=== PATIENT | female | born 1945 | race Caucasian/White ===

== ENCOUNTER 2018-11-28 15:40 | Outpatient (RCR) | payer MEDICARE, SELFPAY ==
[2018-11-28 17:05] LABS: Absolute Lymphocyte Count 1.02 X10^3/ul (0.83-4.51); Absolute Neutrophil Count 4.3 X10^3/uL (2.0-7.7); Basophil# 0.02 X10^3/uL; Basophil% 0.3 % (0-1); Eosinophil# 0.12 X10^3/uL; Hematocrit 30.2 % (37-47); Hemoglobin 9.5 g/dl (12.0-15.0); Lymphocyte # 1.02 X10^3/ul (4.0); Lymphocyte % 17.4 % (19-41); Mean Corp Hgb Conc 31.5 g/gl (32-36); Mean Corpuscular Hgb 29.7 pg (27.0-32.0); Mean Corpuscular Volume 94.4 fL (81-99); Monocyte# 0.41 X10^3/uL; Neutrophil # 4.27 X10^3/uL (2.7-7.7); POSITIVE COUNT NO; POSITIVE DIFFERENTIAL NO; POSITIVE MORPHOLOGY NO; Platelet Count 168 K/mm3 (150-450); RBC Distribution Width SD 58.5 fl (35.1-43.9); White Blood Count 5.9 K/mm3 (4.4-11.0)
[2018-11-28 17:16] LABS: Creatinine, Serum 0.71 mg/dL (0.55-1.02); EST Glomerular Filtration Rate 85 mL/min (>60); Est Glom Filt Rate - Afr Amer 103 mL/min (>60); Potassium 4.6 mmol/L (3.5-5.1)
== END 2018-12-09 23:59 ==
LOC: HHLAB 15:40
DX: Z48.816 Encounter for surgical aftercare following surgery on the genitourinary system (principal); Z46.6 Encounter for fitting and adjustment of urinary device
CPT/HCPCS: 82565; 84132; 85025

== ENCOUNTER → 2018-12-08 12:46 | Outpatient (CLI) | payer MEDICARE, SELFPAY ==
[2018-12-08 13:39] LABS: Color, Urine Amber (Yellow); Glucose, Dipstick Normal (Normal); Ketone-Dipstick 15 mg/dl (Negative); Leukocyte Esterase-Dipstick 500 /ul (Negative); Nitrite-Dipstick Negative (Negative); Occult Blood-Urine 250 /ul (Negative); Protein-Dipstick 500 mg/dl (Negative); Specific Gravity, Urine 1.015 (1.002-1.030); Urine Clarity Turbid (Clear); Urine Urobilinogen 1 mg/dl (Normal); Urine pH 6.5 (5.0 - 8.0)
[2018-12-08 13:40] LABS: Urine Bilirubin Dipstick 1 mg/dL (Negative)
== END ==
DX: N39.0 Urinary tract infection, site not specified (principal)
CPT/HCPCS: 81002; 87086; 87088

== ENCOUNTER 2018-12-27 08:30 | Emergency (ER) | payer MEDICARE, OTHER, SELFPAY ==
[2018-12-27 08:31] VITALS: BP 164/80; PULSE 104; RESP 18; TEMP 36.7; O2SAT 99; BMI 26.6
--- NOTE | 2018-12-27 08:51 | CT_ITS ---
STUDY: CT ABDOMEN AND PELVIS WITH CONTRAST REASON FOR EXAM: Female, 73 years old. Abdominal pain, recent renal surgery and lithotripsy. RADIATION DOSAGE (If Supplied By Facility): CTDIvol = ( 19.71 ) mGy, DLP = ( 2171.53 ) mGycm TECHNIQUE: Transaxial images were obtained from the dome of the diaphragm to the symphysis pubis without oral contrast. 100mL IV/Oral Isovue 300 was administered. Sagittal and coronal images were reconstructed. Individualized dose optimization techniques were used for this CT. COMPARISON: CT abdomen and pelvis 07/03/2014. FINDINGS: 3 mm posterior right lower lobe nodule on series 2 image 2. There is mild bibasilar atelectasis and/or scarring.. The visualized portions of the heart are within normal limits. There is decreased attenuation of the liver consistent with steatosis. There are surgical clips in the gallbladder fossa consistent with a prior cholecystectomy. Normal spleen. Normal pancreas. Normal bilateral adrenal glands. There is marked right hydroureteronephrosis, the point of obstruction appears to be the right distal ureter as it courses between the urinary bladder and a markedly distended, stool-filled rectum. There is mild diffuse right ureteral urothelial wall thickening. There is moderate left hydroureteronephrosis without apparent cause of obstruction. There is a nonobstructing 4 mm left renal midpole stone. Contrast is seen layering in the dilated calyces and renal pelvis on delayed imaging without excretion into the ureters or urinary bladder. The nephrograms are symmetric. There is a large hiatal hernia composed mostly of the fundus of the stomach. Normal small intestine. There is marked rectal fecal impaction and dilatation of the rectum. Colonic diverticulosis without evidence of acute diverticulitis.. The appendix is visualized and appears normal. There is diffuse atherosclerotic calcification of the abdominal aorta, without a demonstrated aneurysm. Normal inferior vena cava. Normal retroperitoneum. Normal urinary bladder. Normal abdominal wall. There is dextroscoliosis of the lumbar spine. Degenerative disc disease. CT/Abdomen/Pelvis WITH Contrast IMPRESSION: 1. Marked right hydroureteronephrosis, the point of obstruction appears to be the right distal ureter as it courses between the urinary bladder and a markedly distended, stool-filled rectum. There is mild diffuse right ureteral urothelial wall thickening suggesting ascending infection. 2. There is moderate left hydroureteronephrosis without apparent cause of obstruction. There is a nonobstructing 4 mm left renal midpole stone. Contrast is seen layering in the dilated calyces and renal pelvis bilaterally on delayed imaging without excretion into the ureters or urinary bladder again consistent with obstructive uropathy. 3. 3 mm right lower lobe nodule. 4. Large hiatal hernia. Electronically Signed: Jazmyne England, at 12:28 EDT Tel , Service support ,
--- NOTE | 2018-12-27 09:18 | RAD_ITS ---
STUDY: X-RAY - RIGHT KNEE REASON FOR EXAM: Female, 73 years old. Anterior pain following injury. TECHNIQUE: 4 view(s) of the knee. COMPARISON: None. FINDINGS: Normal visualized distal femur. Deformity of the proximal shaft of the fibula with expansion. This measures 1.4 cm x 2.1 cm. This most likely represents an old injury. If there is no history of old injury, further assessment should be considered. Norrmal proximal tibiofibular articulation. There is mild degenerative arthrosis of the medial femorotibial compartment. Normal lateral femorotibial compartment. There is moderate degenerative arthrosis of the patellofemoral articulation. The soft tissue structures are unremarkable. RAD/Knee 4 or More Views IMPRESSION: Degenerative arthrosis. 1.4 cm x 2.1 cm expansile deformity in the proximal shaft of the fibula as described. Electronically Signed: Jass Le, at 9:53 EDT , Service support ,
[2018-12-27] MEDS: Ondansetron 4 MG/2 ML Vial IV (09:20)
[2018-12-27] MEDS: 0.9% Normal Saline 1,000 ML 1000 ML IV (09:20)
[2018-12-27] MEDS: Morphine 4 MG/ML Syringe IV ×3 (09:20→19:04)
[2018-12-27 09:48] VITALS: BP 169/64; PULSE 78; RESP 18; O2SAT 98
--- NOTE | 2018-12-27 09:52 | ED.RN ---
UNABLE TO DRAW BLOOD WITH IV. MEDIC ATTEMPTED TO DRAW BLOOD NO SUCCESS. LAB TO COME UP AND DRAW BLOOD.
[2018-12-27 10:09] LABS: ALB/GLOB Ratio 0.6 RATIO (0.9-2.4); AST(SGOT) 58 U/L (15-37); Alanine Aminotransfer ALT/SGPT 24 U/L (13-56); Albumin, Serum 2.4 g/dL (3.2-5.0); Alkaline Phosphatase 359 U/L (45-117); Anion Gap 8 (5-15); BUN 12 mg/dL (7-18); BUN/Creat Ratio 18.1 RATIO (10-20); Calcium,Total 8.4 mg/dL (8.5-10.1); Chloride 107 mmol/L (98-107); Creatinine, Serum 0.66 mg/dL (0.55-1.02); EST Glomerular Filtration Rate 92 mL/min (>60); Est Glom Filt Rate - Afr Amer 112 mL/min (>60); Globulin 3.9 g/dL (2.2-4.2); Glucose 125 mg/dL (74-106); Lipase 49 U/L (73-393); Potassium 3.9 mmol/L (3.5-5.1); Protein, Total 6.3 g/dL (6.4-8.2); Sodium Level 141 mmol/L (136-145)
[2018-12-27 10:19] LABS: Absolute Lymphocyte Count 0.87 X10^3/ul (0.83-4.51); Basophil# 0.02 X10^3/uL; Basophil% 0.2 % (0-1); Eosinophil# 0.02 X10^3/uL; Eosinophils% 0.2 % (0-5); Hematocrit 36.5 % (37-47); Hemoglobin 11.6 g/dl (12.0-15.0); Lymphocyte # 0.87 X10^3/ul (4.0); Lymphocyte % 9.1 % (19-41); Mean Corp Hgb Conc 31.8 g/gl (32-36); Mean Corpuscular Hgb 30.4 pg (27.0-32.0); Mean Corpuscular Volume 95.8 fL (81-99); Mean Platelet Vol. 9.6 fl (6.2-12.0); Monocyte# 0.67 X10^3/uL; Neutrophil # 7.97 X10^3/uL (2.7-7.7); Neutrophil % 83.3 % (47-70); Platelet Count 161 K/mm3 (150-450); RBC Distribution Width SD 58.6 fl (35.1-43.9); Red Blood Count 3.81 M/mm3 (4.2-5.4); White Blood Count 9.6 K/mm3 (4.4-11.0)
[2018-12-27 10:22] LABS: POSITIVE COUNT NO; POSITIVE DIFFERENTIAL NO; POSITIVE MORPHOLOGY NO
--- NOTE | 2018-12-27 10:32 | ED.DCSUM_ITS ---
- ER Visit Summary Date of Service: 12/27/18 Chief Complaint: [Abdominal pain] History of Present Illness: The patient is a 73 F [presents with abdominal discomfort for 2 days. Patient states that she has not been feeling well for quite some time. Patient had decreased appetite and just generally feels weak. Patient states that she has not had a bowel movement in 5 to 6 days. She states she really has not eaten very much in the last week. Patient feels like she needs to have a bowel movement but cannot. Patient had magnesium citrate called in yesterday by her primary care physician but has had no results with it. She denies any fevers. Patient states that in November she had surgery to reposition her left ureter and subsequently developed sepsis and was on antibiotics. Patient still feels like she might have a urinary tract infection and that she has dysuria. She denies frequency or urgency. She denies hematuria. Patient has history of kidney stones. Patient has history of prior appendectomy, cholecystectomy, and hysterectomy.] Physical Examination: [HEENT-PERRLA, EOMI. Cranial nerves II through XII grossly intact. TMs clear. Mucous membranes moist. No adenopathy. Cardiovascular-regular rate and rhythm without murmur or ectopy Lungs-clear to auscultation, chest wall stable without crepitus or subcu emphysema Abdomen-normoactive bowel sounds, soft. Patient has diffuse tenderness palpation of the lower abdomen in the right lower quadrant, suprapubic, and left lower quadrant. There is some mild guarding. There is no rebound, rigidity, or perineal signs. Rectal exam-there is large amount of stool within the rectal vault that appears to be soft. I attempted to disimpact the patient however she does not tolerate this. Extremities-intact ?4, normal range of motion, normal pulses, atraumatic] Test Results: [CBC with differential obtained showed a white count of 9.6, hemoglobin 11.6, hematocrit 36, platelets 161. Chemistries unremarkable. BUN was 12 and creatinine 0.66. Alk phos was elevated 359. ALT was 24, AST 58, lipase 49.] Urinalysis was positive for infection with 500 leukocyte esterase, 50-[address] scan of the abdomen pelvis showed bilateral hydro-nephrosis right greater than left with concern for obstruction in the lower pelvis near the bladder due to rectal impaction. Also concern for a sending infection given the thickened ureter. Emergency Department Course and Treatment: [Patient was given Rocephin 1 g IV. I ordered a soapsuds enema. Patient was medicated with morphine and Zofran for continued pain. Patient case was discussed with hospitalist who then discussed the case with urology and asked that we transfer patient to [facility] where she had her recent surgery. Patient case will be discussed with the [facility] and arrangements will be made to transfer patient to [facility] for definitive care.] Treatment Plan: [Admit for further management] Disposition: Transfer to [facility]] Impression: [UTI Hydronephrosis Rectal impaction] This note was generated with [employer] dictation software. It may contain incorrect words, spelling, and punctuation that were not noted in review of the chart prior to signing ED Disposition - Plan for ED Patient: Referrals: [facility] Doctor,Out of [Primary Care Provider] -
[2018-12-27 10:42] LABS: Lactic Acid 2.3 mmol/L (0.4-2.0)
[2018-12-27 10:56] LABS: Mucous, Urine 0 SEEN /hpf (<or=2+)
[2018-12-27 10:57] LABS: Color, Urine Yellow (Yellow); Glucose, Dipstick Normal (Normal); Ketone-Dipstick 5 mg/dl (Negative); Leukocyte Esterase-Dipstick 500 /ul (Negative); Nitrite-Dipstick Negative (Negative); Occult Blood-Urine 250 /ul (Negative); Protein-Dipstick 30 mg/dl (Negative); Urine Clarity Cloudy (Clear); Urine Urobilinogen 8 mg/dl (Normal)
[2018-12-27 11:03] LABS: Urine Bilirubin Dipstick 3 mg/dL (Negative)
[2018-12-27 11:05] LABS: Red Blood Cells-Urine 25-50 SEEN /hpf (0-5)
[2018-12-27 11:06] LABS: White Blood Cells 50-100 SEEN /hpf (0-5)
[2018-12-27 11:07] LABS: Bacteria 2+ /hpf (None Seen); Squamous Epithelial Cells - UA 0-5 SEEN /hpf (5-10)
[2018-12-27 11:57] VITALS: BP 126/58; PULSE 67; RESP 18; TEMP 36.6; O2SAT 97
[2018-12-27] MEDS: Ceftriaxone 1 GM/50 ML BAG IV (11:57)
--- NOTE | 2018-12-27 13:05 | NURSING ---
DR FERRELL FOR DR RODRIGUEZ
--- NOTE | 2018-12-27 14:00 | NURSING ---
CALLED [facility] TALKED, TO CHRISTIANO IN TRANSFER
[2018-12-27 14:13] LABS: Reflex Lactate? Y
--- NOTE | 2018-12-27 14:46 | NURSING ---
CALLED [facility] TRANSFER LINE. TALKED TO TAMJavi. HE HAS PAGED MEDICINE TWICE. WAITING ON THEM TO RETURN CALL
--- NOTE | 2018-12-27 15:19 | NURSING ---
ACCEPTED BY DR CLEANING, WAITING ON ROOM
[2018-12-27 16:54] LABS: Lactic Acid 1.8 mmol/L (0.4-2.0)
--- NOTE | 2018-12-27 16:55 | NURSING ---
CALLED [facility], TALKED TO BECCA. NO BED YET
[2018-12-27 19:04] VITALS: BP 112/53; PULSE 83; RESP 17; O2SAT 97
[2018-12-27 21:05] VITALS: BP 115/83; PULSE 84; RESP 18; O2SAT 96
[2018-12-27 21:06] VITALS: BP 115/83; PULSE 84; RESP 18; O2SAT 96
== END 2018-12-27 21:54 | disposition short-term general hospital (02) ==
PROVIDERS: Emergency Provider Emergency Medicine
DX: N39.0 Urinary tract infection, site not specified (principal); N13.30 Unspecified hydronephrosis; K59.00 Constipation, unspecified; Z87.442 Personal history of urinary calculi; Z90.49 Acquired absence of other specified parts of digestive tract
CPT/HCPCS: 36415; 73564; 74177; 80053; 81001; 83605; 83690; 85025; 87086; 87088; 96361; 96365; 96375; 96376; 99285; J7030; J7050; Q9967; A4216; J2405

== ENCOUNTER → 2019-01-30 13:34 | Outpatient (CLI) | payer MEDICARE, OTHER, SELFPAY ==
[2019-01-30 14:04] LABS: Creatinine, Serum 0.83 mg/dL (0.55-1.02); EST Glomerular Filtration Rate 72 mL/min (>60); Est Glom Filt Rate - Afr Amer 87 mL/min (>60)
== END ==
PROVIDERS: Referring Provider Physician Assistant; Visit Provider Physician Assistant
DX: N28.9 Disorder of kidney and ureter, unspecified (principal)
CPT/HCPCS: 36415; 82565

== ENCOUNTER 2019-04-25 02:00 | Emergency (ER) | payer MEDICARE, OTHER, SELFPAY ==
[2019-04-25] VITALS (14 sets, daily range): BP systolic 99–148; BP diastolic 40–63; PULSE 84–107; RESP 16–98; TEMP 37.2–38.8; O2SAT 94–99; BMI 29.0
[2019-04-25] MEDS: Ondansetron 4 MG/2 ML Vial IV (02:57)
[2019-04-25] MEDS: Morphine 4 MG/ML Syringe IV ×3 (02:57→09:17)
[2019-04-25 03:29] LABS: Mucous, Urine 0 SEEN /hpf (<or=2+)
[2019-04-25 03:33] LABS: Absolute Lymphocyte Count 0.41 X10^3/uL (0.83-4.51); Absolute Neutrophil Count 10.9 X10^3/uL (2.0-7.7); Basophil# 0.03 X10^3/uL; Basophil% 0.2 % (0-1); Eosinophil# 0.01 X10^3/uL; Eosinophils% 0.1 % (0-5); Hematocrit 34.2 % (37-47); Hemoglobin 10.8 g/dL (12.0-15.0); Lymphocyte # 0.41 X10^3/ul (4.0); Lymphocyte % 3.3 % (19-41); Mean Corp Hgb Conc 31.6 g/dL (32-36); Mean Corpuscular Hgb 30.5 pg (27.0-32.0); Mean Corpuscular Volume 96.6 fL (81-99); Monocyte# 0.88 X10^3/uL; Monocyte% 7.2 % (0-10); NRBC Flagged by Analyzer 0 % (0-5); Neutrophil # 10.87 X10^3/uL (2.7-7.7); Neutrophil % 88.5 % (47-70); POSITIVE DIFFERENTIAL YES; Platelet Count 114 K/mm3 (150-450); RBC Distribution Width CV 16.4 % (11.6-14.6); RBC Distribution Width SD 58.8 fl (35.1-43.9); Red Blood Count 3.54 M/mm3 (4.2-5.4); White Blood Count 12.3 K/mm3 (4.4-11.0)
[2019-04-25] MEDS: Acetaminophen 500 MG Tablet 1000 MG PO (03:33)
[2019-04-25] MEDS: 0.9% Normal Saline 1,000 ML 250 ML IV ×2 (03:35→07:42)
[2019-04-25 03:37] LABS: Differential Indicated SCAN CRITERIA MET
[2019-04-25 03:40] LABS: Color, Urine Yellow (Yellow); Glucose, Dipstick Normal (Normal); Ketone-Dipstick Negative (Negative); Leukocyte Esterase-Dipstick 500 /ul (Negative); Nitrite-Dipstick Negative (Negative); Occult Blood-Urine 150 /ul (Negative); Protein-Dipstick 30 mg/dl (Negative); Specific Gravity, Urine 1.015 (1.002-1.030); Urine Bilirubin Dipstick Negative (Negative); Urine Clarity Cloudy (Clear); Urine Urobilinogen 4 mg/dl (Normal); Urine pH 6.5 (5.0 - 8.0)
[2019-04-25 03:41] LABS: Bacteria 2+ /hpf (None Seen); Red Blood Cells-Urine 0-5 SEEN /hpf (0-5); Squamous Epithelial Cells - UA 0-5 SEEN /hpf (5-10); White Blood Cells 50-100 SEEN /hpf (0-5)
[2019-04-25 03:48] LABS: Differential Comment SCANNED
[2019-04-25 03:50] LABS: ALB/GLOB Ratio 0.7 RATIO (0.9-2.4); AST(SGOT) 79 U/L (15-37); Alanine Aminotransfer ALT/SGPT 22 U/L (13-56); Albumin, Serum 2.8 g/dL (3.2-5.0); Alkaline Phosphatase 321 U/L (45-117); Anion Gap 6 (5-15); BUN 13 mg/dL (7-18); BUN/Creat Ratio 11.6 RATIO (10-20); Calcium,Total 8.5 mg/dL (8.5-10.1); Chloride 107 mmol/L (98-107); Creatinine, Serum 1.12 mg/dL (0.55-1.02); EST Glomerular Filtration Rate 50 mL/min (>60); Est Glom Filt Rate - Afr Amer 61 mL/min (>60); Estimated Creatinine Clearance 41.25 ml/min; Glucose 142 mg/dL (74-106); Potassium 5.9 mmol/L (3.5-5.1); Protein, Total 6.8 g/dL (6.4-8.2); Sodium Level 141 mmol/L (136-145)
[2019-04-25 03:51] LABS: Lactic Acid 3.3 mmol/L (0.4-2.0)
--- NOTE | 2019-04-25 04:00 | EKG12_ITS ---
Test Reason : NAUSEA/VOMITING Blood Pressure : / mmHG Vent. Rate : 096 BPM Atrial Rate : 096 BPM P-R Int : 152 ms QRS Dur : 082 ms QT Int : 376 ms P-R-T Axes : 051 055 041 degrees QTc Int : 475 ms Normal sinus rhythm Nonspecific ST and T wave abnormality Abnormal ECG Confirmed by NEIDA DUMONT, ROBERT ([id number]), film or videotape editor LAURENCE LOU ([id number]) on 04/26/2019 9:01:19 AM Referred By: CATRACHITA Confirmed By:ROBERT CARRASQUILLO MD
--- NOTE | 2019-04-25 04:00 | ED.DCSUM_ITS ---
History of Present Illness Chief Complaint: Abd Pain Informant: Patient, Significant Other Onset: Today - Past 12 hours or so Context: Gradual Onset - After having left ureteral stent removed Timing: Continuous Quality: Achy Location: Left mid abdomen Current Severity: Moderate Maximum Severity: Moderate Worsened by: Nothing Relieved by: Nothing Associated Symptoms: Subjective fever/chills, nausea, hematuria without clots or retention Narrative: Patient had an 8 mm kidney stone on the left. She had surgery by Dr. Gonzalez urology at [facility] who remove the stone with a basket and placed a stent afterwards. It was removed today after 1 week. She had no pain when the stent was then, the pain started after it was removed today. She started having fevers and chills. She was on Keflex until yesterday. She states she has been on antibiotics for couple months. She denies any hematuria or back pain. - Past Medical History (1) Kidney stones Status: Chronic Past Medical History - Allergies and Home Meds Allergies/Adverse Reactions: Allergies Sulfa (Sulfonamide Antibiotics) Allergy (Verified 12/27/18 08:34) Swelling Primary Care Physician: Eagle Dang MD [Primary Care Provider] - Lives: Spouse/ Significant Other Smoking Status: Never smoker Review of Systems General: Reports: Chills, Fever, Malaise, Subjective. Denies: Sweats Eyes: Denies: Visual changes - bilaterally, Diplopia ENT: Denies: Rhinorrhea, Sore throat Cardiovascular: Denies: Chest pain, Palpitations Respiratory: Denies: Dyspnea, Cough, Dyspnea on exertion Gastrointestinal: Reports: Abdominal pain, Nausea. Denies: Vomiting, Diarrhea, Melena, Hematochezia Genitourinary: Reports: Hematuria, Frequency. Denies: Dysuria Musculoskeletal: Denies: Back pain, Extremity Pain Skin: Denies: Rash, Wounds Neurological: Denies: Headache, Weakness, Numbness Physical Exam Vital Signs/Narrative: Vital Signs Temp Pulse Resp BP Pulse Ox 04/25/19 03:22 97 04/25/19 03:02 101.2 F H 98 18 137/63 H 97 04/25/19 02:53 97 16 138/53 H 94 04/25/19 02:01 99.8 F H 106 H 16 148/49 H 96 Inital Vital Signs reviewed: Yes General: Well nourished, Well developed, No Acute Distress Head: Normocephalic, Atraumatic Eyes: Perrl, EOMI ENT: Moist mucous membranes, No rhinorrhea Neck: Supple, Nontender Cardiovascular: Regular rate, Regular rhythm, No murmurs, Tachycardia - Mild Respiratory: No distress, CTA bilaterally, Chest nontender Abdomen: Soft, Nondistended, Normal bowel sounds, Tender - Left mid abdomen. Negative for: Guarding, Rebound tenderness Back: Nontender, Normal Inspection. Negative for: CVA tenderness Extremities: Nontender, Edema - Trace bilateral lower extremity, distal pretibial, symmetric Skin: Normal color, No rash, No Trauma Neurological: Alert, Oriented x3, Cranial nerves II-XII grossly intact, Normal Strength, Normal Sensation Psychological: Normal affect, Normal Mood Diagnostic/Tx/Re-eval Impressions Abdomen/Pelvis CT 04/25/19 04:04 IMPRESSION: Severe left-sided hydronephrosis and hydroureter is worse since the previous study. Nonobstructing stones in the distal left ureter measuring respectively 4 mm and 2 mm. There are also nonobstructing stones in the left kidney largest measures 6 mm. Electronically Signed: Debbie Miller, at 5:22 EDT Tel , Service support , 04/25/19 04:04 CT Abd [Abdomen/Pelvis without Cont] [CT] Stat Laboratory Results 04/25/19 04/25/19 04/25/19 02:30 02:30 02:30 WBC 12.3 H RBC 3.54 L Hgb 10.8 L Hct 34.2 L MCV 96.6 MCH 30.5 MCHC 31.6 L RDW Std Deviation 58.8 H RDW Coeff of Shane 16.4 H Plt Count 114 L MPV 11.0 Immature Gran % (Auto) 0.700 Neut % (Auto) 88.5 H Lymph % (Auto) 3.3 L Whitman % (Auto) 7.2 Eos % (Auto) 0.1 Baso % (Auto) 0.2 Absolute Neuts (auto) 10.9 H Absolute Lymphs (auto) 0.41 L Nucleated RBC % 0 Differential Comment SCANNED PT INR APTT Sodium 141 Potassium 5.9 H Chloride 107 Carbon Dioxide 28.0 Anion Gap 6 BUN 13 Creatinine 1.12 H Estim Creat Clear Calc 41.25 Est GFR (MDRD) Af Amer 61 Est GFR (MDRD) Non-Af 50 L BUN/Creatinine Ratio 11.6 Glucose 142 H Lactic Acid 3.3 H Calcium 8.5 Total Bilirubin 0.90 AST 79 H ALT 22 Alkaline Phosphatase 321 H Total Protein 6.8 Albumin 2.8 L Globulin 4.0 Albumin/Globulin Ratio 0.7 L Urine Color Urine Clarity Urine pH Ur Specific [place] Urine Protein Urine Glucose (UA) Urine Ketones Urine Occult Blood Urine Nitrite Urine Bilirubin Urine Urobilinogen Ur Leukocyte Esterase Urine RBC Urine WBC Ur Squamous Epith Cells Urine Bacteria Urine Mucus 04/25/19 04/25/19 04/25/19 03:13 03:35 04:30 WBC RBC Hgb Hct MCV MCH MCHC RDW Std Deviation RDW Coeff of Shane Plt Count MPV Immature Gran % (Auto) Neut % (Auto) Lymph % (Auto) Whitman % (Auto) Eos % (Auto) Baso % (Auto) Absolute Neuts (auto) Absolute Lymphs (auto) Nucleated RBC % Differential Comment PT Cancelled 14.6 INR Cancelled 1.2 APTT Cancelled 35.0 Sodium Potassium Chloride Carbon Dioxide Anion Gap BUN Creatinine Estim Creat Clear Calc Est GFR (MDRD) Af Amer Est GFR (MDRD) Non-Af BUN/Creatinine Ratio Glucose Lactic Acid Calcium Total Bilirubin AST ALT Alkaline Phosphatase Total Protein Albumin Globulin Albumin/Globulin Ratio Urine Color Yellow Urine Clarity Cloudy Urine pH 6.5 Ur Specific [place] 1.015 Urine Protein 30 H Urine Glucose (UA) Normal Urine Ketones Negative Urine Occult Blood 150 H Urine Nitrite Negative Urine Bilirubin Negative Urine Urobilinogen 4 H Ur Leukocyte Esterase 500 H Urine RBC 0-5 SEEN Urine WBC 50-100 SEEN Ur Squamous Epith Cells 0-5 SEEN Urine Bacteria 2+ Urine Mucus 0 SEEN - Medical Decision Making Symptoms were controlled with morphine and Zofran. She was given IV fluids, and after urinalysis confirmed our suspicion of infection, IV Rocephin. Blood and urine cultures were sent first. Her lactate returned elevated but less than 4. She has a very slightly abnormal creatinine at 1.12, but her potassium is 5.9. It appears this is likely due to hemolysis. To confirm this, I obtained an EKG, and it indeed shows no acute signs of hyperkalemia. Therefore I did not feel that needed repeated. I performed a CT, it shows severe left-sided hydronephrosis and hydroureter, worse since the previous study, with nonobstructing stones in the distal left ureter measuring 4 mm and 2 mm with nonobstructing stones in the left kidney with the largest measuring 6 mm. On reevaluation, her symptoms are very well controlled and she is well-appearing. Given that she has stable vital signs and is not in septic shock, I do not think she needs an emergent percutaneous nephrostomy at this time. Since she already has a urologic surgeon who is at [facility], she prefers to stay with him for now, he does not have privileges here [place]. Therefore she will require transfer to [facility]. The [facility] hot pond operator had trouble contacting an attending urologist. 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 Still awaiting an attending urologist. I reevaluated patient clinically, she is doing very well with stable vital signs, the only abnormal one is a heart rate of 109. Accepted by Dr. Puente; was in surgery, hence the reasonable delay. ED Disposition - Plan for ED Patient: Disposition: [facility] - Main Diagnosis: Sepsis due to urinary tract infection, Hydroureter on left, Hydronephrosis, left, Nephrolithiasis, Ureterolithiasis Referrals: Eagle Dang MD [Primary Care Provider] -
--- NOTE | 2019-04-25 04:04 | CT_ITS ---
STUDY: CT ABDOMEN AND PELVIS WITHOUT CONTRAST REASON FOR EXAM: Female, 73 years old. LT FLANK PAIN,FEVER AND VOMITING S/P LT URETERAL STENT REMOVAL YESTERDAY HX:KIDNEY STONES,MELANOMA SURGERY:APPENDECTOMY,RAEANN/BSO,CHOLECYSTECTOMY,MULT STONE EXTRACTIONS AND LITHOTRIPSY RADIATION DOSAGE (If Supplied By Facility): CTDIvol = ( 11.54 ) mGy, DLP = ( 605.72 ) mGycm TECHNIQUE: Transaxial images were obtained from the dome of the diaphragm to the symphysis pubis without oral contrast, and without intravenous contrast. Sagittal and coronal images were reconstructed. Individualized dose optimization techniques were used for this CT. COMPARISON: 01/26/2019 FINDINGS: The visualized lung bases are unremarkable. The visualized portions of the heart are within normal limits. Normal liver. There are surgical clips in the gallbladder fossa consistent with a prior cholecystectomy. There is mild splenomegaly the spleen measures approximately 16.5 x 14 x 9 cm. Normal pancreas. Normal bilateral adrenal glands. Mild right-sided hydronephrosis and hydroureter is stable since the previous study. Severe left-sided hydronephrosis and hydroureter is worse since the previous study. Nonobstructing stones in the distal left ureter measuring respectively 4 mm and 2 mm. There are also nonobstructing stones in the left kidney largest measures 6 mm. There is a large hiatal hernia composed mostly of the fundus of the stomach. Normal small intestine. There are multiple colonic diverticula consistent with diverticulosis. The appendix is visualized and appears normal. Normal abdominal aorta. Normal inferior vena cava. Normal retroperitoneum. Normal urinary bladder. Normal abdominal wall. Normal osseous structures. CT/Abdomen/Pelvis without Cont IMPRESSION: Severe left-sided hydronephrosis and hydroureter is worse since the previous study. Nonobstructing stones in the distal left ureter measuring respectively 4 mm and 2 mm. There are also nonobstructing stones in the left kidney largest measures 6 mm. Electronically Signed: Debbie Miller, at 5:22 EDT Tel , Service support ,
--- NOTE | 2019-04-25 04:17 | ED.RN ---
notified of the pts lactic of 3.3
[2019-04-25] MEDS: Ceftriaxone 1 GM/50 ML BAG IV (04:25)
[2019-04-25 05:07] LABS: International Normalized Ratio 1.2; Prothrombin Time (Protime)PT. 14.6 SECONDS (11.7-14.9)
[2019-04-25] MEDS: Acetaminophen 325 MG Tablet 650 MG PO (06:12)
--- NOTE | 2019-04-25 07:14 | NURSING ---
CALLED [facility]. WAS ON HOLD FOR [address] HAYDEN OR [facility] SUPPORT MAKER DR. DAWSON TOOK INFO AND WILL CONTINUE TO PAGE
[2019-04-25 07:27] LABS: Reflex Lactate? Y
--- NOTE | 2019-04-25 08:13 | NURSING ---
CALLED [facility] FOR TRANSFER.
[2019-04-25 08:24] LABS: Lactic Acid 1.8 mmol/L (0.4-2.0)
--- NOTE | 2019-04-25 08:51 | NURSING ---
[facility] FAXED. CALLED [facility] TRANSFER LINE, TALKED TO GIORGI. DR MCKEON ACCEPTED PATIENT, WAITING ON BED
--- NOTE | 2019-04-25 08:53 | NURSING ---
[facility] BED G90 BED 36 NURSE TO NURSE [phone]
--- NOTE | 2019-04-25 09:11 | NURSING ---
CALLED [facility]. ETA IS FROM [facility] [place]
--- NOTE | 2019-04-27 15:16 | ED.RN ---
Blood culture results faxed to [facility].
== END 2019-04-25 09:45 | disposition short-term general hospital (02) ==
PROVIDERS: Emergency Provider Emergency Medicine; Family Provider Family Medicine; PCP Family Medicine
DX: A41.9 Sepsis, unspecified organism (principal); N13.6 Pyonephrosis; Z87.442 Personal history of urinary calculi
CPT/HCPCS: 74176; 80053; 81001; 83605; 85025; 85610; 85730; 87040; 87077; 87086; 87088; 87149; 87186; 93005; 96365; 96375; 96376; 99285; J7030; A4216; J2405

== ENCOUNTER 2019-04-30 16:10 | Inpatient (IN) | payer MEDICARE, OTHER, SELFPAY ==
[2019-04-25 02:01] VITALS: BMI 29.0
[2019-04-30 16:24] VITALS: BP 161/58; PULSE 99; RESP 22; TEMP 36.3; O2SAT 98
[2019-04-30 17:20] VITALS: BMI 34.9
[2019-04-30 17:23] VITALS: BMI 35.0
[2019-04-30] MEDS: Linezolid 600 MG Tablet PO (18:38)
[2019-04-30 20:05] VITALS: PULSE 80; RESP 16; O2SAT 98
[2019-04-30] MEDS: Atorvastatin Calcium 20 MG Tablet PO (20:44)
--- NOTE | 2019-04-30 20:44 | HP.PCM_ITS ---
Problem List (1) Debility Status: Acute (2) Septic shock Status: Acute (3) Body mass index (BMI) 35.0-35.9, adult Status: Chronic (4) Pyelonephritis Status: Acute (5) Hydroureter, left Status: Acute (6) Hydronephrosis, left Status: Acute (7) Hypertension Status: Chronic (8) Hyperlipidemia Status: Chronic (9) Kidney stones Status: Chronic History of Present Illness Date of Admission: 04/30/19 Chief Complaint: Here for rehabilitation, strengthening, prior to discharge home with . The patient is a 73 year old Female with below past medical history presented to [facility] Emergency Department 04/17/2019 with abdominal pain. 04/25/2019 EKG normal sinus rhythm, nonspecific ST&T wave abnormality. 04/25/2019 CT abdomen/pelvis showed severe left hydronephrosis, left hydroureter, non obstructing left kidney, left ureteral stone. Left kidney stone removed with stent placement per Dr. Gonzalez at [facility] recently. Pain, Fever, Chills. Morphine, Zofran, IV fluids given. UA consistent with infection, Rocephin IV given after blood, urine cultures sent. Transfer to [facility]. Fever 102. 04/25/2019 Admit to [facility]. Interventional Radiology placed left nephrostomy tube for emergent decompression. Blood culture grew Vancomycin resistant enterococcus. Urine culture grew Enterococcus Faecium. Zosyn IV changed to Daptomycin IV. 04/30/2019 Admit to TCU with debility, here for rehabilitation, strengthening, prior to discharge home with . Past Medical History Past Medical History (Chronic Problems): Chronic Problems Kidney stones (Chronic) Body mass index (BMI) 35.0-35.9, adult (Chronic) Hypertension (Chronic) Hyperlipidemia (Chronic) Allergies Sulfa (Sulfonamide Antibiotics) Allergy (Verified 12/27/18 08:34) Swelling Home Medications: Ambulatory Orders Medication Instructions Recorded Docusate Sodium [Colace] 100 mg PO BID PRN PRN 04/30/19 Ketorolac [Toradol] 10 mg PO Q6H 04/30/19 Linezolid [Zyvox] 600 mg PO Q12H 04/30/19 Ondansetron [Zofran Odt] 4 mg PO Q8H PRN PRN 04/30/19 Sennosides [Senna] 8.6 mg PO BID 04/30/19 Simvastatin [Zocor] 40 mg PO QHS 04/30/19 Surgical History: appendectomy, cholecystectomy, hysterectomy - Total abdominal., - - , Melanoma excision, Liver biopsy. 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 Lives: Spouse/ Significant Other Smoking Status: Never smoker Tobacco Use: Non-smoker Alcohol: None Drugs: None - *Family History Maternal History Items: No pertinent history Paternal History Items: No pertinent history Review of Systems Constitutional: Denies: Chills, Fever, Weight Change HEENT: Denies: Head Aches, Sinus Congestion, Sinus Drainage Cardiovascular: Denies: Chest Pain, Palpitations Respiratory: Denies: Cough, Shortness of breath at rest, Sputum production Gastrointestinal: Denies: Abdominal Pain, Nausea, Vomiting Genitourinary: Denies: Dysuria Musculoskeletal: Denies: Joint Pain, Joint Tenderness Skin: Denies: Rash, Wounds Neurological: Denies: Numbness, Tingling, Focal weakness Psychiatric: Denies: Anxiety, Depression, Homicidal Ideations, Suicidal Ideations Hematologic/ Lymphatic: Denies: Easy Bruising, Easy Bleeding VTE Information - Inpt Only VTE Present on Admission: No VTE Pharm Prophylaxis ordered?: Yes Patient Problems: Active and Suspected Problems Debility (Acute) Septic shock (Acute) Pyelonephritis (Acute) Hydroureter, left (Acute) Hydronephrosis, left (Acute) - Physical Exam General: Alert, Oriented x3, Cooperative HEENT: Atraumatic, PERRLA, EOMI, Normocephalic Neck: Supple, No JVD, Negative Carotid Bruits Lungs: Clear to auscultation, Normal air movement Cardiovascular: Regular rate, No murmurs Abdomen: Bowel Sounds Present, Soft, Non Tender, - - Left nephrostomy tube. Extremities: No edema, Capillary Refill Less than 3 Seconds Skin: No rashes, No breakdown Musculoskeletal: No Tenderness to Palpation of Joints or Extremities Neurological: Cranial nerves II-XII grossly intact Psych/Mental Status: Normal Affect, Appropriate Vital Signs Temp Pulse Resp BP Pulse Ox 97.4 F L 99 22 H 161/58 H 98 04/30/19 16:24 04/30/19 16:24 04/30/19 16:24 04/30/19 16:24 04/30/19 16:24 Oxygen Delivery Method Room Air Weight: 92.487 kg Body Mass Index (BMI) 34.9 Assessment/Plan All Active Problems Debility (Acute) Septic shock (Acute) Pyelonephritis (Acute) Hydroureter, left (Acute) Hydronephrosis, left (Acute) 73 year old female with below past medical history hospitalized for septic shock secondary to pyelonephritis from left kidney stone, admitted to TCU with tye malloy, here for rehabilitation, strengthening, prior to discharge home with . * Debility - PT/OT. * Pain - Tylenol 1000MG Q6H PRN pain (1-3), Toradol 10MG Q6H PRN pain (4-10) * Bowel - Miralax 17GM daily, Senna/colace 1 tablet BID, Dulcolax 10MG daily PRN. * Pneumonia vaccination - Administer Prevnar 13 and/or Pneumovax 23 as necessary. * DVT prophylaxis - Lovenox 30MG SC daily. * Hyperlipidemia - Atorvastatin 20MG QHS. * VRE, E. Faecium urinary tract infection - Linezolid 600MG Q12H thru 05/05/2019. * Nausea - Zofran 4MG Q8H PRN.
[2019-05-01] MEDS: Polyethylene Glycol 3350 17 GM PACKET PO (05:28)
[2019-05-01] MEDS: Enoxaparin 30 MG/0.3 ML Syringe SC (05:29)
[2019-05-01] MEDS: Linezolid 600 MG Tablet PO ×2 (05:29→17:51)
[2019-05-01] MEDS: Senna/Docusate Sodium 1 Tablet PO ×2 (05:29→17:51)
[2019-05-01] MEDS: Menthol/Lanolin/Calamine/Znox 113 GM Tube 1 APPLIC TOPICAL ×2 (05:37→22:13)
[2019-05-01 05:51] LABS: Absolute Lymphocyte Count 1.11 X10^3/uL (0.83-4.51); Absolute Neutrophil Count 3.5 X10^3/uL (2.0-7.7); Basophil# 0.03 X10^3/uL; Basophil% 0.6 % (0-1); Eosinophil# 0.12 X10^3/uL; Eosinophils% 2.3 % (0-5); Hematocrit 33.9 % (37-47); Hemoglobin 9.9 g/dL (12.0-15.0); Lymphocyte # 1.11 X10^3/ul (4.0); Lymphocyte % 21.4 % (19-41); Mean Corp Hgb Conc 29.2 g/dL (32-36); Mean Corpuscular Hgb 29.6 pg (27.0-32.0); Mean Corpuscular Volume 101.5 fL (81-99); Mean Platelet Vol. 10.5 fl (6.2-12.0); Monocyte% 7.7 % (0-10); NRBC Flagged by Analyzer 0 % (0-5); Neutrophil # 3.48 X10^3/uL (2.7-7.7); Platelet Count 119 K/mm3 (150-450); RBC Distribution Width SD 62.4 fl (35.1-43.9); Red Blood Count 3.34 M/mm3 (4.2-5.4); White Blood Count 5.2 K/mm3 (4.4-11.0)
[2019-05-01] MEDS: Nystatin Powder 15gm Bottle 1 APPLIC TOPICAL ×2 (06:14→22:14)
[2019-05-01 06:18] LABS: Anion Gap 6 (5-15); BUN 7 mg/dL (7-18); BUN/Creat Ratio 13.6 RATIO (10-20); Calcium,Total 8.4 mg/dL (8.5-10.1); Chloride 115 mmol/L (98-107); Creatinine, Serum 0.51 mg/dL (0.55-1.02); EST Glomerular Filtration Rate 124 mL/min (>60); Est Glom Filt Rate - Afr Amer 150 mL/min (>60); Estimated Creatinine Clearance 42.62 ml/min; Glucose 98 mg/dL (74-106); Potassium 3.5 mmol/L (3.5-5.1); Sodium Level 142 mmol/L (136-145)
[2019-05-01] MEDS: Tuberculin,Purif.prot.deriv. 50 TU/ML Vial 5 ML ID (10:53)
[2019-05-01] MEDS: Acetaminophen 500 MG Tablet 1000 MG PO ×2 (11:00→22:37)
[2019-05-01 15:59] VITALS: BP 126/47; PULSE 82; RESP 20; TEMP 36.8; O2SAT 97
--- NOTE | 2019-05-01 17:16 | CHAPLAIN ---
Type of Pastoral Visit _x__ Initial Visit ___ Follow-up Visit ___ On-call Visit ___ General Patient Visit ___ Spiritual Assessment ___ Family Conference ___ Bereavement ___ Rapid Response ___ Code Blue ___ Other (describe below) Pastoral Care Referral From _x__ Patient ___ Family ___ Nurse ___ Physician ___ [place] ___ Product Manager E [employer] ___ Other (describe below) Sacrament/Intervention _x__ Active listening ___ Anointing ___ Sabianist ___ Bereavement ___ Communion _x__ Triny exploration ___ _x__ Life review _x__ Prayer ___ Reconciliation ___ Sacrament of Sick _x__ Supportive presence ___ Wedding ___ Other (describe below) Pastoral Comments
[2019-05-01] MEDS: Atorvastatin Calcium 20 MG Tablet PO (22:11)
[2019-05-02] MEDS: Bisacodyl 5 MG Tablet 10 MG PO (06:05)
[2019-05-02] MEDS: Nystatin Powder 15gm Bottle 1 APPLIC TOPICAL ×2 (06:06→20:06)
[2019-05-02] MEDS: Menthol/Lanolin/Calamine/Znox 113 GM Tube 1 APPLIC TOPICAL ×2 (06:06→20:06)
[2019-05-02] MEDS: Linezolid 600 MG Tablet PO ×2 (06:07→17:52)
[2019-05-02] MEDS: Senna/Docusate Sodium 1 Tablet PO (06:08)
[2019-05-02] MEDS: Enoxaparin 30 MG/0.3 ML Syringe SC (06:08)
--- NOTE | 2019-05-02 10:52 | PHA.CONS_ITS ---
<Jonny Boycei - Last Filed: 05/02/19 10:52> Progress Note - Pharmacy Subjective: TCU Admission Objective: Allergies Sulfa (Sulfonamide Antibiotics) Allergy (Verified 12/27/18 08:34) Swelling Current Medications Generic Name Dose Route Start Last Admin Trade Name Freq PRN Reason Stop Dose Admin Acetaminophen 1,000 mg 04/30/19 21:01 05/01/19 22:37 Tylenol PO 1,000 mg Q6H PRN PRN Administration Pain Score 1-3/10 Atorvastatin Calcium 20 mg 04/30/19 22:00 05/01/19 22:11 Lipitor PO 20 mg QHS DARLIN Administration Bisacodyl 10 mg 04/30/19 21:02 05/02/19 06:05 Dulcolax PO 10 mg DAILY PRN Administration Constipation Calamine/Phenol 1 applic 05/01/19 06:00 05/02/19 06:06 Calmoseptine Ointment TOPICAL 1 applicatio 0600,2200 [facility] Administration Protocol Enoxaparin Sodium 30 mg 05/01/19 06:00 05/02/19 06:08 Lovenox SC 30 mg DAILY@0600 DARLIN Administration Ketorolac Tromethamine 10 mg 04/30/19 18:34 Toradol PO Q6 PRN Pain Score 4-10/10 Linezolid 600 mg 04/30/19 18:00 05/02/19 06:07 Zyvox PO 05/05/19 23:59 600 mg Q12 DARLIN Administration Multi-Ingredient Cream 1 applic 05/01/19 06:00 05/02/19 06:05 Eucerin TOPICAL 1 applicatio 0600,2200 [facility] Administration Protocol Nutritional Formula (Lactose Free) 120 ml 05/01/19 17:00 05/02/19 06:13 Ensure Enlive PO 120 ml 4X/DAY DARLIN Administration Nystatin 1 applic 05/01/19 06:00 05/02/19 06:06 Mycostatin Powder TOPICAL 1 applicatio 0600,2200 [facility] Administration Protocol Ondansetron HCl 4 mg 04/30/19 16:33 Zofran Odt PO Q8H PRN PRN NAUSEA Polyethylene Glycol 17 gm 05/01/19 06:00 05/02/19 06:08 Miralax PO Not Given DAILY DARLIN Senna/Docusate Sodium 1 tablet 05/01/19 06:00 05/02/19 06:08 Senokot-S, Deana-Colace PO 1 tablet BID DARLIN Administration Tuberculin PPD 5 tu 05/08/19 10:00 Tubersol, Aplisol, Ppd ID 05/08/19 10:01 X1 ONE Problem List Debility (Acute) Septic shock (Acute) Body mass index (BMI) 35.0-35.9, adult (Chronic) Pyelonephritis (Acute) Hydroureter, left (Acute) Hydronephrosis, left (Acute) Hypertension (Chronic) Hyperlipidemia (Chronic) Vital Signs Temp Pulse Resp BP Pulse Ox 98.3 F 82 20 H 126/47 H 97 05/01/19 15:59 05/01/19 15:59 05/01/19 15:59 05/01/19 15:59 05/01/19 15:59 Oxygen Delivery Method Room Air Weight: 92.487 kg Body Mass Index (BMI) 34.9 Sodium 142 mmol/L (136-145) 05/01/19 05:25 Potassium 3.5 mmol/L (3.5-5.1) 05/01/19 05:25 Chloride 115 mmol/L (98-107) H 05/01/19 05:25 Carbon Dioxide 21.0 mmol/L (21.0-32.0) 05/01/19 05:25 Anion Gap 6 (5-15) 05/01/19 05:25 BUN 7 mg/dL (7-18) 05/01/19 05:25 Creatinine 0.51 mg/dL (0.55-1.02) L 05/01/19 05:25 Est GFR (MDRD) Af Amer 150 mL/min (>60) 05/01/19 05:25 Est GFR (MDRD) Non-Af 124 mL/min (>60) 05/01/19 05:25 BUN/Creatinine Ratio 13.6 RATIO (10-20) 05/01/19 05:25 Glucose 98 mg/dL (74-106) 05/01/19 05:25 Assessment/Plan: *1. Pain: acetaminophen 1000mg PO Q6H PRN pain (1-3/10), ketorolac 10mg PO Q6H PRN pain (4-10). Patient has not received any doses of ketorolac yet. If patient beings to require ketorolac please consider adding a stop date of 5 total days of therapy to avoid kidney injury. Please continue to monitor for increased pain and PRN usage. 2. VRE E. faecium UTI: linezolid 600mg PO Q12H thru 05/05/19. Please continue to monitor for S/S of infection and decreased platelets. *3. DVT prophylaxis: enoxaparin 30mg SC daily. Patient's renal function, body weight and platelets are appropriate for 40mg SC daily prophylactic dose. Please consider increasing dose from 30mg to 40mg if clinically appropriate. Please continue to monitor for S/S of bleeding. *4. Hyperlipidemia: atorvastatin 20mg PO QHS. I could not find a lipid panel in patient's chart. Please consider ordering a lipid panel now and then annually as clinically appropriate. LFTs are slightly elevated but appropriate for continued use. Please continue to monitor for muscle pain. 5. Nausea: ondansetron 4mg PO Q8H PRN nausea. Please continue to monitor for nausea and PRN usage. Psychotropic Medications: None Unnecessary Medications: None Bowel Regimen: Miralax 17mg PO daily, senna/docusate 1T PO BID, bisacodyl 10mg PO daily PRN constipation. Please continue to monitor for constipation and PRN usage. Date of Note:: 05/02/19 - Provider Comments Provider responsibility: Provider responsible to enter orders to implement recommendations <Remi Fernandez Chi - Last Filed: 05/02/19 18:04> Progress Note - Pharmacy Subjective: [] Objective: Allergies Sulfa (Sulfonamide Antibiotics) Allergy (Verified 12/27/18 08:34) Swelling Current Medications Generic Name Dose Route Start Last Admin Trade Name Freq PRN Reason Stop Dose Admin Acetaminophen 1,000 mg 04/30/19 21:01 05/02/19 11:06 Tylenol PO 1,000 mg Q6H PRN PRN Administration Pain Score 1-3/10 Atorvastatin Calcium 20 mg 04/30/19 22:00 05/01/19 22:11 Lipitor PO 20 mg QHS DARLIN Administration Bisacodyl 10 mg 04/30/19 21:02 05/02/19 06:05 Dulcolax PO 10 mg DAILY PRN Administration Constipation Calamine/Phenol 1 applic 05/01/19 06:00 05/02/19 06:06 Calmoseptine Ointment TOPICAL 1 applicatio 06,2200 [facility] Administration Protocol Enoxaparin Sodium 30 mg 05/01/19 06:00 05/02/19 06:08 Lovenox SC 30 mg DAILY@0600 [facility] Administration Ketorolac Tromethamine 10 mg 04/30/19 18:34 Toradol PO Q6 PRN Pain Score 4-10/10 Linezolid 600 mg 04/30/19 18:00 05/02/19 17:52 Zyvox PO 05/05/19 23:59 600 mg Q12 [facility] Administration Multi-Ingredient Cream 1 applic 05/01/19 06:00 05/02/19 06:05 Eucerin TOPICAL 1 applicatio 599,0 [facility] Administration Protocol Nutritional Formula (Lactose Free) 120 ml 05/01/19 17:00 05/02/19 17:51 Ensure Enlive PO Not Given 4X/DAY [facility] Nystatin 1 applic 05/01/19 06:00 05/02/19 06:06 Mycostatin Powder TOPICAL 1 applicatio 599,2199 [facility] Administration Protocol Ondansetron HCl 4 mg 04/30/19 16:33 05/02/19 17:51 Zofran Odt PO 4 mg Q8H PRN PRN Administration NAUSEA Polyethylene Glycol 17 gm 05/01/19 06:00 05/02/19 06:08 Miralax PO Not Given DAILY [facility] Senna/Docusate Sodium 1 tablet 05/01/19 06:00 05/02/19 17:52 Senokot-S, Deana-Colace PO Not Given BID [facility] Tuberculin PPD 5 tu 05/08/19 10:00 Tubersol, Aplisol, Ppd ID 05/08/19 10:01 X1 ONE Problem List Debility (Acute) Septic shock (Acute) Body mass index (BMI) 35.0-35.9, adult (Chronic) Pyelonephritis (Acute) Hydroureter, left (Acute) Hydronephrosis, left (Acute) Hypertension (Chronic) Hyperlipidemia (Chronic) Vital Signs Temp Pulse Resp BP Pulse Ox 98.4 F 74 16 131/45 H 96 05/02/19 15:49 05/02/19 15:49 05/02/19 15:49 05/02/19 15:49 05/02/19 15:49 Oxygen Delivery Method Room Air Weight: 90.407 kg Body Mass Index (BMI) 34.9 Sodium 142 mmol/L (136-145) 05/01/19 05:25 Potassium 3.5 mmol/L (3.5-5.1) 05/01/19 05:25 Chloride 115 mmol/L (98-107) H 05/01/19 05:25 Carbon Dioxide 21.0 mmol/L (21.0-32.0) 05/01/19 05:25 Anion Gap 6 (5-15) 05/01/19 05:25 BUN 7 mg/dL (7-18) 05/01/19 05:25 Creatinine 0.51 mg/dL (0.55-1.02) L 05/01/19 05:25 Est GFR (MDRD) Af Amer 150 mL/min (>60) 05/01/19 05:25 Est GFR (MDRD) Non-Af 124 mL/min (>60) 05/01/19 05:25 BUN/Creatinine Ratio 13.6 RATIO (10-20) 05/01/19 05:25 Glucose 98 mg/dL (74-106) 05/01/19 05:25 Assessment/Plan: Psychotropic Medications: Unnecessary Medications: Bowel Regimen: - Provider Comments Provider responsibility: Provider responsible to enter orders to implement recommendations Provider Comments to Recommendations by Pharmacy: Agree
[2019-05-02] MEDS: Acetaminophen 500 MG Tablet 1000 MG PO (11:06)
[2019-05-02 15:49] VITALS: BP 131/45; PULSE 74; RESP 16; TEMP 36.9; O2SAT 96
--- NOTE | 2019-05-02 15:59 | NURSING ---
PT LEFT KIDNEY AREA WITH DRAIN CLEANED AND NEW DRESSING APPLIED PER ORDER. SOME REDNESS,NO S/S OF INFECTION. PT BLADDER SCANNED FOR 334 POST. PT TOLERATED WELL. DOROTEO FERGUSON AWARE
[2019-05-02] MEDS: Ondansetron ODT 4 MG Tablet PO (17:51)
[2019-05-02] MEDS: Atorvastatin Calcium 20 MG Tablet PO (19:58)
[2019-05-03] MEDS: Linezolid 600 MG Tablet PO ×2 (05:41→17:27)
[2019-05-03] MEDS: Acetaminophen 500 MG Tablet 1000 MG PO ×2 (05:41→18:57)
[2019-05-03] MEDS: Nystatin Powder 15gm Bottle 1 APPLIC TOPICAL ×2 (05:48→21:42)
[2019-05-03] MEDS: Menthol/Lanolin/Calamine/Znox 113 GM Tube 1 APPLIC TOPICAL ×2 (05:48→21:43)
[2019-05-03 09:55] VITALS: PULSE 72
[2019-05-03] MEDS: Ondansetron ODT 4 MG Tablet PO (10:53)
--- NOTE | 2019-05-03 10:56 | CASEMGMT ---
Social Work IDT met with patient and for care plan meeting. Discussed patient's progress in therapy. Pt was independent and using no device prior. Pt is CGA for transfers, walking 200 ft and completing 5 steps CGA. Pt is min to mod assist for LE ADLs. Pt has poor appetite, which is normal, but requesting and agreeable to appetite stimulant. Explained Medicare benefits. Will continue to work with therapy. Will continue to follow. Janey Christine MSW PROFESSOR/NURSE ANESTHETIST
[2019-05-03 16:00] VITALS: BP 129/46; PULSE 71; RESP 18; TEMP 37.1; O2SAT 94
--- NOTE | 2019-05-03 19:25 | NURSING ---
PT C/O NAUSEA WITH MEALS AND AGREEABLE TO APPETITE STIMULANT. DR KENDRICK UPDATED, NEW ORDER FOR REMERON TO START AFTER ZYVOX D/T INTERACTION. ZOFRAN GIVEN BEFORE LUNCH TODAY.
[2019-05-03] MEDS: Atorvastatin Calcium 20 MG Tablet PO (21:42)
[2019-05-04] MEDS: Nystatin Powder 15gm Bottle 1 APPLIC TOPICAL ×2 (05:11→20:29)
[2019-05-04] MEDS: Linezolid 600 MG Tablet PO ×2 (05:11→17:50)
[2019-05-04] MEDS: Menthol/Lanolin/Calamine/Znox 113 GM Tube 1 APPLIC TOPICAL ×2 (05:12→20:23)
[2019-05-04] MEDS: Acetaminophen 500 MG Tablet 1000 MG PO ×2 (15:45→22:05)
[2019-05-04] MEDS: Ondansetron ODT 4 MG Tablet PO (15:47)
--- NOTE | 2019-05-04 15:59 | NURSING ---
PT HAS EDEMA X2 NONPITTING THIGHS DOWN TO FEET. PT COUGHING,LUNGS CLEAR. I.S. GIVEN. DRESSING CHANGED TO LEFT KIDNEY AREA. CLAIRE WRAPS APPLIED TO SANGEETA LEGS. REPORTED TO DOROTEO CANCINO
[2019-05-04 16:00] VITALS: BP 127/53; PULSE 78; RESP 18; TEMP 36.4; O2SAT 98
[2019-05-04] MEDS: MELATONIN 10 MG TABLET PO (20:18)
[2019-05-04] MEDS: Atorvastatin Calcium 20 MG Tablet PO (20:18)
[2019-05-04 20:30] VITALS: PULSE 76; RESP 16; O2SAT 97
[2019-05-05] MEDS: Senna/Docusate Sodium 1 Tablet PO (06:20)
[2019-05-05] MEDS: Linezolid 600 MG Tablet PO ×2 (06:20→16:49)
[2019-05-05] MEDS: Polyethylene Glycol 3350 17 GM PACKET PO (06:20)
[2019-05-05] MEDS: Nystatin Powder 15gm Bottle 1 APPLIC TOPICAL ×2 (06:21→20:16)
[2019-05-05] MEDS: Menthol/Lanolin/Calamine/Znox 113 GM Tube 1 APPLIC TOPICAL ×2 (06:21→20:14)
[2019-05-05] MEDS: Ondansetron ODT 4 MG Tablet PO (07:09)
--- NOTE | 2019-05-05 08:30 | MDS.RN ---
Pain interview for oneyda 05/07/19 completed.
--- NOTE | 2019-05-05 09:30 | NURSING ---
Denies nausea. Zofran given earlier this morning was effective. Denies need for pain meds.
--- NOTE | 2019-05-05 11:10 | CASEMGMT ---
Social Work BIMS and PHQ-9 completed for MDS assessment. Janey Christine, PATIENT CARE REPRESENTATIVE MOTOR VEHICLE LECTURER
[2019-05-05] MEDS: Acetaminophen 500 MG Tablet 1000 MG PO (13:00)
[2019-05-05 15:31] VITALS: BP 132/44; PULSE 75; RESP 16; TEMP 36.8; O2SAT 99
--- NOTE | 2019-05-05 17:14 | NURSING ---
Aware of Vitals that were taken this afternoon by CORRECTIONAL OFFICER CAPTAIN. This nurse just changed drsg to LT flank. Old drsg taken off. Cleansed around site w/Sterile Saline and patted dry. New Split 4x4 drsg applied and held together w/paper tape.
[2019-05-05] MEDS: Atorvastatin Calcium 20 MG Tablet PO (20:15)
[2019-05-05] MEDS: MELATONIN 10 MG TABLET PO (20:15)
[2019-05-06] MEDS: Menthol/Lanolin/Calamine/Znox 113 GM Tube 1 APPLIC TOPICAL ×2 (05:34→21:25)
[2019-05-06] MEDS: Nystatin Powder 15gm Bottle 1 APPLIC TOPICAL ×2 (05:34→21:22)
[2019-05-06] MEDS: Acetaminophen 500 MG Tablet 1000 MG PO (15:28)
[2019-05-06 15:46] VITALS: BP 128/63; PULSE 82; RESP 14; TEMP 36.3; O2SAT 96
[2019-05-06] MEDS: Atorvastatin Calcium 20 MG Tablet PO (21:19)
[2019-05-06] MEDS: Mirtazapine 15 MG Tablet 7.5 MG PO (21:19)
[2019-05-06] MEDS: MELATONIN 10 MG TABLET PO (21:19)
[2019-05-07] MEDS: Acetaminophen 500 MG Tablet 1000 MG PO ×2 (04:40→13:08)
[2019-05-07] MEDS: Nystatin Powder 15gm Bottle 1 APPLIC TOPICAL ×2 (04:42→20:51)
[2019-05-07] MEDS: Menthol/Lanolin/Calamine/Znox 113 GM Tube 1 APPLIC TOPICAL ×2 (04:45→20:51)
[2019-05-07 15:23] VITALS: BP 124/59; PULSE 78; RESP 18; TEMP 36.6; O2SAT 98
[2019-05-07] MEDS: Senna/Docusate Sodium 1 Tablet PO (16:40)
[2019-05-07] MEDS: Ondansetron ODT 4 MG Tablet PO (17:50)
--- NOTE | 2019-05-07 18:02 | NURSING ---
Pt complaining of being nauseated,and achy.Prn Tylenol and Zofran given,vitals done.
[2019-05-07 18:06] VITALS: TEMP 36.9
[2019-05-07] MEDS: MELATONIN 10 MG TABLET PO (20:40)
[2019-05-07] MEDS: Atorvastatin Calcium 20 MG Tablet PO (20:41)
[2019-05-07] MEDS: Mirtazapine 15 MG Tablet 7.5 MG PO (20:41)
[2019-05-07 20:53] VITALS: O2SAT 97
[2019-05-08] MEDS: Nystatin Powder 15gm Bottle 1 APPLIC TOPICAL ×2 (05:15→20:34)
[2019-05-08] MEDS: Menthol/Lanolin/Calamine/Znox 113 GM Tube 1 APPLIC TOPICAL ×2 (05:16→20:31)
[2019-05-08] MEDS: Acetaminophen 500 MG Tablet 1000 MG PO (05:18)
--- NOTE | 2019-05-08 05:33 | NURSING ---
Addendum entered by Tash Desouza 05/08/19 11:22: UA positive, dr fernandez aware, ceftin x5 days ordered Addendum entered by Tash Desouza 05/08/19 10:03: dr fernandez updated, new order for UA C&S, H/H on 05/10, started on iron for hgb 8.7, dc'd toradol and started tramadol PRN for c/o THAKKAR. Original Note: Pt assisted to the restroom. Pt complaint of feeling achy. States she has felt this way all weekend. States she slept all day yesterday d/t not feeling great. Pt never complained last night of not feeling well. Pt denies nausea. Urine noted to be very cloudy and with a strong foul odor. Pt denies burning with urination. Bladder scan 351. Vitals taken. See documentation. Pt requesting Tylenol which was given. Pt assisted back to bed with call light in reach. Will update Dr. Fernandez.
[2019-05-08 05:38] VITALS: BP 124/71; PULSE 81; RESP 17; TEMP 36.7; O2SAT 97
[2019-05-08 05:57] LABS: Absolute Lymphocyte Count 0.94 X10^3/uL (0.83-4.51); Absolute Neutrophil Count 4.3 X10^3/uL (2.0-7.7); Basophil# 0.03 X10^3/uL; Basophil% 0.5 % (0-1); Eosinophil# 0.14 X10^3/uL; Eosinophils% 2.4 % (0-5); Hematocrit 28.6 % (37-47); Hemoglobin 8.7 g/dL (12.0-15.0); Lymphocyte # 0.94 X10^3/ul (4.0); Lymphocyte % 16.3 % (19-41); Mean Corp Hgb Conc 30.4 g/dL (32-36); Mean Corpuscular Hgb 30.1 pg (27.0-32.0); Mean Platelet Vol. 10.1 fl (6.2-12.0); Monocyte# 0.38 X10^3/uL; Monocyte% 6.6 % (0-10); NRBC Flagged by Analyzer 0 % (0-5); Neutrophil # 4.27 X10^3/uL (2.7-7.7); Neutrophil % 73.9 % (47-70); POSITIVE MORPHOLOGY YES; Platelet Count 77 K/mm3 (150-450); RBC Distribution Width CV 16.5 % (11.6-14.6); RBC Distribution Width SD 59.8 fl (35.1-43.9); Red Blood Count 2.89 M/mm3 (4.2-5.4); White Blood Count 5.8 K/mm3 (4.4-11.0)
[2019-05-08 06:05] LABS: Anion Gap 6 (5-15); BUN 7 mg/dL (7-18); BUN/Creat Ratio 12.4 RATIO (10-20); Calcium,Total 7.6 mg/dL (8.5-10.1); Chloride 107 mmol/L (98-107); Creatinine, Serum 0.57 mg/dL (0.55-1.02); EST Glomerular Filtration Rate 111 mL/min (>60); Est Glom Filt Rate - Afr Amer 134 mL/min (>60); Estimated Creatinine Clearance 42.62 ml/min; Glucose 90 mg/dL (74-106); Potassium 3.5 mmol/L (3.5-5.1); Sodium Level 142 mmol/L (136-145)
[2019-05-08 06:14] LABS: Differential Indicated SCAN CRITERIA MET
[2019-05-08 07:03] LABS: Differential Comment SCANNED
[2019-05-08 07:04] LABS: Platelet Estimate SLT DEC (ADEQ)
[2019-05-08] MEDS: traMADol 50 MG Tablet PO (10:14)
[2019-05-08 10:48] LABS: Mucous, Urine 0 SEEN /hpf (<or=2+)
[2019-05-08 10:59] LABS: Color, Urine Yellow (Yellow); Glucose, Dipstick Normal (Normal); Ketone-Dipstick Negative (Negative); Leukocyte Esterase-Dipstick 500 /ul (Negative); Nitrite-Dipstick Negative (Negative); Occult Blood-Urine 150 /ul (Negative); Protein-Dipstick 100 mg/dl (Negative); Urine Bilirubin Dipstick Negative (Negative); Urine Clarity Cloudy (Clear); Urine Urobilinogen Normal (Normal)
[2019-05-08 11:08] LABS: Bacteria 3+ /hpf (None Seen); Red Blood Cells-Urine 0-5 SEEN /hpf (0-5); Squamous Epithelial Cells - UA 0-5 SEEN /hpf (5-10); White Blood Cells 50-100 SEEN /hpf (0-5)
[2019-05-08] MEDS: Tuberculin,Purif.prot.deriv. 50 TU/ML Vial 5 ML ID (12:42)
[2019-05-08 15:56] VITALS: BP 124/45; PULSE 75; RESP 18; TEMP 36.6; O2SAT 95
[2019-05-08] MEDS: CEFUROXIME AXETIL 250 MG TABLET 500 MG PO (17:54)
[2019-05-08] MEDS: Senna/Docusate Sodium 1 Tablet PO (17:54)
--- NOTE | 2019-05-08 18:24 | NURSING ---
pts out at desk and wanting to talk with [facility] d/t insurance dc'ing 05/11. also upset over no change in appetite since started on stimulant. spoke with clay and will be here earlier to talk with antony. pt in bed and still not interested in eating any of supper tray. c/o cuts on tongue from all the antibiotics pt denied any mouth sores earlier with assessment however.
[2019-05-08] MEDS: MELATONIN 10 MG TABLET PO (20:31)
[2019-05-08] MEDS: Atorvastatin Calcium 20 MG Tablet PO (20:31)
[2019-05-08] MEDS: Mirtazapine 15 MG Tablet 7.5 MG PO (20:33)
[2019-05-08] MEDS: NYSTATIN 500,000 UNIT/5 ML UDC 500000 UNIT PO (20:37)
[2019-05-09] MEDS: Senna/Docusate Sodium 1 Tablet PO ×2 (05:45→18:12)
[2019-05-09] MEDS: CEFUROXIME AXETIL 250 MG TABLET 500 MG PO ×2 (05:45→18:12)
[2019-05-09] MEDS: Nystatin Powder 15gm Bottle 1 APPLIC TOPICAL ×2 (05:46→19:56)
[2019-05-09] MEDS: NYSTATIN 500,000 UNIT/5 ML UDC 500000 UNIT PO ×2 (05:46→18:13)
[2019-05-09] MEDS: Menthol/Lanolin/Calamine/Znox 113 GM Tube 1 APPLIC TOPICAL ×2 (05:47→19:58)
[2019-05-09] MEDS: Polyethylene Glycol 3350 17 GM PACKET PO (05:48)
[2019-05-09] MEDS: Iron Polysaccharide Complex 150 MG CAPSULE PO (08:25)
[2019-05-09] MEDS: Ondansetron ODT 4 MG Tablet PO (08:29)
--- NOTE | 2019-05-09 08:31 | NURSING ---
PT COMPLAINED OF NAUSEA AND STATED SHE THREW UP WHILE TAKING A SHOWER. PRN ZOFRAN GIVEN. REPORTED TO DOROTEO CANCINO
--- NOTE | 2019-05-09 12:40 | CASEMGMT ---
Social Work IDT issued patient LCD 05/11/19 with DC home 05/12. Patient signed NOM[facility] - after speaking with , pt and requesting to appeal decision. Met with and patient on this day to discuss concerns and reason for appeal. Pt does have UTI and started ATB, still awaiting culture results. Pt/H states pt is very susceptible to UTIs since November and typically pt comes to the ER and can/does become septic. concerned about treatment and outcome. Pt does have Urology appt on this day and encourage pt/H to discuss all concerns and preventative measures. Pt/H also concerned about weight loss, poor appetite and emesis after eating any amount of food. In addition, concerned about poor mood and sleeping a lot. Pt was started on Remeron last week, but nursing explained it does take time to take effect. UTI and poor nutrition can be correlated to low energy. SW notified nursing to f/u with physician on other interventions or follow-ups in the community. Pt and both agreed to counseling for these concerns - provided list of resources. Explained when pt does DC home, PCP and specialist can assist with making any medication adjustments to assist with any of these concerns. states he is having some medical issues himself, and has drs appts. Pt/H requesting DC 05/17. Discussed with IDT about new DC date - IDT agrees to continue to monitor pt and finish course of UTI ATB and continue working with therapy to keep strength and independence. PT/H very appreciative. Plan: DC home 05/17. VANNESSA Hartman
[2019-05-09 16:00] VITALS: BP 109/70; PULSE 95; RESP 18; TEMP 36.5; O2SAT 96
--- NOTE | 2019-05-09 18:22 | NURSING ---
Pt returned from [facility], then Dr Ahn called to give orders from [facility] regarding pt to have ureteroscopy w/lithotripsy on wednesdayMAY 15, NPO after midnight. restart zyvox x7 more days and dc ceftin. PT stated that they had stopped for supper and pt ate very well, the most he had seen in a while. Dr Fernandez updated on all.
--- NOTE | 2019-05-09 19:25 | DCINST_ITS ---
- Discharge Diagnoses Current Active Problems: Current Active and Chronic Problems Debility (Acute) Septic shock (Acute) Body mass index (BMI) 35.0-35.9, adult (Chronic) Pyelonephritis (Acute) Hydroureter, left (Acute) Hydronephrosis, left (Acute) Hypertension (Chronic) Hyperlipidemia (Chronic) You will use the following diet at home:: No restrictions, Regular Your food should be the consistency of: Regular Your liquids should be the consistency of: Regular/Thin Discharge Activity: Return to Normal Activity, May Shower, Use Walker Weight Bearing Status: Weight bearing as tolerated Call your doctor if you observe: Fever of 101 or Higher, Inability to urinate, Inability to have a bowel movement, Shortness of breath, Chest pain, Uncontrolled pain Allergies/Adverse Reactions: Allergies Sulfa (Sulfonamide Antibiotics) Allergy (Verified 12/27/18 08:34) Swelling Medications to take at Discharge Simvastatin [Zocor] 40 mg PO QHS 04/30/19 Acetaminophen [Tylenol] 1,000 mg PO Q6H PRN PRN tablet 05/09/19 Iron Polysaccharide Complex [Ferrex 150] 150 mg PO DAILYCM #30 cap 05/09/19 Melatonin 10 mg PO QHS tablet 05/09/19 Menthol/Lanolin/Calamine/Znox [Calmoseptine Ointment] 1 applic TOPICAL 0600,2200 tube 05/09/19 Mineral Oil/Petrolatum,White [Eucerin] 1 applic TOPICAL 0600,2200 jar 05/09/19 Nystatin Powder [Mycostatin Powder] 1 applic TOPICAL 0600,2200 bottle 05/09/19 Ondansetron [Zofran Odt] 4 mg PO Q8H PRN PRN #30 tab 05/09/19 The following prescriptions were given: Iron Polysaccharide Complex [Ferrex 150] 150 mg PO DAILYCM #30 cap Prescription Printed Ondansetron [Zofran Odt] 4 mg PO Q8H PRN PRN #30 tab PRN Reason: Nausea Prescription Printed Primary Care Physician: Eagle Dang MD [Primary Care Provider] - Please follow up with your Primary Care Physician in: 1 week. Test Results: Test results from this visit will be discussed in further detail at your follow- up appointment, if applicable. Please Follow Up With: X-Ray When: [phone] Please Follow Up With: Ultrasound When: [phone] Please Follow Up With: Urology- Brenda Davis [facility] When: [phone] Please Follow Up With: Eagle Dang MD When: [phone] Proposed Discharge Date: 05/17/19
--- NOTE | 2019-05-09 19:27 | DS.PCM_ITS ---
Discharge Date and Diagnosis - Problem List Patient Problems: Active and Suspected Problems Debility (Acute) Septic shock (Acute) Pyelonephritis (Acute) Hydroureter, left (Acute) Hydronephrosis, left (Acute) Date of Admission: 04/30/19 Date of Discharge: 05/17/19 - Primary Discharge Diagnosis Active and Suspected Problems Debility (Acute) Septic shock (Acute) Pyelonephritis (Acute) Hydroureter, left (Acute) Hydronephrosis, left (Acute) - Secondary Discharge Diagnosis Chronic Problems Kidney stones (Chronic) Body mass index (BMI) 35.0-35.9, adult (Chronic) Hypertension (Chronic) Hyperlipidemia (Chronic) Hospital Course and Treatment Imaging Results: 04/30/19 16:36 Diet: Regular Diet Is pt able to select menu?: Yes Diet Comments: ensure clear w/meals 05/15/19 00:01 NPO [Diet: Nothing Per Oral] Is pt able to select menu?: Yes Diet Comments: ensure clear w/meals Labs (Last 48 Hours) 05/08/19 05/08/19 05/08/19 05:15 05:15 10:35 WBC 5.8 RBC 2.89 L Hgb 8.7 L Hct 28.6 L MCV 99.0 MCH 30.1 MCHC 30.4 L RDW Std Deviation 59.8 H RDW Coeff of Shane 16.5 H Plt Count 77 L MPV 10.1 Immature Gran % (Auto) 0.300 Neut % (Auto) 73.9 H Lymph % (Auto) 16.3 L [place] % (Auto) 6.6 Eos % (Auto) 2.4 Baso % (Auto) 0.5 Absolute Neuts (auto) 4.3 Absolute Lymphs (auto) 0.94 Nucleated RBC % 0 Differential Comment SCANNED Platelet Estimate SLT DEC Sodium 142 Potassium 3.5 Chloride 107 Carbon Dioxide 29.0 Anion Gap 6 BUN 7 Creatinine 0.57 Estim Creat Clear Calc 42.62 Est GFR (MDRD) Af Amer 134 Est GFR (MDRD) Non-Af 111 BUN/Creatinine Ratio 12.4 Glucose 90 Calcium 7.6 L Urine Color Yellow Urine Clarity Cloudy Urine pH 7.0 Ur Specific [place] 1.010 Urine Protein 100 H Urine Glucose (UA) Normal Urine Ketones Negative Urine Occult Blood 150 H Urine Nitrite Negative Urine Bilirubin Negative Urine Urobilinogen Normal Ur Leukocyte Esterase 500 H Urine RBC 0-5 SEEN Urine WBC 50-100 SEEN Ur Squamous Epith Cells 0-5 SEEN Urine Bacteria 3+ Urine Mucus 0 SEEN Microbiology 05/08/19 10:35 Urine, Catheterized Urine Culture - Preliminary GNR lactose connie scratcher Operations: None Procedures: None Summary of Care Provided: The patient is a 73 year old Female with below past medical history hospitalized for septic shock secondary to pyelonephritis from left kidney stone, admitted to TCU with debility, here for rehabilitation, strengthening, prior to discharge home with . 05/15/2019 Ureteroscopy with lithotripsy at [facility]. Discharge home with . Patient Problems: Active and Suspected Problems Debility (Acute) Septic shock (Acute) Pyelonephritis (Acute) Hydroureter, left (Acute) Hydronephrosis, left (Acute) - Physical Exam Vitals/I&O's: Vital Signs Temp Pulse Resp BP Pulse Ox 97.7 F L 95 18 109/70 96 05/09/19 16:00 05/09/19 16:00 05/09/19 16:00 05/09/19 16:00 05/09/19 16:00 Oxygen Delivery Method Room Air Weight: 90.407 kg Body Mass Index (BMI) 34.9 Intake and Output for Last 24 Hours 05/07/19 05/08/19 05/09/19 23:59 23:59 23:59 Intake Total 480 / 480 840 / 840 240 / 240 Output Total 1475 / 1475 700 / 700 200 / 200 Balance -995 / -995 140 / 140 40 / 40 Microbiology Past 72 Hours 05/08/19 10:35 Urine, Catheterized Urine Culture - Preliminary GNR lactose connie scratcher Current Medications Acetaminophen (Tylenol) 1,000 mg PO Q6H PRN PRN PRN Reason: Pain Score 1-3/10 Last Admin: 05/08/19 05:18 Dose: 1,000 mg Documented by: Atorvastatin Calcium (Lipitor) 20 mg PO QHS [facility] Last Admin: 05/08/19 20:31 Dose: 20 mg Documented by: Bisacodyl (Dulcolax) 10 mg PO DAILY PRN PRN Reason: Constipation Last Admin: 05/02/19 06:05 Dose: 10 mg Documented by: Calamine/Phenol (Calmoseptine Ointment) 1 applic TOPICAL 0600,2200 [facility]; Protocol Last Admin: 05/09/19 05:47 Dose: 1 applicatio Documented by: Linezolid (Zyvox) 600 mg PO BID [facility] Stop: 05/17/19 06:01 Melatonin (Melatonin) 10 mg PO QHS [facility] Last Admin: 05/08/19 20:31 Dose: 10 mg Documented by: Multi-Ingredient Cream (Eucerin) 1 applic TOPICAL 599,2199 [facility]; Protocol Last Admin: 05/09/19 05:44 Dose: 1 applicatio Documented by: Nystatin (Mycostatin Powder) 1 applic TOPICAL 599,2199 [facility]; Protocol Last Admin: 05/09/19 05:46 Dose: 1 applicatio Documented by: Nystatin (Nystatin) 500,000 unit PO 4X/DAY [facility] Stop: 05/13/19 22:00 Last Admin: 05/09/19 18:13 Dose: 500,000 unit Documented by: Ondansetron HCl (Zofran Odt) 4 mg PO Q8H PRN PRN PRN Reason: NAUSEA Last Admin: 05/09/19 08:29 Dose: 4 mg Documented by: Polyethylene Glycol (Miralax) 17 gm PO DAILY [facility] Last Admin: 05/09/19 05:48 Dose: 17 gm Documented by: Polysaccharide Iron [facility] ([facility]rex 150) [facility] Last Admin: 05/09/19 08:25 Dose: 150 mg Documented by: Senna/Docusate Sodium (Senokot-S, Deana-Colace) 1 tablet PO BID [facility] Last Admin: 05/09/19 18:12 Dose: 1 tablet Documented by: Discharge Diet: No Restrictions Discharge Activity: Return to Normal Activity, May Shower, Use Walker Weight Bearing Status: Weight bearing as tolerated Call your doctor if you observe: Fever of 101 or Higher, Inability to urinate, Inability to have a bowel movement, Shortness of breath, Chest pain, Uncontrolled pain Home Medications: Medications to take at Discharge Simvastatin [Zocor] 40 mg PO QHS 04/30/19 Acetaminophen [Tylenol] 1,000 mg PO Q6H PRN PRN tablet 05/09/19 Iron Polysaccharide Complex [Ferrex 150] 150 mg PO DAILYCM #30 cap 05/09/19 Melatonin 10 mg PO QHS tablet 05/09/19 Menthol/Lanolin/Calamine/Znox [Calmoseptine Ointment] 1 applic TOPICAL 0600,2200 tube 05/09/19 Mineral Oil/Petrolatum,White [Eucerin] 1 applic TOPICAL 0600,2200 jar 05/09/19 Nystatin Powder [Mycostatin Powder] 1 applic TOPICAL 0600,2200 bottle 05/09/19 Ondansetron [Zofran Odt] 4 mg PO Q8H PRN PRN #30 tab 05/09/19 Following Prescrptions Were Given to Patient: Iron Polysaccharide Complex [Ferrex 150] 150 mg PO DAILYCM #30 cap Prescription Printed Ondansetron [Zofran Odt] 4 mg PO Q8H PRN PRN #30 tab PRN Reason: Nausea Prescription Printed Primary Care Physician: Eagle Dang MD [Primary Care Provider] - Please follow up with your Primary Care Physician in: 1 week. Please Follow Up With: X-Ray When: [phone] Please Follow Up With: Ultrasound When: [phone] Please Follow Up With: Urology- Brenda Davis [facility] When: [phone] Please Follow Up With: Eagle Dang MD When: [phone] Disposition: Home Minutes spent on discharge:: 30 Patient Condition:: Stable Medical Necessity - Tobacco Use Smoking Status: Never smoker Tobacco Use: Non-smoker Meaningful Use Info Meaningful Use Diagnoses (Choose all that apply): None applicable
[2019-05-09] MEDS: MELATONIN 10 MG TABLET PO (19:54)
[2019-05-09] MEDS: Atorvastatin Calcium 20 MG Tablet PO (19:55)
[2019-05-09 19:58] VITALS: PULSE 84; RESP 16; O2SAT 97
[2019-05-10 05:47] LABS: Hemoglobin 8.4 g/dL (12.0-15.0)
[2019-05-10] MEDS: Menthol/Lanolin/Calamine/Znox 113 GM Tube 1 APPLIC TOPICAL ×2 (06:34→21:59)
[2019-05-10] MEDS: Nystatin Powder 15gm Bottle 1 APPLIC TOPICAL ×2 (06:34→21:59)
[2019-05-10] MEDS: NYSTATIN 500,000 UNIT/5 ML UDC 500000 UNIT PO ×3 (06:35→21:57)
[2019-05-10] MEDS: Senna/Docusate Sodium 1 Tablet PO ×2 (06:35→17:04)
[2019-05-10] MEDS: Linezolid 600 MG Tablet PO ×2 (06:36→17:04)
[2019-05-10] MEDS: Iron Polysaccharide Complex 150 MG CAPSULE PO (08:23)
[2019-05-10 15:27] VITALS: BP 125/50; PULSE 81; RESP 16; TEMP 37.2; O2SAT 92
[2019-05-10] MEDS: MELATONIN 10 MG TABLET PO (21:57)
[2019-05-10] MEDS: Atorvastatin Calcium 20 MG Tablet PO (21:57)
[2019-05-11] MEDS: NYSTATIN 500,000 UNIT/5 ML UDC 500000 UNIT PO ×4 (06:14→21:02)
[2019-05-11] MEDS: Linezolid 600 MG Tablet PO ×2 (06:14→16:55)
[2019-05-11] MEDS: Nystatin Powder 15gm Bottle 1 APPLIC TOPICAL ×2 (06:16→21:01)
[2019-05-11] MEDS: Menthol/Lanolin/Calamine/Znox 113 GM Tube 1 APPLIC TOPICAL (06:16)
[2019-05-11] MEDS: Iron Polysaccharide Complex 150 MG CAPSULE PO (09:45)
[2019-05-11 09:48] VITALS: PULSE 88; RESP 14
[2019-05-11 15:59] VITALS: BP 111/73; PULSE 83; RESP 20; TEMP 36.3; O2SAT 97
[2019-05-11] MEDS: Senna/Docusate Sodium 1 Tablet PO (16:54)
[2019-05-11] MEDS: MELATONIN 10 MG TABLET PO (21:00)
[2019-05-11] MEDS: Atorvastatin Calcium 20 MG Tablet PO (21:00)
[2019-05-12] MEDS: Linezolid 600 MG Tablet PO ×2 (06:04→17:26)
[2019-05-12] MEDS: NYSTATIN 500,000 UNIT/5 ML UDC 500000 UNIT PO ×4 (06:05→22:42)
[2019-05-12] MEDS: Nystatin Powder 15gm Bottle 1 APPLIC TOPICAL ×2 (06:08→22:40)
[2019-05-12] MEDS: Iron Polysaccharide Complex 150 MG CAPSULE PO (07:53)
--- NOTE | 2019-05-12 10:54 | MDS.RN ---
Information for the mds was obtained from review of the clinical record, interview of resident, staff, and direct observation of resident's care.
[2019-05-12 16:00] VITALS: BP 124/57; PULSE 68; RESP 16; TEMP 36.7; O2SAT 96
[2019-05-12] MEDS: Senna/Docusate Sodium 1 Tablet PO (17:25)
[2019-05-12] MEDS: MELATONIN 10 MG TABLET PO (22:39)
[2019-05-12] MEDS: Atorvastatin Calcium 20 MG Tablet PO (22:39)
[2019-05-13] MEDS: Nystatin Powder 15gm Bottle 1 APPLIC TOPICAL ×2 (05:34→20:05)
[2019-05-13] MEDS: NYSTATIN 500,000 UNIT/5 ML UDC 500000 UNIT PO ×4 (05:34→19:57)
[2019-05-13] MEDS: Linezolid 600 MG Tablet PO ×2 (05:34→16:47)
[2019-05-13] MEDS: Polyethylene Glycol 3350 17 GM PACKET PO (05:35)
[2019-05-13] MEDS: Senna/Docusate Sodium 1 Tablet PO ×2 (05:35→16:47)
[2019-05-13] MEDS: Iron Polysaccharide Complex 150 MG CAPSULE PO (08:24)
[2019-05-13] MEDS: Acetaminophen 500 MG Tablet 1000 MG PO (08:25)
--- NOTE | 2019-05-13 08:28 | NURSING ---
Reported to ui engineer UC + Klebsiella Pneumonia- She will notify DR Fernandez,
[2019-05-13 15:35] VITALS: BP 108/60; PULSE 85; RESP 18; TEMP 36.9; O2SAT 91
[2019-05-13] MEDS: Atorvastatin Calcium 20 MG Tablet PO (19:58)
[2019-05-13] MEDS: MELATONIN 10 MG TABLET PO (19:58)
[2019-05-13] MEDS: Menthol/Lanolin/Calamine/Znox 113 GM Tube 1 APPLIC TOPICAL (20:03)
[2019-05-14] MEDS: Nystatin Powder 15gm Bottle 1 APPLIC TOPICAL ×2 (06:33→20:26)
[2019-05-14] MEDS: Senna/Docusate Sodium 1 Tablet PO ×2 (06:33→17:04)
[2019-05-14] MEDS: Linezolid 600 MG Tablet PO ×2 (06:33→17:05)
[2019-05-14] MEDS: Polyethylene Glycol 3350 17 GM PACKET PO (06:33)
[2019-05-14] MEDS: Iron Polysaccharide Complex 150 MG CAPSULE PO (08:24)
[2019-05-14] MEDS: Ondansetron ODT 4 MG Tablet PO (09:46)
[2019-05-14 15:21] VITALS: BP 126/46; PULSE 74; RESP 16; TEMP 36.4; O2SAT 97
[2019-05-14] MEDS: MELATONIN 10 MG TABLET PO (20:26)
[2019-05-14] MEDS: Atorvastatin Calcium 20 MG Tablet PO (20:26)
[2019-05-15 05:39] LABS: Absolute Neutrophil Count 2.5 X10^3/uL (2.0-7.7); Basophil# 0.03 X10^3/uL; Basophil% 0.7 % (0-1); Eosinophils% 2.4 % (0-5); Hematocrit 26.2 % (37-47); Hemoglobin 8.4 g/dL (12.0-15.0); Lymphocyte % 28.6 % (19-41); Mean Corp Hgb Conc 32.1 g/dL (32-36); Mean Corpuscular Hgb 30.8 pg (27.0-32.0); Mean Platelet Vol. 10.5 fl (6.2-12.0); Monocyte# 0.37 X10^3/uL; Monocyte% 8.8 % (0-10); NRBC Flagged by Analyzer 0 % (0-5); Neutrophil # 2.49 X10^3/uL (2.7-7.7); Neutrophil % 59.3 % (47-70); POSITIVE COUNT YES; Platelet Count 86 K/mm3 (150-450); RBC Distribution Width CV 16.3 % (11.6-14.6); RBC Distribution Width SD 56.7 fl (35.1-43.9); Red Blood Count 2.73 M/mm3 (4.2-5.4); White Blood Count 4.2 K/mm3 (4.4-11.0)
[2019-05-15 05:46] LABS: Differential Indicated SCAN CRITERIA MET
[2019-05-15 05:53] LABS: Anion Gap 7 (5-15); BUN 5 mg/dL (7-18); BUN/Creat Ratio 6.7 RATIO (10-20); Calcium,Total 7.8 mg/dL (8.5-10.1); Chloride 104 mmol/L (98-107); Creatinine, Serum 0.74 mg/dL (0.55-1.02); EST Glomerular Filtration Rate 81 mL/min (>60); Est Glom Filt Rate - Afr Amer 98 mL/min (>60); Estimated Creatinine Clearance 42.62 ml/min; Glucose 90 mg/dL (74-106); Potassium 3.4 mmol/L (3.5-5.1); Sodium Level 141 mmol/L (136-145)
[2019-05-15 06:24] LABS: Hypochromasia 2+; Macrocytosis 1+; Platelet Estimate SLT DEC (ADEQ); Target Cells 2+
[2019-05-15 08:15] VITALS: PULSE 117; RESP 18; O2SAT 91
--- NOTE | 2019-05-15 08:26 | NURSING ---
PT LEFT BY WHEEL CHAIR AT 8:15 AM, TAKING PT TO [facility] FOR PROCEDURE.
--- NOTE | 2019-05-15 23:39 | NURSING ---
Per spouse, pt remaining at facility overnight for monitoring after lithotripsy procedure. director of retail analytics and Dr Fernandez updated.
== END 2019-05-15 08:15 | disposition short-term general hospital (02) | DRG 690 ==
PROVIDERS: Admitting Provider Family Medicine Geriatric Medicine; Family Provider Family Medicine; PCP Family Medicine; Referring Provider Family Medicine Geriatric Medicine; Visit Provider Family Medicine Geriatric Medicine
DX: N13.6 Pyonephrosis (principal); Z16.21 Resistance to vancomycin; E78.5 Hyperlipidemia, unspecified; B95.2 Enterococcus as the cause of diseases classified elsewhere; I10 Essential (primary) hypertension; Z87.442 Personal history of urinary calculi; Z93.6 Other artificial openings of urinary tract status
CPT/HCPCS: 36415; 80048; 81001; 85014; 85018; 85025; 87077; 87086; 87088; 87186; 97110; 97116; 97162; 97166; 97530; 97535; 97802

== ENCOUNTER 2019-05-16 18:10 | Inpatient (IN) | payer MEDICARE, OTHER, SELFPAY ==
[2019-05-16 18:43] VITALS: BP 152/51; PULSE 76; PULSE 85; RESP 16; TEMP 36.7; O2SAT 97; O2SAT 98; BMI 29.8
--- NOTE | 2019-05-16 20:35 | HP.PCM_ITS ---
Problem List (1) Kidney stones Status: Chronic (2) Debility Status: Acute (3) Septic shock Status: Chronic (4) Body mass index (BMI) 35.0-35.9, adult Status: Chronic (5) Pyelonephritis Status: Chronic (6) Hydroureter, left Status: Chronic (7) Hydronephrosis, left Status: Chronic (8) Hypertension Status: Chronic History of Present Illness Date of Admission: 05/16/19 Chief Complaint: Here for rehabilitation, strengthening, prior to discharge home with . The patient is a 73 year old Female with below past medical history presented to [facility] Emergency Department 04/17/2019 with abdominal pain. 04/25/2019 EKG normal sinus rhythm, nonspecific ST&T wave abnormality. 04/25/2019 CT abdomen/pelvis showed severe left hydronephrosis, left hydroure ter, non obstructing left kidney, left ureteral stone. Left kidney stone removed with stent placement per Dr. Gonzalez at [facility] recently. Pain, Fever, Chills. Morphine, Zofran, IV fluids given. UA consistent with infection, Rocephin IV given after blood, urine cultures sent. Transfer to [facility]. Fever 102. 04/25/2019 Admit to [facility]. Interventional Radiology placed left nephrostomy tube for emergent decompression. Blood culture grew Vancomycin resistant enterococcus. Urine culture grew Enterococcus Faecium. Zosyn IV changed to Daptomycin IV. 04/30/2019 Admit to TCU with debility, here for rehabilitation, strengthening, prior to discharge home with . 05/15/2019 Resident admitted to [facility] for left anterograde and retrograde pyelogram, left anterograde and retrograde ureteroscopy, dilation urethral stricture, manipulation of stone, placement of left ureteral stent, removal of left nephrostomy tube. Resident observed overnight. Admit to TCU with debility, here for rehabilitation, strengthening, prior to discharge home with . Past Medical History Past Medical History (Chronic Problems): Chronic Problems Kidney stones (Chronic) Septic shock (Chronic) Body mass index (BMI) 35.0-35.9, adult (Chronic) Pyelonephritis (Chronic) Hydroureter, left (Chronic) Hydronephrosis, left (Chronic) Hypertension (Chronic) Hyperlipidemia (Chronic) Allergies Sulfa (Sulfonamide Antibiotics) Allergy (Verified 12/27/18 08:34) Swelling Home Medications: Ambulatory Orders Medication Instructions Recorded Simvastatin [Zocor] 40 mg PO QHS 04/30/19 Ondansetron [Zofran Odt] 4 mg PO Q8H PRN PRN #30 tab 05/09/19 Acetaminophen 650 mg PO Q6H PRN 05/16/19 Cefuroxime Axetil [Ceftin] 250 mg PO BID 05/16/19 Cephalexin [Keflex] 500 mg PO 4X/DAY 05/16/19 Iron Polysaccharide Complex 150 mg PO BID 05/16/19 [Ferrex 150] Ketorolac [Toradol] 10 mg PO Q6H PRN 05/16/19 Linezolid [Zyvox] 600 mg PO BID 05/16/19 Melatonin 10 mg PO QHS 05/16/19 Menthol/Lanolin/Calamine/Znox 1 applic TOPICAL 0600,219905/16/19 [Calmoseptine Ointment] Mineral Oil/Petrolatum,White 1 applic TOPICAL 0600,219905/16/19 [Eucerin] Mirtazapine [Remeron] 15 mg PO QHS 05/16/19 Nystatin Powder [Mycostatin Powder] 1 applic TOPICAL 0600,219905/16/19 Polyethylene Glycol 3350 [Miralax] 17 gm PO DAILY 05/16/19 Sennosides [Senna] 8.6 mg PO BID 05/16/19 Tamsulosin HCl [Flomax] 0.4 mg PO DAILY 05/16/19 Trospium Chloride [Sanctura] 20 mg PO BID PRN 05/16/19 traMADol [Ultram (G)] 50 mg PO Q6H PRN PRN 05/16/19 Surgical History: appendectomy, cholecystectomy, hysterectomy - Total abdominal., - - , Melanoma excision, Liver biopsy. 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 Lives: Spouse/ Significant Other Smoking Status: Never smoker Tobacco Use: Non-smoker Alcohol: None Drugs: None - *Family History Maternal History Items: No pertinent history Paternal History Items: No pertinent history Review of Systems Constitutional: Denies: Chills, Fever, Weight Change HEENT: Denies: Head Aches, Sinus Congestion, Sinus Drainage Cardiovascular: Denies: Chest Pain, Palpitations Respiratory: Denies: Cough, Shortness of breath at rest, Sputum production Gastrointestinal: Denies: Abdominal Pain, Nausea, Vomiting Genitourinary: Denies: Dysuria Musculoskeletal: Denies: Joint Pain, Joint Tenderness Skin: Denies: Rash, Wounds Neurological: Denies: Numbness, Tingling, Focal weakness Psychiatric: Denies: Anxiety, Depression, Homicidal Ideations, Suicidal Ideations Hematologic/ Lymphatic: Denies: Easy Bruising, Easy Bleeding VTE Information - Inpt Only VTE Present on Admission: No VTE Mechan Device Prophylaxis: Knee High CARMELLA Hose VTE Pharm Prophylaxis ordered?: No Reason prophylaxis not ordered:: Treatment Not Indicated - Physical Exam Vitals/I&O's: Vital Signs Temp Pulse Resp BP Pulse Ox 98.1 F 85 16 152/51 H 98 05/16/19 18:43 05/16/19 18:43 05/16/19 18:43 05/16/19 18:43 05/16/19 18:43 Oxygen Delivery Method Room Air Body Mass Index (BMI) 34.9 General: Alert, Oriented x3, Cooperative HEENT: Atraumatic, PERRLA, EOMI, Normocephalic Neck: Supple, No JVD, Negative Carotid Bruits Lungs: Clear to auscultation, Normal air movement Cardiovascular: Regular rate, No murmurs Abdomen: Bowel Sounds Present, Soft, Non Tender Extremities: No edema, Capillary Refill Less than 3 Seconds Skin: No rashes, No breakdown Musculoskeletal: No Tenderness to Palpation of Joints or Extremities Neurological: Cranial nerves II-XII grossly intact Psych/Mental Status: Normal Affect, Appropriate Current Medications Acetaminophen (Tylenol) 650 mg PO Q6H PRN PRN Reason: Pain or Fever Atorvastatin Calcium (Lipitor) 20 mg PO QHS [facility] Calamine/Phenol (Calmoseptine Ointment) 1 applic TOPICAL 0600,2200 [facility]; Protocol Cephalexin (Keflex) 500 mg PO 4X/DAY [facility] Stop: 05/23/19 22:01 Ketorolac Tromethamine (Toradol) 10 mg PO Q6H PRN PRN Reason: Pain Score 1-10/10 Melatonin (Melatonin) 10 mg PO QHS [facility] Mirtazapine (Remeron) 15 mg PO QHS [facility] Multi-Ingredient Cream (Eucerin) 1 applic TOPICAL 0600,2200 [facility]; Protocol Nystatin (Mycostatin Powder) 1 applic TOPICAL 0600,2200 [facility]; Protocol Ondansetron HCl (Zofran Odt) 4 mg PO Q8H PRN PRN PRN Reason: NAUSEA Polyethylene Glycol (Miralax) 17 gm PO DAILY [facility] Polysaccharide Iron Complex (Ferrex 150) 150 mg PO BID [facility] Senna (Senokot) 1 tablet PO BID [facility] Tamsulosin HCl (Flomax) 0.4 mg PO DAILY@1730 [facility] Tolterodine Tartrate (Detrol La) 2 mg PO DAILY PRN PRN Reason: BLADDER SPASMS Tramadol HCl (Ultram) 50 mg PO Q6H PRN PRN PRN Reason: Pain Score 1-04/20 Assessment/Plan All Active Problems Debility (Acute) 73 year old female with below past medical history significant for recent sepsis from pyelonephritis secondary left ureteral stone, hospitalized briefly overnight at [facility] after left pyelogram, left ureteroscopy, dilation urethral stricture, manipulation of stone, placement of left ureteral stent, removal of left nephrostomy tube, admitted to TCU with debility, here for rehabilitation, strengthening, prior to discharge home with . * Debility - PT/OT. * Pain - Tylenol 1000MG Q6H PRN pain (1-3), Toradol 10MG Q6H PRN pain (4-5), Tramadol 50MG Q6H PRN pain (6-10) * Bowel - Miralax 17GM daily, Senna 1 tablet BID. * Adult immunization - Administer Prevnar 13, Pneumovax 23, flushot as necessary. * DVT prophylaxis - Not necessary, resident ambulating okay. * Hyperlipidemia - Atorvastatin 20MG QHS. * Post urologic procedure prophylaxis - Keflex 500MG 4x/day thru 05/23/2019. * Iron deficiency anemia - Ferrex 150MG BID. * Insomnia - Melatonin 10MG QHS. * Skin irritation - Calmoseptine BID. * Appetite loss - Mirtazapine 15MG QHS. * Tinea Corporis - Nystatin powder BID. * Nausea - Zofran 4MG Q8H PRN. * Urinary retention - Tamsulosin 0.4MG daily. * Overactive bladder - Tolterodine 2MG daily PRN.
--- NOTE | 2019-05-16 20:54 | DCINST_ITS ---
You will use the following diet at home:: No restrictions, Regular Your food should be the consistency of: Regular Your liquids should be the consistency of: Regular/Thin Discharge Activity: Return to Normal Activity, May Shower, Use Walker Weight Bearing Status: Weight bearing as tolerated Call your doctor if you observe: Fever of 101 or Higher, Inability to urinate, Inability to have a bowel movement, Shortness of breath, Chest pain, Uncontrolled pain Allergies/Adverse Reactions: Allergies Sulfa (Sulfonamide Antibiotics) Allergy (Verified 12/27/18 08:34) Swelling Medications to take at Discharge Simvastatin [Zocor] 40 mg PO QHS 04/30/19 Acetaminophen [Tylenol Tablet] 1,000 mg PO Q6H PRN tablet 05/16/19 Cephalexin [Keflex] 500 mg PO 4X/DAY #24 cap 05/16/19 Iron Polysaccharide Complex [Ferrex 150] 150 mg PO BID #60 cap 05/16/19 Melatonin 10 mg PO QHS 05/16/19 Menthol/Lanolin/Calamine/Znox [Calmoseptine Ointment] 1 applic TOPICAL 0600,0 05/16/19 Mineral Oil/Petrolatum,White [Eucerin] 1 applic TOPICAL 0600,0 05/16/19 Mirtazapine [Remeron] 15 mg PO QHS #30 tab 05/16/19 Nystatin Powder [Mycostatin Powder] 1 applic TOPICAL 0600,0 05/16/19 Ondansetron [Zofran Odt] 4 mg PO Q8H PRN PRN #30 tab 05/16/19 Tamsulosin HCl [Flomax] 0.4 mg PO DAILY 05/16/19 Trospium Chloride [Sanctura] 20 mg PO BID PRN 05/16/19 traMADol [Ultram] 50 mg PO Q6H PRN PRN #30 tab 05/16/19 The following prescriptions were given: Iron Polysaccharide Complex [Ferrex 150] 150 mg PO BID #60 cap Prescription Printed Cephalexin [Keflex] 500 mg PO 4X/DAY #24 cap Prescription Printed Mirtazapine [Remeron] 15 mg PO QHS #30 tab Prescription Printed traMADol [Ultram] 50 mg PO Q6H PRN PRN #30 tab PRN Reason: Pain Score 1-04/20 Prescription Printed Ondansetron [Zofran Odt] 4 mg PO Q8H PRN PRN #30 tab PRN Reason: Nausea Prescription Printed Primary Care Physician: Eagle Dang MD [Primary Care Provider] - Please follow up with your Primary Care Physician in: 1 week. Test Results: Test results from this visit will be discussed in further detail at your follow- up appointment, if applicable. Proposed Discharge Date: 05/17/19
--- NOTE | 2019-05-16 20:55 | PCM.DC.SUM ---
Discharge Date and Diagnosis Date of Admission: 05/16/19 Date of Discharge: 05/17/19 - Secondary Discharge Diagnosis Chronic Problems Kidney stones (Chronic) Septic shock (Chronic) Body mass index (BMI) 35.0-35.9, adult (Chronic) Pyelonephritis (Chronic) Hydroureter, left (Chronic) Hydronephrosis, left (Chronic) Hypertension (Chronic) Hyperlipidemia (Chronic) Hospital Course and Treatment Imaging Results: 05/16/19 19:00 Diet: Regular Diet Operations: None Procedures: None Summary of Care Provided: The patient is a 73 year old Female with below past medical history significant for recent sepsis from pyelonephritis secondary left ureteral stone, hospitalized briefly overnight at [facility] after left pyelogram, left ureteroscopy, dilation urethral stricture, manipulation of stone, placement of left ureteral stent, removal of left nephrostomy tube, admitted to TCU with debility, here for rehabilitation, strengthening, prior to discharge home with . - Physical Exam Vitals/I&O's: Vital Signs Temp Pulse Resp BP Pulse Ox 98.1 F 85 16 152/51 H 98 05/16/19 18:43 05/16/19 18:43 05/16/19 18:43 05/16/19 18:43 05/16/19 18:43 Oxygen Delivery Method Room Air Body Mass Index (BMI) 34.9 Current Medications Acetaminophen (Tylenol) 1,000 mg PO Q6H PRN PRN Reason: Pain Score 1-3/10 Atorvastatin Calcium (Lipitor) 20 mg PO QHS [facility] Calamine/Phenol (Calmoseptine Ointment) 1 applic TOPICAL 0600,2200 [facility]; Protocol Cephalexin (Keflex) 500 mg PO 4X/DAY [facility] Stop: 05/23/19 22:01 Ketorolac Tromethamine (Toradol) 10 mg PO Q6H PRN PRN Reason: Pain Score 4-10/10 Melatonin (Melatonin) 10 mg PO QHS [facility] Mirtazapine (Remeron) 15 mg PO QHS [facility] Multi-Ingredient Cream (Eucerin) 1 applic TOPICAL 0600,2200 [facility]; Protocol Nystatin (Mycostatin Powder) 1 applic TOPICAL 0600,2200 [facility]; Protocol Ondansetron HCl (Zofran Odt) 4 mg PO Q8H PRN PRN PRN Reason: NAUSEA Polyethylene Glycol (Miralax) 17 gm PO DAILY [facility] Polysaccharide Iron Complex (Ferrex 150) 150 mg PO BID [facility] Senna (Senokot) 1 tablet PO BID [facility] Tamsulosin HCl (Flomax) 0.4 mg PO DAILY@1730 [facility] Tolterodine Tartrate (Detrol La) 2 mg PO DAILY PRN PRN Reason: BLADDER SPASMS Tramadol HCl (Ultram) 50 mg PO Q6H PRN PRN PRN Reason: Pain Score 6-04/20 Discharge Diet: No Restrictions Discharge Activity: Return to Normal Activity, May Shower, Use Walker Weight Bearing Status: Weight bearing as tolerated Call your doctor if you observe: Fever of 101 or Higher, Inability to urinate, Inability to have a bowel movement, Shortness of breath, Chest pain, Uncontrolled pain Home Medications: Medications to take at Discharge Simvastatin [Zocor] 40 mg PO QHS 04/30/19 Acetaminophen [Tylenol Tablet] 1,000 mg PO Q6H PRN tablet 05/16/19 Cephalexin [Keflex] 500 mg PO 4X/DAY #24 cap 05/16/19 Iron Polysaccharide Complex [Ferrex 150] 150 mg PO BID #60 cap 05/16/19 Melatonin 10 mg PO QHS 05/16/19 Menthol/Lanolin/Calamine/Znox [Calmoseptine Ointment] 1 applic TOPICAL 0600,219905/16/19 Mineral Oil/Petrolatum,White [Eucerin] 1 applic TOPICAL 0600,219905/16/19 Mirtazapine [Remeron] 15 mg PO QHS #30 tab 05/16/19 Nystatin Powder [Mycostatin Powder] 1 applic TOPICAL 06,219905/16/19 Ondansetron [Zofran Odt] 4 mg PO Q8H PRN PRN #30 tab 05/16/19 Tamsulosin HCl [Flomax] 0.4 mg PO DAILY 05/16/19 Trospium Chloride [Sanctura] 20 mg PO BID PRN 05/16/19 traMADol [Ultram] 50 mg PO Q6H PRN PRN #30 tab 05/16/19 Following Prescrptions Were Given to Patient: Iron Polysaccharide Complex [Ferrex 150] 150 mg PO BID #60 cap Prescription Printed Cephalexin [Keflex] 500 mg PO 4X/DAY #24 cap Prescription Printed Mirtazapine [Remeron] 15 mg PO QHS #30 tab Prescription Printed traMADol [Ultram] 50 mg PO Q6H PRN PRN #30 tab PRN Reason: Pain Score 1-10/10 Prescription Printed Ondansetron [Zofran Odt] 4 mg PO Q8H PRN PRN #30 tab PRN Reason: Nausea Prescription Printed Primary Care Physician: Eagle Dang MD [Primary Care Provider] - Please follow up with your Primary Care Physician in: 1 week. Disposition: Home Minutes spent on discharge:: 30 Patient Condition:: Stable Medical Necessity - Tobacco Use Smoking Status: Never smoker Tobacco Use: Non-smoker Meaningful Use Info Meaningful Use Diagnoses (Choose all that apply): None applicable
[2019-05-16] MEDS: MELATONIN 10 MG TABLET PO (22:17)
[2019-05-16] MEDS: Atorvastatin Calcium 20 MG Tablet PO (22:17)
[2019-05-16] MEDS: Menthol/Lanolin/Calamine/Znox 113 GM Tube 1 APPLIC TOPICAL (22:21)
[2019-05-16] MEDS: Nystatin Powder 15gm Bottle 1 APPLIC TOPICAL (22:22)
[2019-05-16] MEDS: Mirtazapine 15 MG Tablet PO (22:39)
[2019-05-16] MEDS: Cephalexin 500 MG Capsule PO (22:41)
[2019-05-17 05:55] LABS: Absolute Lymphocyte Count 1.34 X10^3/uL (0.83-4.51); Absolute Neutrophil Count 3.8 X10^3/uL (2.0-7.7); Basophil# 0.01 X10^3/uL; Basophil% 0.2 % (0-1); Eosinophil# 0.06 X10^3/uL; Eosinophils% 1.1 % (0-5); Hematocrit 25.5 % (37-47); Hemoglobin 7.9 g/dL (12.0-15.0); Lymphocyte # 1.34 X10^3/ul (4.0); Lymphocyte % 24.6 % (19-41); Mean Corpuscular Hgb 30.5 pg (27.0-32.0); Mean Corpuscular Volume 98.5 fL (81-99); Mean Platelet Vol. 9.7 fl (6.2-12.0); Monocyte# 0.27 X10^3/uL; NRBC Flagged by Analyzer 0 % (0-5); Neutrophil # 3.76 X10^3/uL (2.7-7.7); Neutrophil % 68.9 % (47-70); POSITIVE COUNT YES; Platelet Count 81 K/mm3 (150-450); RBC Distribution Width CV 16.9 % (11.6-14.6); RBC Distribution Width SD 60.4 fl (35.1-43.9); Red Blood Count 2.59 M/mm3 (4.2-5.4); White Blood Count 5.5 K/mm3 (4.4-11.0)
[2019-05-17 06:13] LABS: Anion Gap 6 (5-15); BUN 9 mg/dL (7-18); BUN/Creat Ratio 14.2 RATIO (10-20); Calcium,Total 8.1 mg/dL (8.5-10.1); Chloride 109 mmol/L (98-107); Creatinine, Serum 0.63 mg/dL (0.55-1.02); EST Glomerular Filtration Rate 97 mL/min (>60); Est Glom Filt Rate - Afr Amer 118 mL/min (>60); Estimated Creatinine Clearance 44.41 ml/min; Glucose 92 mg/dL (74-106); Potassium 3.4 mmol/L (3.5-5.1); Sodium Level 144 mmol/L (136-145)
[2019-05-17] MEDS: Cephalexin 500 MG Capsule PO (06:51)
[2019-05-17] MEDS: Iron Polysaccharide Complex 150 MG CAPSULE PO (06:51)
[2019-05-17] MEDS: Senna Tablet 1 TABLET PO (06:52)
[2019-05-17] MEDS: Nystatin Powder 15gm Bottle 1 APPLIC TOPICAL (06:52)
[2019-05-17] MEDS: Menthol/Lanolin/Calamine/Znox 113 GM Tube 1 APPLIC TOPICAL (06:53)
[2019-05-17 08:58] VITALS: PULSE 98; RESP 18; O2SAT 94
[2019-05-17 09:06] VITALS: BP 102/61; PULSE 93; RESP 18; TEMP 36.8; O2SAT 94
--- NOTE | 2019-05-17 09:58 | NURSING ---
pt returned from [facility] after lithotripsy on 05/15 last evening. Pt up ambulating in halls, denies pain. feeling much better. here to take home. reviewed medications and scripts with and pt.
--- NOTE | 2019-05-17 15:13 | CASEMGMT ---
Social Work Patient discharged home with [facility] PT/OT and counseling resources. No DME needs. Janey Christine MSW ASSISTANT PROFESSOR OF ANTHROPOLOGY
== END 2019-05-17 10:30 | disposition home or self-care (01) | DRG 950 ==
PROVIDERS: Admitting Provider Family Medicine Geriatric Medicine; Family Provider Family Medicine; PCP Family Medicine; Visit Provider Family Medicine Geriatric Medicine
DX: Z48.816 Encounter for surgical aftercare following surgery on the genitourinary system (principal); D50.9 Iron deficiency anemia, unspecified; B35.4 Tinea corporis; N32.81 Overactive bladder; E78.5 Hyperlipidemia, unspecified; I10 Essential (primary) hypertension; Z93.6 Other artificial openings of urinary tract status
CPT/HCPCS: 36415; 80048; 85025

== ENCOUNTER 2019-06-04 17:40 | Emergency (ER) | payer MEDICARE, OTHER, SELFPAY ==
[2019-05-16 18:43] VITALS: BMI 29.8
[2019-06-04] VITALS (11 sets, daily range): BP systolic 108–151; BP diastolic 41–114; PULSE 94–118; RESP 16–28; TEMP 36.9–38.8; O2SAT 93–100; BMI 28.5
[2019-06-04 18:38] LABS: Mucous, Urine 0 SEEN /hpf (<or=2+)
--- NOTE | 2019-06-04 18:40 | EKG12_ITS ---
Test Reason : DIZZINESS Blood Pressure : / mmHG Vent. Rate : 092 BPM Atrial Rate : 092 BPM P-R Int : 144 ms QRS Dur : 084 ms QT Int : 368 ms P-R-T Axes : 013 014 013 degrees QTc Int : 455 ms Normal sinus rhythm Normal ECG Confirmed by BLAIR DUMONT, ASHLEY ([id number]), purchasing expeditor KAMRAN PRESCOTT ([id number]) on 06/07/2019 11:35:33 AM Referred By: KATELIN Confirmed By:ASHLEY PINTO MD
[2019-06-04 18:48] LABS: Color, Urine Brown (Yellow); Glucose, Dipstick Normal (Normal); Ketone-Dipstick 5 mg/dl (Negative); Leukocyte Esterase-Dipstick 500 /ul (Negative); Nitrite-Dipstick Positive (Negative); Occult Blood-Urine 250 /ul (Negative); Protein-Dipstick 100 mg/dl (Negative); Urine Clarity Cloudy (Clear); Urine Urobilinogen 4 mg/dl (Normal); Urine pH 6.5 (5.0 - 8.0)
[2019-06-04 18:53] LABS: Urine Bilirubin Dipstick 1 mg/dL (Negative)
[2019-06-04 19:00] LABS: White Blood Cells >100 SEEN /hpf (0-5)
[2019-06-04 19:01] LABS: Bacteria 2+ /hpf (None Seen); Red Blood Cells-Urine > 100 SEEN /hpf (0-5); Squamous Epithelial Cells - UA 0-5 SEEN /hpf (5-10)
[2019-06-04] MEDS: 0.9% Normal Saline 1,000 ML 999 ML IV (19:05)
[2019-06-04 19:08] LABS: Absolute Lymphocyte Count 0.95 X10^3/uL (0.83-4.51); Absolute Neutrophil Count 7.1 X10^3/uL (2.0-7.7); Basophil# 0.03 X10^3/uL; Basophil% 0.3 % (0-1); Eosinophil# 0.02 X10^3/uL; Eosinophils% 0.2 % (0-5); Hematocrit 29.9 % (37-47); Hemoglobin 9.3 g/dL (12.0-15.0); Lymphocyte # 0.95 X10^3/ul (4.0); Lymphocyte % 10.6 % (19-41); Mean Corp Hgb Conc 31.1 g/dL (32-36); Mean Corpuscular Hgb 30.7 pg (27.0-32.0); Mean Corpuscular Volume 98.7 fL (81-99); Mean Platelet Vol. 10.6 fl (6.2-12.0); Monocyte# 0.77 X10^3/uL; Monocyte% 8.6 % (0-10); NRBC Flagged by Analyzer 0 % (0-5); Neutrophil # 7.14 X10^3/uL (2.7-7.7); Neutrophil % 79.7 % (47-70); Platelet Count 119 K/mm3 (150-450); RBC Distribution Width CV 17.4 % (11.6-14.6); RBC Distribution Width SD 62.9 fl (35.1-43.9); Red Blood Count 3.03 M/mm3 (4.2-5.4)
--- NOTE | 2019-06-04 19:10 | RAD_ITS ---
STUDY: X-RAY CHEST REASON FOR EXAM: Female, 73 years old. Confusion. Burning with urination TECHNIQUE: Single AP portable view of the chest. COMPARISON: None. FINDINGS: The lungs are clear and expanded. There is no demonstrated pleural abnormality. There is mild cardiac enlargement. Normal mediastinum and luz elena. Normal visualized pulmonary arteries. Normal visualized aortic arch and descending thoracic aorta. There are diffuse degenerative changes of the visualized thoracic spine. Normal visualized ribs, clavicles, and shoulders. There is no demonstrated abnormality of the visualized soft tissue structures of the upper abdomen. Hiatal hernia. RAD/Chest 1 View (Portable) IMPRESSION: No acute findings Electronically Signed: Joseph Aguilar DO at 19:45 EST Tel , Service support ,
[2019-06-04 19:21] LABS: International Normalized Ratio 1.2; Prothrombin Time (Protime)PT. 15.2 SECONDS (11.7-14.9)
[2019-06-04 19:22] LABS: ALB/GLOB Ratio 0.6 RATIO (0.9-2.4); AST(SGOT) 30 U/L (15-37); Alanine Aminotransfer ALT/SGPT 17 U/L (13-56); Albumin, Serum 2.3 g/dL (3.2-5.0); Alkaline Phosphatase 420 U/L (45-117); Anion Gap 8 (5-15); BUN 11 mg/dL (7-18); BUN/Creat Ratio 13.7 RATIO (10-20); Calcium,Total 8.3 mg/dL (8.5-10.1); Chloride 109 mmol/L (98-107); EST Glomerular Filtration Rate 74 mL/min (>60); Est Glom Filt Rate - Afr Amer 90 mL/min (>60); Estimated Creatinine Clearance 57.76 ml/min; Globulin 3.7 g/dL (2.2-4.2); Glucose 113 mg/dL (74-106); Partial Thromboplast Time 38.3 Seconds (24.1-36.2); Potassium 3.3 mmol/L (3.5-5.1); Sodium Level 143 mmol/L (136-145)
--- NOTE | 2019-06-04 19:41 | ED.DCSUM_ITS ---
History of Present Illness Chief Complaint: Confusion Informant: Patient, Family Onset: Days Context: Gradual Onset Narrative: Patient is an 82-year-old female with history of urosepsis, fatty liver disease, kidney stones and depression presenting with family for concern of urinary tract infection. Patient is been having worsening dysuria for the past 3 days. He also notes he seems confused. They state that she does not remember what she says to other people and is forgetting to eat and drink. She also keeps changing her story per the family. Patient states she feels like she has the flu which is body aches and chills. She had a temperature between 99 100 degrees at home. Patient has had nausea and vomiting foam like material. Family states this is been going on for the past 2 months whenever she is around food. Patient has had a 30 to 40 pound weight loss over the past month per the daughter. They note that she had a personality change in the past few days and has been more moving especially to her . Patient had one ureteral stents placed by Dr. Gonzalez at [facility] at the end of April, 1 month ago. Prior similar symptoms: Yes - UTI. urosepsis Recent Illness/Hospitalization: Yes Past Medical History - Allergies and Home Meds Allergies/Adverse Reactions: Allergies Sulfa (Sulfonamide Antibiotics) Allergy (Verified 06/04/19 18:07) Swelling Primary Care Physician: Eagle Dang MD [Primary Care Provider] - Past Medical History: - - Kidney Stones, urosepsis, HTN Surgical History: appendectomy, cholecystectomy, hysterectomy - Total abdominal., - - , Melanoma excision, Liver biopsy. Lives: Spouse/ Significant Other Smoking Status: Never smoker - Family History Maternal Family History: Reports: No pertinent history Paternal Family History: Reports: No pertinent history Review of Systems General: Reports: Chills, Fever, Malaise, Weight loss - 35lb over past month . Denies: Sweats Eyes: Denies: Visual changes - bilaterally, Diplopia ENT: Denies: Rhinorrhea, Sore throat Cardiovascular: Denies: Chest pain, Palpitations Respiratory: Denies: Dyspnea, Cough, Dyspnea on exertion Gastrointestinal: Reports: Abdominal pain. Denies: Nausea, Vomiting, Diarrhea, Melena, Hematochezia Genitourinary: Denies: Dysuria, Hematuria, Frequency Musculoskeletal: Reports: Myalgias, Back pain - lower. Denies: Extremity Pain Skin: Denies: Rash, Wounds Neurological: Reports: - - Confusion. Denies: Headache, Weakness, Numbness Physical Exam Vital Signs/Narrative: Vital Signs Temp Pulse Resp BP Pulse Ox 06/04/19 19:00 98.5 F 118 H 16 151/90 H 100 06/04/19 18:52 98.5 F 16 100 06/04/19 18:07 98.5 F 118 H 18 151/90 H 100 06/04/19 17:41 98.5 F 118 H 18 151/90 H 100 06/04/19 17:40 98.5 F 118 H 18 151/90 H 100 Inital Vital Signs reviewed: Yes General: Well nourished, Well developed, No Acute Distress Head: Normocephalic, Atraumatic Eyes: Perrl, EOMI ENT: Moist mucous membranes, No rhinorrhea, TM's clear Neck: Supple, Nontender Cardiovascular: Regular rhythm, No murmurs, Tachycardia Respiratory: No distress, CTA bilaterally, Chest nontender Abdomen: Soft, Nondistended, Normal bowel sounds, Tender - suprapubic . Negative for: Guarding, Rebound tenderness, Preciado's sign Back: Nontender, Normal Inspection. Negative for: CVA tenderness, Spinal tenderness Extremities: Nontender, No edema Skin: Normal color, No rash Neurological: Alert, Oriented x3, Cranial nerves II-XII grossly intact, Normal Strength, Normal Sensation Psychological: Normal affect, Normal Mood Diagnostic/Tx/Re-eval Chest X-Ray - ED: 1 View, Read by ED Physician, Read by Radiologist, No Acute Disease Clinical Impression(s) from Imaging Studies Chest X-Ray 06/04/19 19:10 IMPRESSION: No acute findings Electronically Signed: Joseph Aguilar DO at 19:45 EST Tel , Service support , Laboratory Data 06/04/19 06/04/19 06/04/19 18:25 18:55 18:55 WBC 9.0 RBC 3.03 L Hgb 9.3 L Hct 29.9 L MCV 98.7 MCH 30.7 MCHC 31.1 L RDW Std Deviation 62.9 H RDW Coeff of Shane 17.4 H Plt Count 119 L MPV 10.6 Immature Gran % (Auto) 0.600 Neut % (Auto) 79.7 H Lymph % (Auto) 10.6 L Gilliam % (Auto) 8.6 Eos % (Auto) 0.2 Baso % (Auto) 0.3 Absolute Neuts (auto) 7.1 Absolute Lymphs (auto) 0.95 Nucleated RBC % 0 PT INR APTT Sodium Potassium Chloride Carbon Dioxide Anion Gap BUN Creatinine Estim Creat Clear Calc Est GFR (MDRD) Af Amer Est GFR (MDRD) Non-Af BUN/Creatinine Ratio Glucose Lactic Acid 2.8 H Calcium Total Bilirubin AST ALT Alkaline Phosphatase Total Protein Albumin Globulin Albumin/Globulin Ratio Urine Color Brown Urine Clarity Cloudy Urine pH 6.5 Ur Specific [place] 1.010 Urine Protein 100 H Urine Glucose (UA) Normal Urine Ketones 5 H Urine Occult Blood 250 H Urine Nitrite Positive H Urine Bilirubin 1 H Urine Urobilinogen 4 H Ur Leukocyte Esterase 500 H Urine RBC > 100 SEEN Urine WBC >100 SEEN Ur Squamous Epith Cells 0-5 SEEN Urine Bacteria 2+ Urine Mucus 0 SEEN 06/04/19 06/04/19 18:55 18:55 WBC RBC Hgb Hct MCV MCH MCHC RDW Std Deviation RDW Coeff of Shane Plt Count MPV Immature Gran % (Auto) Neut % (Auto) Lymph % (Auto) Gilliam % (Auto) Eos % (Auto) Baso % (Auto) Absolute Neuts (auto) Absolute Lymphs (auto) Nucleated RBC % PT 15.2 H INR 1.2 APTT 38.3 H Sodium 143 Potassium 3.3 L Chloride 109 H Carbon Dioxide 26.0 Anion Gap 8 BUN 11 Creatinine 0.80 Estim Creat Clear Calc 57.76 Est GFR (MDRD) Af Amer 90 Est GFR (MDRD) Non-Af 74 BUN/Creatinine Ratio 13.7 Glucose 113 H Lactic Acid Calcium 8.3 L Total Bilirubin 2.30 H AST 30 ALT 17 Alkaline Phosphatase 420 H Total Protein 6.0 L Albumin 2.3 L Globulin 3.7 Albumin/Globulin Ratio 0.6 L Urine Color Urine Clarity Urine pH Ur Specific [place] Urine Protein Urine Glucose (UA) Urine Ketones Urine Occult Blood Urine Nitrite Urine Bilirubin Urine Urobilinogen Ur Leukocyte Esterase Urine RBC Urine WBC Ur Squamous Epith Cells Urine Bacteria Urine Mucus - Rhythm Strip Rhythm Strip: Sinus Rhythm Rate: 92 Ectopy: None - EKG Initial EKG Interpretation: Sinus Rhythm, - - Is evaluated 92 Normal intervals Normal axis no normal ST segments Prior: Unchanged - 04/25/19 - Medical Decision Making Patient is evaluated for lower abdominal pain, lower back pain and urinary symptoms. Family is also notes she is been more confused and had a fever. She has a history of urosepsis. Patient currently has ureteral stents in place that were placed a month ago up at [facility]. She had reconstructive surgery at that time by Dr. Gonzalez. Patient also has a history of VRE septicemia and Klebsiella UTI. Patient does meet criteria for severe sepsis with elevated bilirubin, elevated lactate, tachycardia and tachypnea. CBC shows anemia however this is baseline for the patient. White blood cell count is normal. CMP is significant for elevated total bilirubin at 2.3. This is above her baseline. Liver function is normal. Alkaline phosphatase is elevated at 420 however this is near patient's baseline. Lactate is elevated at 2.8. Urinalysis consistent with infection with positive nitrates and 500 leukoesterase as well as 2+ bacteria and greater than 100 white blood cells seen. Urine culture and blood cultures are pending. Patient does not have any tenderness in the right upper quadrant and does have a history of cholecystectomy. I do not suspect choledocholithiasis at this time. Patient is given a liter of IV fluid as well as Rocephin and gentamicin. Patient does spike a fever on the emergency room. She is given Tylenol for this. Discussed with our hospitalist/urology who recommends that she go back to [facility] because of her unique and extensive surgical history. Urology does not feel comfortable removing patient states which will likely be required based on her urosepsis presentation. Patient and family are agreeable with this. I spoke with Dr. Hu through the [facility] transfer line who accepted the patient. Patient is hemodynamically stable in the emergency room. She is stable at time of disposition. ED Disposition - Plan for ED Patient: Disposition: [facility] - Main Diagnosis: Sepsis secondary to UTI Referrals: Eagle Dang MD [Primary Care Provider] -
[2019-06-04 20:50] LABS: Lactic Acid 2.8 mmol/L (0.4-2.0)
--- NOTE | 2019-06-04 21:11 | HP.PCM_ITS ---
History of Present Illness Date of Admission: 06/04/19 Chief Complaint: Confusion, dysuria, decreased intake The patient is a 73 y/o F w/ PMHx: History of nephrolithiasis s/p prior lithotripsy and ureteral stents with prior ureter reconstruction, Chronic normocytic anemia, Anxiety and Depression w/ Anorexia, HTN, HLD who presents to the [facility] ED on 06/04/19 with history of Work-up in the ED included T 99.6, heart rate 1 6, BP 115/58, respiratory rate 17, 94% on room air, CBC with WC 9, hemoglobin 9.3, platelet 119 with mild shift, coags with PT 15.2, INR 1.2, PTT 38.3, CMP with potassium 3.3, chloride 109, glucose 113, lactic acid 2.8, total bilirubin 2.30, AST/ALT 30/17, alk phos 420, urinalysis with significant evidence of urinary tract infection versus possible pyelonephritis, urine culture pending per ED, blood culture pending per ED, chest x-ray with no acute cardia pulmonary findings. In the ED patient ministered normal saline, Rocephin therapy. Acute sepsis secondary to acute pyelonephritis: Patient with prior noted history of VRE, Klebsiella, enterococcus urinary tract infections. Will admit to PCU, maintain on telemetry, UA upon ED evaluation remarkable, pending UCx, continue IVFs, monitor I/Os, continue IV Zosyn with consideration of initiation of gentamicin given prior sensitivities with notable resistance patterns w/ transition as able pending sensitivities and speciation, infectious disease consulted. Bld cx x 2 obtained in the ED. Hypokalemia: Admission K+ 3.3, supplementation given, repeat level in AM. Elevated bilirubin, unclear etiology, possibly secondary to #1: Total bilirubin 2.30, AST/ALT 30/17, alk phos 420, history of underlying fatty liver disease, possibly secondary to dehydration, continue to hydrate, repeat CMP in a.m. Chronic normocytic, iron deficiency anemia: Admission hemoglobin 9.3, prior 8- 10, stable, trend. Past Medical History Past Medical History (Chronic Problems): Chronic Problems Kidney stones (Chronic) Septic shock (Chronic) Body mass index (BMI) 35.0-35.9, adult (Chronic) Pyelonephritis (Chronic) Hydroureter, left (Chronic) Hydronephrosis, left (Chronic) Hypertension (Chronic) Hyperlipidemia (Chronic) Allergies Sulfa (Sulfonamide Antibiotics) Allergy (Verified 06/04/19 18:07) Swelling Home Medications: Ambulatory Orders Medication Instructions Recorded Acetaminophen [Tylenol Tablet] 1,000 mg PO Q6H PRN tab 05/16/19 Iron Polysaccharide Complex 150 mg PO BID #60 cap 05/16/19 [Ferrex 150] Melatonin 10 mg PO QHS 05/16/19 Menthol/Lanolin/Calamine/Znox 1 applic TOPICAL 599,219905/16/19 [Calmoseptine Ointment] Mineral Oil/Petrolatum,White 1 applic TOPICAL 599,219905/16/19 [Eucerin] Nystatin Powder [Mycostatin Powder] 1 applic TOPICAL 599,219905/16/19 Tamsulosin HCl [Flomax] 0.4 mg PO DAILY 05/16/19 Trospium Chloride [Sanctura] 20 mg PO BID PRN 05/16/19 traMADol [Ultram] 50 mg PO Q6H PRN PRN #30 tab 05/16/19 Atorvastatin Calcium [Lipitor] 20 mg PO QHS 06/04/19 Mirtazapine [Remeron] 30 mg PO QHS 06/04/19 Sennosides [Senna Laxative] 8.6 mg PO BID 06/04/19 Surgical History: appendectomy, cholecystectomy, hysterectomy - Total abdomi nal., - - , Melanoma excision, Liver biopsy. Psychiatric History: No pertinent psych hx [employer] History: No pertinent [employer] history Lives: Spouse/ Significant Other Smoking Status: Never smoker Tobacco Use: Non-smoker Alcohol: None Drugs: None - *Family History Maternal History Items: No pertinent history Paternal History Items: No pertinent history Review of Systems Constitutional: Denies: Chills, Fever, Weight Change HEENT: Denies: Head Aches, Sinus Congestion, Sinus Drainage Cardiovascular: Denies: Chest Pain, Palpitations Respiratory: Denies: Cough, Shortness of breath at rest, Sputum production Gastrointestinal: Denies: Abdominal Pain, Nausea, Vomiting Genitourinary: Denies: Dysuria Musculoskeletal: Denies: Joint Pain, Joint Tenderness Skin: Denies: Rash, Wounds Neurological: Denies: Numbness, Tingling, Focal weakness Psychiatric: Denies: Anxiety, Depression, Homicidal Ideations, Suicidal Ideations Hematologic/ Lymphatic: Denies: Easy Bruising, Easy Bleeding VTE Information - Inpt Only VTE Present on Admission: No VTE Mechan Device Prophylaxis: SCD's VTE Pharm Prophylaxis ordered?: Yes - Physical Exam Vitals/I&O's: Vital Signs Temp Pulse Resp BP Pulse Ox 99.6 F H 106 H 17 115/58 L 94 06/04/19 20:20 06/04/19 20:20 06/04/19 20:20 06/04/19 20:20 06/04/19 20:20 Oxygen Delivery Method Room Air Weight: 176 lb 9.444 oz Body Mass Index (BMI) 28.5 Intake and Output for Last 24 Hours 06/02/19 06/03/19 06/04/19 23:59 23:59 23:59 Intake Total 1000 / 1000 Balance 1000 / 1000 Laboratory Results 06/04/19 18:25: Urine Color Brown, Urine Clarity Cloudy, Urine pH 6.5, Ur Specific [place] 1.010, Urine Protein 100 H, Urine Glucose (UA) Normal, Urine Ketones 5 H, Urine Occult Blood 250 H, Urine Nitrite Positive H, Urine Bilirubin 1 H, Urine Urobilinogen 4 H, Ur Leukocyte Esterase 500 H, Urine RBC > 100 SEEN, Urine WBC >100 SEEN, Ur Squamous Epith Cells 0-5 SEEN, Urine Bacteria 2+, Urine Mucus 0 SEEN 06/04/19 18:55: Lactic Acid 2.8 H 06/04/19 18:55: WBC 9.0, RBC 3.03 L, Hgb 9.3 L, Hct 29.9 L, MCV 98.7, MCH 30.7, MCHC 31.1 L, RDW Std Deviation 62.9 H, RDW Coeff of Shane 17.4 H, Plt Count 119 L, MPV 10.6, Immature Gran % (Auto) 0.600, Neut % (Auto) 79.7 H, Lymph % (Auto) 10.6 L, [place] % (Auto) 8.6, Eos % (Auto) 0.2, Baso % (Auto) 0.3, Absolute Neuts (auto) 7.1, Absolute Lymphs (auto) 0.95, Nucleated RBC % 0 06/04/19 18:55: PT 15.2 H, INR 1.2, APTT 38.3 H 06/04/19 18:55: Sodium 143, Potassium 3.3 L, Chloride 109 H, Carbon Dioxide 26.0, Anion Gap 8, BUN 11, Creatinine 0.80, Estim Creat Clear Calc 57.76, Est GFR (MDRD) Af Amer 90, Est GFR (MDRD) Non-Af 74, BUN/Creatinine Ratio 13.7, Glucose 113 H, Calcium 8.3 L, Total Bilirubin 2.30 H, AST 30, ALT 17, Alkaline Phosphatase 420 H, Total Protein 6.0 L, Albumin 2.3 L, Globulin 3.7, Albumin/Globulin Ratio 0.6 L Current Medications Sodium Chloride () 1,000 mls @ 50 mls/hr IV .Q20H DARLIN Last Admin: 06/04/19 20:03 Dose: Not Given Documented by: Ceftriaxone Sodium (Rocephin) 1 gm in 50 mls @ 100 mls/hr IV X1 ONE Stop: 06/04/19 21:39 Assessment/Plan All Active Problems Debility (Acute)
[2019-06-04] MEDS: Ceftriaxone 1 GM/50 ML BAG IV (21:44)
[2019-06-04] MEDS: Acetaminophen 500 MG Tablet 1000 MG PO (21:55)
[2019-06-04 23:02] LABS: Reflex Lactate? Y
--- NOTE | 2019-06-05 10:53 | ED.RN ---
Faxed prelim blood culture results to Ariadne @ [facility]. [phone]. Chart has [facility] listed as transfer hospital. verified with Dr Galarza pt was transferred to [facility].
== END 2019-06-05 00:25 | disposition short-term general hospital (02) ==
PROVIDERS: Emergency Provider Emergency Medicine; Family Provider Family Medicine; PCP Family Medicine
DX: A41.9 Sepsis, unspecified organism (principal); N39.0 Urinary tract infection, site not specified; F32.9 Major depressive disorder, single episode, unspecified; I10 Essential (primary) hypertension; Z85.820 Personal history of malignant melanoma of skin; Z87.442 Personal history of urinary calculi; Z88.2 Allergy status to sulfonamides; Z90.49 Acquired absence of other specified parts of digestive tract; Z90.710 Acquired absence of both cervix and uterus
CPT/HCPCS: 36415; 71045; 80053; 81001; 83605; 85025; 85610; 85730; 87040; 87077; 87086; 87088; 87186; 93005; 94760; 96361; 96365; 96367; 99285; J7030; J7050

== ENCOUNTER 2019-06-20 21:13 | Outpatient (RCR) | payer MEDICARE, OTHER, SELFPAY ==
[2019-06-04 17:41] VITALS: BMI 28.5
[2019-06-20 21:30] LABS: Color, Urine Yellow (Yellow); Glucose, Dipstick Normal (Normal); Ketone-Dipstick Negative (Negative); Leukocyte Esterase-Dipstick 500 /ul (Negative); Nitrite-Dipstick Positive (Negative); Occult Blood-Urine 250 /ul (Negative); Protein-Dipstick 100 mg/dl (Negative); Specific Gravity, Urine 1.015 (1.002-1.030); Urine Bilirubin Dipstick Negative (Negative); Urine Clarity Cloudy (Clear); Urine Urobilinogen 1 mg/dl (Normal); Urine pH 6.5 (5.0 - 8.0)
== END 2019-06-20 23:00 | disposition home or self-care (01) ==
LOC: HHLAB 21:13
PROVIDERS: Family Provider Family Medicine; PCP Family Medicine; Referring Provider Family Medicine; Visit Provider Family Medicine
DX: A41.9 Sepsis, unspecified organism (principal); N39.0 Urinary tract infection, site not specified
CPT/HCPCS: 81002; 87086; 87088

== ENCOUNTER 2019-06-24 15:45 | Inpatient (IN) | payer MEDICARE, OTHER, SELFPAY ==
[2019-06-04 17:41] VITALS: BMI 28.5
[2019-06-24 16:03] VITALS: BP 110/74; PULSE 110; RESP 16; RESP 20; TEMP 36.8; O2SAT 97
[2019-06-24 17:00] VITALS: BMI 29.9
--- NOTE | 2019-06-24 17:03 | HP.PCM_ITS ---
Problem List (1) Encephalopathy Status: Acute (2) Sepsis Status: Acute (3) Melanoma Status: Chronic (4) Lumbar spondylosis Status: Chronic (5) Vitamin D deficiency Status: Chronic (6) Iron deficiency anemia Status: Chronic (7) Overactive bladder Status: Chronic (8) Chronic cough Status: Chronic (9) Fatty liver Status: Chronic (10) Recurrent kidney stones Status: Chronic (11) Depression Status: Chronic (12) Urinary retention Status: Chronic (13) Osteoarthritis Status: Chronic (14) Debility Status: Acute (15) Pyelonephritis Status: Chronic (16) Hypertension Status: Chronic (17) Hyperlipidemia Status: Chronic History of Present Illness Date of Admission: 06/24/19 Chief Complaint: Here for rehabilitation, strengthening, prior to discharge home with . The patient is a 73 year old Female with below past medical presented to [facility] Emergency Department 06/04/2019 with confusion. 06/04/2019 EKG normal sinus rhythm, normal EKG. 06/04/2019 Chest X-ray negative. Gradual confusion, concern for urinary tract infection. Worsening dysuria x 3 days. Forgetting to eat and drink, story changing. Chills, body aches, feels like flu, fever 100. Nausea, vomiting. 30 - 40 pound weight loss over 1 month. Personality change x few days. Ureteral stents 1 month ago. Severe sepsis, Lactate 2.8. UA consistent with urinary tract infection. Urine, blood cultures sent. Rocephin, Gentamicin, 1 liter IV fluid given. 06/04/2019 Transfer to [facility] for further care with Dr. Gonzalez, patient's urologist. 06/05/2019 - 06/07/2019 Admitted for sepsis, blood culture negative. 06/21/2019 Admit to [facility]. Direct admission for change in mental status, nausea, vomiting, malaise, dysuria. Malaise, nausea, vomiting, dysuria x 2 days, stable hematuria. Left lower quadrant pain, chronic cough. Zosyn for urosepsis, pending cultures. 06/22/2019 Nausea, improved, tolerating diet. Zosyn IV, cultures pending. Haywood catheter placed, consider chronic intermittent catheterization versus indwelling haywood catheter. 06/24/2019 Admit to TCU with debility, here for rehabilitation, strengthening, prior to discharge home with . Past Medical History Past Medical History (Chronic Problems): Chronic Problems Kidney stones (Chronic) Septic shock (Chronic) Body mass index (BMI) 35.0-35.9, adult (Chronic) Pyelonephritis (Chronic) Hydroureter, left (Chronic) Hydronephrosis, left (Chronic) Hypertension (Chronic) Hyperlipidemia (Chronic) Melanoma (Chronic) Lumbar spondylosis (Chronic) Vitamin D deficiency (Chronic) Iron deficiency anemia (Chronic) Overactive bladder (Chronic) Chronic cough (Chronic) Fatty liver (Chronic) Recurrent kidney stones (Chronic) Depression (Chronic) Urinary retention (Chronic) Osteoarthritis (Chronic) Allergies Sulfa (Sulfonamide Antibiotics) Allergy (Verified 06/04/19 18:07) Swelling Home Medications: Ambulatory Orders Medication Instructions Recorded Iron Polysaccharide Complex 150 mg PO BID #60 cap 05/16/19 [Ferrex 150] Melatonin 10 mg PO QHS 05/16/19 Menthol/Lanolin/Calamine/Znox 1 applic TOPICAL 0600,219905/16/19 [Calmoseptine Ointment] Mineral Oil/Petrolatum,White 1 applic TOPICAL 0600,219905/16/19 [Eucerin] Nystatin Powder [Mycostatin Powder] 1 applic TOPICAL 0600,219905/16/19 Tamsulosin HCl [Flomax] 0.4 mg PO DAILY 05/16/19 Trospium Chloride [Sanctura] 20 mg PO BID PRN 05/16/19 Atorvastatin Calcium [Lipitor] 20 mg PO QHS 06/04/19 Mirtazapine [Remeron] 30 mg PO QHS 06/04/19 Acetaminophen [Tylenol Tablet] 1,000 mg PO Q6H PRN PRN 06/24/19 Benzonatate 200 mg PO TID PRN PRN 06/24/19 Docusate Sodium 100 mg PO BID PRN PRN 06/24/19 Ensure Enlive 120 ml PO 4X/DAY 06/24/19 Ondansetron [Ondansetron Odt] 4 mg PO Q8H PRN PRN 06/24/19 Surgical History: appendectomy, cholecystectomy, hysterectomy - Total abdominal., - - , Melanoma excision, Liver biopsy, ureteral stent. Psychiatric History: Depression [employer] History: No pertinent [employer] history Lives: Spouse/ Significant Other Smoking Status: Never smoker Tobacco Use: Non-smoker Alcohol: None Drugs: None - *Family History Maternal History Items: Dementia - Alzheimer Disease., Stroke Paternal History Items: Cancer - Throat. Review of Systems Constitutional: Denies: Chills, Fever, Weight Change HEENT: Denies: Head Aches, Sinus Congestion, Sinus Drainage Cardiovascular: Denies: Chest Pain, Palpitations Respiratory: Denies: Cough, Shortness of breath at rest, Sputum production Gastrointestinal: Denies: Abdominal Pain, Nausea, Vomiting Genitourinary: Denies: Dysuria Musculoskeletal: Denies: Joint Pain, Joint Tenderness Skin: Denies: Rash, Wounds Neurological: Denies: Numbness, Tingling, Focal weakness Psychiatric: Denies: Anxiety, Depression, Homicidal Ideations, Suicidal Ideations Hematologic/ Lymphatic: Denies: Easy Bruising, Easy Bleeding VTE Information - Inpt Only VTE Present on Admission: No VTE Mechan Device Prophylaxis: Knee High CARMELLA Hose VTE Pharm Prophylaxis ordered?: No Reason prophylaxis not ordered:: Medical Contraindication Patient Problems: Active and Suspected Problems Encephalopathy (Acute) Sepsis (Acute) - Physical Exam Vitals/I&O's: Body Mass Index (BMI) 28.5 General: Alert, Oriented x3, Cooperative HEENT: Atraumatic, PERRLA, EOMI, Normocephalic Neck: Supple, No JVD, Negative Carotid Bruits Lungs: Clear to auscultation, Normal air movement Cardiovascular: Regular rate, No murmurs Abdomen: Bowel Sounds Present, Soft, Non Tender, - - Indwelling Haywood Catheter. Extremities: No edema, Capillary Refill Less than 3 Seconds Skin: No rashes, No breakdown Musculoskeletal: No Tenderness to Palpation of Joints or Extremities Neurological: Cranial nerves II-XII grossly intact Psych/Mental Status: Normal Affect, Appropriate Current Medications Acetaminophen (Tylenol) 1,000 mg PO Q6H PRN PRN PRN Reason: Pain Score 1-10/10 Atorvastatin Calcium (Lipitor) 20 mg PO QHS DARLIN Benzonatate (Tessalon Perle) 200 mg PO TID PRN PRN PRN Reason: COUGH Calamine/Phenol (Calmoseptine Ointment) 1 applic TOPICAL 0600,2200 [facility]; Protocol Docusate Sodium (Colace) 100 mg PO BID PRN PRN PRN Reason: Constipation Melatonin (Melatonin) 10 mg PO QHS [facility] Mirtazapine (Remeron) 30 mg PO QHS [facility] Multi-Ingredient Cream (Eucerin) 1 applic TOPICAL 0600,2200 [facility]; Protocol Nutritional Formula (Lactose Free) (Ensure Enlive) 120 ml PO 4X/DAY DARLIN Nystatin (Mycostatin Powder) 1 applic TOPICAL 0600,2200 [facility]; Protocol Ondansetron HCl (Zofran Odt) 4 mg PO Q8H PRN PRN PRN Reason: NAUSEA/VOMITING Polysaccharide Iron Complex (Ferrex 150) 150 mg PO BID [facility] Tamsulosin HCl (Flomax) 0.4 mg PO DAILY [facility] Tolterodine Tartrate (Detrol La) 2 mg PO DAILY PRN PRN PRN Reason: BLADDER SPASMS Tuberculin PPD (Tubersol, Aplisol, Ppd) 5 tu ID X1 ONE Stop: 06/25/19 10:01 Tuberculin PPD (Tubersol, Aplisol, Ppd) 5 tu ID X1 ONE Stop: 07/02/19 10:01 Assessment/Plan All Active Problems Debility (Acute) Encephalopathy (Acute) Sepsis (Acute) 73 year old female with below past medical history hospitalized for encephalopathy secondary to sepsis from complicated urinary tract infection, admitted to TCU with debility, here for rehabilitation, strengthening, prior to discharge home with . * Debility - PT/OT. * Pain - Tylenol 1000MG Q6H PRN pain (1-10). * Bowel - Miralax 17GM daily, Senna/colace 1 tablet BID, Dulcolax 10MG daily PRN. * Adult immunization - Administer Prevnar 13, Pneumovax 23, Fluzone as necessary. * DVT prophylaxis - Hold due to thrombocytopenia, hematuria. * Hyperlipidemia - Atorvastatin 20MG QHS. * Chronic cough - Tessalon Perles 200MG TID PRN. * Nutrition - Ensure Enlive 120ML 4x/day. * Iron deficiency anemia - Ferrex 150MG BID. * Insomnia - Melatonin 10MG QHS, Mirtazapine 30MG QHS. * Skin irritation - Calmoseptine BID, Eucerin BID. * Depression/appetite loss - Mirtazapine 30MG QHS. * Tinea Corporis - Nystatin powder BID. * Nausea - Zofran 4MG Q8H PRN. * Urinary retention - Tamsulosin 0.4MG daily, indwelling haywood catheter, voiding trails TCU Day #3. * Overactive bladder - Tolterodine 2MG daily PRN.
[2019-06-24] MEDS: Iron Polysaccharide Complex 150 MG CAPSULE PO (17:58)
[2019-06-24] MEDS: Senna/Docusate Sodium 1 Tablet PO (17:58)
[2019-06-24] MEDS: Benzonatate 100 MG Capsule 200 MG PO (17:59)
--- NOTE | 2019-06-24 19:34 | NURSING ---
pt arrived via w/c with family @ [id number], pt has chronic cough, pt says nobody knows why Tessalon Perle given little to minimal effective, pt ate few bites of food then had emesis, zofran given, effective
[2019-06-24] MEDS: Atorvastatin Calcium 20 MG Tablet PO (22:32)
[2019-06-24] MEDS: Mirtazapine 30 MG Tablet PO (22:32)
[2019-06-24] MEDS: MELATONIN 10 MG TABLET PO (22:33)
[2019-06-24] MEDS: Menthol/Lanolin/Calamine/Znox 113 GM Tube 1 APPLIC TOPICAL (22:39)
[2019-06-24] MEDS: Nystatin Powder 15gm Bottle 1 APPLIC TOPICAL (22:40)
[2019-06-25] MEDS: Iron Polysaccharide Complex 150 MG CAPSULE PO ×2 (06:59→16:51)
[2019-06-25] MEDS: Enoxaparin 40 MG/0.4 ML Syringe SC (06:59)
[2019-06-25] MEDS: Senna/Docusate Sodium 1 Tablet PO ×2 (06:59→16:51)
[2019-06-25] MEDS: Tamsulosin HCl 0.4 MG Capsule PO (06:59)
[2019-06-25 07:05] LABS: Absolute Lymphocyte Count 1.21 X10^3/uL (0.83-4.51); Absolute Neutrophil Count 3.8 X10^3/uL (2.0-7.7); Basophil# 0.02 X10^3/uL; Basophil% 0.3 % (0-1); Eosinophil# 0.18 X10^3/uL; Eosinophils% 3.1 % (0-5); Hematocrit 26.2 % (37-47); Lymphocyte # 1.21 X10^3/ul (4.0); Lymphocyte % 20.8 % (19-41); Mean Corp Hgb Conc 30.5 g/dL (32-36); Mean Corpuscular Hgb 30.4 pg (27.0-32.0); Mean Corpuscular Volume 99.6 fL (81-99); Mean Platelet Vol. 10.8 fl (6.2-12.0); Monocyte# 0.59 X10^3/uL; Monocyte% 10.1 % (0-10); NRBC Flagged by Analyzer 0 % (0-5); Neutrophil % 65.4 % (47-70); POSITIVE COUNT YES; Platelet Count 92 K/mm3 (150-450); RBC Distribution Width CV 16.5 % (11.6-14.6); RBC Distribution Width SD 60.6 fl (35.1-43.9); Red Blood Count 2.63 M/mm3 (4.2-5.4); White Blood Count 5.8 K/mm3 (4.4-11.0)
[2019-06-25] MEDS: Menthol/Lanolin/Calamine/Znox 113 GM Tube 1 APPLIC TOPICAL ×2 (07:06→21:54)
[2019-06-25] MEDS: Nystatin Powder 15gm Bottle 1 APPLIC TOPICAL ×2 (07:06→21:59)
[2019-06-25] MEDS: Polyethylene Glycol 3350 17 GM PACKET PO (07:07)
[2019-06-25 07:33] LABS: Anion Gap 5 (5-15); BUN 10 mg/dL (7-18); BUN/Creat Ratio 16.7 RATIO (10-20); Calcium,Total 7.4 mg/dL (8.5-10.1); Chloride 108 mmol/L (98-107); EST Glomerular Filtration Rate 104 mL/min (>60); Est Glom Filt Rate - Afr Amer 126 mL/min (>60); Estimated Creatinine Clearance 44.41 ml/min; Glucose 80 mg/dL (74-106); Potassium 3.7 mmol/L (3.5-5.1); Sodium Level 139 mmol/L (136-145)
[2019-06-25 10:10] VITALS: RESP 16
[2019-06-25] MEDS: Tuberculin,Purif.prot.deriv. 50 TU/ML Vial 5 ML ID (11:23)
--- NOTE | 2019-06-25 13:11 | NURSING ---
pt refused brkfst but ate light lunch, at desk asking why alarms on pt , understood the protocol but pt not happy with having alarms, re-educated pt, pt also is telling family and staff she will be going home on Wednesday, states she is not to be released before PT thinks she is ready.
[2019-06-25 16:00] VITALS: BP 116/48; PULSE 85; RESP 18; TEMP 37.6; O2SAT 93
[2019-06-25] MEDS: Acetaminophen 500 MG Tablet 1000 MG PO (21:53)
[2019-06-25] MEDS: Mirtazapine 30 MG Tablet PO (21:57)
[2019-06-25] MEDS: MELATONIN 10 MG TABLET PO (21:57)
[2019-06-25] MEDS: Atorvastatin Calcium 20 MG Tablet PO (21:57)
[2019-06-26] MEDS: Senna/Docusate Sodium 1 Tablet PO ×2 (06:02→17:21)
[2019-06-26] MEDS: Tamsulosin HCl 0.4 MG Capsule PO (06:03)
[2019-06-26] MEDS: Nystatin Powder 15gm Bottle 1 APPLIC TOPICAL ×2 (06:04→21:58)
[2019-06-26] MEDS: Menthol/Lanolin/Calamine/Znox 113 GM Tube 1 APPLIC TOPICAL ×2 (06:04→21:57)
[2019-06-26 10:00] VITALS: PULSE 80; RESP 16; O2SAT 98
[2019-06-26 16:00] VITALS: BP 126/73; PULSE 116; RESP 20; TEMP 37.1; O2SAT 90
[2019-06-26] MEDS: MELATONIN 10 MG TABLET PO (21:52)
[2019-06-26] MEDS: Atorvastatin Calcium 20 MG Tablet PO (21:52)
[2019-06-26] MEDS: Mirtazapine 30 MG Tablet PO (21:53)
[2019-06-26] MEDS: Acetaminophen 500 MG Tablet 1000 MG PO (21:56)
[2019-06-26] MEDS: Benzonatate 100 MG Capsule 200 MG PO (21:56)
[2019-06-27] MEDS: Tamsulosin HCl 0.4 MG Capsule PO (05:39)
[2019-06-27] MEDS: Menthol/Lanolin/Calamine/Znox 113 GM Tube 1 APPLIC TOPICAL ×2 (05:41→21:13)
[2019-06-27] MEDS: Nystatin Powder 15gm Bottle 1 APPLIC TOPICAL ×2 (05:42→21:13)
[2019-06-27 05:53] LABS: Hematocrit 27.2 % (37-47); Hemoglobin 8.3 g/dL (12.0-15.0)
[2019-06-27] MEDS: Iron Polysaccharide Complex 150 MG CAPSULE PO ×2 (09:42→16:46)
[2019-06-27 10:10] VITALS: BP 101/59; BP 130/69; BP 91/45; PULSE 107; PULSE 110; PULSE 91
--- NOTE | 2019-06-27 11:45 | NURSING ---
THIS NURSE AND THERAPY DID VITALS ON PT FOR LYING,SITTING AND STANDING DUE TO PT COMPLAINTS YESTERDAY OF FEELING LIKE SHE WAS GOING TO PASS OUT WHILE STANDING. REPORTED TO DOROTEO CANCINO
[2019-06-27] MEDS: Benzonatate 100 MG Capsule 200 MG PO ×2 (12:22→16:46)
--- NOTE | 2019-06-27 15:12 | PHA.CONS_ITS ---
<Debbie Campbell M - Last Filed: 06/27/19 15:12> Progress Note - Pharmacy Subjective: TCU ADMISSION Objective: Allergies Sulfa (Sulfonamide Antibiotics) Allergy (Verified 06/04/19 18:07) Swelling Current Medications Generic Name Dose Route Start Last Admin Trade Name Freq PRN Reason Stop Dose Admin Acetaminophen 1,000 mg 06/24/19 16:44 06/26/19 21:56 Tylenol PO 1,000 mg Q6H PRN PRN Administration Pain Score 1-10/10 Atorvastatin Calcium 20 mg 06/24/19 22:00 06/26/19 21:52 Lipitor PO 20 mg QHS [facility] Administration Benzonatate 200 mg 06/24/19 17:00 06/27/19 12:22 Tessalon Perle PO 200 mg TID PRN PRN Administration COUGH Bisacodyl 10 mg 06/24/19 17:21 Dulcolax PO DAILY PRN Constipation Calamine/Phenol 1 applic 06/24/19 22:00 06/27/19 05:41 Calmoseptine Ointment TOPICAL 1 applicatio 0600,2200 [facility] Administration Protocol Melatonin 10 mg 06/24/19 22:00 06/26/19 21:52 Melatonin PO 10 mg QHS [facility] Administration Mirtazapine 30 mg 06/24/19 22:00 06/26/19 21:53 Remeron PO 30 mg QHS [facility] Administration Multi-Ingredient Cream 1 applic 06/24/19 22:00 06/27/19 05:40 Eucerin TOPICAL 1 applicatio 0600,2200 [facility] Administration Protocol Nystatin 1 applic 06/24/19 22:00 06/27/19 05:42 Mycostatin Powder TOPICAL 1 applicatio 0600,2200 [facility] Administration Protocol Ondansetron HCl 4 mg 06/24/19 16:44 Zofran Odt PO Q8H PRN PRN NAUSEA/VOMITING Polyethylene Glycol 17 gm 06/25/19 06:00 06/27/19 05:42 Miralax PO Not Given DAILY [facility] Polysaccharide Iron Complex 150 mg 06/25/19 17:00 06/27/19 09:42 [facility] Administration Senna/Docusate Sodium 1 tablet 06/24/19 18:00 06/27/19 05:44 Senokot-S, Deana-Colace PO Not Given BID DARLIN Tamsulosin HCl 0.4 mg 06/25/19 06:00 06/27/19 05:39 Flomax PO 0.4 mg DAILY DARLIN Administration Tolterodine Tartrate 2 mg 06/24/19 17:05 Detrol La PO DAILY PRN PRN BLADDER SPASMS Tuberculin PPD 5 tu 07/02/19 10:00 Tubersol, Aplisol, Ppd ID 07/02/19 10:01 X1 ONE Problem List Encephalopathy (Acute) Sepsis (Acute) Melanoma (Chronic) Lumbar spondylosis (Chronic) Vitamin D deficiency (Chronic) Iron deficiency anemia (Chronic) Overactive bladder (Chronic) Chronic cough (Chronic) Fatty liver (Chronic) Recurrent kidney stones (Chronic) Depression (Chronic) Urinary retention (Chronic) Osteoarthritis (Chronic) Vital Signs Temp Pulse Resp BP Pulse Ox 98.8 F 91 20 H 101/59 L 90 06/26/19 16:00 06/27/19 10:10 06/26/19 16:00 06/27/19 10:10 06/26/19 16:00 Oxygen Delivery Method Room Air Weight: 80.541 kg Body Mass Index (BMI) 29.9 Orthostatic Vital Signs Start: 06/27/19 10:10 Freq: q24h Status: Active Protocol: Activity Type Activity Date Activity User E-Sign Co-Sign Detail Recorded Client Recorded Date Recorded By Document 06/27/19 10:10 [facility] [id number] 06/27/19 10:12 CYRIL 06/27/19 10:10 Orthostatic Vitals Standing -Blood Pressure (90/60-120/80) 91/45 L -Extremity Use Right Arm -Pulse Rate (60-100) 110 H Sitting -Blood Pressure (90/60-120/80) 130/69 H -Extremity Use Right Arm -Pulse Rate (60-100) 107 H Lying -Blood Pressure (90/60-120/80) 101/59 L -Extremity Use Right Arm -Pulse Rate (60-100) 91 Sodium 139 mmol/L (136-145) 06/25/19 06:25 Potassium 3.7 mmol/L (3.5-5.1) 06/25/19 06:25 Chloride 108 mmol/L (98-107) H 06/25/19 06:25 Carbon Dioxide 26.0 mmol/L (21.0-32.0) 06/25/19 06:25 Anion Gap 5 (5-15) 06/25/19 06:25 BUN 10 mg/dL (7-18) 06/25/19 06:25 Creatinine 0.60 mg/dL (0.55-1.02) 06/25/19 06:25 Est GFR (MDRD) Af Amer 126 mL/min (>60) 06/25/19 06:25 Est GFR (MDRD) Non-Af 104 mL/min (>60) 06/25/19 06:25 BUN/Creatinine Ratio 16.7 RATIO (10-20) 06/25/19 06:25 Glucose 80 mg/dL (74-106) 06/25/19 06:25 Assessment/Plan: 1. Pain: Tylenol 1000mg PO Q6h PRN Pain 1-04/20. Please continue to monitor PRN use, increased/decreased pain 2. Hyperlipidemia: Atorvastatin 20mg PO QHS. Please continue to monitor lipid panel at least annually, or sooner if clinically indicated 3. Cough: Benzonatate 200mg PO TID PRN. Please continue to monitor PRN use, resolution of symptoms 4. Iron deficiency anemia: Ferrex 150mg PO BID. Please continue to monitor iron studies as clinically indicated 5. Insomnia: Melatonin 10MG QHS. Please continue to monitor for S/S continued insomnia, or oversedation. If patient not able to fall asleep, would recommend changing Melatonin administration time to 2-3hrs prior to bedtime to allow for medication to work 6. Nausea: Zofran 4Mmg PO Q8H PRN. Please continue to monitor PRN use, S/S nausea 7. Urinary retention/ OAB: Tamsulosin 0.4mg PO daily, Tolterodine 2mg PO daily PRN. Please continue to monitor for improvement in symptoms, PRN use. Psychotropic Medications: *8. Depression/appetite loss/ insomnia: Mirtazapine 30mg PO QHS. Please consider a GDR by 11/2019 if clinically appropriate Unnecessary Medications: None Bowel Regimen: Bowel: Miralax 17g PO daily, Senna/Docusate 1 tablet PO BID, Dulcolax 10mg PO daily PRN. Please continue to monitor for increased/decreased S/S diarrhea or constipation Date of Note:: 06/27/19 - Provider Comments Provider responsibility: Provider responsible to enter orders to implement recommendations <Remi Fernandez Chi - Last Filed: 06/27/19 17:19> Progress Note - Pharmacy Subjective: [] Objective: Allergies Sulfa (Sulfonamide Antibiotics) Allergy (Verified 06/04/19 18:07) Swelling Current Medications Generic Name Dose Route Start Last Admin Trade Name Freq PRN Reason Stop Dose Admin Acetaminophen 1,000 mg 06/24/19 16:44 06/26/19 21:56 Tylenol PO 1,000 mg Q6H PRN PRN Administration Pain Score 1-10/10 Atorvastatin Calcium 20 mg 06/24/19 22:00 06/26/19 21:52 Lipitor PO 20 mg QHS [facility] Administration Benzonatate 200 mg 06/24/19 17:00 06/27/19 16:46 Tessalon Perle PO 200 mg TID PRN PRN Administration COUGH Bisacodyl 10 mg 06/24/19 17:21 Dulcolax PO DAILY PRN Constipation Calamine/Phenol 1 applic 06/24/19 22:00 06/27/19 05:41 Calmoseptine Ointment TOPICAL 1 applicatio 0600,2200 [facility] Administration Protocol Melatonin 10 mg 06/24/19 22:00 06/26/19 21:52 Melatonin PO 10 mg QHS [facility] Administration Mirtazapine 30 mg 06/24/19 22:00 06/26/19 21:53 Remeron PO 30 mg QHS [facility] Administration Multi-Ingredient Cream 1 applic 06/24/19 22:00 06/27/19 05:40 Eucerin TOPICAL 1 applicatio 0600,2200 [facility] Administration Protocol Nystatin 1 applic 06/24/19 22:00 06/27/19 05:42 Mycostatin Powder TOPICAL 1 applicatio 0600,2200 [facility] Administration Protocol Ondansetron HCl 4 mg 06/24/19 16:44 Zofran Odt PO Q8H PRN PRN NAUSEA/VOMITING Polyethylene Glycol 17 gm 06/25/19 06:00 06/27/19 05:42 Miralax PO Not Given DAILY [facility] Polysaccharide Iron Complex 150 mg 06/25/19 17:00 06/27/19 16:46 Ferrex 150 PO 150 mg BIDCM [facility] Administration Senna/Docusate Sodium 1 tablet 06/24/19 18:00 06/27/19 16:44 Senokot-S, Deana-Colace PO Not Given BID [facility] Tamsulosin HCl 0.4 mg 06/25/19 06:00 06/27/19 05:39 Flomax PO 0.4 mg DAILY [facility] Administration Tolterodine Tartrate 2 mg 06/24/19 17:05 Detrol La PO DAILY PRN PRN BLADDER SPASMS Tuberculin PPD 5 tu 07/02/19 10:00 Tubersol, Aplisol, Ppd ID 07/02/19 10:01 X1 ONE Problem List Encephalopathy (Acute) Sepsis (Acute) Melanoma (Chronic) Lumbar spondylosis (Chronic) Vitamin D deficiency (Chronic) Iron deficiency anemia (Chronic) Overactive bladder (Chronic) Chronic cough (Chronic) Fatty liver (Chronic) Recurrent kidney stones (Chronic) Depression (Chronic) Urinary retention (Chronic) Osteoarthritis (Chronic) Vital Signs Temp Pulse Resp BP Pulse Ox 98.8 F 91 20 H 101/59 L 90 06/26/19 16:00 06/27/19 10:10 06/26/19 16:00 06/27/19 10:10 06/26/19 16:00 Oxygen Delivery Method Room Air Weight: 80.541 kg Body Mass Index (BMI) 29.9 Orthostatic Vital Signs Start: 06/27/19 10:10 Freq: q24h Status: Active Protocol: Activity Type Activity Date Activity User E-Sign Co-Sign Detail Recorded Client Recorded Date Recorded By Document 06/27/19 10:10 [facility] [id number] 06/27/19 10:12 [facility] 06/27/19 10:10 Orthostatic Vitals Standing -Blood Pressure (90/60-120/80) 91/45 L -Extremity Use Right Arm -Pulse Rate (60-100) 110 H Sitting -Blood Pressure (90/60-120/80) 130/69 H -Extremity Use Right Arm -Pulse Rate (60-100) 107 H Lying -Blood Pressure (90/60-120/80) 101/59 L -Extremity Use Right Arm -Pulse Rate (60-100) 91 Sodium 139 mmol/L (136-145) 06/25/19 06:25 Potassium 3.7 mmol/L (3.5-5.1) 06/25/19 06:25 Chloride 108 mmol/L (98-107) H 06/25/19 06:25 Carbon Dioxide 26.0 mmol/L (21.0-32.0) 06/25/19 06:25 Anion Gap 5 (5-15) 06/25/19 06:25 BUN 10 mg/dL (7-18) 06/25/19 06:25 Creatinine 0.60 mg/dL (0.55-1.02) 06/25/19 06:25 Est GFR (MDRD) Af Amer 126 mL/min (>60) 06/25/19 06:25 Est GFR (MDRD) Non-Af 104 mL/min (>60) 06/25/19 06:25 BUN/Creatinine Ratio 16.7 RATIO (10-20) 06/25/19 06:25 Glucose 80 mg/dL (74-106) 06/25/19 06:25 Assessment/Plan: Psychotropic Medications: Unnecessary Medications: Bowel Regimen: - Provider Comments Provider responsibility: Provider responsible to enter orders to implement recommendations Provider Comments to Recommendations by Pharmacy: Agree
[2019-06-27 16:00] VITALS: BP 121/59; PULSE 99; RESP 18; TEMP 36.7; O2SAT 97
--- NOTE | 2019-06-27 17:37 | NURSING ---
This nurse went into patient's room to start an IV per Dr. Fernandez's order. Explained to pt the need for the IV per 's order. pt refused, attempted to educate the pt on the need for IV fluids, pt was adamant that she did not want an IV. Will notify Dr. Fernandez.
[2019-06-27] MEDS: Acetaminophen 500 MG Tablet 1000 MG PO (17:49)
[2019-06-27 20:40] VITALS: PULSE 94; RESP 16; O2SAT 95
[2019-06-27] MEDS: MELATONIN 10 MG TABLET PO (21:11)
[2019-06-27] MEDS: Atorvastatin Calcium 20 MG Tablet PO (21:11)
[2019-06-27] MEDS: Metoclopramide 10 MG Tablet PO (21:11)
[2019-06-27] MEDS: Mirtazapine 15 MG Tablet PO (21:12)
[2019-06-28] MEDS: Nystatin Powder 15gm Bottle 1 APPLIC TOPICAL ×2 (06:30→19:56)
[2019-06-28] MEDS: Tamsulosin HCl 0.4 MG Capsule PO (06:30)
[2019-06-28] MEDS: Menthol/Lanolin/Calamine/Znox 113 GM Tube 1 APPLIC TOPICAL ×2 (06:30→19:56)
[2019-06-28] MEDS: Metoclopramide 10 MG Tablet PO ×4 (06:34→19:51)
[2019-06-28] MEDS: Iron Polysaccharide Complex 150 MG CAPSULE PO (08:45)
[2019-06-28 10:00] VITALS: PULSE 100; RESP 16; O2SAT 96
[2019-06-28] MEDS: Benzonatate 100 MG Capsule 200 MG PO ×2 (15:51→20:05)
[2019-06-28 16:00] VITALS: BP 111/41; PULSE 92; RESP 18; TEMP 36.7; O2SAT 93
[2019-06-28] MEDS: Senna/Docusate Sodium 1 Tablet PO (17:55)
[2019-06-28] MEDS: Atorvastatin Calcium 20 MG Tablet PO (19:51)
[2019-06-28] MEDS: MELATONIN 10 MG TABLET PO (19:53)
[2019-06-28] MEDS: Mirtazapine 15 MG Tablet PO (19:53)
[2019-06-28] MEDS: Acetaminophen 500 MG Tablet 1000 MG PO (20:04)
[2019-06-28] MEDS: Tolterodine Tartrate 2 MG CAP.SA PO (20:48)
[2019-06-29] MEDS: Metoclopramide 10 MG Tablet PO ×3 (06:21→20:30)
[2019-06-29] MEDS: Nystatin Powder 15gm Bottle 1 APPLIC TOPICAL ×2 (06:21→20:32)
[2019-06-29] MEDS: Tamsulosin HCl 0.4 MG Capsule PO (06:21)
[2019-06-29] MEDS: Menthol/Lanolin/Calamine/Znox 113 GM Tube 1 APPLIC TOPICAL ×2 (06:22→20:32)
[2019-06-29] MEDS: Tolterodine Tartrate 2 MG CAP.SA PO ×2 (06:23→20:30)
[2019-06-29] MEDS: Iron Polysaccharide Complex 150 MG CAPSULE PO ×2 (08:33→20:30)
[2019-06-29 20:30] VITALS: BP 98/45; PULSE 114; RESP 18; TEMP 37.1; O2SAT 98
[2019-06-29] MEDS: MELATONIN 10 MG TABLET PO (20:30)
[2019-06-29] MEDS: Atorvastatin Calcium 20 MG Tablet PO (20:31)
[2019-06-29] MEDS: Mirtazapine 15 MG Tablet PO (20:31)
[2019-06-30] MEDS: Nystatin Powder 15gm Bottle 1 APPLIC TOPICAL ×2 (06:57→20:45)
[2019-06-30] MEDS: Menthol/Lanolin/Calamine/Znox 113 GM Tube 1 APPLIC TOPICAL ×2 (06:57→20:44)
[2019-06-30] MEDS: Senna/Docusate Sodium 1 Tablet PO (06:59)
[2019-06-30] MEDS: Tamsulosin HCl 0.4 MG Capsule PO (06:59)
[2019-06-30] MEDS: Tolterodine Tartrate 2 MG CAP.SA PO ×2 (06:59→20:48)
[2019-06-30] MEDS: Metoclopramide 10 MG Tablet PO ×4 (06:59→20:45)
[2019-06-30] MEDS: Iron Polysaccharide Complex 150 MG CAPSULE PO ×2 (10:16→16:24)
--- NOTE | 2019-06-30 12:03 | CASEMGMT ---
Social Work BIMS and PHQ-9 completed for MDS assessment. Janey Christine, BRIDAL STYLIST SALES CONSULTANT EXPERIMENTAL WELDER
--- NOTE | 2019-06-30 13:45 | MDS.RN ---
Pain interview for oneyda 07/01/19 completed.
[2019-06-30] MEDS: Benzonatate 100 MG Capsule 200 MG PO ×2 (14:16→20:46)
[2019-06-30 15:35] VITALS: BP 115/49; PULSE 98; RESP 18; TEMP 36.7; O2SAT 93
[2019-06-30] MEDS: Oxybutynin 5 MG Tablet PO (16:24)
[2019-06-30] MEDS: Mirtazapine 15 MG Tablet PO (20:45)
[2019-06-30] MEDS: Atorvastatin Calcium 20 MG Tablet PO (20:45)
[2019-06-30] MEDS: MELATONIN 10 MG TABLET PO (20:46)
--- NOTE | 2019-06-30 21:04 | NURSING ---
Upon entering pt's room, pt noted to be holding haywood catheter tubing in hand. Pt denies pulling haywood catheter out. Pt denies pain. New haywood catheter inserted at this time. Pt tolerated well. Tea colored urine noted to flow into catheter tubing. Pt educated on not tugging on catheter. Statlock applied; will continue to monitor.
[2019-07-01] MEDS: Senna/Docusate Sodium 1 Tablet PO ×2 (05:00→17:09)
[2019-07-01] MEDS: Nystatin Powder 15gm Bottle 1 APPLIC TOPICAL ×2 (05:00→21:33)
[2019-07-01] MEDS: Tamsulosin HCl 0.4 MG Capsule PO (05:02)
[2019-07-01] MEDS: Metoclopramide 10 MG Tablet PO ×4 (05:02→21:32)
[2019-07-01] MEDS: Menthol/Lanolin/Calamine/Znox 113 GM Tube 1 APPLIC TOPICAL ×2 (05:02→21:33)
[2019-07-01] MEDS: Tolterodine Tartrate 2 MG CAP.SA PO ×2 (05:03→17:11)
[2019-07-01] MEDS: Iron Polysaccharide Complex 150 MG CAPSULE PO ×2 (08:16→17:09)
[2019-07-01] MEDS: Acetaminophen 500 MG Tablet 1000 MG PO ×2 (14:54→21:37)
[2019-07-01 15:18] VITALS: BP 112/70; PULSE 90; RESP 18; TEMP 37.1; O2SAT 92
[2019-07-01] MEDS: MELATONIN 10 MG TABLET PO (21:32)
[2019-07-01] MEDS: Mirtazapine 15 MG Tablet PO (21:32)
[2019-07-01] MEDS: Atorvastatin Calcium 20 MG Tablet PO (21:32)
[2019-07-02] MEDS: Metoclopramide 10 MG Tablet PO ×4 (05:43→22:01)
[2019-07-02] MEDS: Senna/Docusate Sodium 1 Tablet PO (05:43)
[2019-07-02] MEDS: Nystatin Powder 15gm Bottle 1 APPLIC TOPICAL ×2 (05:43→19:35)
[2019-07-02] MEDS: Tolterodine Tartrate 2 MG CAP.SA PO (05:43)
[2019-07-02] MEDS: Tamsulosin HCl 0.4 MG Capsule PO (05:43)
[2019-07-02] MEDS: Menthol/Lanolin/Calamine/Znox 113 GM Tube 1 APPLIC TOPICAL ×2 (05:44→19:34)
[2019-07-02 07:23] LABS: Anion Gap 4 (5-15); BUN 8 mg/dL (7-18); BUN/Creat Ratio 11.6 RATIO (10-20); Calcium,Total 7.9 mg/dL (8.5-10.1); Chloride 110 mmol/L (98-107); Creatinine, Serum 0.69 mg/dL (0.55-1.02); EST Glomerular Filtration Rate 88 mL/min (>60); Est Glom Filt Rate - Afr Amer 107 mL/min (>60); Estimated Creatinine Clearance 44.41 ml/min; Glucose 97 mg/dL (74-106); Sodium Level 144 mmol/L (136-145)
[2019-07-02 07:33] LABS: Absolute Lymphocyte Count 0.87 X10^3/uL (0.83-4.51); Absolute Neutrophil Count 1.9 X10^3/uL (2.0-7.7); Basophil# 0.02 X10^3/uL; Basophil% 0.6 % (0-1); Hematocrit 27.8 % (37-47); Hemoglobin 8.6 g/dL (12.0-15.0); Lymphocyte # 0.87 X10^3/ul (4.0); Lymphocyte % 25.9 % (19-41); Mean Corp Hgb Conc 30.9 g/dL (32-36); Mean Corpuscular Hgb 30.7 pg (27.0-32.0); Mean Corpuscular Volume 99.3 fL (81-99); Mean Platelet Vol. 10.3 fl (6.2-12.0); Monocyte# 0.38 X10^3/uL; Monocyte% 11.3 % (0-10); NRBC Flagged by Analyzer 0 % (0-5); Neutrophil # 1.87 X10^3/uL (2.7-7.7); Neutrophil % 55.6 % (47-70); Platelet Count 135 K/mm3 (150-450); RBC Distribution Width CV 15.2 % (11.6-14.6); RBC Distribution Width SD 55.5 fl (35.1-43.9); White Blood Count 3.4 K/mm3 (4.4-11.0)
[2019-07-02] MEDS: Iron Polysaccharide Complex 150 MG CAPSULE PO ×2 (08:04→16:46)
[2019-07-02] MEDS: Tuberculin,Purif.prot.deriv. 50 TU/ML Vial 5 ML ID (10:38)
--- NOTE | 2019-07-02 14:05 | NURSING ---
pt c/o bladder spasms feels that detrol LA ineffective, new order for oxybutinin 10mg BID per dr Fernandez
[2019-07-02 15:13] VITALS: BP 104/62; PULSE 87; RESP 18; TEMP 37.3; O2SAT 90
[2019-07-02] MEDS: Oxybutynin 5 MG Tablet PO ×2 (16:46→22:01)
[2019-07-02] MEDS: Acetaminophen 500 MG Tablet 1000 MG PO (18:03)
--- NOTE | 2019-07-02 18:32 | PCA ---
Patient did not want to get washed up tonight as she will be getting a shower in the morning from therapy
[2019-07-02] MEDS: MELATONIN 10 MG TABLET PO (22:01)
[2019-07-02] MEDS: Mirtazapine 15 MG Tablet PO (22:01)
[2019-07-02] MEDS: Atorvastatin Calcium 20 MG Tablet PO (22:01)
[2019-07-03] MEDS: Metoclopramide 10 MG Tablet PO ×4 (06:10→21:35)
[2019-07-03] MEDS: Tamsulosin HCl 0.4 MG Capsule PO (06:10)
[2019-07-03] MEDS: Menthol/Lanolin/Calamine/Znox 113 GM Tube 1 APPLIC TOPICAL ×2 (06:11→21:40)
[2019-07-03] MEDS: Nystatin Powder 15gm Bottle 1 APPLIC TOPICAL ×2 (06:11→21:41)
[2019-07-03] MEDS: Oxybutynin 5 MG Tablet PO ×4 (09:31→21:36)
[2019-07-03] MEDS: Iron Polysaccharide Complex 150 MG CAPSULE PO ×2 (09:31→16:53)
--- NOTE | 2019-07-03 11:01 | CASEMGMT ---
Social Work IDT met with patient, and son for Team Meeting. Discussed patient's progress in therapy. Pt is adlib in room, has haywood and some assistance with toileting tasks. Pt is min assist for LE ADLs, 300 ft with FWW mod I. Pt reports appetite improving, smaller portions. Family is bringing in food. Discussed interventions to assist with pt compliance at home. Explained Medicare benefit. Will continue to follow. VANNESSA Hartman MARKETING DEVELOPMENT MANAGER
[2019-07-03 16:00] VITALS: BP 138/60; PULSE 83; RESP 17; TEMP 36.9; O2SAT 96
[2019-07-03] MEDS: Senna/Docusate Sodium 1 Tablet PO ×2 (16:56)
[2019-07-03] MEDS: Atorvastatin Calcium 20 MG Tablet PO (21:35)
[2019-07-03] MEDS: MELATONIN 10 MG TABLET PO (21:36)
[2019-07-03] MEDS: Mirtazapine 15 MG Tablet PO (21:36)
[2019-07-04 06:47] LABS: Anion Gap 4 (5-15); BUN 7 mg/dL (7-18); BUN/Creat Ratio 13.1 RATIO (10-20); Calcium,Total 7.7 mg/dL (8.5-10.1); Chloride 107 mmol/L (98-107); Creatinine, Serum 0.53 mg/dL (0.55-1.02); EST Glomerular Filtration Rate 119 mL/min (>60); Est Glom Filt Rate - Afr Amer 143 mL/min (>60); Estimated Creatinine Clearance 44.41 ml/min; Glucose 82 mg/dL (74-106); Potassium 3.6 mmol/L (3.5-5.1); Sodium Level 140 mmol/L (136-145)
[2019-07-04] MEDS: Nystatin Powder 15gm Bottle 1 APPLIC TOPICAL ×2 (06:48→20:29)
[2019-07-04] MEDS: Menthol/Lanolin/Calamine/Znox 113 GM Tube 1 APPLIC TOPICAL ×2 (06:48→20:29)
[2019-07-04] MEDS: Metoclopramide 10 MG Tablet PO ×4 (06:49→20:28)
[2019-07-04] MEDS: Tamsulosin HCl 0.4 MG Capsule PO (06:49)
[2019-07-04] MEDS: Iron Polysaccharide Complex 150 MG CAPSULE PO ×2 (08:53→19:17)
[2019-07-04] MEDS: Oxybutynin 5 MG Tablet PO ×4 (08:54→20:28)
--- NOTE | 2019-07-04 19:01 | NURSING ---
Pt returned from [place] at 1855 with .
[2019-07-04] MEDS: Senna/Docusate Sodium 1 Tablet PO (19:17)
--- NOTE | 2019-07-04 19:21 | NURSING ---
Evening medications given at this time, pt back from [place], states she is going to son's house tomorrow also (?)
[2019-07-04 20:15] VITALS: BP 93/34; PULSE 74; RESP 16; TEMP 36.8; O2SAT 93
[2019-07-04 20:25] VITALS: BP 97/36; PULSE 72; RESP 16; O2SAT 94
[2019-07-04] MEDS: MELATONIN 10 MG TABLET PO (20:28)
[2019-07-04] MEDS: Mirtazapine 15 MG Tablet PO (20:28)
[2019-07-04] MEDS: Atorvastatin Calcium 20 MG Tablet PO (20:28)
[2019-07-04 22:14] VITALS: BP 101/41; PULSE 71; RESP 18; TEMP 36.6; O2SAT 91
--- NOTE | 2019-07-04 22:23 | NURSING ---
BP taken multiple times and noted to be low. BP 101/41 for this nurse. Pt stating I am fine, just let me rest. Pt denies dizziness, lightheadedness or pain. This nurse stating Dr. Fernandez would be updated. Pt stating she does not want any IV's or medications if he suggests it. Educated pt on low BP. Encouraged pt to drink more water. Dr. Fernandez updated. NNO.
[2019-07-05] MEDS: Tamsulosin HCl 0.4 MG Capsule PO (05:35)
[2019-07-05] MEDS: Senna/Docusate Sodium 1 Tablet PO (05:35)
[2019-07-05] MEDS: Nystatin Powder 15gm Bottle 1 APPLIC TOPICAL ×2 (05:37→21:10)
[2019-07-05] MEDS: Menthol/Lanolin/Calamine/Znox 113 GM Tube 1 APPLIC TOPICAL ×2 (05:37→21:10)
[2019-07-05] MEDS: Iron Polysaccharide Complex 150 MG CAPSULE PO (08:21)
[2019-07-05] MEDS: Oxybutynin 5 MG Tablet PO ×3 (08:22→21:07)
--- NOTE | 2019-07-05 10:30 | NURSING ---
pt off unit for mecca JORDAN with via WC, did send noon ditropan with pt and for bladder spasms. verbalized understanding of administration time of noon.
[2019-07-05 16:00] VITALS: BP 107/68; PULSE 79; RESP 18; TEMP 37.3; O2SAT 93
[2019-07-05 20:26] VITALS: PULSE 84; RESP 16
[2019-07-05] MEDS: Atorvastatin Calcium 20 MG Tablet PO (21:07)
[2019-07-05] MEDS: Mirtazapine 15 MG Tablet PO (21:07)
[2019-07-05] MEDS: MELATONIN 10 MG TABLET PO (21:07)
[2019-07-06] MEDS: Tamsulosin HCl 0.4 MG Capsule PO (06:21)
[2019-07-06] MEDS: Nystatin Powder 15gm Bottle 1 APPLIC TOPICAL ×2 (06:22→23:14)
[2019-07-06] MEDS: Menthol/Lanolin/Calamine/Znox 113 GM Tube 1 APPLIC TOPICAL ×2 (06:22→23:15)
[2019-07-06] MEDS: Oxybutynin 5 MG Tablet PO ×4 (07:57→23:14)
[2019-07-06] MEDS: Iron Polysaccharide Complex 150 MG CAPSULE PO ×2 (07:58→17:16)
[2019-07-06 10:35] VITALS: PULSE 79; RESP 18; O2SAT 94
--- NOTE | 2019-07-06 11:08 | NURSING ---
THIS NURSE GAVE A I.S DUE TO CRACKLES IN RT POST MIDDLE AND LOWER LUNG. REPORTED TO DOROTEO RUIBO
[2019-07-06 16:00] VITALS: BP 111/67; PULSE 88; RESP 16; TEMP 37.1; O2SAT 98
[2019-07-06] MEDS: Senna/Docusate Sodium 1 Tablet PO (17:15)
[2019-07-06] MEDS: Mirtazapine 15 MG Tablet PO (23:14)
[2019-07-06] MEDS: MELATONIN 10 MG TABLET PO (23:14)
[2019-07-06] MEDS: Atorvastatin Calcium 20 MG Tablet PO (23:14)
[2019-07-07] MEDS: Tamsulosin HCl 0.4 MG Capsule PO (05:37)
[2019-07-07] MEDS: Nystatin Powder 15gm Bottle 1 APPLIC TOPICAL ×2 (05:38→19:42)
[2019-07-07] MEDS: Menthol/Lanolin/Calamine/Znox 113 GM Tube 1 APPLIC TOPICAL ×2 (05:38→19:42)
[2019-07-07] MEDS: Oxybutynin 5 MG Tablet PO ×4 (08:04→19:42)
[2019-07-07] MEDS: Iron Polysaccharide Complex 150 MG CAPSULE PO ×2 (08:05→17:41)
--- NOTE | 2019-07-07 10:33 | MDS.RN ---
Information for the mds was obtained from review of the clinical record, interview of resident, staff, and direct observation of resident's care.
[2019-07-07 16:00] VITALS: BP 110/74; PULSE 62; RESP 16; TEMP 36.9; O2SAT 92
[2019-07-07] MEDS: Senna/Docusate Sodium 1 Tablet PO (17:41)
[2019-07-07] MEDS: Atorvastatin Calcium 20 MG Tablet PO (19:41)
[2019-07-07] MEDS: MELATONIN 10 MG TABLET PO (19:41)
[2019-07-07] MEDS: Mirtazapine 15 MG Tablet PO (19:42)
[2019-07-08] MEDS: Nystatin Powder 15gm Bottle 1 APPLIC TOPICAL ×2 (06:08→20:00)
[2019-07-08] MEDS: Senna/Docusate Sodium 1 Tablet PO ×2 (06:08→16:50)
[2019-07-08] MEDS: Menthol/Lanolin/Calamine/Znox 113 GM Tube 1 APPLIC TOPICAL ×2 (06:08→20:00)
[2019-07-08] MEDS: Tamsulosin HCl 0.4 MG Capsule PO (06:08)
[2019-07-08] MEDS: Iron Polysaccharide Complex 150 MG CAPSULE PO ×2 (08:17→16:50)
[2019-07-08] MEDS: Oxybutynin 5 MG Tablet PO ×4 (08:17→19:59)
[2019-07-08 16:00] VITALS: BP 95/44; PULSE 71; RESP 20; TEMP 37.1; O2SAT 92
[2019-07-08] MEDS: BENZOCAINE/MENTHOL 1 LOZENGE MUCOUS MEM (18:29)
[2019-07-08] MEDS: Mirtazapine 15 MG Tablet PO (19:59)
[2019-07-08] MEDS: Atorvastatin Calcium 20 MG Tablet PO (19:59)
[2019-07-08] MEDS: MELATONIN 10 MG TABLET PO (19:59)
[2019-07-09] MEDS: Tamsulosin HCl 0.4 MG Capsule PO (05:28)
[2019-07-09] MEDS: Menthol/Lanolin/Calamine/Znox 113 GM Tube 1 APPLIC TOPICAL ×2 (05:28→20:15)
[2019-07-09] MEDS: Senna/Docusate Sodium 1 Tablet PO ×2 (05:28→17:51)
[2019-07-09] MEDS: Nystatin Powder 15gm Bottle 1 APPLIC TOPICAL ×2 (05:28→20:17)
[2019-07-09 07:34] LABS: Absolute Lymphocyte Count 0.99 X10^3/uL (0.83-4.51); Absolute Neutrophil Count 4.9 X10^3/uL (2.0-7.7); Basophil# 0.03 X10^3/uL; Basophil% 0.5 % (0-1); Eosinophil# 0.07 X10^3/uL; Eosinophils% 1.1 % (0-5); Hematocrit 28.9 % (37-47); Hemoglobin 9.1 g/dL (12.0-15.0); Lymphocyte # 0.99 X10^3/ul (4.0); Lymphocyte % 14.9 % (19-41); Mean Corp Hgb Conc 31.5 g/dL (32-36); Mean Corpuscular Hgb 30.8 pg (27.0-32.0); Mean Platelet Vol. 10.2 fl (6.2-12.0); Monocyte# 0.64 X10^3/uL; Monocyte% 9.6 % (0-10); NRBC Flagged by Analyzer 0 % (0-5); Neutrophil # 4.91 X10^3/uL (2.7-7.7); Neutrophil % 73.6 % (47-70); Platelet Count 126 K/mm3 (150-450); RBC Distribution Width CV 15.3 % (11.6-14.6); RBC Distribution Width SD 54.6 fl (35.1-43.9); Red Blood Count 2.95 M/mm3 (4.2-5.4); White Blood Count 6.7 K/mm3 (4.4-11.0)
[2019-07-09 07:46] LABS: Anion Gap 3 (5-15); BUN 7 mg/dL (7-18); BUN/Creat Ratio 11.6 RATIO (10-20); Calcium,Total 7.4 mg/dL (8.5-10.1); Chloride 107 mmol/L (98-107); Creatinine, Serum 0.61 mg/dL (0.55-1.02); EST Glomerular Filtration Rate 102 mL/min (>60); Est Glom Filt Rate - Afr Amer 124 mL/min (>60); Estimated Creatinine Clearance 44.41 ml/min; Glucose 83 mg/dL (74-106); Potassium 4.2 mmol/L (3.5-5.1); Sodium Level 139 mmol/L (136-145)
[2019-07-09] MEDS: Oxybutynin 5 MG Tablet PO ×4 (08:07→20:15)
[2019-07-09 11:00] VITALS: RESP 18
--- NOTE | 2019-07-09 15:31 | NURSING ---
Pt bp 93/34 per MANAGER EXPORT. Pt has been trending low. Pt encouraged to drink more fluids.Pt refused IV fluids previously and said she will not be agreeing to an IV.
[2019-07-09 15:33] VITALS: BP 93/34; PULSE 87; RESP 18; TEMP 36.8; O2SAT 92
[2019-07-09] MEDS: Iron Polysaccharide Complex 150 MG CAPSULE PO (17:51)
[2019-07-09] MEDS: Atorvastatin Calcium 20 MG Tablet PO (20:15)
[2019-07-09] MEDS: Mirtazapine 15 MG Tablet PO (20:16)
[2019-07-09] MEDS: MELATONIN 10 MG TABLET PO (20:16)
[2019-07-10] MEDS: Senna/Docusate Sodium 1 Tablet PO ×2 (06:46→17:39)
[2019-07-10] MEDS: Menthol/Lanolin/Calamine/Znox 113 GM Tube 1 APPLIC TOPICAL ×2 (06:46→21:36)
[2019-07-10] MEDS: Tamsulosin HCl 0.4 MG Capsule PO (06:46)
[2019-07-10 07:37] VITALS: BP 103/46; PULSE 78; RESP 16
[2019-07-10] MEDS: Oxybutynin 5 MG Tablet PO ×4 (08:38→21:35)
[2019-07-10] MEDS: Iron Polysaccharide Complex 150 MG CAPSULE PO ×2 (08:38→17:39)
[2019-07-10 16:00] VITALS: BP 94/50; PULSE 95; RESP 18; TEMP 36.6; O2SAT 92
[2019-07-10 19:48] VITALS: PULSE 101; O2SAT 92
[2019-07-10] MEDS: MELATONIN 10 MG TABLET PO (21:35)
[2019-07-10] MEDS: Mirtazapine 15 MG Tablet PO (21:35)
[2019-07-10] MEDS: Atorvastatin Calcium 20 MG Tablet PO (21:35)
[2019-07-10] MEDS: Nystatin Powder 15gm Bottle 1 APPLIC TOPICAL (21:37)
[2019-07-11] MEDS: Tamsulosin HCl 0.4 MG Capsule PO (05:50)
[2019-07-11] MEDS: Citalopram 10 MG Tablet PO (05:50)
[2019-07-11] MEDS: Senna/Docusate Sodium 1 Tablet PO (05:50)
[2019-07-11] MEDS: Menthol/Lanolin/Calamine/Znox 113 GM Tube 1 APPLIC TOPICAL ×2 (05:52→20:53)
[2019-07-11] MEDS: Nystatin Powder 15gm Bottle 1 APPLIC TOPICAL ×2 (05:53→20:54)
--- NOTE | 2019-07-11 06:50 | NURSING ---
pt off unit to appts with at this time via WC
[2019-07-11 16:00] VITALS: BP 100/46; PULSE 92; RESP 17; TEMP 37.2; O2SAT 91
[2019-07-11] MEDS: Oxybutynin 5 MG Tablet PO ×2 (17:55→20:50)
--- NOTE | 2019-07-11 18:03 | NURSING ---
PT RETURNED FROM APPOINTMENT BY WHEEL CHAIR WITH AT 2515.
--- NOTE | 2019-07-11 18:14 | NURSING ---
Isaiah' HAS APPTS WITH UROLOGY AND GASTRO. SHE STATED IT WAS RECOMMENDED THAT IRON SUPPLEMENT BE D/C'D. NOTIFIED DR. BOLDEN TO [facility].
[2019-07-11 20:40] VITALS: PULSE 82; RESP 16
[2019-07-11] MEDS: Mirtazapine 15 MG Tablet PO (20:51)
[2019-07-11] MEDS: Atorvastatin Calcium 20 MG Tablet PO (20:51)
[2019-07-11] MEDS: MELATONIN 10 MG TABLET PO (20:51)
--- NOTE | 2019-07-11 22:58 | PCA ---
This BACON STRINGER offered HS care and patient said she had already got cleaned up and did not need any further assistance.
[2019-07-12] MEDS: Menthol/Lanolin/Calamine/Znox 113 GM Tube 1 APPLIC TOPICAL ×2 (06:25→21:30)
[2019-07-12] MEDS: Nystatin Powder 15gm Bottle 1 APPLIC TOPICAL ×2 (06:25→21:29)
[2019-07-12] MEDS: Senna/Docusate Sodium 1 Tablet PO (06:26)
[2019-07-12] MEDS: Citalopram 10 MG Tablet PO (06:26)
[2019-07-12] MEDS: Tamsulosin HCl 0.4 MG Capsule PO (06:26)
[2019-07-12] MEDS: Oxybutynin 5 MG Tablet PO ×4 (09:05→21:28)
[2019-07-12 15:36] VITALS: BP 104/52; PULSE 82; RESP 18; TEMP 36.9; O2SAT 90
[2019-07-12 19:50] VITALS: PULSE 79; O2SAT 94
[2019-07-12] MEDS: Atorvastatin Calcium 20 MG Tablet PO (21:28)
[2019-07-12] MEDS: MELATONIN 10 MG TABLET PO (21:29)
[2019-07-12] MEDS: Mirtazapine 15 MG Tablet PO (21:29)
[2019-07-13] MEDS: Citalopram 10 MG Tablet PO (06:13)
[2019-07-13] MEDS: Tamsulosin HCl 0.4 MG Capsule PO (06:13)
[2019-07-13] MEDS: Nystatin Powder 15gm Bottle 1 APPLIC TOPICAL ×2 (06:15→20:50)
[2019-07-13] MEDS: Menthol/Lanolin/Calamine/Znox 113 GM Tube 1 APPLIC TOPICAL ×2 (06:15→20:50)
[2019-07-13] MEDS: Oxybutynin 5 MG Tablet PO ×4 (08:10→20:49)
--- NOTE | 2019-07-13 13:10 | CASEMGMT ---
Social Work Spoke with patient about discharging home 07/16. Pt agrees. Pt requests outpatient PT at [facility]. No DME needs. Plan: DC home 07/16 with [facility] PT Janey Christine MSW COUTIERIER
--- NOTE | 2019-07-13 13:46 | MDS.RN ---
Pain interview for oneyda 07/16/2019 completed.
--- NOTE | 2019-07-13 14:34 | CASEMGMT ---
Social Work Spoke with daughter about DC plans as pt will need LTP. Pt and dtr requesting referrals to [facility] and [facility]. Inquired about financial liability and both facilities require private pay initially. Pt does not have many assets nor money to pay privately for any amount of time period. Dtr provided SW financials for Medicaid purposes - provided pt and dtr application to complete to fax to [facility]. Referral sent to [facility] as [facility] does not have availability. If pt is accepted at [facility], dtr and pt would like to transfer skilled for them to assist with Medicaid process. Will continue to follow and no DC date has been set. VANNESSA HartmanW
[2019-07-13 15:20] VITALS: BP 111/59; PULSE 84; RESP 18; TEMP 36.7; O2SAT 94
--- NOTE | 2019-07-13 18:57 | PCA ---
This TIME CLERK offered HS care several times tonight and each time patient responded with No thanks I've got everything I need. I'll get cleaned up in the morning Fresh ice water was offered and call light was left within reach. TIME CLERK reminded patient to call out if they needed anything. Cath care was provided.
--- NOTE | 2019-07-13 20:34 | DCINST_ITS ---
- Discharge Diagnoses Current Active Problems: Current Active and Chronic Problems Encephalopathy (Acute) Sepsis (Acute) Melanoma (Chronic) Lumbar spondylosis (Chronic) Vitamin D deficiency (Chronic) Iron deficiency anemia (Chronic) Overactive bladder (Chronic) Chronic cough (Chronic) Fatty liver (Chronic) Recurrent kidney stones (Chronic) Depression (Chronic) Urinary retention (Chronic) Osteoarthritis (Chronic) You will use the following diet at home:: No restrictions, Regular Your food should be the consistency of: Regular Your liquids should be the consistency of: Regular/Thin Discharge Activity: Return to Normal Activity, May Shower, Use Walker Weight Bearing Status: Weight bearing as tolerated Call your doctor if you observe: Fever of 101 or Higher, Inability to urinate, Inability to have a bowel movement, Shortness of breath, Chest pain, Uncontrolled pain Allergies/Adverse Reactions: Allergies Sulfa (Sulfonamide Antibiotics) Allergy (Verified 06/04/19 18:07) Swelling Medications to take at Discharge Iron Polysaccharide Complex [Ferrex 150] 150 mg PO BID #60 cap 05/16/19 Melatonin 10 mg PO QHS 05/16/19 Menthol/Lanolin/Calamine/Znox [Calmoseptine Ointment] 1 applic TOPICAL 0600,0 05/16/19 Mineral Oil/Petrolatum,White [Eucerin] 1 applic TOPICAL 0600,0 05/16/19 Nystatin Powder [Mycostatin Powder] 1 applic TOPICAL 0600,219905/16/19 Tamsulosin HCl [Flomax] 0.4 mg PO DAILY 05/16/19 Mirtazapine [Remeron] 30 mg PO QHS 06/04/19 Acetaminophen [Tylenol] 1,000 mg PO Q6H PRN PRN tab 07/13/19 Atorvastatin Calcium [Lipitor] 20 mg PO QHS #30 tab 07/13/19 Citalopram [Celexa] 10 mg PO DAILY #30 tab 07/13/19 Oxybutynin [Ditropan] 5 mg PO 4X/DAYCM #120 tab 07/13/19 Potassium Chloride [K-Dur] 20 meq PO DAILYCM #30 tab 07/13/19 The following prescriptions were given: Citalopram [Celexa] 10 mg PO DAILY #30 tab Transmission Status: Pending to [facility] Oxybutynin [Ditropan] 5 mg PO 4X/DAYCM #120 tab Transmission Status: Pending to [facility] Potassium Chloride [K-Dur] 20 meq PO DAILYCM #30 tab Transmission Status: Pending to [facility] Atorvastatin Calcium [Lipitor] 20 mg PO QHS #30 tab Transmission Status: Pending to [facility] Primary Care Physician: Eagle Dang MD [Primary Care Provider] - Please follow up with your Primary Care Physician in: 1 week. Test Results: Test results from this visit will be discussed in further detail at your follow- up appointment, if applicable. Please Follow Up With: Garfield Gonzalez When: 2 weeks. Please Follow Up With: Sean Cabrera When: 2 weeks. Please Follow Up With: Eagle Dang MD When: 1 week. Please Follow Up With: Dr. Beach When: 2 weeks. Please Follow Up With: Zaheer Hutchison When: 2 weeks. Proposed Discharge Date: 07/16/19
--- NOTE | 2019-07-13 20:35 | DS.PCM_ITS ---
Discharge Date and Diagnosis - Problem List Patient Problems: Active and Suspected Problems Encephalopathy (Acute) Sepsis (Acute) Date of Admission: 06/24/19 Date of Discharge: 07/16/19 - Primary Discharge Diagnosis Active and Suspected Problems Encephalopathy (Acute) Sepsis (Acute) - Secondary Discharge Diagnosis Chronic Problems Kidney stones (Chronic) Septic shock (Chronic) Body mass index (BMI) 35.0-35.9, adult (Chronic) Pyelonephritis (Chronic) Hydroureter, left (Chronic) Hydronephrosis, left (Chronic) Hypertension (Chronic) Hyperlipidemia (Chronic) Melanoma (Chronic) Lumbar spondylosis (Chronic) Vitamin D deficiency (Chronic) Iron deficiency anemia (Chronic) Overactive bladder (Chronic) Chronic cough (Chronic) Fatty liver (Chronic) Recurrent kidney stones (Chronic) Depression (Chronic) Urinary retention (Chronic) Osteoarthritis (Chronic) Hospital Course and Treatment Imaging Results: 06/24/19 16:43 Diet: Regular Diet Operations: None Procedures: None Summary of Care Provided: The patient is a 74 year old Female with below past medical history hospitalized for encephalopathy secondary to sepsis from complicated urinary tract infection, admitted to TCU with debility, here for rehabilitation, strengthening, prior to discharge home with . Citalopram added for depression despite Mirtazapine. Discharging home with indwelling Victoria Catheter, management per Dr. Gonzalez at [facility]. Discharge home with , outpatient PT at [facility]. Patient Problems: Active and Suspected Problems Encephalopathy (Acute) Sepsis (Acute) - Physical Exam Vitals/I&O's: Vital Signs Temp Pulse Resp BP Pulse Ox 98.1 F 84 18 111/59 L 94 07/13/19 15:20 07/13/19 15:20 07/13/19 15:20 07/13/19 15:20 07/13/19 15:20 Oxygen Delivery Method Room Air Weight: 79.095 kg Body Mass Index (BMI) 29.9 Orthostatic Vital Signs Start: 06/27/19 10:10 Freq: Status: Active Protocol: Activity Type Activity Date Activity User E-Sign Co-Sign Detail Recorded Client Recorded Date Recorded By Document 06/27/19 10:10 CYRIL [id number] 06/27/19 10:12 MAL 06/27/19 10:10 Orthostatic Vitals Standing -Blood Pressure (90/60-120/80) 91/45 L -Extremity Use Right Arm -Pulse Rate (60-100) 110 H Sitting -Blood Pressure (90/60-120/80) 130/69 H -Extremity Use Right Arm -Pulse Rate (60-100) 107 H Lying -Blood Pressure (90/60-120/80) 101/59 L -Extremity Use Right Arm -Pulse Rate (60-100) 91 Intake and Output for Last 24 Hours 07/11/19 07/12/19 07/13/19 23:59 23:59 23:59 Intake Total 60 / 60 480 / 480 360 / 360 Output Total 875 / 875 1000 / 1000 375 / 375 Balance -815 / -815 -520 / -520 -15 / -15 Current Medications Acetaminophen (Tylenol) 1,000 mg PO Q6H PRN PRN PRN Reason: Pain Score 1-10 Last Admin: 07/02/19 18:03 Dose: 1,000 mg Documented by: Atorvastatin Calcium (Lipitor) 20 mg PO QHS [facility] Last Admin: 07/12/19 21:28 Dose: 20 mg Documented by: Benzonatate (Tessalon Perle) 200 mg PO TID PRN PRN PRN Reason: COUGH Last Admin: 06/30/19 20:46 Dose: 200 mg Documented by: Bisacodyl (Dulcolax) 10 mg PO DAILY PRN PRN Reason: Constipation Calamine/Phenol (Calmoseptine Ointment) 1 applic TOPICAL 0600,2200 [facility]; Protocol Last Admin: 07/13/19 06:15 Dose: 1 applicatio Documented by: Citalopram Hydrobromide (Celexa) 10 mg PO DAILY [facility] Last Admin: 07/13/19 06:13 Dose: 10 mg Documented by: Hydrocodone Bit/Homatropine Methylb (Hycodan Syrup) 2.5 ml PO Q8H PRN PRN Reason: COUGH Last Admin: 07/10/19 17:38 Dose: 2.5 ml Documented by: Melatonin (Melatonin) 10 mg PO QHS [facility] Last Admin: 07/12/19 21:29 Dose: 10 mg Documented by: Mirtazapine (Remeron) 15 mg PO QHS [facility] Last Admin: 07/12/19 21:29 Dose: 15 mg Documented by: Multi-Ingredient Cream (Eucerin) 1 applic TOPICAL 0600,2200 [facility]; Protocol Last Admin: 07/13/19 06:15 Dose: 1 applicatio Documented by: Nystatin (Mycostatin Powder) 1 applic TOPICAL 599,2199 [facility]; Protocol Last Admin: 07/13/19 06:15 Dose: 1 applicatio Documented by: Oxybutynin Chloride (Ditropan) 5 mg PO 4X/DAYCM [facility] Last Admin: 07/13/19 17:15 Dose: 5 mg Documented by: Polyethylene Glycol (Miralax) 17 gm PO DAILY [facility] Last Admin: 07/13/19 06:14 Dose: Not Given Documented by: [facility] Last Admin: 07/13/19 08:10 Dose: 20 meq Documented by: Senna/Docusate Sodium (Senokot-S, Deana-Colace) 1 tablet PO BID [facility] Last Admin: 07/13/19 17:16 Dose: Not Given Documented by: Sodium Chloride () 10 - 40 ml IV UD PRN PRN Reason: SALINE FLUSH Tamsulosin HCl (Flomax) 0.4 mg PO DAILY [facility] Last Admin: 07/13/19 06:13 Dose: 0.4 mg Documented by: Throat Lozenges (Cepacol Sore Throat Lozenge) 1 lozenge MUCOUS MEM Q2H PRN PRN PRN Reason: SORE THROAT Last Admin: 07/08/19 18:29 Dose: 1 lozenge Documented by: Discharge Diet: No Restrictions Discharge Activity: Return to Normal Activity, May Shower, Use Walker Weight Bearing Status: Weight bearing as tolerated Call your doctor if you observe: Fever of 101 or Higher, Inability to urinate, Inability to have a bowel movement, Shortness of breath, Chest pain, Uncontrolled pain Home Medications: Medications to take at Discharge Iron Polysaccharide Complex [Ferrex 150] 150 mg PO BID #60 cap 05/16/19 Melatonin 10 mg PO QHS 05/16/19 Menthol/Lanolin/Calamine/Znox [Calmoseptine Ointment] 1 applic TOPICAL 599,219905/16/19 Mineral Oil/Petrolatum,White [Eucerin] 1 applic TOPICAL 599,219905/16/19 Nystatin Powder [Mycostatin Powder] 1 applic TOPICAL 599,219905/16/19 Tamsulosin HCl [Flomax] 0.4 mg PO DAILY 05/16/19 Mirtazapine [Remeron] 30 mg PO QHS 06/04/19 Acetaminophen [Tylenol] 1,000 mg PO Q6H PRN PRN tab 07/13/19 Atorvastatin Calcium [Lipitor] 20 mg PO QHS #30 tab 07/13/19 Citalopram [Celexa] 10 mg PO DAILY #30 tab 07/13/19 Oxybutynin [Ditropan] 5 mg PO 4X/DAYCM #120 tab 07/13/19 Potassium Chloride [K-Dur] 20 meq PO DAILYCM #30 tab 07/13/19 Following Prescrptions Were Given to Patient: Citalopram [Celexa] 10 mg PO DAILY #30 tab Transmission Status: Pending to [facility] Oxybutynin [Ditropan] 5 mg PO 4X/DAYCM #120 tab Transmission Status: Pending to [facility] Potassium Chloride [K-Dur] 20 meq PO DAILYCM #30 tab Transmission Status: Pending to [facility] Atorvastatin Calcium [Lipitor] 20 mg PO QHS #30 tab Transmission Status: Pending to [facility] Primary Care Physician: Eagle Dang MD [Primary Care Provider] - Please follow up with your Primary Care Physician in: 1 week. Please Follow Up With: Garfield Gonzalez When: 2 weeks. Please Follow Up With: Sean Cabrera When: 2 weeks. Please Follow Up With: Eagle Dang MD When: 1 week. Please Follow Up With: Dr. Beach When: 2 weeks. Please Follow Up With: Zaheer Hutchison When: 2 weeks. Disposition: Home Patient Condition:: Stable Medical Necessity - Tobacco Use Smoking Status: Never smoker Tobacco Use: Non-smoker Meaningful Use Info Meaningful Use Diagnoses (Choose all that apply): None applicable
[2019-07-13] MEDS: Mirtazapine 15 MG Tablet PO (20:48)
[2019-07-13] MEDS: MELATONIN 10 MG TABLET PO (20:48)
[2019-07-13] MEDS: Atorvastatin Calcium 20 MG Tablet PO (20:49)
[2019-07-14] MEDS: Citalopram 10 MG Tablet PO (06:43)
[2019-07-14] MEDS: Tamsulosin HCl 0.4 MG Capsule PO (06:43)
[2019-07-14] MEDS: Nystatin Powder 15gm Bottle 1 APPLIC TOPICAL ×2 (06:44→20:52)
[2019-07-14] MEDS: Menthol/Lanolin/Calamine/Znox 113 GM Tube 1 APPLIC TOPICAL ×2 (06:44→20:52)
[2019-07-14] MEDS: Oxybutynin 5 MG Tablet PO ×4 (08:49→20:51)
--- NOTE | 2019-07-14 10:29 | CASEMGMT ---
Social Work BIMS and PHQ-9 completed for MDS assessment. Janey Christine, ICT CUSTOMER SUPPORT OFFICER POLE LIFT OPERATOR
--- NOTE | 2019-07-14 14:37 | NS ---
Called by director of social services that res and family would like diet education for res prior to d/c - re: balanced diet, visual cues for portion sizes and how many portions of each food group to try to eat per day. Provided written info with visual of portion size for each food group (ie deck of cards = 3 oz meat, tennis ball = serving of fruit, computer mouse = 1/2) and examples of what is included in each group. Also used My Plate method. Res and family receptive to info. Contact info given in case of questions post d/c
[2019-07-14 15:48] VITALS: BP 111/67; PULSE 80; RESP 18; TEMP 37.1; O2SAT 92
--- NOTE | 2019-07-14 15:53 | CASEMGMT ---
Social Work contacted to request meeting. Scheduled for this date at 1 pm. Met with , daughter and son to discuss family concerns for pt at [facility]. Discussed difference between outpatient therapy and C. Family requesting nurse to assist with new [facility] cath training and medication management. Explained CCN - family agreeable. Referral made. Offered adult day services, provided list of private duty [facility] as would like assistance with showers. Arranged for to complete OT training on this date for tub transfers. Pt to be returning home with [facility] - arranged for nursing to complete family and pt training on this date. Faxed script to [facility] to order supplies at [facility]. Provided counseling information for pt f/u with at [facility]. Discussed antidepressants - pt is currently on 30 mg Remeron, which physician will not increase further, and pt was agreeable to starting on Celexa on 07/11 10 mg. Discussed with family using food and fluid log at home to encourage pt to improve intake. Requested dietitian speak with family and pt on recommended intake and food portions and provide visual aides to assist. Explained empowerment with pt, enabling verbal behaviors and non compliance with pt at home, per family concerns. Family very appreciative of and staff time and assistance. Pt continuing to [facility] home with 07/16. Janey Christine, VANNES[employer] FARM PRODUCTS SHIPPER
[2019-07-14] MEDS: Senna/Docusate Sodium 1 Tablet PO (16:52)
--- NOTE | 2019-07-14 20:09 | PCA ---
Addendum entered by Gualberto Tinsley 07/14/19 22:39: Deana care and catheter care was provided. Original Note: Patient stated that they received a shower in AM and refused to take PM shower. DOCUMENT SCANNER offered pm care and patient said they did not need any help. water pitcher was filled and call light left in reach. Told patient if they need help to call for assistance
[2019-07-14] MEDS: MELATONIN 10 MG TABLET PO (20:51)
[2019-07-14] MEDS: Atorvastatin Calcium 20 MG Tablet PO (20:51)
[2019-07-14] MEDS: Mirtazapine 15 MG Tablet PO (20:51)
[2019-07-15] MEDS: Tamsulosin HCl 0.4 MG Capsule PO (06:03)
[2019-07-15] MEDS: Menthol/Lanolin/Calamine/Znox 113 GM Tube 1 APPLIC TOPICAL ×2 (06:03→21:58)
[2019-07-15] MEDS: Citalopram 10 MG Tablet PO (06:03)
[2019-07-15] MEDS: Nystatin Powder 15gm Bottle 1 APPLIC TOPICAL ×2 (06:04→21:57)
[2019-07-15] MEDS: Oxybutynin 5 MG Tablet PO ×4 (09:40→21:55)
[2019-07-15 10:00] VITALS: PULSE 80; RESP 20
[2019-07-15 15:43] VITALS: BP 110/56; PULSE 68; RESP 18; TEMP -17.5; TEMP 0.5; O2SAT 90
--- NOTE | 2019-07-15 21:19 | PCA ---
DIGITAL PRODUCT MANAGER offered help with PM care, and patient said they had already gotten washed up for the night. Lotion was applied to feet and water was refilled.
[2019-07-15] MEDS: Mirtazapine 15 MG Tablet PO (21:55)
[2019-07-15] MEDS: Atorvastatin Calcium 20 MG Tablet PO (21:55)
[2019-07-15] MEDS: MELATONIN 10 MG TABLET PO (21:55)
[2019-07-16] MEDS: Tamsulosin HCl 0.4 MG Capsule PO (06:02)
[2019-07-16] MEDS: Citalopram 10 MG Tablet PO (06:02)
[2019-07-16] MEDS: Menthol/Lanolin/Calamine/Znox 113 GM Tube 1 APPLIC TOPICAL (06:04)
[2019-07-16] MEDS: Nystatin Powder 15gm Bottle 1 APPLIC TOPICAL (06:04)
[2019-07-16] MEDS: Oxybutynin 5 MG Tablet PO (08:08)
[2019-07-16 09:50] VITALS: PULSE 75; RESP 14
== END 2019-07-16 11:55 | disposition home or self-care (01) | DRG 690 ==
PROVIDERS: Admitting Provider Family Medicine Geriatric Medicine; Family Provider Family Medicine; PCP Family Medicine; Visit Provider Family Medicine Geriatric Medicine
DX: N39.0 Urinary tract infection, site not specified (principal); F32.9 Major depressive disorder, single episode, unspecified; E78.5 Hyperlipidemia, unspecified; D50.9 Iron deficiency anemia, unspecified; B35.4 Tinea corporis; N32.81 Overactive bladder; M47.816 Spondylosis without myelopathy or radiculopathy, lumbar region; E55.9 Vitamin D deficiency, unspecified; K76.0 Fatty (change of) liver, not elsewhere classified; M19.90 Unspecified osteoarthritis, unspecified site; I10 Essential (primary) hypertension
CPT/HCPCS: 36415; 80048; 85014; 85018; 85025; 97110; 97116; 97162; 97166; 97530; 97535; 97802; 99251; G0463

== ENCOUNTER 2019-07-26 18:00 | Outpatient (RCR) | payer MEDICARE, OTHER, SELFPAY ==
--- NOTE | 2019-07-20 13:45 | HP.PTEVAL ---
Patient's Visit Information JULITA WILLIAM is a 74 year old F referred to Physical Therapy by Remi Fernandez MD with a diagnosis of Debility. Date of Evaluation: 07/20/19 Physical Therapist: Summer Alberts DPT - Visit Plan Frequency: 3x /Week Duration: 3 Weeks Plan: Focus on LE and core s/s- functional mobility - Subjective Findings: Patient reports that she was in transitional care unit and was released on Wednesday and they sent her to outpatient therapy. She has kidney issues, UTI and septic. Apartment- no stairs to enter- lives with . Has been using a cane and walker since November. Feels safer with the walker and is using it most of the time. Has a tub shower- has a seat to sit on and raised toilet seat. No pain. Goes august 01 to see a new urologist who stritctly deal with females and is hoping to have a new plan for her cathiter. Fully indpendent prior to admission- wants to get her energy back. Loves to swim- they have a pool so she was getting in it. Wants to walk more and be able to walk through the grocery story. No history of falls but does feel like she looses her balance. Sleep not disturbed. PMHx/Meds: no changes since leaving TCU. - Objective Posture: FH, RS, increased kyphosis- can correct but does not maintain. Gait: deviated- slow brad and fatigues quickly. mild SOB after ambulation of 150 feet mod I with FWW. HR/TR: able with UE A. SLS:left 6 seconds right: 2 seconds. 30 sec sit to stands: 4 sit to stands with use of upper extremities- does use a rocking method to develop momentum and takes 3-4 rocks before standing. TU.9 seconds with FWW. ROM: WFL. Strength: Ankle: 4/5, Knee: 4/5, Hip: 3+/5, Core: poor. Endurance: poor - Goals Goal 1:: Patient will be I with HEP and progression Goal Time Frame: 4-6 Weeks Goal 2:: Patient will ambulate >800 feet mod I with LRD and no SOB with good minoo Goal Time Frame: 4-6 Weeks Goal 3:: Patient will perform 12 sit to stands in 30 seconds with UE A Goal Time Frame: 4-6 Weeks Goal 4:: Patient will demo 4+/5 strength in all deficit areas Goal Time Frame: 4-6 Weeks Goal 5:: Patient isaac SLS for 5 seconds without lob bilaterall Goal Time Frame: 4-6 Weeks - Rehabilitation Potential Physical Therapy Diagnosis: Patient presents with hypomobility- she has decreased strength and muscular endurance leading to abnormal gait and decreased participation in ADL's. Rehabilitation Potential: Fair - Anticipated Interventions Patient/Client Instruction: Educate patient on: Benefits of Fitness Program Therapeutic Exercise to Include: Strength training, Endurance training, Balance training, Body mechanics, Postural training, Gait and locomotor training, Neuromotor development, Dynamic Lumbar Stabilization For the Purpose of:: To improve muscle performance and motor function Thank you for the opportunity to evaluate your patient. For Medicare and Medicare HMO plans, please review the plan of care and approve it. It will need to be FAXED BACK to us at [phone] for Medicare purposes. For Medicare only, by signing this I certify the plan of care. Please let me know if there are questions or concerns regarding this plan of care. Physician Signature: Date:
--- NOTE | 2019-11-21 10:23 | HP.PT.NRP ---
JULITA WILLIAM was seen in my office for initial evaluation on 07/20/19. The following Plan of Care was established for this patient: Initial Frequency: 3x /Week Initial Duration: 3 Weeks Patient/Client Instruction: Educate patient on: Benefits of Fitness Program Therapeutic Exercise to Include: Strength training, Endurance training, Balance training, Body mechanics, Postural training, Gait and locomotor training, Neuromotor development, Dynamic Lumbar Stabilization For the Purpose of:: To improve muscle performance and motor function This patient was last seen in our office . Pertinent comments regarding their Physical therapy will appear below: Patient has not attended physical therapy in over 8 weeks- appropriate for d/c and return to MD as appropriate. At this point I will be discontinuing this patient from physical therapy. I would be happy to see this patient again in the future if found appropriate by the physician. Thank you! MARGOT LindseyT
== END 2019-07-26 19:00 | disposition home or self-care (01) ==
LOC: PT 18:00
PROVIDERS: Family Provider Family Medicine; PCP Family Medicine; Referring Provider Family Medicine Geriatric Medicine; Visit Provider Family Medicine Geriatric Medicine
DX: R53.81 Other malaise (principal)
CPT/HCPCS: 97110; 97116; 97161; 97162

== ENCOUNTER → 2019-10-05 15:01 | Outpatient (CLI) | payer MEDICARE, OTHER, SELFPAY ==
[2019-10-05 15:55] LABS: Absolute Lymphocyte Count 1.16 X10^3/uL (0.83-4.51); Absolute Neutrophil Count 4.3 X10^3/uL (2.0-7.7); Basophil# 0.04 X10^3/uL; Basophil% 0.6 % (0-1); Eosinophil# 0.14 X10^3/uL; Eosinophils% 2.2 % (0-5); Hematocrit 31.8 % (37-47); Hemoglobin 10.1 g/dL (12.0-15.0); Lymphocyte # 1.16 X10^3/ul (4.0); Lymphocyte % 18.5 % (19-41); Mean Corp Hgb Conc 31.8 g/dL (32-36); Mean Corpuscular Hgb 30.9 pg (27.0-32.0); Mean Corpuscular Volume 97.2 fL (81-99); Mean Platelet Vol. 10.2 fl (6.2-12.0); Monocyte# 0.61 X10^3/uL; Monocyte% 9.7 % (0-10); NRBC Flagged by Analyzer 0 % (0-5); Neutrophil # 4.28 X10^3/uL (2.7-7.7); Neutrophil % 68.5 % (47-70); Platelet Count 168 K/mm3 (150-450); RBC Distribution Width CV 15.4 % (11.6-14.6); RBC Distribution Width SD 54.5 fl (35.1-43.9); Red Blood Count 3.27 M/mm3 (4.2-5.4); White Blood Count 6.3 K/mm3 (4.4-11.0)
[2019-10-05 16:11] LABS: ALB/GLOB Ratio 0.5 RATIO (0.9-2.4); AST(SGOT) 42 U/L (15-37); Alanine Aminotransfer ALT/SGPT 21 U/L (13-56); Alkaline Phosphatase 389 U/L (45-117); Anion Gap 8 (5-15); BUN 10 mg/dL (7-18); BUN/Creat Ratio 13.4 RATIO (10-20); Chloride 106 mmol/L (98-107); Creatinine, Serum 0.75 mg/dL (0.55-1.02); EST Glomerular Filtration Rate 80 mL/min (>60); Est Glom Filt Rate - Afr Amer 97 mL/min (>60); Globulin 4.4 g/dL (2.2-4.2); Glucose 85 mg/dL (74-106); Potassium 4.2 mmol/L (3.5-5.1); Protein, Total 6.4 g/dL (6.4-8.2); Sodium Level 138 mmol/L (136-145)
== END ==
PROVIDERS: PCP Family Medicine; Referring Provider Family Medicine; Visit Provider Family Medicine
DX: K75.81 Nonalcoholic steatohepatitis (NASH) (principal); K74.69 Other cirrhosis of liver; D64.9 Anemia, unspecified
CPT/HCPCS: 80053; 85025

== ENCOUNTER 2019-10-12 09:26 | Inpatient (IN) | payer MEDICARE, OTHER, SELFPAY ==
[2019-10-12] VITALS (39 sets, daily range): BP systolic 74–152; BP diastolic 40–122; PULSE 57–125; RESP 16–35; TEMP 36.6–39.2; O2SAT 25–99; BMI 25.9
--- NOTE | 2019-10-12 08:35 | RAD_ITS ---
STUDY: X-RAY CHEST REASON FOR EXAM: Female, 74 years old. COUGH FOR A WHILE PER PATIENT. TECHNIQUE: Single AP portable view of the chest. COMPARISON: Comparison is made with prior study dated June 04, 2019. FINDINGS: EKG electrodes are seen. The lungs are clear and expanded. There is no demonstrated pleural abnormality. There is mild cardiac enlargement. Normal mediastinum and luz elena. Normal visualized pulmonary arteries. There is atherosclerotic tortuosity of the aortic arch and descending thoracic aorta. Normal visualized thoracic spine. Normal visualized ribs, clavicles, and shoulders. Large hiatal hernia. RAD/Chest 1 View (Portable) IMPRESSION: Mild cardiomegaly. Large hiatal hernia. Electronically Signed: Jass Le, at 10:21 EDT , Service support ,
[2019-10-12] MEDS: 0.9% Normal Saline 1,000 ML 999 ML IV ×3 (09:30→10:20)
[2019-10-12 09:52] LABS: Mucous, Urine 0 SEEN /hpf (<or=2+)
[2019-10-12 10:07] LABS: Color, Urine Yellow (Yellow); Glucose, Dipstick Normal (Normal); Ketone-Dipstick 5 mg/dl (Negative); Leukocyte Esterase-Dipstick 500 /ul (Negative); Nitrite-Dipstick Positive (Negative); Occult Blood-Urine 250 /ul (Negative); Protein-Dipstick 100 mg/dl (Negative); Specific Gravity, Urine 1.015 (1.002-1.030); Urine Clarity Cloudy (Clear); Urine Urobilinogen 4 mg/dl (Normal)
[2019-10-12 10:10] LABS: Urine Bilirubin Dipstick 3 mg/dL (Negative)
[2019-10-12 10:42] LABS: Red Blood Cells-Urine 25-50 SEEN /hpf (0-5); White Blood Cells >100 SEEN /hpf (0-5)
[2019-10-12 10:43] LABS: Bacteria 2+ /hpf (None Seen); Calcium Oxalate Crystals Ur 1+ /hpf (<or=2+); Squamous Epithelial Cells - UA 0-5 SEEN /hpf (5-10)
[2019-10-12 11:08] LABS: Hematocrit 30.4 % (37-47); Hemoglobin 9.8 g/dL (12.0-15.0); Mean Corp Hgb Conc 32.2 g/dL (32-36); Mean Corpuscular Hgb 31.2 pg (27.0-32.0); Mean Corpuscular Volume 96.8 fL (81-99); Mean Platelet Vol. 10.2 fl (6.2-12.0); Platelet Count 133 K/mm3 (150-450); RBC Distribution Width CV 56.2 % (11.6-14.6); RBC Distribution Width SD 16.3 fl (35.1-43.9); Red Blood Count 3.14 M/mm3 (4.2-5.4); White Blood Count 13.1 K/mm3 (4.4-11.0)
[2019-10-12 11:09] LABS: Basophil% 0.3 % (0-1); Eosinophils% 0.2 % (0-5); Lymphocyte # 1.06 X10^3/ul (4.0); Lymphocyte % 6.9 % (19-41); Monocyte% 8.1 % (0-10); Neutrophil # 10.99 X10^3/uL (2.7-7.7); Neutrophil % 83.9 % (47-70)
[2019-10-12 11:10] LABS: Absolute Lymphocyte Count 0.91 X10^3/uL (0.83-4.51); Basophil# 0.04 X10^3/uL; Eosinophil# 0.03 X10^3/uL; Monocyte# 1.06 X10^3/uL
--- NOTE | 2019-10-12 11:22 | HP.PCM_ITS ---
History of Present Illness Date of Admission: 10/12/19 Chief Complaint: Fever The patient is a 74 year old F with a PMH as below who presents with new onset fever over the last 24 to 48 hours. She says that it peaked to about 103 and she took a couple of Tylenol prior to coming into the hospital. She is also been having a cough though this cough has not changed and it is been the same cough that she has had for the last 2 years and her chest x-ray is unremarkable for any pulmonary infiltrates and therefore she does not have coronavirus and does not need testing. She does have a UTI based on her UA and blood cultures as well as urine cultures have been sent. She also had an elevated lactate and hypotension. She states that she is usually low in the 80s to 90s, however her mean arterial pressure was in the 50s so she was started on IV fluids and was placed on levo fed in the ER. They are attempting to get a second peripheral IV placed. Past Medical History Past Medical History (Chronic Problems): Chronic Problems Kidney stones (Chronic) Septic shock (Chronic) Body mass index (BMI) 35.0-35.9, adult (Chronic) Pyelonephritis (Chronic) Hydroureter, left (Chronic) Hydronephrosis, left (Chronic) Hypertension (Chronic) Hyperlipidemia (Chronic) Melanoma (Chronic) Lumbar spondylosis (Chronic) Vitamin D deficiency (Chronic) Iron deficiency anemia (Chronic) Overactive bladder (Chronic) Chronic cough (Chronic) Fatty liver (Chronic) Recurrent kidney stones (Chronic) Depression (Chronic) Urinary retention (Chronic) Osteoarthritis (Chronic) Allergies Sulfa (Sulfonamide Antibiotics) Allergy (Verified 06/04/19 18:07) Swelling Home Medications: Ambulatory Orders Medication Instructions Recorded Melatonin 10 mg PO QHS 05/16/19 Menthol/Lanolin/Calamine/Znox 1 applic TOPICAL 0600,2200 05/16/19 [Calmoseptine Ointment] Tamsulosin HCl [Flomax] 0.4 mg PO DAILY 05/16/19 Mirtazapine [Remeron] 30 mg PO QHS 06/04/19 Acetaminophen [Tylenol] 1,000 mg PO Q6H PRN PRN tab 07/13/19 Atorvastatin Calcium [Lipitor] 20 mg PO QHS #30 tab 07/13/19 Citalopram [Celexa] 10 mg PO DAILY 10/12/19 Furosemide [Lasix] 20 mg PO DAILY 10/12/19 Hydrocortisone 2.5% Crm [Hytone] 1 applic RECTAL BID PRN 10/12/19 Megestrol Acetate 400 mg PO BID 10/12/19 Metoclopramide HCl 5 mg PO TIDCM 10/12/19 Multivit with Iron,Minerals 1 ea PO DAILY 10/12/19 [Multivitamins with Iron] Ondansetron HCl [Zofran] 4 mg PO Q8H PRN PRN 10/12/19 Oxybutynin [Ditropan] 5 mg PO TID 10/12/19 Pantoprazole Sodium [Protonix] 20 mg PO DAILY 10/12/19 Potassium Chloride [K-Dur] 20 meq PO DAILYCM 10/12/19 Sennosides/Docusate Sodium [Senna 1 ea PO DAILY 10/12/19 Plus 8.6-50 mg Tablet] Spironolactone 25 mg PO DAILY 10/12/19 Trospium Chloride 20 mg PO BID 10/12/19 Surgical History: appendectomy, cholecystectomy, hysterectomy - Total abdominal., - - , Melanoma excision, Liver biopsy, ureteral stent. Psychiatric History: Depression ON SITE MANAGER History: No pertinent ON SITE MANAGER history Smoking Status: Never smoker Alcohol: None Drugs: None - *Family History Maternal History Items: Dementia - Alzheimer Disease., Stroke Paternal History Items: Cancer - Throat. Review of Systems Constitutional: Reports: Fever. Denies: Chills, Weight Change HEENT: Denies: Head Aches, Sinus Congestion, Sinus Drainage Cardiovascular: Denies: Chest Pain, Palpitations Respiratory: Reports: Cough - Chronic. 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) - Physical Exam Vitals/I&O's: Body Mass Index (BMI) 29.9 General: Alert, Oriented x3, Cooperative, No apparent distress HEENT: Atraumatic, PERRLA, EOMI, Normocephalic Oral: Dry Mucosa Neck: Supple, No JVD Lungs: Clear to auscultation, Normal air movement, No rhonchi, No wheeze, No rales Cardiovascular: Regular rate, Regular Rhythm, Normal S1, Normal S2, No murmurs Abdomen: Soft, Non Tender, Non-Distended, No Hepato-splenomegaly Extremities: No edema, Capillary Refill Less than 3 Seconds Skin: No rashes, No breakdown Neurological: Neuro grossly intact, Sensory exam intact to light touch and pain Psych/Mental Status: Normal Affect, Appropriate Microbiology Past 72 Hours 10/12/19 07:27 Mucosa - Nasopharyngeal Influenza Types A,B Direct FA (BILLY) - Final Laboratory Results 10/12/19 07:50: WBC 13.1 H, RBC 3.14 L, Hgb 9.8 L, Hct 30.4 L, MCV 96.8, MCH 31.2, MCHC 32.2, RDW Std Deviation 16.3 L, RDW Coeff of Shane 56.2 H, Plt Count 133 L, MPV 10.2, Immature Gran % (Auto) 0.600, Neut % (Auto) 83.9 H, Lymph % (Auto) 6.9 L, [place] % (Auto) 8.1, Eos % (Auto) 0.2, Baso % (Auto) 0.3, Absolute Neuts (auto) 11.0 H, Absolute Lymphs (auto) 0.91 10/12/19 08:50: Urine Color Yellow, Urine Clarity Cloudy, Urine pH 5.0, Ur Specific [place] 1.015, Urine Protein 100 H, Urine Glucose (UA) Normal, Urine Ketones 5 H, Urine Occult Blood 250 H, Urine Nitrite Positive H, Urine Bilirubin 3 H, Urine Urobilinogen 4 H, Ur Leukocyte Esterase 500 H, Urine RBC 25-50 SEEN, Urine WBC >100 SEEN, Ur Squamous Epith Cells 0-5 SEEN, Calcium Oxalate Crystal 1+, Urine Bacteria 2+, Urine Mucus 0 SEEN Current Medications Norepinephrine Bitartrate 8 mg (/ Sodium Chloride) 250 mls @ 9.375 mls/hr CONT INF .[id number] [facility]; Protocol Assessment/Plan All Active Problems Debility (Acute) Encephalopathy (Acute) Sepsis (Acute) 1. Septic shock secondary to UTI -Part of the labs are not available on the EMR because of downtime, creatinine was 1.09 -Lactic acid was 3.8, will repeat lactate -He was given the sepsis fluid bolus based on her weight of around 60 kg, she started on IV fluids at 126 cc/h -Admit to ICU comments continue with levofed -Arterial pressure of 53 with a systolic blood pressure of 85, heart rate is in the 90s 2. SCHILLING with coagulopathy -She is on both Lasix and Aldactone for this issue and those will be held -She has needed paracentesis is in the past for fluid drainage, her abdomen is not firm or tender to feel that this could be SBP -Her LFTs are currently at their baseline, INR is 1.5, she is normally around 1.2 3. HTN/HLD -Continue with her Lipitor but will hold her blood pressure medications as she is on Levophed and hypertensive 4. Anxiety/depression -Stable -Continue with Celexa and Remeron DVT: Lovenox Inpatient E&M: 27331 Init Hosp L3
[2019-10-12] MEDS: Norepinephrine 8 mg/250 mL 0.9% NS 9.4 MG CONT INF (11:37)
[2019-10-12] MEDS: 0.9% Normal Saline 1,000 ML 126 ML IV ×2 (11:51→19:54)
[2019-10-12 11:58] LABS: BUN 14 mg/dL (7-18); Glucose 102 mg/dL (74-106)
[2019-10-12 11:59] LABS: ALB/GLOB Ratio 0.6 RATIO (0.9-2.4); AST(SGOT) 56 U/L (15-37); Alanine Aminotransfer ALT/SGPT 35 U/L (13-56); Albumin, Serum 2.4 g/dL (3.2-5.0); Alkaline Phosphatase 383 U/L (45-117); Anion Gap 9 (5-15); BUN/Creat Ratio 12.8 RATIO (10-20); Calcium,Total 8.9 mg/dL (8.5-10.1); Chloride 106 mmol/L (98-107); Creatinine, Serum 1.09 mg/dL (0.55-1.02); EST Glomerular Filtration Rate 52 mL/min (>60); Est Glom Filt Rate - Afr Amer 63 mL/min (>60); Potassium 2.9 mmol/L (3.5-5.1); Protein, Total 6.4 g/dL (6.4-8.2); Sodium Level 140 mmol/L (136-145)
[2019-10-12 12:01] LABS: Lactic Acid 3.5 mmol/L (0.4-1.9)
[2019-10-12 12:02] LABS: Reflex Lactate? Y
[2019-10-12 12:19] LABS: International Normalized Ratio 1.5
[2019-10-12 12:19] LABS: Lactic Acid 1.7 mmol/L (0.4-1.9)
[2019-10-12 12:20] LABS: Partial Thromboplast Time 39.3 Seconds (24.1-36.2)
[2019-10-12 12:32] LABS: ALB/GLOB Ratio 0.5 RATIO (0.9-2.4); AST(SGOT) 68 U/L (15-37); Alanine Aminotransfer ALT/SGPT 34 U/L (13-56); Albumin, Serum 1.9 g/dL (3.2-5.0); Alkaline Phosphatase 333 U/L (45-117); Anion Gap 8 (5-15); BUN 12 mg/dL (7-18); Calcium,Total 7.7 mg/dL (8.5-10.1); Chloride 108 mmol/L (98-107); EST Glomerular Filtration Rate 74 mL/min (>60); Est Glom Filt Rate - Afr Amer 90 mL/min (>60); Estimated Creatinine Clearance 54.67 ml/min; Globulin 3.5 g/dL (2.2-4.2); Glucose 93 mg/dL (74-106); Magnesium 1.6 mg/dL (1.6-2.6); Phosphorus 3.6 mg/dL (2.5-4.9); Protein, Total 5.4 g/dL (6.4-8.2); Sodium Level 141 mmol/L (136-145)
--- NOTE | 2019-10-12 12:53 | EKG12_ITS ---
Test Reason : ARRHYTHMIA Blood Pressure : / mmHG Vent. Rate : 087 BPM Atrial Rate : 087 BPM P-R Int : 136 ms QRS Dur : 082 ms QT Int : 398 ms P-R-T Axes : -72 052 166 degrees QTc Int : 478 ms Unusual P axis and short DE, probable junctional tachycardia Nonspecific T wave abnormality Prolonged QT Abnormal ECG Confirmed by BLAIR DUMONT, ASHLEY ([id number]), newspaper or periodical editor LAURENCE LOU ([id number]) on 10/17/2019 2:35:06 PM Referred By: Confirmed By:ASHLEY PINTO MD
--- NOTE | 2019-10-12 14:04 | PCM.CON.CC ---
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 Status: Suspected (2) Debility Status: Acute (3) Septic shock Status: Chronic (4) Body mass index (BMI) 35.0-35.9, adult Status: Chronic (5) Pyelonephritis Status: Chronic (6) Hypertension Status: Chronic (7) Hyperlipidemia Status: Chronic (8) Vitamin D deficiency Status: Chronic (9) Chronic cough Status: Chronic (10) Fatty liver Status: Chronic (11) Depression Status: Chronic Reason for Consult Date of Consultation: 10/12/19 Reason for Consultation: Septic shock History of Present Illness: The patient is a 74 year old F, with past medical history listed below, who presented to [facility] secondary to fever and weakness. Patient does have a history of cough, but states this is not changed in the last 2 years. Patient has reported some dysuria. Patient does report that she had a paracentesis 3 weeks ago secondary to nonalcoholic cirrhosis. Patient is unclear of the exact function of her liver, but does state that she tends to have lower blood pressures. There is no ER documentation available for review and I was not called. Patient reportedly had some hypotension and was started on volume resuscitation. Patient had a Levophed drip initiated through a 22-gauge in the antecubital with some improvement. Patient denies any current chest pain, abdominal pain, nausea or vomiting. On arrival to the intensive care unit, patient appeared relatively comfortable. Patient was on Levophed at 10 mcg to maintain appropriate blood pressure. Patient reported subjective improvement since receiving her fluid bolus. Patient is a relatively poor historian, but does report that she is a easy bruiser and has had a paracentesis in the last 3 weeks. Patient is not reporting any diarrhea. Patient does not have any pulmonary history that she is aware of. Patient does have a history of melanoma excision, but does not report any metastasis. Review of systems otherwise negative from a constitutional, HEENT, respiratory, cardiovascular, GI, genitourinary, musculoskeletal, skin, neurologic, psychiatric and hematologic system unless stated above. Past Medical History Past Medical History (Chronic Problems): Chronic Problems Kidney stones (Chronic) Septic shock (Chronic) Body mass index (BMI) 35.0-35.9, adult (Chronic) Pyelonephritis (Chronic) Hydroureter, left (Chronic) Hydronephrosis, left (Chronic) Hypertension (Chronic) Hyperlipidemia (Chronic) Melanoma (Chronic) Lumbar spondylosis (Chronic) Vitamin D deficiency (Chronic) Iron deficiency anemia (Chronic) Overactive bladder (Chronic) Chronic cough (Chronic) Fatty liver (Chronic) Recurrent kidney stones (Chronic) Depression (Chronic) Urinary retention (Chronic) Osteoarthritis (Chronic) Allergies Sulfa (Sulfonamide Antibiotics) Allergy (Verified 06/04/19 18:07) Swelling Home Medications: Ambulatory Orders Medication Instructions Recorded Iron Polysaccharide Complex 150 mg PO BID #60 cap 05/16/19 [Ferrex 150] Melatonin 10 mg PO QHS 05/16/19 Menthol/Lanolin/Calamine/Znox 1 applic TOPICAL 06,219905/16/19 [Calmoseptine Ointment] Mineral Oil/Petrolatum,White 1 applic TOPICAL 0600,219905/16/19 [Eucerin] Nystatin Powder [Mycostatin Powder] 1 applic TOPICAL 0600,219905/16/19 Tamsulosin HCl [Flomax] 0.4 mg PO DAILY 05/16/19 Mirtazapine [Remeron] 30 mg PO QHS 06/04/19 Acetaminophen [Tylenol] 1,000 mg PO Q6H PRN PRN tab 07/13/19 Atorvastatin Calcium [Lipitor] 20 mg PO QHS #30 tab 07/13/19 Citalopram [Celexa] 10 mg PO DAILY #30 tab 07/13/19 Oxybutynin [Ditropan] 5 mg PO 4X/DAYCM #120 tab 07/13/19 Potassium Chloride [K-Dur] 20 meq PO DAILYCM #30 tab 07/13/19 Surgical History: appendectomy, cholecystectomy, hysterectomy - Total abdominal., - - , Melanoma excision, Liver biopsy, ureteral stent. Psychiatric History: Depression PATIENT TRANSPORTER History: No pertinent PATIENT TRANSPORTER history Smoking Status: Never smoker Alcohol: None Drugs: None - *Family History Maternal History Items: Dementia - Alzheimer Disease., Stroke Paternal History Items: Cancer - Throat. 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 - Physical Exam Vitals/I&O's: Vital Signs Temp Pulse Resp BP Pulse Ox 36.6 C 93 22 H 82/62 L 99 10/12/19 12:00 10/12/19 13:30 10/12/19 13:30 10/12/19 13:30 10/12/19 13:30 Oxygen Delivery Method Room Air Weight: 70.6 kg Body Mass Index (BMI) 25.9 Intake and Output for Last 24 Hours 10/10/19 10/11/19 10/12/19 23:59 23:59 23:59 Intake Total 3080.78 / 3080.78 Balance 3080.78 / 3080.78 General: Alert, Oriented x3, Cooperative, No apparent distress, - - Appears older than stated age. No conversational dyspnea. HEENT: Atraumatic, PERRLA, EOMI, Normocephalic, - - No scleral icterus or injection noted Oral: Moist Mucosa, No Gingival or Mucosal Lesions/ Ulcerations Neck: Supple, No Nodes, Trachea Midline, JVD, Right Lungs: No rhonchi, No wheeze, No rales, Diminished, - - Symmetric expansion. Cardiovascular: Regular rate, Regular Rhythm, Normal S1, Normal S2, No murmurs, No rub noted, No Gallop Abdomen: Bowel Sounds Present, Soft, Distended - Slightly Extremities: No clubbing, No cyanosis, Edema Skin: - - Some petechiae and bruising noted. Musculoskeletal: Muscle Wasting Lymphatic: No Cervical, Supraclavicular, or Inguinal Adenopathy Neurological: Cranial nerves II-XII grossly intact, Neuro grossly intact, Motor Exam 5/5 strength throughout Psych/Mental Status: Normal Affect, Appropriate Microbiology Past 72 Hours 10/12/19 07:27 Mucosa - Nasopharyngeal Influenza Types A,B Direct FA (BILLY) - Final Laboratory Results 10/12/19 07:05: Lactic Acid 3.5 H* 10/12/19 07:05: Sodium 140, Potassium 2.9 L, Chloride 106, Carbon Dioxide 25.0, Anion Gap 9, BUN 14, Creatinine 1.09 H, Est GFR (MDRD) Af Amer 63, Est GFR (MDRD) Non-Af 52 L, BUN/Creatinine Ratio 12.8, Glucose 102, Calcium 8.9, Total Bilirubin 2.10 H, AST 56 H, ALT 35, Alkaline Phosphatase 383 H, Troponin I 0.059 H, Total Protein 6.4, Albumin 2.4 L, Globulin 4.0, Albumin/Globulin Ratio 0.6 L 10/12/19 07:50: WBC 13.1 H, RBC 3.14 L, Hgb 9.8 L, Hct 30.4 L, MCV 96.8, MCH 31.2, MCHC 32.2, RDW Std Deviation 16.3 L, RDW Coeff of Shane 56.2 H, Plt Count 133 L, MPV 10.2, Immature Gran % (Auto) 0.600, Neut % (Auto) 83.9 H, Lymph % (Auto) 6.9 L, [place] % (Auto) 8.1, Eos % (Auto) 0.2, Baso % (Auto) 0.3, Absolute Neuts (auto) 11.0 H, Absolute Lymphs (auto) 0.91 10/12/19 08:50: Urine Color Yellow, Urine Clarity Cloudy, Urine pH 5.0, Ur Specific Rogers 1.015, Urine Protein 100 H, Urine Glucose (UA) Normal, Urine Ketones 5 H, Urine Occult Blood 250 H, Urine Nitrite Positive H, Urine Bilirubin 3 H, Urine Urobilinogen 4 H, Ur Leukocyte Esterase 500 H, Urine RBC 25-50 SEEN, Urine WBC >100 SEEN, Ur Squamous Epith Cells 0-5 SEEN, Calcium Oxalate Crystal 1+, Urine Bacteria 2+, Urine Mucus 0 SEEN 10/12/19 11:45: Lactic Acid Cancelled 10/12/19 11:45: Lactic Acid 1.7 10/12/19 11:55: PT 18.0 H, INR 1.5, APTT 39.3 H 10/12/19 11:55: Sodium 141, Potassium 3.0 L, Chloride 108 H, Carbon Dioxide 25.0, Anion Gap 8, BUN 12, Creatinine 0.80, Estim Creat Clear Calc 54.67, Est GFR (MDRD) Af Amer 90, Est GFR (MDRD) Non-Af 74, BUN/Creatinine Ratio 15.0, Glucose 93, Calcium 7.7 L, Phosphorus 3.6, Magnesium 1.6, Total Bilirubin 2.20 H, AST 68 H, ALT 34, Alkaline Phosphatase 333 H, Total Protein 5.4 L, Albumin 1.9 L, Globulin 3.5, Albumin/Globulin Ratio 0.5 L Current Medications Acetaminophen (Tylenol) 650 mg PO Q6H PRN PRN PRN Reason: Pain Score 1-10/Temp > 100.7 F Enoxaparin Sodium (Lovenox) 40 mg SC DAILY [facility] Norepinephrine Bitartrate 8 mg (/ Sodium Chloride) 250 mls @ 9.375 mls/hr CONT INF .[id number] [facility]; Protocol Last Titration: 10/12/19 13:30 Dose: 7 mcg/min, 13.1 mls/hr Documented by: Sodium Chloride () 1,000 mls @ 126 mls/hr IV .[id number] [facility] Last Admin: 10/12/19 11:51 Dose: 126 mls/hr Documented by: Ceftriaxone Sodium 2 gm/ (Sodium Chloride) 50 mls @ 100 mls/hr IV Q24 [facility] Last Infusion: 10/12/19 13:07 Dose: Infused Documented by: Melatonin (Melatonin) 3 mg PO QHS PRN PRN PRN Reason: INSOMNIA Ondansetron HCl (Zofran) 4 mg IV Q8H PRN PRN PRN Reason: NAUSEA/VOMITING Sodium Chloride () 10 - 40 ml IV UD PRN PRN Reason: SALINE FLUSH Clinical Impression(s) from Imaging Studies Chest X-Ray 10/12/19 08:35 IMPRESSION: Mild cardiomegaly. Large hiatal hernia. 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 Change map goal to 60 2. Wean Levophed as tolerated 3. Continue empiric antibiotics 4. Bolus if necessary 5. Aggressive electrolyte repletion IMPRESSIONS: 1. Septic shock secondary to probable gram-negative UTI Patient currently on Levophed therapy. Patient does have complicating SCHILLING with history of lower blood pressures. Clinical suspicion is resting blood pressure is on the lower side, so map goal will be decreased. Patient should continue on empiric antibiotics. Can bolus as necessary as patient does not appear to be significantly hypoxic or in CHF. Will need to watch closely as patient does have a relative low oncotic pressure given albumin of 1.9, likely secondary to Schilling. 2. Frequent PACs/hypokalemia Clinical suspicion for hypokalemia leading to electric ectopy. Potassium will be repleted. Continue to monitor closely. 3. Reported cirrhosis secondary to Schilling/coagulopathy Patient with decreased metabolic function given elevated INR and low albumin. Clinical suspicion for decreased baseline blood pressures. No indication for repeat paracentesis that I can tell. Patient is responding to therapy appropriately. 4. History of melanoma/depression/urinary retention/history of kidney stones/osteoarthritis/hypertension/hyperlipidemia Complicates care, management, recovery and prognosis. Function appears to be improving with improving to hemodynamics. Will hold on any renal ultrasound for now as patient is not reporting any renal colic. TIME: 32 minutes of critical care time spent addressing patient's septic shock, PACs, reported cirrhosis, review of all data and collaboration with care team (1 PM to 2:30 PM) [phone]: [id number] Critical care first hour
[2019-10-12] MEDS: Acetaminophen 325 MG Tablet 650 MG PO (14:29)
[2019-10-12] MEDS: BENZOCAINE/MENTHOL 1 LOZENGE MUCOUS MEM ×3 (14:35→21:51)
--- NOTE | 2019-10-12 21:44 | NURSING ---
called to report pt had a paracentesis performed at [facility] approximately 3-4 weeks ago, and they took 6L off abdomen.
[2019-10-12] MEDS: MELATONIN 3 MG TABLET PO (21:51)
[2019-10-12] MEDS: Ibuprofen 400 MG Tablet PO (22:34)
[2019-10-13] VITALS (20 sets, daily range): BP systolic 82–141; BP diastolic 47–93; PULSE 73–140; RESP 14–29; TEMP 36.2–37.7; O2SAT 92–98
[2019-10-13] MEDS: BENZOCAINE/MENTHOL 1 LOZENGE MUCOUS MEM ×3 (00:06→15:35)
[2019-10-13] MEDS: 0.9% Normal Saline 1,000 ML 126 ML IV (03:33)
[2019-10-13 04:34] LABS: Absolute Lymphocyte Count 0.75 X10^3/uL (0.83-4.51); Absolute Neutrophil Count 6.6 X10^3/uL (2.0-7.7); Basophil# 0.02 X10^3/uL; Basophil% 0.2 % (0-1); Eosinophil# 0.03 X10^3/uL; Eosinophils% 0.4 % (0-5); Hematocrit 25.4 % (37-47); Hemoglobin 8.1 g/dL (12.0-15.0); Lymphocyte # 0.75 X10^3/ul (4.0); Lymphocyte % 9.2 % (19-41); Mean Corp Hgb Conc 31.9 g/dL (32-36); Mean Corpuscular Hgb 31.2 pg (27.0-32.0); Mean Corpuscular Volume 97.7 fL (81-99); Mean Platelet Vol. 10.5 fl (6.2-12.0); Monocyte# 0.62 X10^3/uL; Monocyte% 7.6 % (0-10); NRBC Flagged by Analyzer 0 % (0-5); Neutrophil # 6.64 X10^3/uL (2.7-7.7); Neutrophil % 81.4 % (47-70); Platelet Count 102 K/mm3 (150-450); RBC Distribution Width CV 16.6 % (11.6-14.6); RBC Distribution Width SD 57.7 fl (35.1-43.9); White Blood Count 8.2 K/mm3 (4.4-11.0)
[2019-10-13 04:38] LABS: Anion Gap 7 (5-15); BUN 12 mg/dL (7-18); BUN/Creat Ratio 16.9 RATIO (10-20); Calcium,Total 7.5 mg/dL (8.5-10.1); Chloride 110 mmol/L (98-107); Creatinine, Serum 0.71 mg/dL (0.55-1.02); EST Glomerular Filtration Rate 86 mL/min (>60); Est Glom Filt Rate - Afr Amer 104 mL/min (>60); Estimated Creatinine Clearance 43.74 ml/min; Glucose 93 mg/dL (74-106); Magnesium 1.5 mg/dL (1.6-2.6); Potassium 3.1 mmol/L (3.5-5.1); Sodium Level 140 mmol/L (136-145)
[2019-10-13] MEDS: Potassium Chloride 10mEq/100mL 10 MEQ/100 ML IV.SOLN. 100 MEQ IV BOLUS ×4 (06:28→13:38)
--- NOTE | 2019-10-13 07:18 | PCM.PN.INT ---
Subjective: Patient did well overnight. Levophed was discontinued at approximately 5 PM and patient has done well overnight. No supplemental oxygen needs. Patient did have some decreased urine output. Bladder scan reported 900 cc, but patient did not have any suprapubic pain. Straight cath showed only 75 cc of urine. Patient reports subjective improvement in overall condition. General: Alert, Oriented x3, Cooperative, No apparent distress, - - Appears older than stated age. Speaking in full sentences. HEENT: Atraumatic, PERRLA, EOMI, Normocephalic, - - No scleral icterus or injection noted Oral: Moist Mucosa, No Gingival or Mucosal Lesions/ Ulcerations Neck: Supple, No JVD, No Nodes, Trachea Midline Lungs: Clear to auscultation, Normal air movement, No rhonchi, No wheeze, No rales, - - Symmetric expansion. No dullness to percussion. Cardiovascular: Regular rate, Regular Rhythm, Normal S1, Normal S2, No murmurs, No rub noted, No Gallop Abdomen: Bowel Sounds Present, Soft, Non Tender, Distended - Slightly Extremities: No clubbing, No cyanosis, Edema Skin: - - No change compared to previous Musculoskeletal: No Tenderness to Palpation of Joints or Extremities Lymphatic: No Cervical, Supraclavicular, or Inguinal Adenopathy Neurological: Cranial nerves II-XII grossly intact, Neuro grossly intact, Motor Exam 5/5 strength throughout Psych/Mental Status: Alert and oriented to time, place, person, mood and affect Vital Signs Temp Pulse Resp BP Pulse Ox 36.2 C L 78 14 84/54 L 97 10/13/19 04:00 10/13/19 07:00 10/13/19 07:00 10/13/19 07:00 10/13/19 07:00 Oxygen Delivery Method Room Air Weight: 73.4 kg Body Mass Index (BMI) 25.9 Intake and Output for Last 24 Hours 10/11/19 10/12/19 10/13/19 23:59 23:59 23:59 Intake Total 4569.36 / 5346.06 1692.9 / 1692.9 Output Total 175 / 175 275 / 275 Balance 4394.36 / 5171.06 1417.9 / 1417.9 Labs (Last 48 Hours) 04/02/20 04/02/20 04/02/20 07:05 07:05 07:50 WBC 13.1 H RBC 3.14 L Hgb 9.8 L Hct 30.4 L MCV 96.8 MCH 31.2 MCHC 32.2 RDW Std Deviation 16.3 L RDW Coeff of Shane 56.2 H Plt Count 133 L MPV 10.2 Immature Gran % (Auto) 0.600 Neut % (Auto) 83.9 H Lymph % (Auto) 6.9 L Maverick % (Auto) 8.1 Eos % (Auto) 0.2 Baso % (Auto) 0.3 Absolute Neuts (auto) 11.0 H Absolute Lymphs (auto) 0.91 Nucleated RBC % PT INR APTT Sodium 140 Potassium 2.9 L Chloride 106 Carbon Dioxide 25.0 Anion Gap 9 BUN 14 Creatinine 1.09 H Estim Creat Clear Calc Est GFR (MDRD) Af Amer 63 Est GFR (MDRD) Non-Af 52 L BUN/Creatinine Ratio 12.8 Glucose 102 Lactic Acid 3.5 H* Calcium 8.9 Phosphorus Magnesium Total Bilirubin 2.10 H AST 56 H ALT 35 Alkaline Phosphatase 383 H Troponin I 0.059 H Total Protein 6.4 Albumin 2.4 L Globulin 4.0 Albumin/Globulin Ratio 0.6 L Urine Color Urine Clarity Urine pH Ur Specific [place] Urine Protein Urine Glucose (UA) Urine Ketones Urine Occult Blood Urine Nitrite Urine Bilirubin Urine Urobilinogen Ur Leukocyte Esterase Urine RBC Urine WBC Ur Squamous Epith Cells Calcium Oxalate Crystal Urine Bacteria Urine Mucus 10/12/19 10/12/19 10/12/19 08:50 11:45 11:45 WBC RBC Hgb Hct MCV MCH MCHC RDW Std Deviation RDW Coeff of Shane Plt Count MPV Immature Gran % (Auto) Neut % (Auto) Lymph % (Auto) Maverick % (Auto) Eos % (Auto) Baso % (Auto) Absolute Neuts (auto) Absolute Lymphs (auto) Nucleated RBC % PT INR APTT Sodium Potassium Chloride Carbon Dioxide Anion Gap BUN Creatinine Estim Creat Clear Calc Est GFR (MDRD) Af Amer Est GFR (MDRD) Non-Af BUN/Creatinine Ratio Glucose Lactic Acid Cancelled 1.7 Calcium Phosphorus Magnesium Total Bilirubin AST ALT Alkaline Phosphatase Troponin I Total Protein Albumin Globulin Albumin/Globulin Ratio Urine Color Yellow Urine Clarity Cloudy Urine pH 5.0 Ur Specific [place] 1.015 Urine Protein 100 H Urine Glucose (UA) Normal Urine Ketones 5 H Urine Occult Blood 250 H Urine Nitrite Positive H Urine Bilirubin 3 H Urine Urobilinogen 4 H Ur Leukocyte Esterase 500 H Urine RBC 25-50 SEEN Urine WBC >100 SEEN Ur Squamous Epith Cells 0-5 SEEN Calcium Oxalate Crystal 1+ Urine Bacteria 2+ Urine Mucus 0 SEEN 10/12/19 10/12/19 10/13/19 11:55 11:55 04:05 WBC 8.2 RBC 2.60 L Hgb 8.1 L Hct 25.4 L MCV 97.7 MCH 31.2 MCHC 31.9 L RDW Std Deviation 57.7 H RDW Coeff of Shane 16.6 H Plt Count 102 L MPV 10.5 Immature Gran % (Auto) 1.200 H Neut % (Auto) 81.4 H Lymph % (Auto) 9.2 L Maverick % (Auto) 7.6 Eos % (Auto) 0.4 Baso % (Auto) 0.2 Absolute Neuts (auto) 6.6 Absolute Lymphs (auto) 0.75 L Nucleated RBC % 0 PT 18.0 H INR 1.5 APTT 39.3 H Sodium 141 Potassium 3.0 L Chloride 108 H Carbon Dioxide 25.0 Anion Gap 8 BUN 12 Creatinine 0.80 Estim Creat Clear Calc 54.67 Est GFR (MDRD) Af Amer 90 Est GFR (MDRD) Non-Af 74 BUN/Creatinine Ratio 15.0 Glucose 93 Lactic Acid Calcium 7.7 L Phosphorus 3.6 Magnesium 1.6 Total Bilirubin 2.20 H AST 68 H ALT 34 Alkaline Phosphatase 333 H Troponin I Total Protein 5.4 L Albumin 1.9 L Globulin 3.5 Albumin/Globulin Ratio 0.5 L Urine Color Urine Clarity Urine pH Ur Specific [place] Urine Protein Urine Glucose (UA) Urine Ketones Urine Occult Blood Urine Nitrite Urine Bilirubin Urine Urobilinogen Ur Leukocyte Esterase Urine RBC Urine WBC Ur Squamous Epith Cells Calcium Oxalate Crystal Urine Bacteria Urine Mucus 10/13/19 04:05 WBC RBC Hgb Hct MCV MCH MCHC RDW Std Deviation RDW Coeff of Shane Plt Count MPV Immature Gran % (Auto) Neut % (Auto) Lymph % (Auto) Maverick % (Auto) Eos % (Auto) Baso % (Auto) Absolute Neuts (auto) Absolute Lymphs (auto) Nucleated RBC % PT INR APTT Sodium 140 Potassium 3.1 L Chloride 110 H Carbon Dioxide 23.0 Anion Gap 7 BUN 12 Creatinine 0.71 Estim Creat Clear Calc 43.74 Est GFR (MDRD) Af Amer 104 Est GFR (MDRD) Non-Af 86 BUN/Creatinine Ratio 16.9 Glucose 93 Lactic Acid Calcium 7.5 L Phosphorus Magnesium 1.5 L Total Bilirubin AST ALT Alkaline Phosphatase Troponin I Total Protein Albumin Globulin Albumin/Globulin Ratio Urine Color Urine Clarity Urine pH Ur Specific [place] Urine Protein Urine Glucose (UA) Urine Ketones Urine Occult Blood Urine Nitrite Urine Bilirubin Urine Urobilinogen Ur Leukocyte Esterase Urine RBC Urine WBC Ur Squamous Epith Cells Calcium Oxalate Crystal Urine Bacteria Urine Mucus Microbiology 10/12/19 07:27 Mucosa - Nasopharyngeal Influenza Types A,B Direct FA (BILLY) - Final Clinical Impression(s) from Imaging Studies Chest X-Ray 10/12/19 08:35 IMPRESSION: Mild cardiomegaly. Large hiatal hernia. Electronically Signed: Jass Le, at 10:21 EDT , Service support , Medical Necessity - Tobacco Use Smoking Status: Never smoker Assessment/Plan All Active Problems Debility (Acute) Encephalopathy (Acute) Sepsis (Acute) RECOMMENDATIONS: 1. Aggressive electrolyte repletion 2. Consult dietitian to help with nutritional status 3. Continue empiric antibiotics 4. Okay to leave the intensive care unit from my perspective IMPRESSIONS: 1. Septic shock secondary to probable gram-negative UTI Patient currently off Levophed therapy. Patient does have complicating SCHILLING with history of lower blood pressures. Patient should continue on empiric antibiotics. Can bolus as necessary as patient does not appear to be significantly hypoxic or in CHF. Will need to watch closely as patient does have a relative low oncotic pressure given albumin of 1.9, likely secondary to Schilling. High bladder scan likely secondary to complications of ascites. If decreased urine output, would consider placing Victoria catheter to monitor closely. Would discontinue IV fluids as this will likely lead to accumulation of ascites more than supporting blood pressure. 2. Frequent PACs/hypokalemia Clinical suspicion for hypokalemia leading to electric ectopy. Magnesium and potassium will be repleted. Continue to monitor closely. 3. Reported cirrhosis secondary to Schilling/coagulopathy Patient with decreased metabolic function given elevated INR and low albumin. Clinical suspicion for decreased baseline blood pressures. No indication for repeat paracentesis that I can tell, but bladder scanner of 900 cc likely secondary to ascites. Patient is responding to therapy appropriately. Likely appropriate to initiate diuretic therapy in another 24 hours after completing 48 hours of empiric antibiotics. 4. History of melanoma/depression/urinary retention/history of kidney stones/osteoarthritis/hypertension/hyperlipidemia Complicates care, management, recovery and prognosis. Function appears to be improving with improving to hemodynamics. Will hold on any renal ultrasound for now as patient is not reporting any renal colic. Inpatient E&M: [id number] [facility] L3
[2019-10-13] MEDS: Magnesium Oxide 400 MG Tablet PO ×2 (08:18→16:10)
--- NOTE | 2019-10-13 09:03 | PCM.PN.HOSP ---
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 Currently afebrile. Vitals/I&O's: Vital Signs Temp Pulse Resp BP Pulse Ox 97.5 F L 78 18 82/52 L 98 10/13/19 08:14 10/13/19 08:14 10/13/19 08:14 10/13/19 08:14 10/13/19 08:14 Oxygen Delivery Method Room Air Weight: 161 lb 13.109 oz Body Mass Index (BMI) 25.9 Intake and Output for Last 24 Hours 10/11/19 10/12/19 10/13/19 23:59 23:59 23:59 Intake Total 4569.36 / 5346.06 1792.9 / 1792.9 Output Total 175 / 175 275 / 275 Balance 4394.36 / 5171.06 1517.9 / 1517.9 General: Alert, Oriented x3, Cooperative, No apparent distress HEENT: Atraumatic, PERRLA, EOMI, Normocephalic Oral: Moist Mucosa Neck: Supple, No JVD Lungs: Clear to auscultation, Normal air movement, No rhonchi, No wheeze, No rales Cardiovascular: Regular rate, Regular Rhythm, Normal S1, Normal S2, No murmurs Abdomen: Soft, Non Tender, Non-Distended, No Hepato-splenomegaly Extremities: No edema, Capillary Refill Less than 3 Seconds Skin: No rashes, No breakdown Neurological: Neuro grossly intact, Sensory exam intact to light touch and pain Psych/Mental Status: Normal Affect, Appropriate Microbiology Past 72 Hours 10/12/19 07:27 Mucosa - Nasopharyngeal Influenza Types A,B Direct FA (BILLY) - Final Laboratory Results 10/12/19 07:05: Lactic Acid 3.5 H* 10/12/19 07:05: Sodium 140, Potassium 2.9 L, Chloride 106, Carbon Dioxide 25.0, Anion Gap 9, BUN 14, Creatinine 1.09 H, Est GFR (MDRD) Af Amer 63, Est GFR (MDRD) Non-Af 52 L, BUN/Creatinine Ratio 12.8, Glucose 102, Calcium 8.9, Total Bilirubin 2.10 H, AST 56 H, ALT 35, Alkaline Phosphatase 383 H, Troponin I 0.059 H, Total Protein 6.4, Albumin 2.4 L, Globulin 4.0, Albumin/Globulin Ratio 0.6 L 10/12/19 07:50: WBC 13.1 H, RBC 3.14 L, Hgb 9.8 L, Hct 30.4 L, MCV 96.8, MCH 31.2, MCHC 32.2, RDW Std Deviation 16.3 L, RDW Coeff of Shane 56.2 H, Plt Count 133 L, MPV 10.2, Immature Gran % (Auto) 0.600, Neut % (Auto) 83.9 H, Lymph % (Auto) 6.9 L, [place] % (Auto) 8.1, Eos % (Auto) 0.2, Baso % (Auto) 0.3, Absolute Neuts (auto) 11.0 H, Absolute Lymphs (auto) 0.91 10/12/19 08:50: Urine Color Yellow, Urine Clarity Cloudy, Urine pH 5.0, Ur Specific [place] 1.015, Urine Protein 100 H, Urine Glucose (UA) Normal, Urine Ketones 5 H, Urine Occult Blood 250 H, Urine Nitrite Positive H, Urine Bilirubin 3 H, Urine Urobilinogen 4 H, Ur Leukocyte Esterase 500 H, Urine RBC 25-50 SEEN, Urine WBC >100 SEEN, Ur Squamous Epith Cells 0-5 SEEN, Calcium Oxalate Crystal 1+, Urine Bacteria 2+, Urine Mucus 0 SEEN 10/12/19 11:45: Lactic Acid Cancelled 10/12/19 11:45: Lactic Acid 1.7 10/12/19 11:55: PT 18.0 H, INR 1.5, APTT 39.3 H 10/12/19 11:55: Sodium 141, Potassium 3.0 L, Chloride 108 H, Carbon Dioxide 25.0, Anion Gap 8, BUN 12, Creatinine 0.80, Estim Creat Clear Calc 54.67, Est GFR (MDRD) Af Amer 90, Est GFR (MDRD) Non-Af 74, BUN/Creatinine Ratio 15.0, Glucose 93, Calcium 7.7 L, Phosphorus 3.6, Magnesium 1.6, Total Bilirubin 2.20 H, AST 68 H, ALT 34, Alkaline Phosphatase 333 H, Total Protein 5.4 L, Albumin 1.9 L, Globulin 3.5, Albumin/Globulin Ratio 0.5 L 10/13/19 04:05: WBC 8.2, RBC 2.60 L, Hgb 8.1 L, Hct 25.4 L, MCV 97.7, MCH 31.2, MCHC 31.9 L, RDW Std Deviation 57.7 H, RDW Coeff of Shane 16.6 H, Plt Count 102 L, MPV 10.5, Immature Gran % (Auto) 1.200 H, Neut % (Auto) 81.4 H, Lymph % (Auto) 9.2 L, [place] % (Auto) 7.6, Eos % (Auto) 0.4, Baso % (Auto) 0.2, Absolute Neuts (auto) 6.6, Absolute Lymphs (auto) 0.75 L, Nucleated RBC % 0 10/13/19 04:05: Sodium 140, Potassium 3.1 L, Chloride 110 H, Carbon Dioxide 23.0, Anion Gap 7, BUN 12, Creatinine 0.71, Estim Creat Clear Calc 43.74, Est GFR (MDRD) Af Amer 104, Est GFR (MDRD) Non-Af 86, BUN/Creatinine Ratio 16.9, Glucose 93, Calcium 7.5 L, Magnesium 1.5 L Current Medications Acetaminophen (Tylenol) 650 mg PO Q8H PRN PRN PRN Reason: Pain Score 1-10/Temp > 100.7 F Enoxaparin Sodium (Lovenox) 40 mg SC DAILY [facility] Ceftriaxone Sodium 2 gm/ (Sodium Chloride) 50 mls @ 100 mls/hr IV Q24 [facility] Last Infusion: 10/12/19 13:07 Dose: Infused Documented by: Potassium Chloride () 10 meq in 100 mls @ 100 mls/hr IV BOLUS Q1H [facility] Stop: 10/13/19 09:44 Last Admin: 10/13/19 08:15 Dose: 100 mls/hr Documented by: Ibuprofen (Motrin) 400 mg PO Q8H PRN PRN PRN Reason: fever/Temp > 100.7 Last Admin: 10/12/19 22:34 Dose: 400 mg Documented by: Magnesium Oxide (Mag-Ox 400) 400 mg PO BIDCM [facility] Stop: 10/13/19 17:01 Last Admin: 10/13/19 08:18 Dose: 400 mg Documented by: Melatonin (Melatonin) 3 mg PO QHS PRN PRN PRN Reason: INSOMNIA Last Admin: 10/12/19 21:51 Dose: 3 mg Documented by: Ondansetron HCl (Zofran) 4 mg IV Q8H PRN PRN PRN Reason: NAUSEA/VOMITING Potassium Chloride (K-Dur) 20 meq PO BIDCM [facility] Stop: 10/13/19 17:01 Last Admin: 10/13/19 08:18 Dose: 20 meq Documented by: Sodium Chloride () 10 - 40 ml IV UD PRN PRN Reason: SALINE FLUSH Throat Lozenges (Cepacol Sore Throat Lozenge) 1 lozenge MUCOUS MEM Q2H PRN PRN PRN Reason: COUGH Last Admin: 10/13/19 00:06 Dose: 1 lozenge Documented by: STROKE Vital Signs/Narrative: Vital Signs Temp Pulse Resp BP Pulse Ox 10/13/19 08:14 97.5 F L 78 18 82/52 L 98 10/13/19 07:29 83 10/13/19 07:00 78 14 84/54 L 97 10/13/19 06:00 82 29 H 95/51 L 96 Medical Necessity - Tobacco Use Smoking Status: Never smoker Assessment/Plan All Active Problems Debility (Acute) Encephalopathy (Acute) Sepsis (Acute) 1. Septic shock secondary to UTI -Part of the labs are not available on the EMR because of downtime, creatinine was 1.09, now 0.71 -Lactic acid was 3.8, repeat lactate normalized to 1.7 -She has been resuscitated and given her history of ascites, will discontinue her IV fluids and monitor -We will transfer to PCU, she is off pressor support -Still awaiting urine cultures, will continue with Rocephin -We will provide her magnesium for her hypomagnesemia of 1.5 as well as potassium for her hypokalemia of 3.1 2. SCHILLING with coagulopathy -She is on both Lasix and Aldactone for this issue and those will be held -She has needed paracentesis is in the past for fluid drainage, her abdomen is not firm or tender to feel that this could be SBP -Her LFTs are currently at their baseline, INR is 1.5, she is normally around 1.2 3. HTN/HLD -Continue with her Lipitor but will hold her blood pressure medications as she is on Levophed and hypertensive 4. Anxiety/depression -Stable -Continue with Celexa and Remeron DVT: Lovenox Inpatient E&M: 37660 Subs Hosp L2
--- NOTE | 2019-10-13 10:20 | CASEMGMT ---
RN CM SOLE SEAMER CM to room to meet with patient for initial transition planning/care coordination assessment. RN JAVIER introduced self and role at [facility]. Pt voices understanding and consents to assessment at this time. Pt resting in bed in no distress at this time. Pt is A/O at this time and answers all questions appropriately. Care providers, pharmacy, and demographics verified/updated at this time. PCP: Dr Dang Specialists: Urologist @ [facility], liver and stomach doctor at [facility]. Pt states does not remember their names. Preferred Pharmacy: [facility] Retail Insurance: MCR, MMO Prescription Benefit: Yes Living Will/HPOA: has completed both LW and Healtchare POA, who is her daughter, Minerva. LNOK: , Twyla. 2 daughters and a son Living Arrangements: Lives with her in a condo w/no steps to enter. is independent with ADL's. assists with her depends, but otherwise, she is able to bath/dress herself. and children, who are very supportive and visit often, help with home mgmt tasks. Has cleaning lady also. Transportation: . Denies concerns. DME: has the following DME: tub bench/shower chair, hand-held shower, rails/grab bars, walker Pt states no need for further DME at this time. HHC/SNF: History of TCU. currently gets therapy through [facility]. Call placed to [facility]. Pt is active with them and has SN and PT/OT services. They are aware pt is admitted to [facility]. Pt wishes to return home with resumption of [facility] and states has no concerns with going home at time of discharge. CM to follow for any further discharge planning/needs. Pt voices no further concerns/needs at this time. Advised pt to ask for CM if any further questions/concerns/needs arise. Voices understanding. PLAN: Home w/resumption of HHC through [facility]: SN and PT/OT. Resumption order has been placed. Will need discharge instructions and summary faxed to [facility] @ discharge. [facility]: PH: [phone] Bong WILLIAMSON RN, CM
[2019-10-13] MEDS: Benzonatate 100 MG Capsule PO (16:10)
[2019-10-13] MEDS: Ondansetron 4 MG/2 ML Vial IV (16:17)
[2019-10-13] MEDS: Acetaminophen 325 MG Tablet 650 MG PO (16:19)
[2019-10-13] MEDS: 0.9% Saline Lock 10 ML Syringe IV ×2 (16:19→22:37)
--- NOTE | 2019-10-13 17:52 | PCM.PN.BLA ---
Progress Note Called to bedside because patient had increased coughing with an episode of posttussive emesis and increased heart rate. She has a slight elevation in her temperature to 99.9, however she does not have coronavirus as she has had this cough for over 3 years now. She states that her abdomen is getting more full and usually when she has an increase in her ascites she coughs more. Unfortunately she needed the IV fluids for her septic shock and therefore if she is still stable in the morning for a blood pressure standpoint and we have identification and sensitivities of her urine culture, can likely restart her Lasix and Aldactone. Will obtain a chest x-ray for completeness, however her lungs are fairly clear and her cough though more frequent was unchanged. STROKE Vital Signs/Narrative: Vital Signs Temp Pulse Resp BP Pulse Ox 10/13/19 17:11 99.9 F H 140 H 10/13/19 15:56 113 H 10/13/19 15:42 99.2 F H 109 H 20 H 141/93 H 97
--- NOTE | 2019-10-13 18:05 | RAD_ITS ---
STUDY: X-RAY CHEST REASON FOR EXAM: Female, 74 years old. coug. pt unable to hold breath due to coughing. TECHNIQUE: PA and lateral COMPARISON: October 12, 2019 FINDINGS: There is focal consolidation in the left lower lobe in association with a large hiatal hernia.. There is no demonstrated pleural abnormality. Normal size heart. Normal mediastinum and luz elena. Normal visualized pulmonary arteries. Normal visualized aortic arch and descending thoracic aorta. Normal visualized thoracic spine. Normal visualized ribs, clavicles, and shoulders. There is no demonstrated abnormality of the visualized soft tissue structures of the upper abdomen. RAD/Chest PA and Lateral IMPRESSION: Focal atelectasis or infiltrate in left lower lobe in association with large hiatal hernia Electronically Signed: Eagle Thompson MD at 18:21 EDT , Service support ,
[2019-10-13] MEDS: Mirtazapine 30 MG Tablet PO (22:40)
[2019-10-13] MEDS: Atorvastatin Calcium 20 MG Tablet PO (22:41)
[2019-10-13] MEDS: Oxybutynin 5 MG Tablet PO (22:41)
[2019-10-14] VITALS (9 sets, daily range): BP systolic 92–110; BP diastolic 46–53; PULSE 79–102; RESP 14–18; TEMP 37–37.4; O2SAT 95–97
[2019-10-14] MEDS: Benzonatate 100 MG Capsule PO ×2 (01:05→18:06)
--- NOTE | 2019-10-14 04:50 | NURSING ---
This RN was changing dressing to IV d/t leaking. IV dislodged during dressing change. Pt refusing a re-start. Educated on receiving antibiotics through IV. Pt still refusing IV start.
[2019-10-14] MEDS: Oxybutynin 5 MG Tablet PO ×3 (05:45→21:20)
--- NOTE | 2019-10-14 07:28 | PN_ITS ---
Subjective: Patient transferred out of the intensive care unit yesterday. Patient has done well overnight. Patient has remained hemodynamically stable with no fevers noted. Patient is still on room air. Patient did have some difficulty with IV access overnight. General: Alert, Oriented x3, Cooperative, No apparent distress, Well developed, Well nourished, - - Appears older than stated age. Speaking in full sentences. HEENT: Atraumatic, PERRLA, EOMI, Normocephalic, - - No scleral icterus or injection noted Oral: Moist Mucosa, No Gingival or Mucosal Lesions/ Ulcerations Neck: Supple, No JVD, No Nodes Lungs: Clear to auscultation, Normal air movement, No rhonchi, No wheeze, No rales Cardiovascular: Regular rate, Regular Rhythm, Normal S1, Normal S2, No murmurs, No rub noted, No Gallop Abdomen: Bowel Sounds Present, Soft, Non Tender, Non-Distended Extremities: No clubbing, No cyanosis, Edema - Trace lower extremity Skin: - - Unchanged compared to previous Musculoskeletal: No Tenderness to Palpation of Joints or Extremities Lymphatic: No Cervical, Supraclavicular, or Inguinal Adenopathy Neurological: Cranial nerves II-XII grossly intact, Neuro grossly intact, Motor Exam 5/5 strength throughout Psych/Mental Status: Alert and oriented to time, place, person, mood and affect Vital Signs Temp Pulse Resp BP Pulse Ox 37.4 C H 98 18 110/53 L 97 10/14/19 04:25 10/14/19 04:25 10/14/19 04:25 10/14/19 04:25 10/14/19 04:25 Oxygen Delivery Method Room Air Weight: 74.2 kg Body Mass Index (BMI) 25.9 Intake and Output for Last 24 Hours 10/12/19 10/13/19 10/14/19 23:59 23:59 23:59 Intake Total 4569.36 / 5346.06 3092.9 / 3092.9 0 / 0 Output Total 175 / 175 625 / 625 Balance 4394.36 / 5171.06 2467.9 / 2467.9 0 / 0 Labs (Last 48 Hours) 10/12/19 10/12/19 10/12/19 07:05 07:05 07:50 WBC 13.1 H RBC 3.14 L Hgb 9.8 L Hct 30.4 L MCV 96.8 MCH 31.2 MCHC 32.2 RDW Std Deviation 16.3 L RDW Coeff of Shane 56.2 H Plt Count 133 L MPV 10.2 Immature Gran % (Auto) 0.600 Neut % (Auto) 83.9 H Lymph % (Auto) 6.9 L [place] % (Auto) 8.1 Eos % (Auto) 0.2 Baso % (Auto) 0.3 Absolute Neuts (auto) 11.0 H Absolute Lymphs (auto) 0.91 Nucleated RBC % PT INR APTT Sodium 140 Potassium 2.9 L Chloride 106 Carbon Dioxide 25.0 Anion Gap 9 BUN 14 Creatinine 1.09 H Estim Creat Clear Calc Est GFR (MDRD) Af Amer 63 Est GFR (MDRD) Non-Af 52 L BUN/Creatinine Ratio 12.8 Glucose 102 Lactic Acid 3.5 H* Calcium 8.9 Phosphorus Magnesium Total Bilirubin 2.10 H AST 56 H ALT 35 Alkaline Phosphatase 383 H Troponin I 0.059 H Total Protein 6.4 Albumin 2.4 L Globulin 4.0 Albumin/Globulin Ratio 0.6 L Urine Color Urine Clarity Urine pH Ur Specific [place] Urine Protein Urine Glucose (UA) Urine Ketones Urine Occult Blood Urine Nitrite Urine Bilirubin Urine Urobilinogen Ur Leukocyte Esterase Urine RBC Urine WBC Ur Squamous Epith Cells Calcium Oxalate Crystal Urine Bacteria Urine Mucus 10/12/19 10/12/19 10/12/19 08:50 11:45 11:45 WBC RBC Hgb Hct MCV MCH MCHC RDW Std Deviation RDW Coeff of Shane Plt Count MPV Immature Gran % (Auto) Neut % (Auto) Lymph % (Auto) [place] % (Auto) Eos % (Auto) Baso % (Auto) Absolute Neuts (auto) Absolute Lymphs (auto) Nucleated RBC % PT INR APTT Sodium Potassium Chloride Carbon Dioxide Anion Gap BUN Creatinine Estim Creat Clear Calc Est GFR (MDRD) Af Amer Est GFR (MDRD) Non-Af BUN/Creatinine Ratio Glucose Lactic Acid Cancelled 1.7 Calcium Phosphorus Magnesium Total Bilirubin AST ALT Alkaline Phosphatase Troponin I Total Protein Albumin Globulin Albumin/Globulin Ratio Urine Color Yellow Urine Clarity Cloudy Urine pH 5.0 Ur Specific [place] 1.015 Urine Protein 100 H Urine Glucose (UA) Normal Urine Ketones 5 H Urine Occult Blood 250 H Urine Nitrite Positive H Urine Bilirubin 3 H Urine Urobilinogen 4 H Ur Leukocyte Esterase 500 H Urine RBC 25-50 SEEN Urine WBC >100 SEEN Ur Squamous Epith Cells 0-5 SEEN Calcium Oxalate Crystal 1+ Urine Bacteria 2+ Urine Mucus 0 SEEN 10/12/19 10/12/19 10/13/19 11:55 11:55 04:05 WBC 8.2 RBC 2.60 L Hgb 8.1 L Hct 25.4 L MCV 97.7 MCH 31.2 MCHC 31.9 L RDW Std Deviation 57.7 H RDW Coeff of Shane 16.6 H Plt Count 102 L MPV 10.5 Immature Gran % (Auto) 1.200 H Neut % (Auto) 81.4 H Lymph % (Auto) 9.2 L [place] % (Auto) 7.6 Eos % (Auto) 0.4 Baso % (Auto) 0.2 Absolute Neuts (auto) 6.6 Absolute Lymphs (auto) 0.75 L Nucleated RBC % 0 PT 18.0 H INR 1.5 APTT 39.3 H Sodium 141 Potassium 3.0 L Chloride 108 H Carbon Dioxide 25.0 Anion Gap 8 BUN 12 Creatinine 0.80 Estim Creat Clear Calc 54.67 Est GFR (MDRD) Af Amer 90 Est GFR (MDRD) Non-Af 74 BUN/Creatinine Ratio 15.0 Glucose 93 Lactic Acid Calcium 7.7 L Phosphorus 3.6 Magnesium 1.6 Total Bilirubin 2.20 H AST 68 H ALT 34 Alkaline Phosphatase 333 H Troponin I Total Protein 5.4 L Albumin 1.9 L Globulin 3.5 Albumin/Globulin Ratio 0.5 L Urine Color Urine Clarity Urine pH Ur Specific [place] Urine Protein Urine Glucose (UA) Urine Ketones Urine Occult Blood Urine Nitrite Urine Bilirubin Urine Urobilinogen Ur Leukocyte Esterase Urine RBC Urine WBC Ur Squamous Epith Cells Calcium Oxalate Crystal Urine Bacteria Urine Mucus 10/13/19 04:05 WBC RBC Hgb Hct MCV MCH MCHC RDW Std Deviation RDW Coeff of Shane Plt Count MPV Immature Gran % (Auto) Neut % (Auto) Lymph % (Auto) [place] % (Auto) Eos % (Auto) Baso % (Auto) Absolute Neuts (auto) Absolute Lymphs (auto) Nucleated RBC % PT INR APTT Sodium 140 Potassium 3.1 L Chloride 110 H Carbon Dioxide 23.0 Anion Gap 7 BUN 12 Creatinine 0.71 Estim Creat Clear Calc 43.74 Est GFR (MDRD) Af Amer 104 Est GFR (MDRD) Non-Af 86 BUN/Creatinine Ratio 16.9 Glucose 93 Lactic Acid Calcium 7.5 L Phosphorus Magnesium 1.5 L Total Bilirubin AST ALT Alkaline Phosphatase Troponin I Total Protein Albumin Globulin Albumin/Globulin Ratio Urine Color Urine Clarity Urine pH Ur Specific [place] Urine Protein Urine Glucose (UA) Urine Ketones Urine Occult Blood Urine Nitrite Urine Bilirubin Urine Urobilinogen Ur Leukocyte Esterase Urine RBC Urine WBC Ur Squamous Epith Cells Calcium Oxalate Crystal Urine Bacteria Urine Mucus Microbiology 10/12/19 10:38 Urine, Catheterized Urine Culture - Final Pseudomonas aeroginosa Vancomycin Resist. E. faecium 10/12/19 07:27 Mucosa - Nasopharyngeal Influenza Types A,B Direct FA (BILLY) - Final Clinical Impression(s) from Imaging Studies Chest X-Ray 10/13/19 18:05 IMPRESSION: Focal atelectasis or infiltrate in left lower lobe in association with large hiatal hernia Electronically Signed: Eagle Thompson MD at 18:21 EDT , Service support , Medical Necessity - Tobacco Use Smoking Status: Never smoker Assessment/Plan All Active Problems Debility (Acute) Encephalopathy (Acute) Sepsis (Acute) RECOMMENDATIONS: 1. Aggressive electrolyte repletion as indicated 2. Consult dietitian to help with nutritional status 3. Initiate contact precautions. Consider Zyvox p.o. versus IV 4. Hemodynamically stable on room air. Will sign off from a critical care perspective IMPRESSIONS: 1. Septic shock secondary to Pseudomonas and VRE UTI Patient currently off Levophed therapy and blood pressures continue to improve. Patient does have complicating SCHILLING with history of lower blood pressures. Patient should continue on empiric antibiotics. Can bolus as necessary as patient does not appear to be significantly hypoxic or in CHF. Will need to watch closely as patient does have a relative low oncotic pressure given albumin of 1.9, likely secondary to Schilling. High bladder scan likely secondary to complications of ascites. No Victoria catheter is had to be placed. Patient is growing VRE in the urine culture. Recommend transition to Zyvox p.o. versus IV. VRE is the lower colony count, so improvement is likely secondary to treatment of Pseudomonas that is pansensitive. Some concern for selection of VRE if antibiotics are not changed. Could discuss with infectious disease. Low clinical suspicion for COVID infection at this time. Infiltrate on chest x-ray could be secondary to atelectasis. Given antibiotics required for UTI, most organisms would be covered from a bacterial standpoint. 2. Frequent PACs/hypokalemia Clinical suspicion for hypokalemia leading to electric ectopy. Magnesium and potassium repleted with improvement. Continue to monitor closely. Unable to obtain morning labs today at the time of my evaluation 3. Reported cirrhosis secondary to Schilling/coagulopathy Patient with decreased metabolic function given elevated INR and low albumin. Clinical suspicion for decreased baseline blood pressures. No indication for repeat paracentesis that I can tell, but bladder scanner of 900 cc likely secondary to ascites. Patient is responding to therapy appropriately. Okay to reinitiate diuretic therapy from my perspective 4. History of melanoma/depression/urinary retention/history of kidney stones /osteoarthritis/hypertension/hyperlipidemia Complicates care, management, recovery and prognosis. Function appears to be improving with improving to hemodynamics. Will hold on any renal ultrasound for now as patient is not reporting any renal colic. Inpatient E&M: [id number] Subs Hosp L2
[2019-10-14] MEDS: Citalopram 10 MG Tablet PO (09:28)
[2019-10-14] MEDS: Tamsulosin HCl 0.4 MG Capsule PO (09:28)
[2019-10-14] MEDS: Pantoprazole Sodium 20 MG Tablet PO (09:28)
[2019-10-14] MEDS: Ondansetron 8 MG Tablet PO (09:28)
--- NOTE | 2019-10-14 09:30 | PN_ITS ---
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 Heart rate is better today. Vitals/I&O's: Vital Signs Temp Pulse Resp BP Pulse Ox 98.7 F 95 14 98/46 L 96 10/14/19 09:09 10/14/19 09:09 10/14/19 09:09 10/14/19 09:09 10/14/19 09:09 Oxygen Delivery Method Room Air Weight: 163 lb 2.273 oz Body Mass Index (BMI) 25.9 Intake and Output for Last 24 Hours 10/12/19 10/13/19 10/14/19 23:59 23:59 23:59 Intake Total 4569.36 / 5346.06 3092.9 / 3092.9 0 / 0 Output Total 175 / 175 625 / 625 Balance 4394.36 / 5171.06 2467.9 / 2467.9 0 / 0 General: Alert, Oriented x3, Cooperative, No apparent distress HEENT: Atraumatic, PERRLA, EOMI, Normocephalic Oral: Moist Mucosa Neck: Supple, No JVD Lungs: Clear to auscultation, Normal air movement, No rhonchi, No wheeze, No rales Cardiovascular: Regular rate, Regular Rhythm, Normal S1, Normal S2, No murmurs Abdomen: Soft, Non Tender, Non-Distended, No Hepato-splenomegaly Extremities: No edema, Capillary Refill Less than 3 Seconds Skin: No rashes, No breakdown Neurological: Neuro grossly intact, Sensory exam intact to light touch and pain Psych/Mental Status: Normal Affect, Appropriate Microbiology Past 72 Hours 10/12/19 10:38 Urine, Catheterized Urine Culture - Final Pseudomonas aeroginosa Vancomycin Resist. E. faecium 10/12/19 07:27 Mucosa - Nasopharyngeal Influenza Types A,B Direct FA (BILLY) - Final Current Medications Acetaminophen (Tylenol) 650 mg PO Q8H PRN PRN PRN Reason: Pain Score 1-10/Temp > 100.7 F Last Admin: 10/13/19 16:19 Dose: 650 mg Documented by: Atorvastatin Calcium (Lipitor) 20 mg PO QHS [facility]LIN Last Admin: 10/13/19 22:41 Dose: 20 mg Documented by: Benzonatate (Tessalon Perle) 100 mg PO TID PRN PRN PRN Reason: COUGH Last Admin: 10/14/19 01:05 Dose: 100 mg Documented by: Ciprofloxacin HCl (Cipro) 500 mg PO BID [facility] Stop: 10/19/19 10:01 Enoxaparin Sodium (Lovenox) 40 mg SC DAILY [facility] Last Admin: 10/14/19 09:15 Dose: Not Given Documented by: Ibuprofen (Motrin) 400 mg PO Q8H PRN PRN PRN Reason: fever/Temp > 100.7 Last Admin: 10/12/19 22:34 Dose: 400 mg Documented by: Linezolid (Zyvox) 600 mg PO BID [facility] Stop: 10/19/19 10:01 Melatonin (Melatonin) 3 mg PO QHS PRN PRN PRN Reason: INSOMNIA Last Admin: 10/12/19 21:51 Dose: 3 mg Documented by: Mirtazapine (Remeron) 15 mg PO QHS [facility] Ondansetron HCl (Zofran) 4 mg IV Q8H PRN PRN PRN Reason: NAUSEA/VOMITING Last Admin: 10/13/19 16:17 Dose: 4 mg Documented by: Ondansetron HCl (Zofran) 8 mg PO Q8H PRN PRN PRN Reason: NAUSEA/VOMITING Last Admin: 10/14/19 09:28 Dose: 8 mg Documented by: Oxybutynin Chloride (Ditropan) 5 mg PO TID [facility] Last Admin: 10/14/19 05:45 Dose: 5 mg Documented by: Pantoprazole Sodium (Protonix) 20 mg PO DAILY [facility] Last Admin: 10/14/19 09:28 Dose: 20 mg Documented by: Sodium Chloride () 10 - 40 ml IV UD PRN PRN Reason: SALINE FLUSH Last Admin: 10/13/19 22:37 Dose: 10 ml Documented by: Tamsulosin HCl (Flomax) 0.4 mg PO DAILY@0830 [facility] Last Admin: 10/14/19 09:28 Dose: 0.4 mg Documented by: Throat Lozenges (Cepacol Sore Throat Lozenge) 1 lozenge MUCOUS MEM Q2H PRN PRN PRN Reason: COUGH Last Admin: 10/13/19 15:35 Dose: 1 lozenge Documented by: STROKE Vital Signs/Narrative: Vital Signs Temp Pulse Resp BP Pulse Ox 10/14/19 09:09 98.7 F 95 14 98/46 L 96 10/14/19 07:00 102 H Medical Necessity - Tobacco Use Smoking Status: Never smoker Assessment/Plan All Active Problems Debility (Acute) Encephalopathy (Acute) Sepsis (Acute) 1. Septic shock secondary to UTI/lower lobe pneumonia -Part of the labs are not available on the EMR because of downtime, creatinine was 1.09, now 0.71 -Lactic acid was 3.8, repeat lactate normalized to 1.7 -Urine culture with Pseudomonas and VRE, will transition her to p.o. Cipro and p.o. Zyvox. She also does have a consolidation in her left lower lobe consistent with pneumonia but could also be atelectasis, the Cipro should cover her for that as well. She does not have coronavirus -Repeat labs are currently pending 2. SCHILLING with coagulopathy -She is on both Lasix and Aldactone for this issue can restart today -She has needed paracentesis is in the past for fluid drainage, her abdomen is not firm or tender to feel that this could be SBP -Her LFTs are currently at their baseline, INR is 1.5, she is normally around 1.2 3. HTN/HLD -Continue with her Lipitor -We will restart her Lasix and Aldactone 4. Anxiety/depression -Stable -Continue with Celexa and Remeron 5. GERD -Stable -Continue with PPI DVT: Lovenox Inpatient E&M: [id number] [facility] Hosp L2
[2019-10-14] MEDS: Spironolactone 25 MG Tablet PO (10:32)
[2019-10-14] MEDS: Furosemide 20 MG Tablet PO (10:34)
[2019-10-14] MEDS: Ciprofloxacin 500 MG Tablet PO ×2 (10:34→21:20)
[2019-10-14] MEDS: Linezolid 600 MG Tablet PO ×2 (10:34→21:20)
[2019-10-14 12:23] LABS: Absolute Lymphocyte Count 0.67 X10^3/uL (0.83-4.51); Absolute Neutrophil Count 8.6 X10^3/uL (2.0-7.7); Basophil# 0.02 X10^3/uL; Basophil% 0.2 % (0-1); Eosinophil# 0.04 X10^3/uL; Eosinophils% 0.4 % (0-5); Hematocrit 26.7 % (37-47); Hemoglobin 8.5 g/dL (12.0-15.0); Lymphocyte # 0.67 X10^3/ul (4.0); Lymphocyte % 6.6 % (19-41); Mean Corp Hgb Conc 31.8 g/dL (32-36); Mean Corpuscular Hgb 31.1 pg (27.0-32.0); Mean Corpuscular Volume 97.8 fL (81-99); Mean Platelet Vol. 9.7 fl (6.2-12.0); Monocyte# 0.69 X10^3/uL; Monocyte% 6.8 % (0-10); NRBC Flagged by Analyzer 0 % (0-5); Neutrophil # 8.64 X10^3/uL (2.7-7.7); Neutrophil % 85.6 % (47-70); Platelet Count 102 K/mm3 (150-450); RBC Distribution Width CV 17.1 % (11.6-14.6); RBC Distribution Width SD 57.5 fl (35.1-43.9); Red Blood Count 2.73 M/mm3 (4.2-5.4); White Blood Count 10.1 K/mm3 (4.4-11.0)
[2019-10-14 12:43] LABS: Anion Gap 6 (5-15); BUN 12 mg/dL (7-18); BUN/Creat Ratio 19.3 RATIO (10-20); Calcium,Total 7.9 mg/dL (8.5-10.1); Chloride 110 mmol/L (98-107); Creatinine, Serum 0.62 mg/dL (0.55-1.02); EST Glomerular Filtration Rate 99 mL/min (>60); Est Glom Filt Rate - Afr Amer 120 mL/min (>60); Estimated Creatinine Clearance 43.74 ml/min; Glucose 92 mg/dL (74-106); Magnesium 1.8 mg/dL (1.6-2.6); Phosphorus 2.1 mg/dL (2.5-4.9); Potassium 3.9 mmol/L (3.5-5.1); Sodium Level 137 mmol/L (136-145)
[2019-10-14] MEDS: Atorvastatin Calcium 20 MG Tablet PO (21:20)
[2019-10-14] MEDS: Mirtazapine 15 MG Tablet PO (21:20)
[2019-10-15 02:59] VITALS: PULSE 89
[2019-10-15 03:00] VITALS: BP 99/46; PULSE 83; RESP 14; TEMP 37.2; O2SAT 95
[2019-10-15] MEDS: Oxybutynin 5 MG Tablet PO (06:35)
[2019-10-15 07:00] VITALS: PULSE 82
--- NOTE | 2019-10-15 09:25 | PCM.DC ---
You will use the following diet at home:: Regular, Fluid restricted (specify 2000 mls, 1500 mls) - 1800 Your food should be the consistency of: Regular Your liquids should be the consistency of: Regular/Thin Discharge Activity: Return to Normal Activity Call your doctor if you observe: Fever of 101 or Higher, Shortness of breath, Dizziness, Fainting spells, Swelling in the ankles, Chest pain, Increased palpitations (irregular heartbeat) Allergies/Adverse Reactions: Allergies Sulfa (Sulfonamide Antibiotics) Allergy (Verified 06/04/19 18:07) Swelling Medications to take at Discharge Melatonin 10 mg PO QHS 05/16/19 Menthol/Lanolin/Calamine/Znox [Calmoseptine Ointment] 1 applic TOPICAL 0600,2200 05/16/19 Tamsulosin HCl [Flomax] 0.4 mg PO DAILY 05/16/19 Acetaminophen [Tylenol] 1,000 mg PO Q6H PRN PRN tab 07/13/19 Atorvastatin Calcium [Lipitor] 20 mg PO QHS #30 tab 07/13/19 Furosemide [Lasix] 20 mg PO DAILY 10/12/19 Hydrocortisone 2.5% Crm [Hytone] 1 applic RECTAL BID PRN 10/12/19 Megestrol Acetate 400 mg PO BID 10/12/19 Metoclopramide HCl 5 mg PO TIDCM 10/12/19 Multivit with Iron,Minerals [Multivitamins with Iron] 1 ea PO DAILY 10/12/19 Ondansetron HCl [Zofran] 4 mg PO Q8H PRN PRN 10/12/19 Oxybutynin [Ditropan] 5 mg PO TID 10/12/19 Pantoprazole Sodium [Protonix] 20 mg PO DAILY 10/12/19 Potassium Chloride [K-Dur] 20 meq PO DAILYCM 10/12/19 Sennosides/Docusate Sodium [Senna Plus 8.6-50 mg Tablet] 1 ea PO DAILY 10/12/19 Spironolactone 25 mg PO DAILY 10/12/19 Trospium Chloride 20 mg PO BID 10/12/19 Ciprofloxacin [Cipro] 500 mg PO BID #10 tab 10/15/19 Citalopram [Celexa] 10 mg PO DAILY #0 10/15/19 Linezolid [Zyvox] 600 mg PO BID #10 tab 10/15/19 Mirtazapine [Remeron] 30 mg PO QHS #0 10/15/19 The following prescriptions were given: Ciprofloxacin [Cipro] 500 mg PO BID #10 tab Linezolid [Zyvox] 600 mg PO BID #10 tab Primary Care Physician: Eagle Dang MD [Primary Care Provider] - Please follow up with your Primary Care Physician in: Tele-visit in 1-2 weeks Test Results: Test results from this visit will be discussed in further detail at your follow-up appointment, if applicable.
--- NOTE | 2019-10-15 09:27 | DS.PCM_ITS ---
Discharge Date and Diagnosis - Problem List Patient Problems: Active and Suspected Problems 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 (Suspected) Date of Admission: 10/12/19 Date of Discharge: 10/15/19 - Primary Discharge Diagnosis Active and Suspected Problems 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 (Suspected) - Secondary Discharge Diagnosis Chronic Problems Kidney stones (Chronic) Septic shock (Chronic) Body mass index (BMI) 35.0-35.9, adult (Chronic) Pyelonephritis (Chronic) Hydroureter, left (Chronic) Hydronephrosis, left (Chronic) Hypertension (Chronic) Hyperlipidemia (Chronic) Melanoma (Chronic) Lumbar spondylosis (Chronic) Vitamin D deficiency (Chronic) Iron deficiency anemia (Chronic) Overactive bladder (Chronic) Chronic cough (Chronic) Fatty liver (Chronic) Recurrent kidney stones (Chronic) Depression (Chronic) Urinary retention (Chronic) Osteoarthritis (Chronic) Hospital Course and Treatment Imaging Results: CXR: IMPRESSION: Mild cardiomegaly. Large hiatal hernia. CXR: IMPRESSION: Focal atelectasis or infiltrate in left lower lobe in association with large hiatal hernia Consults: Commercial Or Institutional [employer]er Operations: None Procedures: None Summary of Care Provided: Per HPI: The patient is a 74 year old F with a PMH as below who presents with new onset fever over the last 24 to 48 hours. She says that it peaked to about 103 and she took a couple of Tylenol prior to coming into the hospital. She is also been having a cough though this cough has not changed and it is been the same cough that she has had for the last 2 years and her chest x-ray is unremarkable for any pulmonary infiltrates and therefore she does not have coronavirus and does not need testing. She does have a UTI based on her UA and blood cultures as well as urine cultures have been sent. She also had an elevated lactate and hypotension. She states that she is usually low in the 80s to 90s, however her mean arterial pressure was in the 50s so she was started on IV fluids and was placed on levo fed in the ER. They are attempting to get a second peripheral IV placed. Hospital Course: 1. Septic shock secondary to UTI and a left lower lobe [id number]-old female who is been coughing for the last 4 years presented with a fever and what appeared to be a UTI on her UA. Her culture came back with both Pseudomonas and VRE. She was transitioned from Rocephin to p.o. Cipro and p.o. Zyvox. She continued to have slight fevers and therefore another chest x-ray was obtained which did show a possible left lower lobe consolidation. Based on antibiotics used to treat her UTI, her pneumonia should also be treated. She does not have coronavirus and never did. She was given appropriate IV fluids and has had some increasing abdominal distention with her history of Schilling, therefore her IV fluids were discontinued and she was restarted on her Lasix and her Aldactone. She is doing well and would like to go home today. I did discuss with her the risks and benefits of discharge and she expressed understanding. I also expressed to her that she needs to take half of her Remeron dose and needs to discontinue her Celexa until after she completes her Zyvox, to help prevent serotonin syndrome. 2. Her other medical diagnoses were evaluated and her home medications were continued where appropriate Patient Problems: Active and Suspected Problems 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 (Suspected) - Physical Exam Vitals/I&O's: Vital Signs Temp Pulse Resp BP Pulse Ox 98.9 F 82 14 99/46 L 95 10/15/19 03:00 10/15/19 07:00 10/15/19 03:00 10/15/19 03:00 10/15/19 03:00 Oxygen Delivery Method Room Air Weight: 161 lb 2.526 oz Body Mass Index (BMI) 25.9 Intake and Output for Last 24 Hours 10/13/19 10/14/19 10/15/19 23:59 23:59 23:59 Intake Total 3092.9 / 3092.9 100 / 100 100 / 100 Output Total 625 / 625 300 / 300 400 / 400 Balance 2467.9 / 2467.9 -200 / -200 -300 / -300 General: Alert, Oriented x3, Cooperative, No apparent distress HEENT: Atraumatic, PERRLA, EOMI, Normocephalic Oral: Moist Mucosa Neck: Supple, No JVD Lungs: Clear to auscultation, Normal air movement, No rhonchi, No wheeze, No ra les Cardiovascular: Regular rate, Regular Rhythm, Normal S1, Normal S2, No murmurs Abdomen: Soft, Non Tender, Non-Distended, No Hepato-splenomegaly Extremities: No edema, Capillary Refill Less than 3 Seconds Skin: No rashes, No breakdown Neurological: Neuro grossly intact, Sensory exam intact to light touch and pain Psych/Mental Status: Normal Affect, Appropriate Microbiology Past 72 Hours 10/12/19 10:38 Urine, Catheterized Urine Culture - Final Pseudomonas aeroginosa Vancomycin Resist. E. faecium 10/12/19 07:27 Mucosa - Nasopharyngeal Influenza Types A,B Direct FA (BILLY) - Final Laboratory Results 10/14/19 12:05: Sodium 137, Potassium 3.9, Chloride 110 H, Carbon Dioxide 21.0, Anion Gap 6, BUN 12, Creatinine 0.62, Estim Creat Clear Calc 43.74, Est GFR (MDRD) Af Amer 120, Est GFR (MDRD) Non-Af 99, BUN/Creatinine Ratio 19.3, Glucose 92, Calcium 7.9 L, Phosphorus 2.1 L, Magnesium 1.8 10/14/19 12:05: WBC 10.1, RBC 2.73 L, Hgb 8.5 L, Hct 26.7 L, MCV 97.8, MCH 31.1, MCHC 31.8 L, RDW Std Deviation 57.5 H, RDW Coeff of Shane 17.1 H, Plt Count 102 L, MPV 9.7, Immature Gran % (Auto) 0.400, Neut % (Auto) 85.6 H, Lymph % (Auto) 6.6 L, Payne % (Auto) 6.8, Eos % (Auto) 0.4, Baso % (Auto) 0.2, Absolute Neuts (auto) 8.6 H, Absolute Lymphs (auto) 0.67 L, Nucleated RBC % 0 Current Medications Acetaminophen (Tylenol) 650 mg PO Q8H PRN PRN PRN Reason: Pain Score 1-10/Temp > 100.7 F Last Admin: 10/13/19 16:19 Dose: 650 mg Documented by: Atorvastatin Calcium (Lipitor) 20 mg PO QHS DARLIN Last Admin: 10/14/19 21:20 Dose: 20 mg Documented by: Benzonatate (Tessalon Perle) 100 mg PO TID PRN PRN PRN Reason: COUGH Last Admin: 10/14/19 18:06 Dose: 100 mg Documented by: Ciprofloxacin HCl (Cipro) 500 mg PO BID [facility] Stop: 10/19/19 10:01 Last Admin: 10/14/19 21:20 Dose: 500 mg Documented by: Enoxaparin Sodium (Lovenox) [address] [facility] Last Admin: 10/14/19 09:15 Dose: Not Given Documented by: Furosemide (Lasix) [address] [facility] Last Admin: 10/14/19 10:34 Dose: 20 mg Documented by: Ibuprofen (Motrin) 400 mg PO Q8H PRN PRN PRN Reason: fever/Temp > 100.7 Last Admin: 10/12/19 22:34 Dose: 400 mg Documented by: Linezolid (Zyvox) [address] [facility] Stop: 10/19/19 10:01 Last Admin: 10/14/19 21:20 Dose: 600 mg Documented by: Melatonin (Melatonin) 3 mg PO QHS PRN PRN PRN Reason: INSOMNIA Last Admin: 10/12/19 21:51 Dose: 3 mg Documented by: Mirtazapine (Remeron) [address] [facility] Last Admin: 10/14/19 21:20 Dose: 15 mg Documented by: Ondansetron HCl (Zofran) 4 mg IV Q8H PRN PRN PRN Reason: NAUSEA/VOMITING Last Admin: 10/13/19 16:17 Dose: 4 mg Documented by: Ondansetron HCl (Zofran) 8 mg PO Q8H PRN PRN PRN Reason: NAUSEA/VOMITING Last Admin: 10/14/19 09:28 Dose: 8 mg Documented by: Oxybutynin Chloride (Ditropan) [address] [facility] Last Admin: 10/15/19 06:35 Dose: 5 mg Documented by: Pantoprazole Sodium (Protonix) [address] [facility] Last Admin: 10/14/19 09:28 Dose: 20 mg Documented by: Sodium Chloride () 10 - 40 ml IV UD PRN PRN Reason: SALINE FLUSH Last Admin: 10/13/19 22:37 Dose: 10 ml Documented by: Spironolactone (Aldactone) [address] [facility] Last Admin: 10/14/19 10:32 Dose: 25 mg Documented by: Tamsulosin HCl (Flomax) 0.4 mg PO DAILY@0830 [facility] Last Admin: 10/14/19 09:28 Dose: 0.4 mg Documented by: Throat Lozenges (Cepacol Sore Throat Lozenge) 1 lozenge MUCOUS MEM Q2H PRN PRN PRN Reason: COUGH Last Admin: 10/13/19 15:35 Dose: 1 lozenge Documented by: Discharge Activity: Return to Normal Activity Call your doctor if you observe: Fever of 101 or Higher, Shortness of breath, Dizziness, Fainting spells, Swelling in the ankles, Chest pain, Increased palpitations (irregular heartbeat) Home Medications: Medications to take at Discharge Melatonin 10 mg PO QHS 05/16/19 Menthol/Lanolin/Calamine/Znox [Calmoseptine Ointment] 1 applic TOPICAL 0600,2200 05/16/19 Tamsulosin HCl [Flomax] 0.4 mg PO DAILY 05/16/19 Acetaminophen [Tylenol] 1,000 mg PO Q6H PRN PRN tab 07/13/19 Atorvastatin Calcium [Lipitor] 20 mg PO QHS #30 tab 07/13/19 Furosemide [Lasix] 20 mg PO DAILY 10/12/19 Hydrocortisone 2.5% Crm [Hytone] 1 applic RECTAL BID PRN 10/12/19 Megestrol Acetate 400 mg PO BID 10/12/19 Metoclopramide HCl 5 mg PO TIDCM 10/12/19 Multivit with Iron,Minerals [Multivitamins with Iron] 1 ea PO DAILY 10/12/19 Ondansetron HCl [Zofran] 4 mg PO Q8H PRN PRN 10/12/19 Oxybutynin [Ditropan] 5 mg PO TID 10/12/19 Pantoprazole Sodium [Protonix] 20 mg PO DAILY 10/12/19 Potassium Chloride [K-Dur] 20 meq PO DAILYCM 10/12/19 Sennosides/Docusate Sodium [Senna Plus 8.6-50 mg Tablet] 1 ea PO DAILY 10/12/19 Spironolactone 25 mg PO DAILY 10/12/19 Trospium Chloride 20 mg PO BID 10/12/19 Ciprofloxacin [Cipro] 500 mg PO BID #10 tab 10/15/19 Citalopram [Celexa] 10 mg PO DAILY #0 10/15/19 Linezolid [Zyvox] 600 mg PO BID #10 tab 10/15/19 Mirtazapine [Remeron] 30 mg PO QHS #0 10/15/19 Following Prescrptions Were Given to Patient: Ciprofloxacin [Cipro] 500 mg PO BID #10 tab Linezolid [Zyvox] 600 mg PO BID #10 tab Primary Care Physician: Eagle Dang MD [Primary Care Provider] - Please follow up with your Primary Care Physician in: Tele-visit in 1-2 weeks Disposition: Home Minutes spent on discharge:: 35 Patient Condition:: Stable Medical Necessity - Tobacco Use Smoking Status: Never smoker Meaningful Use Info Meaningful Use Diagnoses (Choose all that apply): None applicable Inpatient E&M: 17387 Disch Hosp
[2019-10-15 09:46] VITALS: BP 104/53; PULSE 88; RESP 16; TEMP 36.6; O2SAT 96
[2019-10-15] MEDS: Ciprofloxacin 500 MG Tablet PO (09:49)
[2019-10-15] MEDS: Linezolid 600 MG Tablet PO (09:49)
[2019-10-15] MEDS: Pantoprazole Sodium 20 MG Tablet PO (09:49)
[2019-10-15] MEDS: Tamsulosin HCl 0.4 MG Capsule PO (09:49)
[2019-10-15] MEDS: Furosemide 20 MG Tablet PO (09:50)
[2019-10-15] MEDS: Spironolactone 25 MG Tablet PO (09:51)
--- NOTE | 2019-10-16 14:27 | CASEMGMT ---
DC DATE: 10.13.2019 DC [facility]ITION[facility] DIAGNOSIS: Liver cirrhosis r/t SCHILLING LACE/STRATA: 21/09 F/U APPTS MADE PRIOR TO DC: no -Call to pt's home phone. No answer and no message machine picked up. -Call to [facility]. They have arranged appointment for patient to be seen tomorrow am. Kodka WILLIAMSON RN ACM
== END 2019-10-15 13:31 | disposition home or self-care (01) | DRG 871 ==
LOC: ED 09:44 → ICU 10:43 → PCU 10-15 13:31
PROVIDERS: Internal Medicine Critical Care Medicine; Admitting Provider Family Medicine; Emergency Provider Emergency Medicine; PCP Family Medicine; Visit Provider Family Medicine
DX: A41.52 Sepsis due to Pseudomonas (principal); J18.9 Pneumonia, unspecified organism; R65.21 Severe sepsis with septic shock; N39.0 Urinary tract infection, site not specified; R18.8 Other ascites; Z16.21 Resistance to vancomycin; B95.2 Enterococcus as the cause of diseases classified elsewhere; K75.81 Nonalcoholic steatohepatitis (NASH); K74.60 Unspecified cirrhosis of liver; I10 Essential (primary) hypertension; E78.5 Hyperlipidemia, unspecified; F41.9 Anxiety disorder, unspecified; F32.9 Major depressive disorder, single episode, unspecified; E87.6 Hypokalemia; K21.9 Gastro-esophageal reflux disease without esophagitis; D50.9 Iron deficiency anemia, unspecified; N32.81 Overactive bladder; Z85.820 Personal history of malignant melanoma of skin; Z87.442 Personal history of urinary calculi; Z82.3 Family history of stroke; Z82.0 Family history of epilepsy and other diseases of the nervous system; Z90.710 Acquired absence of both cervix and uterus
CPT/HCPCS: 36415; 71045; 71046; 80048; 80053; 81001; 83605; 83735; 84100; 84484; 85025; 85610; 85730; 87077; 87086; 87088; 87186; 87804; 93005; 97802; J7030; J7050; A4216; J0696; J2405

== ENCOUNTER → 2019-10-23 10:45 | Outpatient (CLI) | payer MEDICARE, OTHER, SELFPAY ==
[2019-10-12 12:00] VITALS: BMI 25.9
[2019-10-23 11:37] LABS: Anion Gap 7 (5-15); BUN 12 mg/dL (7-18); BUN/Creat Ratio 16.3 RATIO (10-20); Chloride 101 mmol/L (98-107); Creatinine, Serum 0.73 mg/dL (0.55-1.02); EST Glomerular Filtration Rate 82 mL/min (>60); Est Glom Filt Rate - Afr Amer 99 mL/min (>60); Glucose 90 mg/dL (74-106); Potassium 3.7 mmol/L (3.5-5.1); Sodium Level 134 mmol/L (136-145)
== END ==
PROVIDERS: PCP Family Medicine; Referring Provider Family Medicine; Visit Provider Family Medicine
DX: K75.81 Nonalcoholic steatohepatitis (NASH) (principal)
CPT/HCPCS: 80048

== ENCOUNTER 2019-10-30 15:16 | Emergency (ER) | payer MEDICARE, OTHER, SELFPAY ==
[2019-10-12 12:00] VITALS: BMI 25.9
[2019-10-30 15:17] VITALS: BP 101/70; PULSE 118; RESP 17; TEMP 36.7; O2SAT 100; BMI 23.3
--- NOTE | 2019-10-30 15:26 | ED.VIS.GEN ---
History of Present Illness Chief Complaint: Complaint Onset: Today Current Severity: Moderate Maximum Severity: Moderate Narrative: Presents with dysuria, pressure when she urinates for 2 days she has no fever or chills she has no flank pain associated with this. 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 She has no significant abdominal pain at this time. She has no chest pain or shortness of breath. She was sent in by her PCP Past Medical History - Allergies and Home Meds Allergies/Adverse Reactions: Allergies Sulfa (Sulfonamide Antibiotics) Allergy (Verified 06/04/19 18:07) Swelling Primary Care Physician: Eagle Dang MD [Primary Care Provider] - Prior records reviewed: Yes Past Medical History: - - Nonalcoholic cirrhosis Surgical History: appendectomy, cholecystectomy, hysterectomy - Total abdominal., - - , Melanoma excision, Liver biopsy, ureteral stent. Smoking Status: Never smoker - Family History Maternal Family History: Reports: Dementia - Alzheimer Disease., Stroke Paternal Family History: Reports: Cancer - Throat. Review of Systems All systems negative except as indicated General: Denies: Fever Cardiovascular: Denies: Chest pain Respiratory: Denies: Dyspnea, Cough Gastrointestinal: Denies: Abdominal pain Genitourinary: Reports: Dysuria, Frequency. Denies: Hematuria Musculoskeletal: Denies: Myalgias, Arthralgias, Back pain Skin: Denies: Rash Neurological: Denies: Headache, Weakness Endocrine: Denies: Polyuria, Polydipsia Hematologic: Denies: Easy bruising Physical Exam Vital Signs/Narrative: Vital Signs Temp Pulse Resp BP Pulse Ox 10/30/19 15:17 98.0 F 118 H 17 101/70 100 General: Well nourished, Well developed Head: Normocephalic Eyes: Perrl, EOMI ENT: Moist mucous membranes Neck: Supple Cardiovascular: Regular rate, Regular rhythm Respiratory: No distress, CTA bilaterally Abdomen: Soft, Nontender, Nondistended Back: Nontender. Negative for: CVA tenderness Extremities: Nontender, No edema Skin: Normal color, No rash Neurological: Alert, Oriented x3 Diagnostic/Tx/Re-eval - Medical Decision Making Patient appears well, she is found to have a urinary tract infection which is consistent with her symptomatology, she does not have a white count she has no fever and she has normal vitals I believe she is stable for discharge she agrees and wants to be discharged. I will give her Rocephin in the emergency department and Augmentin for home. I will culture her urine. ED Disposition - Plan for ED Patient: Disposition: Home or Assisted Living Diagnosis: UTI (urinary tract infection) Instructions: ED CYSTITIS Female Adult Prescriptions: Amoxicillin/Potassium Clav [Augmentin 500-125 Tablet] 1 ea PO TID #27 tab Transmission Status: Pending to [facility] Referrals: Eagle Dang MD [Primary Care Provider] - 3-5 Days
[2019-10-30 16:00] LABS: Absolute Lymphocyte Count 1.14 X10^3/uL (0.83-4.51); Absolute Neutrophil Count 8.8 X10^3/uL (2.0-7.7); Basophil# 0.04 X10^3/uL; Basophil% 0.4 % (0-1); Eosinophil# 0.04 X10^3/uL; Eosinophils% 0.4 % (0-5); Hematocrit 28.9 % (37-47); Hemoglobin 9.3 g/dL (12.0-15.0); Lymphocyte # 1.14 X10^3/ul (4.0); Lymphocyte % 10.5 % (19-41); Mean Corp Hgb Conc 32.2 g/dL (32-36); Mean Corpuscular Hgb 31.1 pg (27.0-32.0); Mean Corpuscular Volume 96.7 fL (81-99); Mean Platelet Vol. 11.4 fl (6.2-12.0); Monocyte% 7.3 % (0-10); NRBC Flagged by Analyzer 0 % (0-5); Neutrophil # 8.84 X10^3/uL (2.7-7.7); POSITIVE COUNT YES; Platelet Count 100 K/mm3 (150-450); RBC Distribution Width CV 17.6 % (11.6-14.6); RBC Distribution Width SD 60.5 fl (35.1-43.9); Red Blood Count 2.99 M/mm3 (4.2-5.4); White Blood Count 10.9 K/mm3 (4.4-11.0)
[2019-10-30 16:02] LABS: Differential Indicated SCAN CRITERIA MET
--- NOTE | 2019-10-30 16:03 | NURSING ---
BLUE TOP HEMOLIZED PER LAB
[2019-10-30 16:14] LABS: ALB/GLOB Ratio 0.5 RATIO (0.9-2.4); AST(SGOT) 43 U/L (15-37); Alanine Aminotransfer ALT/SGPT 28 U/L (13-56); Albumin, Serum 2.2 g/dL (3.2-5.0); Alkaline Phosphatase 562 U/L (45-117); Anion Gap 7 (5-15); BUN 10 mg/dL (7-18); BUN/Creat Ratio 12.9 RATIO (10-20); Calcium,Total 8.8 mg/dL (8.5-10.1); Chloride 102 mmol/L (98-107); Creatinine, Serum 0.78 mg/dL (0.55-1.02); EST Glomerular Filtration Rate 77 mL/min (>60); Est Glom Filt Rate - Afr Amer 93 mL/min (>60); Estimated Creatinine Clearance 43.74 ml/min; Globulin 4.3 g/dL (2.2-4.2); Glucose 108 mg/dL (74-106); Potassium 3.7 mmol/L (3.5-5.1); Protein, Total 6.5 g/dL (6.4-8.2); Sodium Level 137 mmol/L (136-145)
[2019-10-30 16:16] LABS: Color, Urine Yellow (Yellow); Glucose, Dipstick Normal (Normal); Ketone-Dipstick 5 mg/dl (Negative); Leukocyte Esterase-Dipstick 500 /ul (Negative); Nitrite-Dipstick Negative (Negative); Occult Blood-Urine 250 /ul (Negative); Protein-Dipstick 100 mg/dl (Negative); Urine Clarity Cloudy (Clear); Urine Urobilinogen 4 mg/dl (Normal)
[2019-10-30 16:25] LABS: Differential Comment SCANNED
[2019-10-30 16:30] LABS: Urine Bilirubin Dipstick 1 mg/dL (Negative)
[2019-10-30 16:31] LABS: Bacteria 2+ /hpf (None Seen); Mucous, Urine RARE /hpf (<or=2+); Red Blood Cells-Urine 25-50 SEEN /hpf (0-5); Squamous Epithelial Cells - UA 0-5 SEEN /hpf (5-10); White Blood Cells 25-50 SEEN /hpf (0-5); Yeast-Urine RARE /hpf (None Seen)
[2019-10-30 17:05] VITALS: BP 103/47; PULSE 100; RESP 16; TEMP 36.4; O2SAT 99
[2019-10-30 17:08] LABS: Partial Thromboplast Time 32.7 Seconds (24.1-36.2)
[2019-10-30 18:00] VITALS: BP 109/61; PULSE 98; RESP 16; TEMP 36.3; O2SAT 97
[2019-10-30] MEDS: Ceftriaxone 1 GM/50 ML BAG IV (18:06)
== END 2019-10-30 19:49 | disposition home or self-care (01) ==
PROVIDERS: Emergency Provider Emergency Medicine; PCP Family Medicine
DX: N39.0 Urinary tract infection, site not specified (principal); K74.60 Unspecified cirrhosis of liver; R18.8 Other ascites; Z85.820 Personal history of malignant melanoma of skin; Z88.2 Allergy status to sulfonamides; Z90.710 Acquired absence of both cervix and uterus; Z90.49 Acquired absence of other specified parts of digestive tract
CPT/HCPCS: 80053; 81001; 85025; 85730; 87086; 87088; 96365; 99283; J7050; A4216

== ENCOUNTER → 2019-11-07 13:22 | Outpatient (CLI) | payer MEDICARE, OTHER, SELFPAY ==
[2019-10-30 15:17] VITALS: BMI 23.3
[2019-11-07 13:50] LABS: Color, Urine Amber (Yellow); Glucose, Dipstick Normal (Normal); Ketone-Dipstick Negative (Negative); Leukocyte Esterase-Dipstick 500 /ul (Negative); Nitrite-Dipstick Negative (Negative); Occult Blood-Urine 250 /ul (Negative); Protein-Dipstick 100 mg/dl (Negative); Specific Gravity, Urine 1.015 (1.002-1.030); Urine Bilirubin Dipstick Negative (Negative); Urine Clarity Cloudy (Clear); Urine Urobilinogen Normal (Normal); Urine pH 6.5 (5.0 - 8.0)
== END ==
PROVIDERS: PCP Family Medicine; Referring Provider Family Medicine; Visit Provider Family Medicine
DX: N20.1 Calculus of ureter (principal); N39.0 Urinary tract infection, site not specified
CPT/HCPCS: 81002; 87086; 87088

== ENCOUNTER → 2019-11-16 12:39 | Outpatient (CLI) | payer MEDICARE, OTHER, SELFPAY ==
[2019-10-30 15:17] VITALS: BMI 23.3
[2019-11-16 13:38] LABS: Mucous, Urine 0 SEEN /hpf (<or=2+); Squamous Epithelial Cells - UA 0 SEEN /hpf (5-10)
[2019-11-16 13:55] LABS: Color, Urine Yellow (Yellow); Glucose, Dipstick Normal (Normal); Ketone-Dipstick 5 mg/dl (Negative); Leukocyte Esterase-Dipstick 500 /ul (Negative); Nitrite-Dipstick Positive (Negative); Occult Blood-Urine 250 /ul (Negative); Protein-Dipstick 100 mg/dl (Negative); Specific Gravity, Urine 1.015 (1.002-1.030); Urine Clarity Cloudy (Clear); Urine Urobilinogen 4 mg/dl (Normal)
[2019-11-16 13:57] LABS: Urine Bilirubin Dipstick 1 mg/dL (Negative)
[2019-11-16 14:07] LABS: Bacteria 1+ /hpf (None Seen); Red Blood Cells-Urine > 100 SEEN /hpf (0-5); White Blood Cells >100 SEEN /hpf (0-5)
== END ==
PROVIDERS: PCP Family Medicine; Referring Provider Family Medicine; Visit Provider Family Medicine
DX: N39.0 Urinary tract infection, site not specified (principal)
CPT/HCPCS: 81001; 87086; 87088

== ENCOUNTER 2019-12-05 15:21 | Emergency (ER) | payer MEDICARE, OTHER, SELFPAY ==
[2019-12-05 15:23] VITALS: BP 123/72; PULSE 100; RESP 18; TEMP 36.4; O2SAT 98; BMI 24.3
--- NOTE | 2019-12-05 15:48 | ED.DCSUM_ITS ---
History of Present Illness Chief Complaint: Lower Extremity Injury Detail of Chief Complaint: Left leg pain and swelling Informant: Patient Onset: Yesterday Context: Sudden Onset Timing: Continuous Quality: Pain Location: Left leg Current Severity: Mild Maximum Severity: Moderate Worsened by: Touch and walking Relieved by: Nothing Associated Symptoms: No associated respiratory or cardiac symptoms Narrative: Patient is a 74-year-old woman who had an outpatient venous duplex study of the left leg which revealed a DVT. Patient does not know the location. She states she has no renal dysfunction. She states she had outpatient blood work through the [facility] approximately 1 month ago. Injection Specialist has been asked to obtain venous duplex study results and laboratory results to determine which anticoagulant patient can be placed on. Patient denies bleeding gums, bruising easily, black or maroon stool. She has had no recent surgery. To patient's knowledge and based on history obtained from patient there is no contraindication to any type of anticoagulation. She denies fever, chills night sweats. She denies chest pain of any type, dyspnea, dyspnea on exertion, cough or hemoptysis. 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 Lives: Spouse/ Significant Other Smoking Status: Never smoker Alcohol: None Drugs: None - Family History Maternal Family History: Reports: Dementia - Alzheimer Disease., Stroke Paternal Family History: Reports: Cancer - Throat. Review of Systems General: Denies: Chills, Fever, Malaise, Sweats Eyes: Denies: Visual changes - bilaterally, Blurred Vision - bilaterally ENT: Denies: Rhinorrhea, Sore throat Cardiovascular: Denies: Chest pain, Palpitations, Heart racing Respiratory: Denies: Dyspnea, Cough, Sputum, Dyspnea on exertion Gastrointestinal: Denies: Abdominal pain, Nausea, Vomiting, Melena, Hematochezia Genitourinary: Denies: Dysuria, Hematuria, Frequency Musculoskeletal: Reports: Swelling, Extremity Pain. Denies: Myalgias, Arthralgias, Neck pain, Back pain Skin: Denies: Rash, Wounds Neurological: Denies: Headache, Numbness Endocrine: Denies: Polyuria, Polydipsia Hematologic: Denies: Easy bruising, Easy bleeding Physical Exam Vital Signs/Narrative: Vital Signs Temp Pulse Resp BP Pulse Ox 12/05/19 15:23 97.6 F L 100 18 123/72 H 98 Inital Vital Signs reviewed: Yes General: Well nourished, Well developed, No Acute Distress Head: Normocephalic, Atraumatic Eyes: Perrl, EOMI ENT: Moist mucous membranes, No rhinorrhea Neck: Supple, Nontender Cardiovascular: Regular rate, Regular rhythm, No murmurs Respiratory: No distress, CTA bilaterally, Chest nontender Abdomen: Soft, Nontender, Nondistended, Normal bowel sounds Back: Nontender, Normal Inspection Extremities: Tenderness, Edema, - - Pedal patient posterior calf and popliteal fossa. There is swelling, discoloration, leg vein distention consistent with DVT. Skin: Normal color, No rash Neurological: Alert, Oriented x3, Cranial nerves II-XII grossly intact, Normal Strength, Normal Sensation Psychological: Normal affect, Normal Mood Diagnostic/Tx/Re-eval - Medical Decision Making Records from outside facility were requested determine which anticoagulant therapy is contraindicated and or appropriate for patient Creatinine was 0.79 on November 08, 2019. Venous duplex study revealed a proximal right femoral DVT. There is an extensive DVT on the left side which involves the common femoral, distal femoral, popliteal, gastrocnemius and peroneal. Patient has been admitted several times per month for the last several months and has not been as active. She has no history of active cancer. She was diagnosed with melanoma 40 years ago. After explaining risk benefits of Coumadin versus Eliquis versus Xarelto she chose Eliquis. He received her first dose of Eliquis in the emergency department. ED Disposition - Plan for ED Patient: Disposition: Home or Assisted Living Diagnosis: Right femoral vein DVT, Deep vein thrombosis (DVT) of left lower extremity Instructions: ED DVT Prescriptions: Apixaban [Eliquis] 5 mg PO BID #74 tab Prescription Printed Referrals: Eagle Dang MD [Primary Care Provider] - 1-2 Weeks
[2019-12-05] MEDS: APIXABAN 5 MG TABLET 10 MG PO (17:07)
[2019-12-05 17:15] VITALS: BP 118/56; PULSE 85; RESP 17; O2SAT 98
== END 2019-12-05 17:29 | disposition home or self-care (01) ==
PROVIDERS: Emergency Provider Emergency Medicine; PCP Family Medicine
DX: I82.411 Acute embolism and thrombosis of right femoral vein (principal); I82.402 Acute embolism and thrombosis of unspecified deep veins of left lower extremity; E78.5 Hyperlipidemia, unspecified; I10 Essential (primary) hypertension; D50.9 Iron deficiency anemia, unspecified; N32.81 Overactive bladder; Z87.442 Personal history of urinary calculi; Z85.820 Personal history of malignant melanoma of skin; Z88.2 Allergy status to sulfonamides; Z90.49 Acquired absence of other specified parts of digestive tract; Z90.710 Acquired absence of both cervix and uterus; M47.816 Spondylosis without myelopathy or radiculopathy, lumbar region
CPT/HCPCS: 99283

== ENCOUNTER 2019-12-15 18:11 | Inpatient (IN) | payer MEDICARE, OTHER, SELFPAY ==
[2019-12-15] VITALS (10 sets, daily range): BP systolic 109–128; BP diastolic 38–71; PULSE 100–116; RESP 18–20; TEMP 36.4–36.7; O2SAT 91–100; BMI 23.2; BMI 24.2
--- NOTE | 2019-12-15 18:55 | EKG12_ITS ---
Test Reason : SOB Blood Pressure : / mmHG Vent. Rate : 109 BPM Atrial Rate : 109 BPM P-R Int : 120 ms QRS Dur : 076 ms QT Int : 318 ms P-R-T Axes : -23 066 265 degrees QTc Int : 428 ms Sinus tachycardia Low voltage QRS T wave abnormality, consider anterolateral ischemia Abnormal ECG Confirmed by BLAIR DUMONT, ASHLEY ([id number]), senior technical editor BIB CR ([id number]) on 12/18/2019 1:30:31 PM Referred By: LUPE Confirmed By:ASHLEY PINTO MD
--- NOTE | 2019-12-15 18:57 | ED.VISSUMM ---
- ER Visit Summary Date of Service: 12/15/19 Chief Complaint: Shortness of breath History of Present Illness: The patient is a 74 F presenting with shortness of breath. Daughter checked on her today. Home health nurse was concerned about her shortness of breath. She was recently diagnosed with bilateral lower extremity DVTs. She was started on Eliquis on December 04. She has shortness of breath that is worsened with exertion. She denies chest pain or pleuritic pain. She is not a smoker. Denies fever. She has a chronic cough. Denies other complaints. Physical Examination: Vitals are stable. Patient is afebrile. Alert no acute distress. HEENT exam is unremarkable. Neck is supple. Lungs are diminished on right. Heart is regular, tachycardic Abdomen is soft nontender nondistended. Extremities left greater than right lower extremity edema Skin is warm and dry. No focal neurologic deficit. Remainder of exam is unremarkable. Emergency Department Course and Treatment: EKG is sinus tachycardia rate of 109. Chest x-ray shows large right pleural effusion. CBC normal except hemoglobin 10.3. BUN 19, creatinine 1.12. Troponin is negative. CTA chest is pending to rule out PE. Discussed with hospitalist and patient will be admitted. Disposition: Admission Impression: Dyspnea, pleural effusion This note was generated with [employer] dictation software. It may contain incorrect words, spelling, and punctuation that were not noted in review of the chart prior to signing ED Disposition - Plan for ED Patient: Referrals: Eagle Dang MD [Primary Care Provider] -
--- NOTE | 2019-12-15 19:35 | RAD_ITS ---
STUDY: X-RAY CHEST REASON FOR EXAM: Female, 74 years old. SOB TECHNIQUE: Single AP portable view of the chest. COMPARISON: 10/13/2019 FINDINGS: The lungs are clear and expanded. Large right pleural effusion. Normal size heart. Normal mediastinum and luz elena. Normal visualized pulmonary arteries. Normal visualized aortic arch and descending thoracic aorta. Normal visualized thoracic spine. Normal visualized ribs, clavicles, and shoulders. There is no demonstrated abnormality of the visualized soft tissue structures of the upper abdomen. RAD/Chest 1 View (Portable) IMPRESSION: Large right pleural effusion. Electronically Signed: Angel Schulz MD at 19:52 EDT Tel , Service support ,
[2019-12-15 19:42] LABS: Absolute Lymphocyte Count 1.28 X10^3/uL (0.83-4.51); Absolute Neutrophil Count 4.3 X10^3/uL (2.0-7.7); Basophil# 0.06 X10^3/uL; Basophil% 0.9 % (0-1); Eosinophil# 0.25 X10^3/uL; Eosinophils% 3.8 % (0-5); Hematocrit 33.9 % (37-47); Hemoglobin 10.3 g/dL (12.0-15.0); Lymphocyte # 1.28 X10^3/ul (4.0); Lymphocyte % 19.6 % (19-41); Mean Corp Hgb Conc 30.4 g/dL (32-36); Mean Corpuscular Hgb 32.7 pg (27.0-32.0); Mean Corpuscular Volume 107.6 fL (81-99); Mean Platelet Vol. 9.6 fl (6.2-12.0); Monocyte# 0.57 X10^3/uL; Monocyte% 8.7 % (0-10); NRBC Flagged by Analyzer 0 % (0-5); Neutrophil # 4.34 X10^3/uL (2.7-7.7); Neutrophil % 66.5 % (47-70); POSITIVE MORPHOLOGY YES; Platelet Count 198 K/mm3 (150-450); RBC Distribution Width CV 17.3 % (11.6-14.6); RBC Distribution Width SD 66.4 fl (35.1-43.9); Red Blood Count 3.15 M/mm3 (4.2-5.4); White Blood Count 6.5 K/mm3 (4.4-11.0)
[2019-12-15 19:51] LABS: Differential Indicated SCAN CRITERIA MET
[2019-12-15 19:58] LABS: Anion Gap 4 (5-15); BUN 19 mg/dL (7-18); Calcium,Total 8.4 mg/dL (8.5-10.1); Chloride 104 mmol/L (98-107); Creatinine, Serum 1.12 mg/dL (0.55-1.02); EST Glomerular Filtration Rate 50 mL/min (>60); Est Glom Filt Rate - Afr Amer 61 mL/min (>60); Estimated Creatinine Clearance 40.63 ml/min; Glucose 102 mg/dL (74-106); Potassium 4.6 mmol/L (3.5-5.1); Sodium Level 136 mmol/L (136-145)
--- NOTE | 2019-12-15 20:00 | CT_ITS ---
STUDY: CTA CHEST REASON FOR EXAM: Female, 74 years old. SOB X 2 DAYS, DVT STARTED ELIQUIS 2 WEEKS AGO RADIATION DOSAGE (If Supplied By Facility): CTDIvol = ( 11.81 ) mGy, DLP = ( 299.17 ) mGycm TECHNIQUE: The examination was performed with the intravenous administration of IV 75mL Isovue-370. Post-processing of the angiographic images was performed, with multiplanar reformation and 3D reconstruction. Individualized dose optimization techniques were used for this CT. COMPARISON: Chest x-ray earlier today FINDINGS: Normal enhancement of the main pulmonary artery and right and left pulmonary arteries. Normal enhancement of the bilateral peripheral pulmonary arteries. There is no demonstrated pulmonary embolism. Normal thoracic aorta and visualized great vessels. There is no demonstrated aortic dissection. Normal heart and pericardium. Moderate sized hiatal hernia. Normal hilar regions. Normal visualized trachea and bronchi. The lungs are well expanded. Normal pulmonary parenchyma. Very large right-sided pleural effusion with near total collapse of the right lung. Normal chest wall structures. Normal osseous structures. Cirrhosis with a large amount of ascites. CT/CTA Chest W/WO Contrast IMPRESSION: 1. No CT evidence of pulmonary embolism. 2. Very large right-sided pleural effusion with now total collapse the right lung. 3. Cirrhosis with a large amount of ascites. Electronically Signed: Angel Schulz MD at 22:53 EDT Tel , Service support ,
[2019-12-15 20:11] LABS: Anisocytosis 1+; Platelet Estimate ADEQUATE (ADEQ); Red Cell Morphology N CHROM NORMAL (NORM C&C)
--- NOTE | 2019-12-15 21:33 | PCM.HP.STD ---
Problem List (1) Exertional dyspnea Status: Acute (2) Pleural effusion Status: Acute (3) DVT, bilateral lower limbs Status: Chronic Qualifiers: Affected thrombotic vein of extremity: unspecified vein of extremity Chronicity: chronic Qualified Code(s): I82.503 - Chronic embolism and thrombosis of unspecified deep veins of lower extremity, bilateral (4) GERD (gastroesophageal reflux disease) Status: Chronic Qualifiers: Esophagitis presence: esophagitis presence not specified Qualified Code(s): K21.9 - Gastro-esophageal reflux disease without esophagitis (5) Hypertension Status: Chronic Qualifiers: Hypertension type: essential hypertension Qualified Code(s): I10 - Essential (primary) hypertension (6) Hyperlipidemia Status: Chronic Qualifiers: Hyperlipidemia type: unspecified Qualified Code(s): E78.5 - Hyperlipidemia, unspecified (7) Melanoma Status: Chronic Qualifiers: Melanoma location: unspecified site Qualified Code(s): C43.9 - Malignant melanoma of skin, unspecified (8) Iron deficiency anemia Status: Chronic Qualifiers: Iron deficiency anemia type: unspecified iron deficiency Qualified Code(s): D50.9 - Iron deficiency anemia, unspecified (9) Depression Status: Chronic Qualifiers: Depression Type: unspecified Qualified Code(s): F32.9 - Major depressive disorder, single episode, unspecified (10) 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 ED on 12/15/19 with history of ongoing shortness of breath, progressively worsening with recent diagnosis of bilateral lower extremity DVTs, worse with exertion with no associated chest pain or pleuritic pain nor any recent cough or fever. Daughter notes she has never had these symptoms prior but has ongoing weak and fatigued and vacillates between her bed and chair although more recently has transition to her chair secondary to shortness of breath. Patient does admit to orthopnea and lower extremity swelling although the swelling is chronic. Patient receives routine paracentesis every 4 to 6 weeks, most recently this Wednesday with removal of approximately 3 L but sometimes has removal up to 5 L. Work-up in the ED included T 98.1, heart rate 116 initially, BP 123/71, respiratory rate 18, 95% on room air, CBC with WC 6.5, hemoglobin 10.3, platelet 188 without shift, BMP with BUN/creatinine 19/1.12, troponin less than 0.015, chest x-ray with large right-sided pleural effusion, EKG was sinus tachycardia with no acute evidence of ischemia. CTPA requested per ED physician and pending upon admission. Past Medical History Past Medical History (Chronic Problems): Chronic Problems Kidney stones (Chronic) Septic shock (Chronic) Body mass index (BMI) 35.0-35.9, adult (Chronic) Pyelonephritis (Chronic) Hydroureter, left (Chronic) Hydronephrosis, left (Chronic) Hypertension (Chronic) Hyperlipidemia (Chronic) Melanoma (Chronic) Lumbar spondylosis (Chronic) Vitamin D deficiency (Chronic) Iron deficiency anemia (Chronic) Overactive bladder (Chronic) Chronic cough (Chronic) Fatty liver (Chronic) Recurrent kidney stones (Chronic) Depression (Chronic) Urinary retention (Chronic) Osteoarthritis (Chronic) DVT, bilateral lower limbs (Chronic) GERD (gastroesophageal reflux disease) (Chronic) Allergies Sulfa (Sulfonamide Antibiotics) Allergy (Verified 12/05/19 15:22) Swelling Home Medications: Ambulatory Orders Medication Instructions Recorded Melatonin 10 mg PO QHS 05/16/19 Tamsulosin HCl [Flomax] 0.4 mg PO DAILY 05/16/19 Acetaminophen [Tylenol] 1,000 mg PO Q6H PRN PRN tab 07/13/19 Atorvastatin Calcium [Lipitor] 20 mg PO QHS #30 tab 07/13/19 Furosemide [Lasix] 20 mg PO DAILY 10/12/19 Hydrocortisone 2.5% Crm [Hytone] 1 applic RECTAL BID PRN 10/12/19 Metoclopramide HCl 5 mg PO TIDCM 10/12/19 Multivit with Iron,Minerals 1 ea PO DAILY 10/12/19 [Multivitamins with Iron] Ondansetron HCl [Zofran] 4 mg PO Q8H PRN PRN 10/12/19 Pantoprazole Sodium [Protonix] 20 mg PO DAILY 10/12/19 Sennosides/Docusate Sodium [Senna 1 ea PO DAILY 10/12/19 Plus 8.6-50 mg Tablet] Spironolactone 25 mg PO DAILY 10/12/19 Mirtazapine [Remeron] 30 mg PO QHS #0 10/15/19 Amoxicillin/Potassium Clav 1 ea PO TID #27 tab 10/30/19 [Augmentin 500-125 Tablet] Apixaban [Eliquis] 5 mg PO BID #74 tab 12/05/19 Pseudoephed/Codeine/Guaifen 473 ml PO 12/15/19 [Virtussin DAC Liquid] Surgical History: appendectomy, cholecystectomy, hysterectomy - Total abdominal., total knee arthroplasty, - - x 3, Melanoma excision (back), Liver biopsy, ureteral stent x 3 with ureteral reconstruction, cholecystectomy, appendectomy, tonsillectomy. Psychiatric History: Anxiety, Depression CONTRACTS INTERN History: No pertinent CONTRACTS INTERN history Lives: Spouse/ Significant Other - Patient was with her and notes that her son is currently living with him Smoking Status: Never smoker Tobacco Use: Non-smoker Alcohol: Occasional Drugs: None - *Family History Maternal History Items: Dementia - Alzheimer Disease., Hypertension, Stroke Paternal History Items: Cancer - Father with history of throat cancer. Review of Systems Constitutional: Reports: Malaise, Weakness, Fatigue. Denies: Anorexia, Chills, Fever, Weight Change HEENT: Denies: Head Aches, Sinus Congestion, Sinus Drainage Cardiovascular: Reports: Edema, Orthopnea. Denies: Chest Pain, Chest Pressure, Chest Tightness, Heaviness, Light Headedness, Palpitations, Syncope Respiratory: Reports: Cough, Shortness of Breath, Shortness of breath upon exertion. Denies: Shortness of breath at rest, Sputum production Gastrointestinal: Denies: Abdominal Pain, Nausea, Vomiting Genitourinary: Denies: Dysuria Musculoskeletal: Reports: Joint Pain. Denies: Joint Tenderness Skin: Denies: Rash, Wounds Neurological: Denies: Numbness, Tingling, Focal weakness Psychiatric: Reports: Anxiety, Depression. Denies: Homicidal Ideations, Suicidal Ideations Hematologic/ Lymphatic: Reports: Anemia, Easy Bruising, Easy Bleeding VTE Information - Inpt Only VTE Present on Admission: No VTE Mechan Device Prophylaxis: SCD's VTE Pharm Prophylaxis ordered?: Yes Patient Problems: Active and Suspected Problems Exertional dyspnea (Acute) Pleural effusion (Acute) Subjective: Patient seated upright in ED bed, no acute distress, fatigued appearance. Objective: Physical Examination: General: awake, alert, oriented x 3 and cooperative, seated upright in the ED bed, no acute distress but fatigued appearance. Skin: normal color, turgor, no icterus, cyanosis except occasional very staged ecchymoses to the extremities. HEENT: AT/NC, EOMI, PERRLA, mildly dry MM, no carotid bruits or JVD noted. Lungs: Significantly decreased right-sided breath sounds in posterior lung becerra and anterior, clear to auscultation in left-sided lung becerra, no obvious rales, rhonchi or wheezing, moderate effort. Heart: Regular rate and rhythm; no gallop, rub audible. Abdomen: soft, NTTP, currently nondistended, mildly hyperactive BS, mild HM. Extremities: no cyanosis, clubbing, notable bilateral lower extremity pedal to proximal ray 2-3+ pitting edema. Neurological: patient awake, alert, oriented as noted; cognitive function appears baseline intact; pupils equally reactive to light and accomodation; cranial nerves II-XII grossly normal, moving all 4 extremities, no focal deficits, strength moderately to severely global decrease secondary to acute presentation. Psychiatric: affect appears fatigued otherwise normal, no acute evidence of depressive or anxiety feelings. - Physical Exam Vitals/I&O's: Vital Signs Temp Pulse Resp BP Pulse Ox 98.1 F 112 H 18 118/40 L 98 12/15/19 18:14 12/15/19 21:26 12/15/19 21:26 12/15/19 21:26 12/15/19 21:26 Oxygen Flow Rate (L/min) 2 Oxygen Delivery Method Room Air Weight: 144 lb 2.917 oz Body Mass Index (BMI) 23.2 Laboratory Results 12/15/19 19:20: WBC 6.5, RBC 3.15 L, Hgb 10.3 L, Hct 33.9 L, MCV 107.6 H, MCH 32.7 H, MCHC 30.4 L, RDW Std Deviation 66.4 H, RDW Coeff of Shane 17.3 H, Plt Count 198, MPV 9.6, Immature Gran % (Auto) 0.500, Neut % (Auto) 66.5, Lymph % (Auto) 19.6, [place] % (Auto) 8.7, Eos % (Auto) 3.8, Baso % (Auto) 0.9, Absolute Neuts (auto) 4.3, Absolute Lymphs (auto) 1.28, Nucleated RBC % 0, Platelet Estimate ADEQUATE, RBC Morphology N CHROM, Anisocytosis 1+ 12/15/19 19:20: Sodium 136, Potassium 4.6, Chloride 104, Carbon Dioxide 28.0, Anion Gap 4 L, BUN 19 H, Creatinine 1.12 H, Estim Creat Clear Calc 40.63, Est GFR (MDRD) Af Amer 61, Est GFR (MDRD) Non-Af 50 L, BUN/Creatinine Ratio 17.0, Glucose 102, Calcium 8.4 L, Troponin I < 0.015 Assessment/Plan All Active Problems Debility (Acute) Encephalopathy (Acute) Sepsis (Acute) Exertional dyspnea (Acute) Pleural effusion (Acute) The patient is a 74 y/o F w/ PMHx: Liver Cirrhosis, Hx nephrolithasis s/p ureteral stent x3 with ureteral reconstruction as well as lithotripsy, HTN, HLD, GERD, Chronic normocytic anemia, Anxiety and Depression, Hx Stage III Back Melanoma, Hx VTE recently started on Eliquis on 12/05/19 who presents to the [facility] ED on 12/15/19 with history of ongoing shortness of breath, progressively worsening with recent diagnosis of bilateral lower extremity DVTs, worse with exertion with no associated chest pain or pleuritic pain nor any recent cough or fever. 1. Exertional Dyspnea likely Multifactorial, secondary to large right-sided pleural effusion, Possible PE, Possible component Acute CHF Unclear type associated with Cirrhosis: Given symptomatic nature will admit to [facility], maintain on telemetry monitoring, will temporarily hold patient oral anticoagulant therapy and transition to heparin drip and plan for upcoming thoracentesis Wednesday, maintain on fall and aspiration precautions, PT/OT/case management consultations for discharge planning, oxygen supplementation as needed, PRN albuterol, cycle cardiac enzymes, obtain ECHO, administer lasix 40 mg IV BID, BNP requested, snug CLAIRE wraps BL LE, pending CTPA ordered per ED as may be also concurrent PE given recent BL LE DVTs. Will send thoracentesis fluid for studies once obtained, likely Wednesday. Will need to hold heparin drip prior to thoracentesis (4-6 hours). 2. Recent VTE: Recent bilateral lower extremity DVTs, hold oral coagulant Eliquis therapy with transition to heparin drip for planned upcoming thoracentesis, resume once appropriate. 3. Liver Cirrhosis: Non-alcoholic, routine paracentesis q 4-6 weeks, most recently on Wednesday with removal 3 L. 4. 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 We will continue patient Flomax regimen. 5. Hypertension: Continue home regimen including Lasix, spironolactone, PRN hydralazine. 6. Hyperlipidemia: Continue home statin regimen. 7. Chronic normocytic anemia: Admission hemoglobin 10.3, baseline 8-9, stable, trend. 8. GERD: We will maintain on Protonix. 9. Anxiety and depression: We will continue patient home Remeron regimen. 10. Hx Stage III Melanoma: On her back, s/p removal, remission. 11. DVT prophylaxis: SCDs, holding home oral Eliquis, transition to heparin drip given planned upcoming thoracentesis. 12. CODE status: Patient LIBBY is her daughter who is present during evaluation and living will is currently in place. Discussed CODE status at length including difference between FULL code, DNR-CCA and DNR-CC status. Following discussions about the differences in these status, requested DNR-CCA, no intubation. Advanced Care Planning Face to Face Time: 16 minutes. Inpatient E&M: 30196 Init Hosp L3 Procedures: 97784 Advncd Care Plan 30 Min
--- NOTE | 2019-12-15 23:13 | ECHOD_ITS ---
Reason For Study: Arrhythmia Procedure This was a 2D Doppler, Color Flow transthoracic echocardiogram. Exam performed portable in patient room. Left Ventricle Normal LV size. Left ventricular systolic function is normal. The estimated ejection fraction is 65 %. No regional wall motion abnormalities noted. Right Ventricle Normal RV size. Normal systolic function. Mitral Valve Equivocal mitral valve prolapse. Tricuspid Valve Normal tricuspid valve. Mild (1+) tricuspid valve insufficiency. Pulmonary artery systolic pressure is 31 mmHg. Pulmonic Valve Normal pulmonic valve. Great Vessels Normal aortic root. The pulmonary artery is normal size. Normal inferior vena cava. Pericardium/Pleural Trivial pericardial effusion. Small left pleural effusion. MMode/2D Measurements & Calculations LVIDd: 2.9 cm IVSd: 0.77 cm Ao root diam: 2.9 cm LVIDs: 1.3 cm LVPWd: 0.81 cm RVDd: 3.1 cm FS: 54.2 % LAV(MOD-bp): 25.4 ml LA dimension(2D): 3.3 cm LA A4 area: 12.8 cm2 LAV(MOD-bp) Indexed: 14.6 ml/m2 LAV(MOD-sp2): 20.8 ml LAV(MOD-sp4): 31.2 ml RA A4 area: 11.1 cm2 Doppler Measurements & Calculations MV A max aime: 92.8 cm/sec Lat Peak E' Aime: 6.7 cm/sec Med Peak E' Aime: 6.1 cm/sec Ao V2 max: 190.3 cm/sec LV V1 max: 166.8 cm/sec PA V2 max: 116.4 cm/sec Ao max P.5 mmHg LV V1 max P.1 mmHg TR max aime: 272.5 cm/sec TR max P.7 mmHg Interpretation Summary Normal LV size. Left ventricular systolic function is normal. The estimated ejection fraction is 65 %. Equivocal mitral valve prolapse. Ordering Physician: Jayda Leyva Referring Physician: Eagle Dang Performed By: Amanda Hare RDCS
[2019-12-16] VITALS (14 sets, daily range): BP systolic 81–107; BP diastolic 45–65; PULSE 100–117; RESP 16–20; TEMP 36.4–36.7; O2SAT 95–97
[2019-12-16] MEDS: Mirtazapine 30 MG Tablet PO ×2 (00:04→21:50)
[2019-12-16] MEDS: MELATONIN 10 MG TABLET PO ×2 (00:04→21:50)
[2019-12-16] MEDS: Atorvastatin Calcium 20 MG Tablet PO ×2 (00:04→21:49)
[2019-12-16] MEDS: Furosemide 40 MG/4 ML Vial IV ×2 (00:06→09:58)
[2019-12-16] MEDS: 0.9% Saline Lock 10 ML Syringe IV ×5 (00:07→22:12)
[2019-12-16] MEDS: Enoxaparin 80 MG/0.8 ML Syringe 70 MG SC (02:29)
[2019-12-16 02:44] LABS: International Normalized Ratio 1.5; Prothrombin Time (Protime)PT. 17.9 SECONDS (11.7-14.9)
[2019-12-16 02:45] LABS: Partial Thromboplast Time 34.9 Seconds (24.1-36.2)
--- NOTE | 2019-12-16 05:55 | EKG12_ITS ---
Test Reason : AM EKG Blood Pressure : / mmHG Vent. Rate : 118 BPM Atrial Rate : 118 BPM P-R Int : 138 ms QRS Dur : 082 ms QT Int : 328 ms P-R-T Axes : 032 045 261 degrees QTc Int : 459 ms Sinus tachycardia Nonspecific T wave abnormality Abnormal ECG When compared with ECG of 15-DEC-2019 19:25, MANUAL COMPARISON REQUIRED, DATA IS UNCONFIRMED Confirmed by BLAIR DUMONT, ASHLEY ([id number]), production editor LAURENCE LOU ([id number] on 12/19/2019 10:19:23 AM Referred By: DR EPSTEIN Confirmed By:ASHLEY PINTO MD
--- NOTE | 2019-12-16 08:56 | PCM.CONS.PUL ---
Reason for Consult Date of Consultation: 12/16/19 Reason for Consultation: Pleural effusion History of Present Illness: The patient is a 74-year-old female, with a history as outlined below, who presented to the emergency department on December 14 with complaints of shortness of breath. The patient was recently diagnosed with bilateral lower extremity DVTs and started on Eliquis on December 04. She also has a history of liver cirrhosis of unclear etiology. The patient apparently receives scheduled paracenteses nearly every month with the most recent having occurred this past Wednesday. On presentation to the emergency department, the patient was noted to be afebrile and hemodynamically stable. Laboratory evaluation revealed no evidence of a leukocytosis. INR was noted to be 1.5. Chemistry profile was unremarkable. Troponin was negative. A CTA chest was obtained which showed no evidence for PE. There was, however, a large right-sided pleural effusion with associated compressive atelectasis of the lung. The patient was placed on IV diuretic therapy. She was subsequently admitted to the progressive care unit for further management. At this time, the patient's Eliquis has been placed on hold. She has been transitioned to a continuous heparin infusion, with plans for possible therapeutic/diagnostic thoracentesis on Wednesday. Past Medical History Past Medical History (Chronic Problems): Chronic Problems Kidney stones (Chronic) Septic shock (Chronic) Body mass index (BMI) 35.0-35.9, adult (Chronic) Pyelonephritis (Chronic) Hydroureter, left (Chronic) Hydronephrosis, left (Chronic) Hypertension (Chronic) Hyperlipidemia (Chronic) Melanoma (Chronic) Lumbar spondylosis (Chronic) Vitamin D deficiency (Chronic) Iron deficiency anemia (Chronic) Overactive bladder (Chronic) Chronic cough (Chronic) Fatty liver (Chronic) Recurrent kidney stones (Chronic) Depression (Chronic) Urinary retention (Chronic) Osteoarthritis (Chronic) DVT, bilateral lower limbs (Chronic) GERD (gastroesophageal reflux disease) (Chronic) Allergies Sulfa (Sulfonamide Antibiotics) Allergy (Verified 12/05/19 15:22) Swelling Home Medications: Ambulatory Orders Medication Instructions Recorded Melatonin 10 mg PO QHS 05/16/19 Tamsulosin HCl [Flomax] 0.4 mg PO DAILY 05/16/19 Acetaminophen [Tylenol] 1,000 mg PO Q6H PRN PRN tab 07/13/19 Atorvastatin Calcium [Lipitor] 20 mg PO QHS #30 tab 07/13/19 Furosemide [Lasix] 20 mg PO DAILY 10/12/19 Hydrocortisone 2.5% Crm [Hytone] 1 applic RECTAL BID PRN 10/12/19 Metoclopramide HCl 5 mg PO TIDCM 10/12/19 Multivit with Iron,Minerals 1 ea PO DAILY 10/12/19 [Multivitamins with Iron] Ondansetron HCl [Zofran] 4 mg PO Q8H PRN PRN 10/12/19 Pantoprazole Sodium [Protonix] 20 mg PO DAILY 10/12/19 Sennosides/Docusate Sodium [Senna 1 ea PO DAILY 10/12/19 Plus 8.6-50 mg Tablet] Spironolactone 25 mg PO DAILY 10/12/19 Mirtazapine [Remeron] 30 mg PO QHS #0 10/15/19 Amoxicillin/Potassium Clav 1 ea PO TID #27 tab 10/30/19 [Augmentin 500-125 Tablet] Apixaban [Eliquis] 5 mg PO BID #74 tab 12/05/19 Pseudoephed/Codeine/Guaifen 473 ml PO DAILY PRN 12/15/19 [Virtussin DAC Liquid] Surgical History: appendectomy, cholecystectomy, hysterectomy - Total abdominal., total knee arthroplasty, - - x 3, Melanoma excision (back), Liver biopsy, ureteral stent x 3 with ureteral reconstruction, cholecystectomy, appendectomy, tonsillectomy. 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 Review of Systems Constitutional: Denies: Chills, Fever Eyes: Denies: Blurred vision, Double vision HEENT: Denies: Head Aches, Sinus Congestion, Sinus Drainage Cardiovascular: Denies: Chest Pain, Chest Tightness Respiratory: Reports: Cough, Shortness of Breath Gastrointestinal: Denies: Abdominal Pain, Nausea, Vomiting Genitourinary: Denies: Dysuria Musculoskeletal: Denies: Joint Pain, Joint Tenderness Skin: Denies: Rash, Wounds Neurological: Denies: Numbness, Tingling, Focal weakness Psychiatric: Denies: Anxiety, Depression, Homicidal Ideations, Suicidal Ideations Hematologic/ Lymphatic: Reports: Anemia, Hx of blood clot Patient Problems: Active and Suspected Problems Exertional dyspnea (Acute) Pleural effusion (Acute) Objective: The patient's most recent lab work, culture data and imaging studies have all been personally reviewed. - Physical Exam Vitals/I&O's: Vital Signs Temp Pulse Resp BP Pulse Ox 98.1 F 117 H 16 107/51 L 96 12/16/19 05:20 12/16/19 06:49 12/16/19 05:20 12/16/19 05:20 12/16/19 05:20 Oxygen Flow Rate (L/min) 2 Oxygen Delivery Method Nasal Cannula Weight: 142 lb 13.753 oz Body Mass Index (BMI) 24.2 Intake and Output for Last 24 Hours 12/14/19 12/15/19 12/16/19 23:59 23:59 23:59 Intake Total 0 / 0 100 / 100 Output Total 0 / 0 Balance 0 / 0 100 / 100 General: Alert, Cooperative, No apparent distress HEENT: Atraumatic, Normocephalic Oral: No Gingival or Mucosal Lesions/ Ulcerations Neck: Supple, No Nodes, Trachea Midline Lungs: Diminished, - - Dullness to percussion of the right lower and mid lung. Cardiovascular: Regular rate, Regular Rhythm, Normal S1, Normal S2, No murmurs Abdomen: Bowel Sounds Present, Soft, Non Tender Extremities: No clubbing, No cyanosis, Edema Skin: No breakdown Musculoskeletal: No Tenderness to Palpation of Joints or Extremities Lymphatic: No Cervical, Supraclavicular, or Inguinal Adenopathy Neurological: Cranial nerves II-XII grossly intact, Neuro grossly intact Psych/Mental Status: Flat Affect Labs (Last 48 Hours) 12/15/19 12/15/19 12/15/19 19:20 19:20 19:20 WBC 6.5 RBC 3.15 L Hgb 10.3 L Hct 33.9 L MCV 107.6 H MCH 32.7 H MCHC 30.4 L RDW Std Deviation 66.4 H RDW Coeff of Shane 17.3 H Plt Count 198 MPV 9.6 Immature Gran % (Auto) 0.500 Neut % (Auto) 66.5 Lymph % (Auto) 19.6 Bryan % (Auto) 8.7 Eos % (Auto) 3.8 Baso % (Auto) 0.9 Absolute Neuts (auto) 4.3 Absolute Lymphs (auto) 1.28 Nucleated RBC % 0 Platelet Estimate ADEQUATE RBC Morphology N CHROM Anisocytosis 1+ PT INR APTT Sodium 136 Potassium 4.6 Chloride 104 Carbon Dioxide 28.0 Anion Gap 4 L BUN 19 H Creatinine 1.12 H Estim Creat Clear Calc 40.63 Est GFR (MDRD) Af Amer 61 Est GFR (MDRD) Non-Af 50 L BUN/Creatinine Ratio 17.0 Glucose 102 Calcium 8.4 L Troponin I < 0.015 B-Natriuretic Peptide Pending 12/16/19 12/16/19 02:20 05:37 WBC RBC Hgb Hct MCV MCH MCHC RDW Std Deviation RDW Coeff of Shane Plt Count MPV Immature Gran % (Auto) Neut % (Auto) Lymph % (Auto) Bryan % (Auto) Eos % (Auto) Baso % (Auto) Absolute Neuts (auto) Absolute Lymphs (auto) Nucleated RBC % Platelet Estimate RBC Morphology Anisocytosis PT 17.9 H INR 1.5 APTT 34.9 Sodium Potassium Chloride Carbon Dioxide Anion Gap BUN Creatinine Estim Creat Clear Calc Est GFR (MDRD) Af Amer Est GFR (MDRD) Non-Af BUN/Creatinine Ratio Glucose Calcium Troponin I < 0.015 B-Natriuretic Peptide Clinical Impression(s) from Imaging Studies Chest X-Ray 12/15/19 19:35 IMPRESSION: Large right pleural effusion. Electronically Signed: Angel Schulz MD at 19:52 EDT Tel , Service support , Chest CTA 12/15/19 20:[address]: [address] evidence of pulmonary embolism. 2. Very large right-sided pleural effusion with now total collapse the right lung. 3. Cirrhosis with a large amount of ascites. Electronically Signed: Angel Schulz MD at 22:53 EDT Tel , Service support , Current Medications Acetaminophen (Tylenol) 650 mg PO Q6H PRN PRN PRN Reason: Pain Score 1-10/Temp > 100.7 F Al Hydroxide/Mg Hydroxide (Mylanta Ii) 30 ml PO Q6H PRN PRN PRN Reason: Gastric Burning Albuterol Sulfate (Ventolin Aerosols) 2.5 mg INHALATION Q2H PRN PRN PRN Reason: Dyspnea, wheezing Atorvastatin Calcium (Lipitor) 20 mg PO QHS [facility] Last Admin: 12/16/19 00:04 Dose: 20 mg Documented by: Dextrose (D50w Syringe) 0 gm IV X1 PRN; Protocol PRN Reason: Hypoglycemia Furosemide (Lasix) 20 mg PO DAILY [facility] Furosemide (Lasix) 40 mg IV BID@1000,1800 [facility] Last Admin: 12/16/19 00:06 Dose: 40 mg Documented by: Glucagon () 1 mg IM .X1 PRN PRN Reason: Hypoglycemia Guaifenesin (Robitussin) 20 ml PO Q4H PRN PRN PRN Reason: COUGH Heparin Sodium (Porcine) (Heparin Na) 0 unit IV UD PRN; Protocol Heparin Sodium (Porcine) (Heparin Na) 4,500 unit IV BOLUS ONE Stop: 12/16/19 10:01 Hydralazine HCl (Apresoline Iv) 10 mg IV Q4H PRN PRN PRN Reason: SBP > 160 Sodium Chloride () 250 mls @ 15 mls/hr IV .[id number] PRN PRN Reason: Saline Flush Sodium Chloride () 250 mls @ 15 mls/hr IV .[id number] PRN PRN Reason: Additional IVPB Infusion Heparin Sodium/Dextrose () 25,000 units in 250 mls @ 10 mls/hr IV .Q25H [facility]; Protocol Magnesium Hydroxide (Milk Of Magnesia) 30 ml PO DAILY PRN PRN PRN Reason: Constipation Melatonin (Melatonin) 10 mg PO QHS [facility] Last Admin: 12/16/19 00:04 Dose: 10 mg Documented by: Metoclopramide HCl (Reglan) 5 mg PO TIDCM [facility] Mirtazapine (Remeron) 30 mg PO QHS [facility] Last Admin: 12/16/19 00:04 Dose: 30 mg Documented by: Morphine Sulfate () 2 mg IV Q3H PRN PRN PRN Reason: Pain Score 6-10/10 Nitroglycerin (Nitrostat) 0.4 mg SUBLINGUAL Q5M PRN PRN Reason: CARDIAC/CHEST PAIN Nutritional Formula (Lactose Free) (Ensure Enlive) 120 ml PO 4X/DAY [facility] Ondansetron HCl (Zofran) 4 mg IV Q8H PRN PRN PRN Reason: NAUSEA/VOMITING Oxycodone HCl (Oxyir) 5 mg PO Q4H PRN PRN PRN Reason: Pain Score 4-5/10 Pantoprazole Sodium (Protonix) 20 mg PO DAILY [facility] Prochlorperazine Edisylate (Compazine Iv) 5 mg IV Q4H PRN PRN PRN Reason: Breakthrough Nausea/Vomiting Psyllium Hydrophilic Mucilloid (Metamucil) 1 packet PO DAILY PRN PRN PRN Reason: Constipation Senna/Docusate Sodium (Senokot-S, Deana-Colace) 2 tablet PO BID PRN PRN PRN Reason: Constipation Sodium Chloride () 10 - 40 ml IV UD PRN PRN Reason: SALINE FLUSH Last Admin: 12/16/19 00:07 Dose: 20 ml Documented by: Spironolactone (Aldactone) 25 mg PO DAILY [facility] Tamsulosin HCl (Flomax) 0.4 mg PO DAILY [facility] Throat Lozenges (Cepacol Sore Throat Lozenge) 1 lozenge MUCOUS MEM Q2H PRN PRN PRN Reason: SORE THROAT Assessment/Plan All Active Problems Debility (Acute) Encephalopathy (Acute) Sepsis (Acute) Exertional dyspnea (Acute) Pleural effusion (Acute) RECOMMENDATIONS: 1. Agree with holding Eliquis. Continue heparin infusion in its place. 2. Plan for ultrasound-guided thoracentesis early this upcoming week. 3. Send pleural fluid studies for cell count, LDH, total protein, cultures and cytology. IMPRESSIONS: 1. Shortness of breath with large right pleural effusion Likely secondary to underlying cirrhosis. Agree with holding Eliquis with plans for diagnostic/therapeutic ultrasound-guided thoracentesis on Wednesday. Continue IV diuretic therapy as tolerated. Wean supplemental oxygen to maintain saturations at or above 90%. 2. Recent diagnosis of bilateral DVTs As noted above, the patient's Eliquis has been discontinued and she has been transitioned to a continuous heparin infusion for now. 3. Underlying liver cirrhosis The patient does require frequent paracenteses. The exact etiology for her cirrhosis is unclear. 4. Hypertension/hyperlipidemia/anemia/anxiety/GERD Complicates care, management, recovery and prognosis. Continue home medications as indicated. This note was generated with [employer] dictation software. It may contain incorrect words, spelling, and punctuation that were not noted in checking the note before signing. Inpatient E&M: 88743 Init Hosp L3
[2019-12-16] MEDS: Tamsulosin HCl 0.4 MG Capsule PO (10:01)
[2019-12-16] MEDS: Metoclopramide 5 MG TABLET PO ×3 (10:01→17:03)
[2019-12-16] MEDS: Spironolactone 25 MG Tablet PO (10:02)
[2019-12-16] MEDS: Pantoprazole Sodium 20 MG Tablet PO (10:02)
[2019-12-16] MEDS: HEPARIN/D5w 25,000 UNITS 25,000 UNITS/250 ML IV.SOLN. 10 UNITS IV (10:05)
[2019-12-16] MEDS: Heparin Injection (Vial) 5,000 UNIT/ML VIAL 4500 UNIT IV (10:06)
--- NOTE | 2019-12-16 12:15 | CASEMGMT ---
DOROTEO HERRERA STUDY ABROAD ADVISOR CM to room to meet with patient for initial transition planning/care coordination assessment. DOROTEO HERRERA introduced self and role at [facility]. Pt voices understanding and consents to assessment at this time. Pt resting in bed in no distress at this time. Pt is A/O at this time and answers all questions appropriately. Care providers, pharmacy, and demographics verified/updated at this time. PCP: Dr Dang Specialists: Urologist @ [facility] and liver and stomach doctor @ [facility]. Pt does not remember their names. [facility]acy[facility] Insurance: MCR, MMO Prescription Benefit: Yes Living Will/HPOA: Has both LW and HPOA, who is her daughter, Minerva. Pt made aware LW is on file @ [facility], but POA is not. LNOK: , Twyla. 2 sons and a daughter. Living Arrangements: Lives with her in a condo. No steps to enter. assists her w/ADL's, such as bathing/dressing and does home mgmt tasks. Children are also very supportive, visit often, and help w/home tasks as well. Transportation: . Denies concerns DME: States has the following DME: tub bench/shower chair, hand-held shower, rails/grab bars, walker, raised toilet seat, W/C. Does not have Home O2. Denies preference of DME company if she would qualify for home o2 @ D/C. Pt agreeable to [employer]. Pt states no need for further DME at this time. HHC/SNF: Hx of TCU. Pt states she currently has HHC through [facility]. She thinks she is only receiving SN services at this time, as she thinks she was discharged from PT/OT. She is not interested in having PT/OT added back. Call placed to [facility] and VM message left to inform them of pt[facility] to [facility]. Pt wishes to return home w/resumption of HHC. CM to follow for home oxygen needs and any further discharge planning/needs. Pt voices no further concerns/needs at this time. Advised pt to ask for CM if any further questions/concerns/needs arise. Voices understanding. PLAN: Home w/resumption of [facility]: SN. Resumption order has been placed. Pt would benefit from SW services through [facility], if they have this available. PT/OT evals pending. Follow for any Home O2 needs @ discharge. Per pt, PCP, Dr Dang referred pt to Palliative care, but pt has not heard from them yet. Shayy TSAI, made aware. Chayo [facility]: PH: [phone] Bong WILLIAMSON RN CM
--- NOTE | 2019-12-16 12:27 | PCM.PROGNOTE ---
<Yolanda Sargent - Last Filed: 12/16/19 12:38> Patient Problems: Active and Suspected Problems Exertional dyspnea (Acute) Pleural effusion (Acute) Subjective: Patient seen and examined. Reports improvement in shortness of breath. Continues to have nonproductive cough. Denies fever, chills. Plan for thoracentesis on Wednesday. - Physical Exam Vitals/I&O's: Vital Signs Temp Pulse Resp BP Pulse Ox 97.6 F L 111 H 18 94/55 L 96 12/16/19 11:50 12/16/19 11:50 12/16/19 11:50 12/16/19 11:50 12/16/19 11:50 Oxygen Flow Rate (L/min) 2 Oxygen Delivery Method Nasal Cannula Weight: 142 lb 13.753 oz Body Mass Index (BMI) 24.2 Intake and Output for Last 24 Hours 12/14/19 12/15/19 12/16/19 23:59 23:59 23:59 Intake Total 0 / 0 340 / 340 Output Total 0 / 0 Balance 0 / 0 340 / 340 General: Alert, Oriented x3, Cooperative, - - Appears fatigued HEENT: Atraumatic, PERRLA, EOMI, Normocephalic Oral: Dry Mucosa Neck: Supple, No JVD, Negative Carotid Bruits Lungs: Clear to auscultation, Diminished Cardiovascular: Regular rate, No murmurs Abdomen: Bowel Sounds Present, Soft, Non Tender, Non-Distended Extremities: No clubbing, No cyanosis, Capillary Refill Less than 3 Seconds, Edema - Bilateral lower extremities Skin: No rashes, No breakdown Musculoskeletal: No Tenderness to Palpation of Joints or Extremities Neurological: Cranial nerves II-XII grossly intact, Neuro grossly intact Psych/Mental Status: Normal Affect, Appropriate Laboratory Results 12/15/19 19:20: WBC 6.5, RBC 3.15 L, Hgb 10.3 L, Hct 33.9 L, MCV 107.6 H, MCH 32.7 H, MCHC 30.4 L, RDW Std Deviation 66.4 H, RDW Coeff of Shane 17.3 H, Plt Count 198, MPV 9.6, Immature Gran % (Auto) 0.500, Neut % (Auto) 66.5, Lymph % (Auto) 19.6, [place] % (Auto) 8.7, Eos % (Auto) 3.8, Baso % (Auto) 0.9, Absolute Neuts (auto) 4.3, Absolute Lymphs (auto) 1.28, Nucleated RBC % 0, Platelet Estimate ADEQUATE, RBC Morphology N CHROM, Anisocytosis 1+ 12/15/19 19:20: Sodium 136, Potassium 4.6, Chloride 104, Carbon Dioxide 28.0, Anion Gap 4 L, BUN 19 H, Creatinine 1.12 H, Estim Creat Clear Calc 40.63, Est GFR (MDRD) Af Amer 61, Est GFR (MDRD) Non-Af 50 L, BUN/Creatinine Ratio 17.0, Glucose 102, Calcium 8.4 L, Troponin I < 0.015 12/15/19 19:20: B-Natriuretic Peptide Pending 12/16/19 02:20: PT 17.9 H, INR 1.5, APTT 34.9 12/16/19 05:37: Troponin I < 0.015 Current Medications Acetaminophen (Tylenol) 650 mg PO Q6H PRN PRN PRN Reason: Pain Score 1-10/Temp > 100.7 F Al Hydroxide/Mg Hydroxide (Mylanta Ii) 30 ml PO Q6H PRN PRN PRN Reason: Gastric Burning Albuterol Sulfate (Ventolin Aerosols) 2.5 mg INHALATION Q2H PRN PRN PRN Reason: Dyspnea, wheezing Atorvastatin Calcium (Lipitor) 20 mg PO QHS [facility] Last Admin: 12/16/19 00:04 Dose: 20 mg Documented by: Dextrose (D50w Syringe) 0 gm IV X1 PRN; Protocol PRN Reason: Hypoglycemia Furosemide (Lasix) 40 mg IV BID@1000,1800 [facility] Last Admin: 12/16/19 09:58 Dose: 40 mg Documented by: Glucagon () 1 mg IM .X1 PRN PRN Reason: Hypoglycemia Guaifenesin (Robitussin) 20 ml PO Q4H PRN PRN PRN Reason: COUGH Heparin Sodium (Porcine) (Heparin Na) 0 unit IV UD PRN; Protocol Hydralazine HCl (Apresoline Iv) 10 mg IV Q4H PRN PRN PRN Reason: SBP > 160 Sodium Chloride () 250 mls @ 15 mls/hr IV .[id number] PRN PRN Reason: Saline Flush Sodium Chloride () 250 mls @ 15 mls/hr IV .[id number] PRN PRN Reason: Additional IVPB Infusion Heparin Sodium/Dextrose () 25,000 units in 250 mls @ 10 mls/hr IV .Q25H [facility]; Protocol Last Admin: 12/16/19 10:05 Dose: 10 units/hr, 0.1 mls/hr Documented by: Magnesium Hydroxide (Milk Of Magnesia) 30 ml PO DAILY PRN PRN PRN Reason: Constipation Melatonin (Melatonin) 10 mg PO QHS [facility] Last Admin: 12/16/19 00:04 Dose: 10 mg Documented by: Metoclopramide HCl (Reglan) 5 mg PO TIDCM [facility] Last Admin: 12/16/19 10:01 Dose: 5 mg Documented by: Mirtazapine (Remeron) 30 mg PO QHS [facility] Last Admin: 12/16/19 00:04 Dose: 30 mg Documented by: Morphine Sulfate () 2 mg IV Q3H PRN PRN PRN Reason: Pain Score 6-10/10 Nitroglycerin (Nitrostat) 0.4 mg SUBLINGUAL Q5M PRN PRN Reason: CARDIAC/CHEST PAIN Nutritional Formula (Lactose Free) (Ensure Enlive) 120 ml PO 4X/DAY [facility] Last Admin: 12/16/19 10:01 Dose: Not Given Documented by: Ondansetron HCl (Zofran) 4 mg IV Q8H PRN PRN PRN Reason: NAUSEA/VOMITING Oxycodone HCl (Oxyir) 5 mg PO Q4H PRN PRN PRN Reason: Pain Score 4-5/10 Pantoprazole Sodium (Protonix) 20 mg PO DAILY [facility] Last Admin: 12/16/19 10:02 Dose: 20 mg Documented by: Prochlorperazine Edisylate (Compazine Iv) 5 mg IV Q4H PRN PRN PRN Reason: Breakthrough Nausea/Vomiting Psyllium Hydrophilic Mucilloid (Metamucil) 1 packet PO DAILY PRN PRN PRN Reason: Constipation Senna/Docusate Sodium (Senokot-S, Deana-Colace) 2 tablet PO BID PRN PRN PRN Reason: Constipation Sodium Chloride () 10 - 40 ml IV UD PRN PRN Reason: SALINE FLUSH Last Admin: 12/16/19 09:57 Dose: 10 ml Documented by: Spironolactone (Aldactone) 25 mg PO DAILY [facility] Last Admin: 12/16/19 10:02 Dose: 25 mg Documented by: Tamsulosin HCl (Flomax) 0.4 mg PO DAILY [facility] Last Admin: 12/16/19 10:01 Dose: 0.4 mg Documented by: Throat Lozenges (Cepacol Sore Throat Lozenge) 1 lozenge MUCOUS MEM Q2H PRN PRN PRN Reason: SORE THROAT Medical Necessity - Tobacco Use Smoking Status: Never smoker Tobacco Use: Non-smoker Assessment/Plan All Active Problems Debility (Acute) Encephalopathy (Acute) Sepsis (Acute) Exertional dyspnea (Acute) Pleural effusion (Acute) 1. Dyspnea secondary to large right pleural effusion-suspect secondary to underlying cirrhosis. Eliquis on hold. Pulmonary medicine following. Plans for diagnostic and therapeutic ultrasound-guided thoracentesis on Wednesday. Patient has not been noted to be hypoxic. Continue supplement oxygen to maintain O2 at or above 90%. On heparin drip given recent DVT. Heparin drip will need held 4 to 6 hours prior to thoracentesis on Wednesday. BNP and echo ordered to assess for CHF as underlying etiology. 2. Recent bilateral lower extremity DVTs-oral anticoagulation on hold as noted above. Heparin drip. 3. Nonalcoholic liver cirrhosis-patient undergoing routine paracentesis every 4 to 6 weeks. 4. Acute kidney injury-Baseline creatinine 0.7. Creatinine on admission 1.12. Trend BMP. 5. 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 Continue Flomax. 6. Hypertension-stable, continue current regimen. 7. Hyperlipidemia-continue statin. 8. Chronic normocytic anemia-stable, trend CBC. 9. GERD-continue PPI. 10. Anxiety, depression-continue Remeron. 11. History of stage III melanoma-status post excision. DVT prophylaxis-heparin drip Discharge planning: Patient recently referred to palliative care which she is working on establishing. Discharge pending thoracentesis on Wednesday. This patient was seen by DYLAN Hatfield under the supervision of Dr. Giang. <Jose Antonio Giang - Last Filed: 12/16/19 12:51> - Physical Exam Vitals/I&O's: Vital Signs Temp Pulse Resp BP Pulse Ox 97.6 F L 111 H 18 94/55 L 96 12/16/19 11:50 12/16/19 11:50 12/16/19 11:50 12/16/19 11:50 12/16/19 11:50 Oxygen Flow Rate (L/min) 2 Oxygen Delivery Method Nasal Cannula Weight: 64.8 kg Body Mass Index (BMI) 24.2 Intake and Output for Last 24 Hours 12/14/19 12/15/19 12/16/19 23:59 23:59 23:59 Intake Total 0 / 0 340 / 340 Output Total 0 / 0 Balance 0 / 0 340 / 340 Laboratory Results 12/15/19 19:20: WBC 6.5, RBC 3.15 L, Hgb 10.3 L, Hct 33.9 L, MCV 107.6 H, MCH 32.7 H, MCHC 30.4 L, RDW Std Deviation 66.4 H, RDW Coeff of Shane 17.3 H, Plt Count 198, MPV 9.6, Immature Gran % (Auto) 0.500, Neut % (Auto) 66.5, Lymph % (Auto) 19.6, [place] % (Auto) 8.7, Eos % (Auto) 3.8, Baso % (Auto) 0.9, Absolute Neuts (auto) 4.3, Absolute Lymphs (auto) 1.28, Nucleated RBC % 0, Platelet Estimate ADEQUATE, RBC Morphology N CHROM, Anisocytosis 1+ 12/15/19 19:20: Sodium 136, Potassium 4.6, Chloride 104, Carbon Dioxide 28.0, Anion Gap 4 L, BUN 19 H, Creatinine 1.12 H, Estim Creat Clear Calc 40.63, Est GFR (MDRD) Af Amer 61, Est GFR (MDRD) Non-Af 50 L, BUN/Creatinine Ratio 17.0, Glucose 102, Calcium 8.4 L, Troponin I < 0.015 12/15/19 19:20: B-Natriuretic Peptide Pending 12/16/19 02:20: PT 17.9 H, INR 1.5, APTT 34.9 12/16/19 05:37: Troponin I < 0.015 Current Medications Acetaminophen (Tylenol) 650 mg PO Q6H PRN PRN PRN Reason: Pain Score 1-10/Temp > 100.7 F Al Hydroxide/Mg Hydroxide (Mylanta Ii) 30 ml PO Q6H PRN PRN PRN Reason: Gastric Burning Albuterol Sulfate (Ventolin Aerosols) 2.5 mg INHALATION Q2H PRN PRN PRN Reason: Dyspnea, wheezing Atorvastatin Calcium (Lipitor) 20 mg PO QHS [facility] Last Admin: 12/16/19 00:04 Dose: 20 mg Documented by: Dextrose (D50w Syringe) 0 gm IV X1 PRN; Protocol PRN Reason: Hypoglycemia Furosemide (Lasix) 40 mg IV BID@1000,1800 [facility] Last Admin: 12/16/19 09:58 Dose: 40 mg Documented by: Glucagon () 1 mg IM .X1 PRN PRN Reason: Hypoglycemia Guaifenesin (Robitussin) 20 ml PO Q4H PRN PRN PRN Reason: COUGH Heparin Sodium (Porcine) (Heparin Na) 0 unit IV UD PRN; Protocol Hydralazine HCl (Apresoline Iv) 10 mg IV Q4H PRN PRN PRN Reason: SBP > 160 Sodium Chloride () 250 mls @ 15 mls/hr IV .[id number] PRN PRN Reason: Saline Flush Sodium Chloride () 250 mls @ 15 mls/hr IV .[id number] PRN PRN Reason: Additional IVPB Infusion Heparin Sodium/Dextrose () 25,000 units in 250 mls @ 10 mls/hr IV .Q25H [facility]; Protocol Last Admin: 12/16/19 10:05 Dose: 10 units/hr, 0.1 mls/hr Documented by: Magnesium Hydroxide (Milk Of Magnesia) 30 ml PO DAILY PRN PRN PRN Reason: Constipation Melatonin (Melatonin) 10 mg PO QHS [facility] Last Admin: 12/16/19 00:04 Dose: 10 mg Documented by: Metoclopramide HCl (Reglan) 5 mg PO TIDCM [facility] Last Admin: 12/16/19 10:01 Dose: 5 mg Documented by: Mirtazapine (Remeron) 30 mg PO QHS [facility] Last Admin: 12/16/19 00:04 Dose: 30 mg Documented by: Morphine Sulfate () 2 mg IV Q3H PRN PRN PRN Reason: Pain Score 6-10/10 Nitroglycerin (Nitrostat) 0.4 mg SUBLINGUAL Q5M PRN PRN Reason: CARDIAC/CHEST PAIN Nutritional Formula (Lactose Free) (Ensure Enlive) 120 ml PO 4X/DAY [facility] Last Admin: 12/16/19 10:01 Dose: Not Given Documented by: Ondansetron HCl (Zofran) 4 mg IV Q8H PRN PRN PRN Reason: NAUSEA/VOMITING Oxycodone HCl (Oxyir) 5 mg PO Q4H PRN PRN PRN Reason: Pain Score 4-5/10 Pantoprazole Sodium (Protonix) 20 mg PO DAILY [facility] Last Admin: 12/16/19 10:02 Dose: 20 mg Documented by: Prochlorperazine Edisylate (Compazine Iv) 5 mg IV Q4H PRN PRN PRN Reason: Breakthrough Nausea/Vomiting Psyllium Hydrophilic Mucilloid (Metamucil) 1 packet PO DAILY PRN PRN PRN Reason: Constipation Senna/Docusate Sodium (Senokot-S, Deana-Colace) 2 tablet PO BID PRN PRN PRN Reason: Constipation Sodium Chloride () 10 - 40 ml IV UD PRN PRN Reason: SALINE FLUSH Last Admin: 12/16/19 09:57 Dose: 10 ml Documented by: Spironolactone (Aldactone) 25 mg PO DAILY [facility] Last Admin: 12/16/19 10:02 Dose: 25 mg Documented by: Tamsulosin HCl (Flomax) 0.4 mg PO DAILY [facility] Last Admin: 12/16/19 10:01 Dose: 0.4 mg Documented by: Throat Lozenges (Cepacol Sore Throat Lozenge) 1 lozenge MUCOUS MEM Q2H PRN PRN PRN Reason: SORE THROAT Assessment/Plan This patient was seen in conjunction with DYLAN Hatfield . I have independently interviewed and examined the patient and reviewed pertinent historical, laboratory, and other data. Please refer to DYLAN Hatfield note for details of this patient's presentation, findings, and recommendations. I have reviewed DYLAN Hatfield note and concur with documented findings. In brief, patient is a 74-year-old lady with underlying history of cirrhosis of the liver admitted with progressive shortness of breath. Imaging studies found large right-sided pleural effusion admitted to a monitored bed with plans for patient to undergo ultrasound-guided thoracocentesis on 12/18/2019. Patient was on Eliquis for recently diagnosed DVT this was held started on heparin drip Physical Examination: GENERAL: cooperative HEENT: Atraumatic; EYES; Anicteric, Normal Conjunctiva NECK; supple, normal thyroid, RESPIRATORY: Diminished to auscultation CARDIOVASCULAR: Regular S1 S2, GI: soft, normoactive bowel sounds, : No Renal angle tenderness; EXTREMITIES: No edema, no clubbing, MUSCULOSKELETAL: no muscle waisting NEURO: Awake; no lateralizing signs. SKIN: No Rash PSYCH; Flat affect Assessment: 1. Large right-sided pleural effusion 2. Cirrhosis of the liver of undetermined etiology 3. Recently diagnosed bilateral lower extremity DVT 4. Essential hypertension 5. Dyslipidemia 6. Anemia of chronic disorder 7. Renal insufficiency 8. Recurrent nephrolithiasis, ureteral stenosis status post left-sided ureteral stent in place-patien 9. GERD 10. History of stage III melanoma status post excision currently remission 11. Depression with anxiety 12. DVT prophylax Recommendations: 1. I have discussed the results of my overview and impressions with the patient 2. Options for management were reviewed
[2019-12-16 14:07] LABS: Hematocrit 27.1 % (37-47); Hemoglobin 8.6 g/dL (12.0-15.0); Mean Corp Hgb Conc 31.7 g/dL (32-36); Mean Corpuscular Hgb 32.1 pg (27.0-32.0); Mean Corpuscular Volume 101.1 fL (81-99); Mean Platelet Vol. 9.7 fl (6.2-12.0); Platelet Count 146 K/mm3 (150-450); RBC Distribution Width CV 17.4 % (11.6-14.6); RBC Distribution Width SD 61.1 fl (35.1-43.9); Red Blood Count 2.68 M/mm3 (4.2-5.4); White Blood Count 3.9 K/mm3 (4.4-11.0)
[2019-12-16 14:27] LABS: Anion Gap 7 (5-15); BUN 17 mg/dL (7-18); BUN/Creat Ratio 18.3 RATIO (10-20); Calcium,Total 7.8 mg/dL (8.5-10.1); Chloride 103 mmol/L (98-107); Creatinine, Serum 0.93 mg/dL (0.55-1.02); EST Glomerular Filtration Rate 62 mL/min (>60); Est Glom Filt Rate - Afr Amer 76 mL/min (>60); Estimated Creatinine Clearance 47.03 ml/min; Glucose 111 mg/dL (74-106); Potassium 3.4 mmol/L (3.5-5.1); Sodium Level 139 mmol/L (136-145)
[2019-12-16 14:30] LABS: BNP,B-Type NATRIURETIC PEPTIDE 193.1 pg/mL (0-100)
[2019-12-16 22:34] LABS: Partial Thromboplast Time 57.8 Seconds (24.1-36.2)
[2019-12-17] VITALS (16 sets, daily range): BP systolic 82–102; BP diastolic 45–60; PULSE 98–113; RESP 16–20; TEMP 36.3–36.7; O2SAT 94–98
[2019-12-17] MEDS: 0.9% Saline Lock 10 ML Syringe IV ×4 (05:29→23:35)
[2019-12-17 06:21] LABS: Hematocrit 26.2 % (37-47); Hemoglobin 8.4 g/dL (12.0-15.0); Mean Corp Hgb Conc 32.1 g/dL (32-36); Mean Corpuscular Hgb 32.7 pg (27.0-32.0); Mean Corpuscular Volume 101.9 fL (81-99); Mean Platelet Vol. 9.7 fl (6.2-12.0); Platelet Count 148 K/mm3 (150-450); RBC Distribution Width CV 17.7 % (11.6-14.6); RBC Distribution Width SD 63.9 fl (35.1-43.9); Red Blood Count 2.57 M/mm3 (4.2-5.4); White Blood Count 5.6 K/mm3 (4.4-11.0)
[2019-12-17 06:30] LABS: Anion Gap 7 (5-15); BUN 17 mg/dL (7-18); BUN/Creat Ratio 18.4 RATIO (10-20); Calcium,Total 7.8 mg/dL (8.5-10.1); Chloride 99 mmol/L (98-107); Creatinine, Serum 0.92 mg/dL (0.55-1.02); EST Glomerular Filtration Rate 63 mL/min (>60); Est Glom Filt Rate - Afr Amer 76 mL/min (>60); Estimated Creatinine Clearance 47.54 ml/min; Glucose 93 mg/dL (74-106); Potassium 3.9 mmol/L (3.5-5.1); Sodium Level 136 mmol/L (136-145)
--- NOTE | 2019-12-17 08:47 | PCM.PN.PUL ---
Patient Problems: Active and Suspected Problems Exertional dyspnea (Acute) Pleural effusion (Acute) Subjective: The patient was seen and examined at the bedside this morning. Events from the last 24 hours have been reviewed. The patient is currently afebrile, hemodynamically stable and maintaining appropriate oxygen saturations on 2 L/min via nasal cannula. Objective: The patient's most recent lab work, culture data and imaging studies have all been personally reviewed. Surface echocardiogram revealed normal LV size and function with an ejection fraction of 65%. Pulmonary artery systolic pressure was estimated to be 31 mmHg. CTA chest revealed no evidence for PE. Large right-sided pleural effusion was noted. - Physical Exam Vitals/I&O's: Vital Signs Temp Pulse Resp BP Pulse Ox 98.0 F 98 16 83/55 L 96 12/17/19 06:55 12/17/19 06:55 12/17/19 06:55 12/17/19 06:55 12/17/19 07:12 Oxygen Flow Rate (L/min) 2 Oxygen Delivery Method Nasal Cannula Weight: 143 lb 8.335 oz Body Mass Index (BMI) 24.2 Intake and Output for Last 24 Hours 12/15/19 12/16/19 12/17/19 23:59 23:59 23:59 Intake Total 0 / 0 793.34 / 793.34 168.5 / 168.5 Output Total 0 / 0 150 / 150 Balance 0 / 0 793.34 / 793.34 18.5 / 18.5 General: Alert, No apparent distress HEENT: Atraumatic, Normocephalic Oral: No Gingival or Mucosal Lesions/ Ulcerations Neck: Supple, No Nodes, Trachea Midline Lungs: Diminished Cardiovascular: Regular rate, Regular Rhythm, Normal S1, Normal S2, No murmurs Abdomen: Bowel Sounds Present, Soft, Non Tender Extremities: No clubbing, No cyanosis, Edema Skin: No breakdown Musculoskeletal: No Tenderness to Palpation of Joints or Extremities Lymphatic: No Cervical, Supraclavicular, or Inguinal Adenopathy Neurological: Cranial nerves II-XII grossly intact, Neuro grossly intact Psych/Mental Status: Flat Affect Labs (Last 48 Hours) 12/15/19 12/15/19 12/16/19 19:20 19:20 02:20 WBC 6.5 Corrected WBC RBC 3.15 L Hgb 10.3 L Hct 33.9 L MCV 107.6 H MCH 32.7 H MCHC 30.4 L RDW Std Deviation 66.4 H RDW Coeff of Shane 17.3 H Plt Count 198 MPV 9.6 Immature Gran % (Auto) 0.500 Neut % (Auto) 66.5 Lymph % (Auto) 19.6 [place] % (Auto) 8.7 Eos % (Auto) 3.8 Baso % (Auto) 0.9 Absolute Neuts (auto) 4.3 Absolute Lymphs (auto) 1.28 Nucleated RBC % 0 [address] Review Platelet Estimate ADEQUATE RBC Morphology N CHROM Anisocytosis 1+ PT 17.9 H INR 1.5 APTT 34.9 Sodium 136 Potassium 4.6 Chloride 104 Carbon Dioxide 28.0 Anion Gap 4 L BUN 19 H Creatinine 1.12 H Estim Creat Clear Calc 40.63 Est GFR (MDRD) Af Amer 61 Est GFR (MDRD) Non-Af 50 L BUN/Creatinine Ratio 17.0 Glucose 102 Calcium 8.4 L Troponin I < 0.015 B-Natriuretic Peptide 12/16/19 12/16/19 12/16/19 05:37 13:00 13:00 WBC Cancelled Corrected WBC Cancelled RBC Cancelled Hgb Cancelled Hct Cancelled MCV Cancelled MCH Cancelled MCHC Cancelled RDW Std Deviation Cancelled RDW Coeff of Shane Cancelled Plt Count Cancelled MPV Cancelled Immature Gran % (Auto) Neut % (Auto) Lymph % (Auto) [place] % (Auto) Eos % (Auto) Baso % (Auto) Absolute Neuts (auto) Absolute Lymphs (auto) Nucleated RBC % Diff Path Review Cancelled Platelet Estimate RBC Morphology Anisocytosis PT INR APTT Sodium Potassium Chloride Carbon Dioxide Anion Gap BUN Creatinine Estim Creat Clear Calc Est GFR (MDRD) Af Amer Est GFR (MDRD) Non-Af BUN/Creatinine Ratio Glucose Calcium Troponin I < 0.015 B-Natriuretic Peptide Cancelled 12/16/19 12/16/19 12/16/19 13:00 13:50 13:50 WBC 3.9 L Corrected WBC RBC 2.68 L Hgb 8.6 L Hct 27.1 L MCV 101.1 H D MCH 32.1 H MCHC 31.7 L RDW Std Deviation 61.1 H RDW Coeff of Shane 17.4 H Plt Count 146 L MPV 9.7 Immature Gran % (Auto) Neut % (Auto) Lymph % (Auto) [place] % (Auto) Eos % (Auto) Baso % (Auto) Absolute Neuts (auto) Absolute Lymphs (auto) Nucleated RBC % Diff Path Review Platelet Estimate RBC Morphology Anisocytosis PT INR APTT Sodium Cancelled 139 Potassium Cancelled 3.4 L Chloride Cancelled 103 Carbon Dioxide Cancelled 29.0 Anion Gap Cancelled 7 BUN Cancelled 17 Creatinine Cancelled 0.93 Estim Creat Clear Calc Cancelled 47.03 Est GFR (MDRD) Af Amer Cancelled 76 Est GFR (MDRD) Non-Af Cancelled 62 BUN/Creatinine Ratio Cancelled 18.3 Glucose Cancelled 111 H Calcium Cancelled 7.8 L Troponin I B-Natriuretic Peptide 12/16/19 12/16/19 12/16/19 13:50 16:10 22:09 WBC Corrected WBC RBC Hgb Hct MCV MCH MCHC RDW Std Deviation RDW Coeff of Shane Plt Count MPV Immature Gran % (Auto) Neut % (Auto) Lymph % (Auto) [place] % (Auto) Eos % (Auto) Baso % (Auto) Absolute Neuts (auto) Absolute Lymphs (auto) Nucleated RBC % Diff Path Review Platelet Estimate RBC Morphology Anisocytosis PT INR APTT 55.0 H 57.8 H Sodium Potassium Chloride Carbon Dioxide Anion Gap BUN Creatinine Estim Creat Clear Calc Est GFR (MDRD) Af Amer Est GFR (MDRD) Non-Af BUN/Creatinine Ratio Glucose Calcium Troponin I B-Natriuretic Peptide 193.1 H 12/17/19 12/17/19 12/17/19 05:30 05:30 05:30 WBC 5.6 Corrected WBC RBC 2.57 L Hgb 8.4 L Hct 26.2 L MCV 101.9 H MCH 32.7 H MCHC 32.1 RDW Std Deviation 63.9 H RDW Coeff of Shane 17.7 H Plt Count 148 L MPV 9.7 Immature Gran % (Auto) Neut % (Auto) Lymph % (Auto) [place] % (Auto) Eos % (Auto) Baso % (Auto) Absolute Neuts (auto) Absolute Lymphs (auto) Nucleated RBC % Diff Path Review Platelet Estimate RBC Morphology Anisocytosis PT INR APTT 59.0 H Sodium 136 Potassium 3.9 Chloride 99 Carbon Dioxide 30.0 Anion Gap 7 BUN 17 Creatinine 0.92 Estim Creat Clear Calc 47.54 Est GFR (MDRD) Af Amer 76 Est GFR (MDRD) Non-Af 63 BUN/Creatinine Ratio 18.4 Glucose 93 Calcium 7.8 L Troponin I B-Natriuretic Peptide Clinical Impression(s) from Imaging Studies Chest X-Ray 12/15/19 19:35 IMPRESSION: Large right pleural effusion. Electronically Signed: Angel Schulz MD at 19:52 EDT Tel , Service support , Chest CTA 12/15/19 20:[address]: 1[address] evidence of pulmonary embolism. 2. Very large right-sided pleural effusion with now total collapse the right lung. 3. Cirrhosis with a large amount of ascites. Electronically Signed: Angel Schulz MD at 22:53 EDT Tel , Service support , Current Medications Acetaminophen (Tylenol) 650 mg PO Q6H PRN PRN PRN Reason: Pain Score 1-10/Temp > 100.7 F Al Hydroxide/Mg Hydroxide (Mylanta Ii) 30 ml PO Q6H PRN PRN PRN Reason: Gastric Burning Albuterol Sulfate (Ventolin Aerosols) 2.5 mg INHALATION Q2H PRN PRN PRN Reason: Dyspnea, wheezing Atorvastatin Calcium (Lipitor) 20 mg PO QHS [facility] Last Admin: 12/16/19 21:49 Dose: 20 mg Documented by: Dextrose (D50w Syringe) 0 gm IV X1 PRN; Protocol PRN Reason: Hypoglycemia Glucagon () 1 mg IM .X1 PRN PRN Reason: Hypoglycemia Guaifenesin (Robitussin) 20 ml PO Q4H PRN PRN PRN Reason: COUGH Heparin Sodium (Porcine) (Heparin Na) 0 unit IV UD PRN; Protocol Hydralazine HCl (Apresoline Iv) 10 mg IV Q4H PRN PRN PRN Reason: SBP > 160 Sodium Chloride () 250 mls @ 15 mls/hr IV .[id number] PRN PRN Reason: Saline Flush Sodium Chloride () 250 mls @ 15 mls/hr IV .[id number] PRN PRN Reason: Additional IVPB Infusion Heparin Sodium/Dextrose () 25,000 units in 250 mls @ 10 mls/hr IV .Q25H [facility]; Protocol Last Titration: 12/17/19 06:46 Dose: 1,000 units/hr, 10 mls/hr Documented by: Magnesium Hydroxide (Milk Of Magnesia) 30 ml PO DAILY PRN PRN PRN Reason: Constipation Melatonin (Melatonin) 10 mg PO QHS [facility] Last Admin: 12/16/19 21:50 Dose: 10 mg Documented by: Metoclopramide HCl (Reglan) 5 mg PO TIDCM [facility] Last Admin: 12/16/19 17:03 Dose: 5 mg Documented by: Mirtazapine (Remeron) 30 mg PO QHS [facility] Last Admin: 12/16/19 21:50 Dose: 30 mg Documented by: Morphine Sulfate () 2 mg IV Q3H PRN PRN PRN Reason: Pain Score 6-10/10 Nitroglycerin (Nitrostat) 0.4 mg SUBLINGUAL Q5M PRN PRN Reason: CARDIAC/CHEST PAIN Nutritional Formula (Lactose Free) (Ensure Enlive) 120 ml PO 4X/DAY [facility] Last Admin: 12/16/19 21:49 Dose: Not Given Documented by: Ondansetron HCl (Zofran) 4 mg IV Q8H PRN PRN PRN Reason: NAUSEA/VOMITING Oxycodone HCl (Oxyir) 5 mg PO Q4H PRN PRN PRN Reason: Pain Score 4-5/10 Pantoprazole Sodium (Protonix) 20 mg PO DAILY [facility] Last Admin: 12/16/19 10:02 Dose: 20 mg Documented by: Prochlorperazine Edisylate (Compazine Iv) 5 mg IV Q4H PRN PRN PRN Reason: Breakthrough Nausea/Vomiting Psyllium Hydrophilic Mucilloid (Metamucil) 1 packet PO DAILY PRN PRN PRN Reason: Constipation Senna/Docusate Sodium (Senokot-S, Deana-Colace) 2 tablet PO BID PRN PRN PRN Reason: Constipation Sodium Chloride () 10 - 40 ml IV UD PRN PRN Reason: SALINE FLUSH Last Admin: 12/17/19 05:29 Dose: 30 ml Documented by: Spironolactone (Aldactone) 25 mg PO DAILY [facility] Last Admin: 12/16/19 10:02 Dose: 25 mg Documented by: Tamsulosin HCl (Flomax) 0.4 mg PO DAILY [facility] Last Admin: 12/16/19 10:01 Dose: 0.4 mg Documented by: Throat Lozenges (Cepacol Sore Throat Lozenge) 1 lozenge MUCOUS MEM Q2H PRN PRN PRN Reason: SORE THROAT Medical Necessity - Tobacco Use Smoking Status: Never smoker Tobacco Use: Non-smoker Assessment/Plan All Active Problems Debility (Acute) Encephalopathy (Acute) Sepsis (Acute) Exertional dyspnea (Acute) Pleural effusion (Acute) RECOMMENDATIONS: 1. Agree with holding Eliquis. Continue heparin infusion in its place. 2. Plan for ultrasound-guided thoracentesis early this upcoming week. 3. Send pleural fluid studies for cell count, LDH, total protein, cultures and cytology. IMPRESSIONS: 1. Shortness of breath with large right pleural effusion Likely secondary to underlying cirrhosis. Agree with holding Eliquis with plans for diagnostic/therapeutic ultrasound-guided thoracentesis on Wednesday. Continue IV diuretic therapy as tolerated. Wean supplemental oxygen to maintain saturations at or above 90%. 2. Recent diagnosis of bilateral DVTs As noted above, the patient's Eliquis has been discontinued and she has been transitioned to a continuous heparin infusion for now. 3. Underlying liver cirrhosis The patient does require frequent paracenteses. The exact etiology for her cirrhosis is unclear. 4. Hypertension/hyperlipidemia/anemia/anxiety/GERD Complicates care, management, recovery and prognosis. Continue home medications as indicated. This note was generated with [employer] dictation software. It may contain incorrect words, spelling, and punctuation that were not noted in checking the note before signing. Inpatient E&M: 18548 [facility] [address]
[2019-12-17] MEDS: Metoclopramide 5 MG TABLET PO ×3 (09:20→17:40)
[2019-12-17] MEDS: Tamsulosin HCl 0.4 MG Capsule PO (09:20)
[2019-12-17] MEDS: Pantoprazole Sodium 20 MG Tablet PO (09:20)
[2019-12-17] MEDS: HEPARIN/D5w 25,000 UNITS 25,000 UNITS/250 ML IV.SOLN. 10 UNITS IV (09:20)
[2019-12-17] MEDS: Ondansetron 4 MG/2 ML Vial IV (09:21)
--- NOTE | 2019-12-17 10:10 | RAD_ITS ---
STUDY: X-RAY - ABDOMEN/PELVIS REASON FOR EXAM: Female, 74 years old. SOB/DYSPNEA AND COUGH. TECHNIQUE: AP supine view. COMPARISON: None. FINDINGS: Normal visualized lung bases. Left ureteral stent extends from the left renal pelvis down to the urinary bladder. There is faint contrast opacification of the pelvicalyceal system in both kidneys without suspicious hydronephrosis. No bowel obstruction. There is no demonstrated free abdominal air. The visualized liver, spleen and kidneys are grossly normal in size and morphology. Normal soft tissue structures. Mild dextroscoliosis of the lumbar spine. Mild right lateral degenerative subluxation of L3 on L4 with left-sided disc space height narrowing. No acute osseous abnormality. RAD/Abdomen Single View (Portable) IMPRESSION: 1. No suspicious abnormality of the left double-J stent in the ureter. 2. Normal appearing kidneys including the opacified bilateral pelvicalyceal systems. 3. No acute abnormality in the abdomen. Electronically Signed: Jovan Devries MD at 10:53 EDT , Service support ,
--- NOTE | 2019-12-17 10:13 | RAD_ITS ---
STUDY: X-RAY CHEST REASON FOR EXAM: Female, 74 years old. SOB/DYSPNEA AND COUGH. TECHNIQUE: AP upright portable view. COMPARISON: 12/15/2019. FINDINGS: Worsening of the complete atelectasis of the right lung. Massive right pleural fluid has increased. Normal left lung. No left pleural fluid. There is no demonstrated pleural abnormality. Normal size heart. Normal mediastinum and luz elena. Normal visualized pulmonary arteries. Normal visualized aortic arch and descending thoracic aorta. Normal visualized thoracic spine. Normal visualized ribs, clavicles, and shoulders. There is no demonstrated abnormality of the visualized soft tissue structures of the upper abdomen. RAD/Chest 1 View (Portable) IMPRESSION: Worsening of near complete atelectasis of the right lung with mild increase in mass effect right pleural fluid. Electronically Signed: Jovan Devries MD at 11:29 EDT , Service support ,
--- NOTE | 2019-12-17 10:32 | PN_ITS ---
<Yolanda Sargent - Last Filed: 12/17/19 10:38> Patient Problems: Active and Suspected Problems Exertional dyspnea (Acute) Pleural effusion (Acute) Subjective: Patient seen and examined. Reports abdominal cramping and nausea without emesis. Patient states she has had abdominal cramping ongoing prior to admission. She was placed on Reglan which she does not feel helps. She reports 60 pound weight loss over the past year and states she has very poor appetite. - Physical Exam Vitals/I&O's: Vital Signs Temp Pulse Resp BP Pulse Ox 97.3 F L 108 H 20 H 82/45 L 96 12/17/19 08:55 12/17/19 08:55 12/17/19 08:55 12/17/19 08:55 12/17/19 08:55 Oxygen Flow Rate (L/min) 2 Oxygen Delivery Method Nasal Cannula Weight: 143 lb 8.335 oz Body Mass Index (BMI) 24.2 Intake and Output for Last 24 Hours 12/15/19 12/16/19 12/17/19 23:59 23:59 23:59 Intake Total 0 / 0 793.34 / 793.34 194.17 / 194.17 Output Total 0 / 0 150 / 150 Balance 0 / 0 793.34 / 793.34 44.17 / 44.17 General: Alert, Oriented x3, Cooperative HEENT: Atraumatic, PERRLA, EOMI, Normocephalic Oral: Dry Mucosa Neck: Supple, No JVD, Negative Carotid Bruits Lungs: Clear to auscultation, Diminished Cardiovascular: Regular rate, No murmurs Abdomen: Bowel Sounds Present, Soft, Non Tender Extremities: No clubbing, No cyanosis, No edema Skin: No rashes, No breakdown Musculoskeletal: No Tenderness to Palpation of Joints or Extremities, Cachexia, Muscle Wasting Neurological: Cranial nerves II-XII grossly intact, Neuro grossly intact Psych/Mental Status: Normal Affect, Appropriate Laboratory Results 12/16/19 13:00: B-Natriuretic Peptide Cancelled 12/16/19 13:00: WBC Cancelled, Corrected WBC Cancelled, RBC Cancelled, Hgb Cancelled, Hct Cancelled, MCV Cancelled, MCH Cancelled, MCHC Cancelled, RDW Std Deviation Cancelled, RDW Coeff of Shane Cancelled, Plt Count Cancelled, MPV Cancelled, Diff Path Review Cancelled 12/16/19 13:00: Sodium Cancelled, Potassium Cancelled, Chloride Cancelled, Carbon Dioxide Cancelled, Anion Gap Cancelled, BUN Cancelled, Creatinine Cancelled, Estim Creat Clear Calc Cancelled, Est GFR (MDRD) Af Amer Cancelled, Est GFR (MDRD) Non-Af Cancelled, BUN/Creatinine Ratio Cancelled, Glucose Cancelled, Calcium Cancelled 12/16/19 13:50: WBC 3.9 L, RBC 2.68 L, Hgb 8.6 L, Hct 27.1 L, MCV 101.1 H D, MCH 32.1 H, MCHC 31.7 L, RDW Std Deviation 61.1 H, RDW Coeff of Shane 17.4 H, Plt Count 146 L, MPV 9.7 12/16/19 13:50: Sodium 139, Potassium 3.4 L, Chloride 103, Carbon Dioxide 29.0, Anion Gap 7, BUN 17, Creatinine 0.93, Estim Creat Clear Calc 47.03, Est GFR (MDRD) Af Amer 76, Est GFR (MDRD) Non-Af 62, BUN/Creatinine Ratio 18.3, Glucose 111 H, Calcium 7.8 L 12/16/19 13:50: B-Natriuretic Peptide 193.1 H 12/16/19 16:10: APTT 55.0 H 12/16/19 22:09: APTT 57.8 H 12/17/19 05:30: WBC 5.6, RBC 2.57 L, Hgb 8.4 L, Hct 26.2 L, MCV 101.9 H, MCH 32.7 H, MCHC 32.1, RDW Std Deviation 63.9 H, RDW Coeff of Shane 17.7 H, Plt Count 148 L, MPV 9.7 12/17/19 05:30: Sodium 136, Potassium 3.9, Chloride 99, Carbon Dioxide 30.0, Anion Gap 7, BUN 17, Creatinine 0.92, Estim Creat Clear Calc 47.54, Est GFR (MDRD) Af Amer 76, Est GFR (MDRD) Non-Af 63, BUN/Creatinine Ratio 18.4, Glucose 93, Calcium 7.8 L 12/17/19 05:30: APTT 59.0 H Current Medications Acetaminophen (Tylenol) 650 mg PO Q6H PRN PRN PRN Reason: Pain Score 1-10/Temp > 100.7 F Al Hydroxide/Mg Hydroxide (Mylanta Ii) 30 ml PO Q6H PRN PRN PRN Reason: Gastric Burning Albuterol Sulfate (Ventolin Aerosols) 2.5 mg INHALATION Q2H PRN PRN PRN Reason: Dyspnea, wheezing Atorvastatin Calcium (Lipitor) 20 mg PO QHS [facility] Last Admin: 12/16/19 21:49 Dose: 20 mg Documented by: Dextrose (D50w Syringe) 0 gm IV X1 PRN; Protocol PRN Reason: Hypoglycemia Glucagon () 1 mg IM .X1 PRN PRN Reason: Hypoglycemia Guaifenesin (Robitussin) 20 ml PO Q4H PRN PRN PRN Reason: COUGH Heparin Sodium (Porcine) (Heparin Na) 0 unit IV UD PRN; Protocol Hydralazine HCl (Apresoline Iv) 10 mg IV Q4H PRN PRN PRN Reason: SBP > 160 Sodium Chloride () 250 mls @ 15 mls/hr IV .[id number] PRN PRN Reason: Saline Flush Sodium Chloride () 250 mls @ 15 mls/hr IV .[id number] PRN PRN Reason: Additional IVPB Infusion Heparin Sodium/Dextrose () 25,000 units in 250 mls @ 10 mls/hr IV .Q25H [facility]; Protocol Last Admin: 12/17/19 09:20 Dose: 1,000 units/hr, 10 mls/hr Documented by: Magnesium Hydroxide (Milk Of Magnesia) 30 ml PO DAILY PRN PRN PRN Reason: Constipation Megestrol Acetate (Megace) 40 mg PO BID [facility] Melatonin (Melatonin) 10 mg PO QHS [facility] Last Admin: 12/16/19 21:50 Dose: 10 mg Documented by: Metoclopramide HCl (Reglan) 5 mg PO TIDCM [facility] Last Admin: 12/17/19 09:20 Dose: 5 mg Documented by: Mirtazapine (Remeron) 30 mg PO QHS [facility] Last Admin: 12/16/19 21:50 Dose: 30 mg Documented by: Morphine Sulfate () 2 mg IV Q3H PRN PRN PRN Reason: Pain Score 6-10/10 Nitroglycerin (Nitrostat) 0.4 mg SUBLINGUAL Q5M PRN PRN Reason: CARDIAC/CHEST PAIN Nutritional Formula (Lactose Free) (Ensure Enlive) 120 ml PO 4X/DAY [facility] Last Admin: 12/17/19 09:20 Dose: Not Given Documented by: Ondansetron HCl (Zofran) 4 mg IV Q8H PRN PRN PRN Reason: NAUSEA/VOMITING Last Admin: 12/17/19 09:21 Dose: 4 mg Documented by: Oxycodone HCl (Oxyir) 5 mg PO Q4H PRN PRN PRN Reason: Pain Score 4-5/10 Pantoprazole Sodium (Protonix) 20 mg PO DAILY [facility] Last Admin: 12/17/19 09:20 Dose: 20 mg Documented by: Prochlorperazine Edisylate (Compazine Iv) 5 mg IV Q4H PRN PRN PRN Reason: Breakthrough Nausea/Vomiting Psyllium Hydrophilic Mucilloid (Metamucil) 1 packet PO DAILY PRN PRN PRN Reason: Constipation Senna/Docusate Sodium (Senokot-S, Deana-Colace) 2 tablet PO BID PRN PRN PRN Reason: Constipation Sodium Chloride () 10 - 40 ml IV UD PRN PRN Reason: SALINE FLUSH Last Admin: 12/17/19 09:21 Dose: 10 ml Documented by: Spironolactone (Aldactone) 25 mg PO DAILY [facility] Last Admin: 12/17/19 09:20 Dose: Not Given Documented by: Tamsulosin HCl (Flomax) 0.4 mg PO DAILY [facility] Last Admin: 12/17/19 09:20 Dose: 0.4 mg Documented by: Throat Lozenges (Cepacol Sore Throat Lozenge) 1 lozenge MUCOUS MEM Q2H PRN PRN PRN Reason: SORE THROAT Medical Necessity - Tobacco Use Smoking Status: Never smoker Tobacco Use: Non-smoker Assessment/Plan All Active Problems Debility (Acute) Encephalopathy (Acute) Sepsis (Acute) Exertional dyspnea (Acute) Pleural effusion (Acute) 1. Dyspnea secondary to large right pleural effusion-suspect secondary to underlying cirrhosis. Eliquis on hold. Pulmonary medicine following. Plans for diagnostic and therapeutic ultrasound-guided thoracentesis on Wednesday. Patient has not been noted to be hypoxic. Continue supplement oxygen to maintain O2 at or above 90%. On heparin drip given recent DVT. Heparin drip will need held 4 to 6 hours prior to thoracentesis on Wednesday. BNP 193. Echocardiogram demonstrates an EF of 65%. 2. Recent bilateral lower extremity DVTs-oral anticoagulation on hold as noted above. Heparin drip. 3. Nonalcoholic liver cirrhosis-patient undergoing routine paracentesis every 4 to 6 weeks. 4. Acute kidney injury-Baseline creatinine 0.7. Creatinine on admission 1.12. Acute kidney injury resolved. Trend BMP. 5. 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 Continue Flomax. 6. Hypertension-stable, continue current regimen. 7. Hyperlipidemia-continue statin. 8. Chronic normocytic anemia-stable, trend CBC. 9. GERD-continue PPI. 10. Anxiety, depression-continue Remeron. 11. History of stage III melanoma-status post excision. 12. Severe protein calorie malnutrition-as evidenced by cachectic appearance, 60 pound weight loss over the past year. Dietitian consult. Patient placed on Megace for appetite stimulant. DVT prophylaxis-heparin drip Discharge planning: Patient recently referred to palliative care which she is working on establishing. Discharge pending thoracentesis on Wednesday. This patient was seen by DYLAN Hatfield under the supervision of Dr. Giang. <Jose Antonio Giang - Last Filed: 12/17/19 11:58> - Physical Exam Vitals/I&O's: Vital Signs Temp Pulse Resp BP Pulse Ox 98.0 F 113 H 20 H 99/56 L 96 12/17/19 10:55 12/17/19 10:55 12/17/19 10:55 12/17/19 10:55 12/17/19 10:55 Oxygen Flow Rate (L/min) 2 Oxygen Delivery Method Nasal Cannula Weight: 65.1 kg Body Mass Index (BMI) 24.2 Intake and Output for Last 24 Hours 12/15/19 12/16/19 12/17/19 23:59 23:59 23:59 Intake Total 0 / 0 793.34 / 793.34 194.17 / 194.17 Output Total 0 / 0 150 / 150 Balance 0 / 0 793.34 / 793.34 44.17 / 44.17 Laboratory Results 12/16/19 13:00: B-Natriuretic Peptide Cancelled 12/16/19 13:00: WBC Cancelled, Corrected WBC Cancelled, RBC Cancelled, Hgb Cancelled, Hct Cancelled, MCV Cancelled, MCH Cancelled, MCHC Cancelled, RDW Std Deviation Cancelled, RDW Coeff of Shane Cancelled, Plt Count Cancelled, MPV Cancelled, Diff Path Review Cancelled 12/16/19 13:00: Sodium Cancelled, Potassium Cancelled, Chloride Cancelled, Carbon Dioxide Cancelled, Anion Gap Cancelled, BUN Cancelled, Creatinine Cancelled, Estim Creat Clear Calc Cancelled, Est GFR (MDRD) Af Amer Cancelled, Est GFR (MDRD) Non-Af Cancelled, BUN/Creatinine Ratio Cancelled, Glucose Cancelled, Calcium Cancelled 12/16/19 13:50: WBC 3.9 L, RBC 2.68 L, Hgb 8.6 L, Hct 27.1 L, MCV 101.1 H D, MCH 32.1 H, MCHC 31.7 L, RDW Std Deviation 61.1 H, RDW Coeff of Shane 17.4 H, Plt Count 146 L, MPV 9.7 12/16/19 13:50: Sodium 139, Potassium 3.4 L, Chloride 103, Carbon Dioxide 29.0, Anion Gap 7, BUN 17, Creatinine 0.93, Estim Creat Clear Calc 47.03, Est GFR (MDRD) Af Amer 76, Est GFR (MDRD) Non-Af 62, BUN/Creatinine Ratio 18.3, Glucose 111 H, Calcium 7.8 L 12/16/19 13:50: B-Natriuretic Peptide 193.1 H 12/16/19 16:10: APTT 55.0 H 12/16/19 22:09: APTT 57.8 H 12/17/19 05:30: WBC 5.6, RBC 2.57 L, Hgb 8.4 L, Hct 26.2 L, MCV 101.9 H, MCH 32.7 H, MCHC 32.1, RDW Std Deviation 63.9 H, RDW Coeff of Shane 17.7 H, Plt Count 148 L, MPV 9.7 12/17/19 05:30: Sodium 136, Potassium 3.9, Chloride 99, Carbon Dioxide 30.0, Anion Gap 7, BUN 17, Creatinine 0.92, Estim Creat Clear Calc 47.54, Est GFR (MDRD) Af Amer 76, Est GFR (MDRD) Non-Af 63, BUN/Creatinine Ratio 18.4, Glucose 93, Calcium 7.8 L 12/17/19 05:30: APTT 59.0 H Current Medications Acetaminophen (Tylenol) 650 mg PO Q6H PRN PRN PRN Reason: Pain Score 1-10/Temp > 100.7 F Al Hydroxide/Mg Hydroxide (Mylanta Ii) 30 ml PO Q6H PRN PRN PRN Reason: Gastric Burning Albuterol Sulfate (Ventolin Aerosols) 2.5 mg INHALATION Q2H PRN PRN PRN Reason: Dyspnea, wheezing Atorvastatin Calcium (Lipitor) 20 mg PO QHS [facility] Last Admin: 12/16/19 21:49 Dose: 20 mg Documented by: Dextrose (D50w Syringe) 0 gm IV X1 PRN; Protocol PRN Reason: Hypoglycemia Glucagon () 1 mg IM .X1 PRN PRN Reason: Hypoglycemia Guaifenesin (Robitussin) 20 ml PO Q4H PRN PRN PRN Reason: COUGH Heparin Sodium (Porcine) (Heparin Na) 0 unit IV UD PRN; Protocol Hydralazine HCl (Apresoline Iv) 10 mg IV Q4H PRN PRN PRN Reason: SBP > 160 Sodium Chloride () 250 mls @ 15 mls/hr IV .[id number] PRN PRN Reason: Saline Flush Sodium Chloride () 250 mls @ 15 mls/hr IV .[id number] PRN PRN Reason: Additional IVPB Infusion Heparin Sodium/Dextrose () 25,000 units in 250 mls @ 10 mls/hr IV .Q25H [facility]; Protocol Last Admin: 12/17/19 09:20 Dose: 1,000 units/hr, 10 mls/hr Documented by: Magnesium Hydroxide (Milk Of Magnesia) 30 ml PO DAILY PRN PRN PRN Reason: Constipation Megestrol Acetate (Megace) 40 mg PO BID [facility] Melatonin (Melatonin) 10 mg PO QHS [facility] Last Admin: 12/16/19 21:50 Dose: 10 mg Documented by: Metoclopramide HCl (Reglan) 5 mg PO TIDCM [facility] Last Admin: 12/17/19 09:20 Dose: 5 mg Documented by: Mirtazapine (Remeron) 30 mg PO QHS [facility] Last Admin: 12/16/19 21:50 Dose: 30 mg Documented by: Morphine Sulfate () 2 mg IV Q3H PRN PRN PRN Reason: Pain Score 6-10/10 Nitroglycerin (Nitrostat) 0.4 mg SUBLINGUAL Q5M PRN PRN Reason: CARDIAC/CHEST PAIN Nutritional Formula (Lactose Free) (Ensure Enlive) 120 ml PO 4X/DAY [facility] Last Admin: 12/17/19 09:20 Dose: Not Given Documented by: Ondansetron HCl (Zofran) 4 mg IV Q8H PRN PRN PRN Reason: NAUSEA/VOMITING Last Admin: 12/17/19 09:21 Dose: 4 mg Documented by: Oxycodone HCl (Oxyir) 5 mg PO Q4H PRN PRN PRN Reason: Pain Score 4-5/10 Pantoprazole Sodium (Protonix) 20 mg PO DAILY [facility] Last Admin: 12/17/19 09:20 Dose: 20 mg Documented by: Prochlorperazine Edisylate (Compazine Iv) 5 mg IV Q4H PRN PRN PRN Reason: Breakthrough Nausea/Vomiting Psyllium Hydrophilic Mucilloid (Metamucil) 1 packet PO DAILY PRN PRN PRN Reason: Constipation Senna/Docusate Sodium (Senokot-S, Deana-Colace) 2 tablet PO BID PRN PRN PRN Reason: Constipation Sodium Chloride () 10 - 40 ml IV UD PRN PRN Reason: SALINE FLUSH Last Admin: 12/17/19 09:21 Dose: 10 ml Documented by: Spironolactone (Aldactone) 25 mg PO DAILY [facility] Last Admin: 12/17/19 09:20 Dose: Not Given Documented by: Tamsulosin HCl (Flomax) 0.4 mg PO DAILY [facility] Last Admin: 12/17/19 09:20 Dose: 0.4 mg Documented by: Throat Lozenges (Cepacol Sore Throat Lozenge) 1 lozenge MUCOUS MEM Q2H PRN PRN PRN Reason: SORE THROAT Assessment/Plan This patient was seen in conjunction with DYLAN Hatfield . I have independently interviewed and examined the patient and reviewed pertinent historical, laboratory, and other data. Please refer to DYLAN Hatfield note for details of this patient's presentation, findings, and recommendations. I have reviewed DYLAN Hatfield note and concur with documented findings. In brief, patient is a 74-year-old lady with underlying history of cirrhosis of the liver admitted with progressive shortness of breath. Imaging studies found large right-sided pleural effusion admitted to a monitored bed with plans for patient to undergo ultrasound-guided thoracocentesis on 12/18/2019. Patient was on Eliquis for recently diagnosed DVT this was held started on heparin drip 12/17/2019: Patient seen complains of shortness of breath and generalized weakness and low appetite. She was instructed to prop up the head of her bed at 30 degrees at all time. She is scheduled to undergo ultrasound-guided thoracocentesis on 12/18/2019 Physical Examination: GENERAL: cooperative HEENT: Atraumatic; EYES; Anicteric, Normal Conjunctiva NECK; supple, normal thyroid, RESPIRATORY: Diminished to auscultation CARDIOVASCULAR: Regular S1 S2, GI: soft, normoactive bowel sounds, : No Renal angle tenderness; EXTREMITIES: No edema, no clubbing, MUSCULOSKELETAL: no muscle waisting NEURO: Awake; no lateralizing signs. SKIN: No Rash PSYCH; Flat affect Assessment: 1. Large right-sided pleural effusion 2. Cirrhosis of the liver of undetermined etiology 3. Recently diagnosed bilateral lower extremity DVT 4. Essential hypertension 5. Dyslipidemia 6. Anemia of chronic disorder 7. Renal insufficiency 8. Recurrent nephrolithiasis, ureteral stenosis status post left-sided ureteral stent in place (was scheduled for stent removal on 12/20/2019 advised to postpone the procedure) 9. GERD 10. History of stage III melanoma status post excision currently remission 11. Depression with anxiety 12. DVT prophylax Recommendations: 1. I have discussed the results of my overview and impressions with the patient 2. Options for management were reviewed Inpatient E&M: 30232 Subs Hosp L2
[2019-12-17] MEDS: Megestrol 40 MG Tablet PO ×2 (13:12→21:00)
[2019-12-17] MEDS: Atorvastatin Calcium 20 MG Tablet PO (21:00)
[2019-12-17] MEDS: Mirtazapine 30 MG Tablet PO (21:00)
[2019-12-17] MEDS: MELATONIN 10 MG TABLET PO (21:00)
[2019-12-18] VITALS (12 sets, daily range): BP systolic 66–123; BP diastolic 28–62; PULSE 99–116; RESP 16–26; TEMP 36.3–36.8; O2SAT 93–100
[2019-12-18 00:06] LABS: Partial Thromboplast Time > 250.0 Seconds (24.1-36.2)
--- NOTE | 2019-12-18 07:00 | US_ITS ---
PROCEDURE: ULTRASOUND GUIDED THORACENTESIS. DATE: December 18, 2019. INDICATION: Female, 74 years old. Right pleural effusion. PHYSICIAN: Jass Le M.D. PROCEDURE: The risks, benefits, and alternatives to the procedure were explained to the patient. The specific risks of bleeding, infection, and pneumothorax requiring chest tube insertion were discussed and accepted. Written informed consent was obtained. Ultrasonographic evaluation of the right lower pleural space was carried out. An adequate pocket was identified. The patient was placed in the sitting, upright position. The overlying skin was prepped and draped in sterile fashion. 1% lidocaine was administered subcutaneously for local anesthesia. Under ultrasound guidance, a 5 Armenian thoracentesis needle/catheter system was advanced into the right posterior lower pleural fluid collection. Approximately 1650 mL of chris-colored fluid was drained. The catheter was removed, and a sterile dressing was applied. A specimen was collected and sent to the laboratory for analysis, as requested by the referring clinician. The patient tolerated the procedure well. A chest x-ray was ordered. US/Thoracentesis W US IMPRESSION: Ultrasound-guided right thoracentesis. Electronically Signed: Jass Le, at 11:00 EDT , Service support ,
--- NOTE | 2019-12-18 08:51 | PCM.PN.PUL ---
Patient Problems: Active and Suspected Problems Exertional dyspnea (Acute) Pleural effusion (Acute) Subjective: Patient did okay overnight. Patient is still requiring nasal cannula oxygen to maintain saturations. Patient denied any pain on my evaluation, but does feel shortness of breath with exertion. - Physical Exam Vitals/I&O's: Vital Signs Temp Pulse Resp BP Pulse Ox 36.4 C L 99 18 123/55 H 94 12/18/19 06:11 12/18/19 07:02 12/18/19 06:11 12/18/19 06:11 12/18/19 06:11 Oxygen Flow Rate (L/min) 2 Oxygen Delivery Method Nasal Cannula Weight: 65.3 kg Body Mass Index (BMI) 24.2 Intake and Output for Last 24 Hours 12/16/19 12/17/19 12/18/19 23:59 23:59 23:59 Intake Total 793.34 / 793.34 1271.34 / 1271.34 74.05 / 74.05 Output Total 450 / 450 150 / 150 Balance 793.34 / 793.34 821.34 / 821.34 -75.95 / -75.95 General: Alert, Oriented x3, Cooperative, No apparent distress HEENT: Atraumatic, PERRLA, EOMI, Normocephalic, - - Slight scleral icterus noted. Oral: No Gingival or Mucosal Lesions/ Ulcerations Neck: Supple, No Nodes, Trachea Midline, JVD, Right Lungs: No wheeze, Diminished, - - Dullness to percussion on the right chest Cardiovascular: Regular rate, Regular Rhythm, Normal S1, Normal S2, No murmurs, No rub noted, No Gallop Abdomen: Bowel Sounds Present, Soft, Non Tender, Distended - Slightly Extremities: No clubbing, No cyanosis, Edema Skin: No breakdown, - - Multiple areas of bruising noted Musculoskeletal: No Tenderness to Palpation of Joints or Extremities Lymphatic: No Cervical, Supraclavicular, or Inguinal Adenopathy Neurological: Cranial nerves II-XII grossly intact, Neuro grossly intact Psych/Mental Status: Appropriate, Flat Affect Laboratory Results 12/17/19 23:35: APTT > 250.0 H* Current Medications Acetaminophen (Tylenol) 650 mg PO Q6H PRN PRN PRN Reason: Pain Score 1-10/Temp > 100.7 F Al Hydroxide/Mg Hydroxide (Mylanta Ii) 30 ml PO Q6H PRN PRN PRN Reason: Gastric Burning Albuterol Sulfate (Ventolin Aerosols) 2.5 mg INHALATION Q2H PRN PRN PRN Reason: Dyspnea, wheezing Atorvastatin Calcium (Lipitor) 20 mg PO QHS [facility] Last Admin: 12/17/19 21:00 Dose: 20 mg Documented by: Dextrose (D50w Syringe) 0 gm IV X1 PRN; Protocol PRN Reason: Hypoglycemia Glucagon () 1 mg IM .X1 PRN PRN Reason: Hypoglycemia Guaifenesin (Robitussin) 20 ml PO Q4H PRN PRN PRN Reason: COUGH Heparin Sodium (Porcine) (Heparin Na) 0 unit IV UD PRN; Protocol Hydralazine HCl (Apresoline Iv) 10 mg IV Q4H PRN PRN PRN Reason: SBP > 160 Sodium Chloride () 250 mls @ 15 mls/hr IV .[id number] PRN PRN Reason: Saline Flush Sodium Chloride () 250 mls @ 15 mls/hr IV .[id number] PRN PRN Reason: Additional IVPB Infusion Heparin Sodium/Dextrose () 25,000 units in 250 mls @ 10 mls/hr IV .Q25H [facility]; Protocol Last Titration: 12/18/19 05:00 Dose: 0 units/hr, 0 mls/hr Documented by: Magnesium Hydroxide (Milk Of Magnesia) 30 ml PO DAILY PRN PRN PRN Reason: Constipation Megestrol Acetate (Megace) 40 mg PO BID [facility] Last Admin: 12/17/19 21:00 Dose: 40 mg Documented by: Melatonin (Melatonin) 10 mg PO QHS [facility] Last Admin: 12/17/19 21:00 Dose: 10 mg Documented by: Metoclopramide HCl (Reglan) 5 mg PO TIDCM [facility] Last Admin: 12/17/19 17:40 Dose: 5 mg Documented by: Mirtazapine (Remeron) 30 mg PO QHS [facility] Last Admin: 12/17/19 21:00 Dose: 30 mg Documented by: Morphine Sulfate () 2 mg IV Q3H PRN PRN PRN Reason: Pain Score 6-10/10 Nitroglycerin (Nitrostat) 0.4 mg SUBLINGUAL Q5M PRN PRN Reason: CARDIAC/CHEST PAIN Nutritional Formula (Lactose Free) (Ensure Enlive) 120 ml PO 4X/DAY [facility] Last Admin: 12/17/19 21:00 Dose: Not Given Documented by: Ondansetron HCl (Zofran) 4 mg IV Q8H PRN PRN PRN Reason: NAUSEA/VOMITING Last Admin: 12/17/19 09:21 Dose: 4 mg Documented by: Oxycodone HCl (Oxyir) 5 mg PO Q4H PRN PRN PRN Reason: Pain Score 4-5/10 Pantoprazole Sodium (Protonix) 20 mg PO DAILY [facility] Last Admin: 12/17/19 09:20 Dose: 20 mg Documented by: Prochlorperazine Edisylate (Compazine Iv) 5 mg IV Q4H PRN PRN PRN Reason: Breakthrough Nausea/Vomiting Psyllium Hydrophilic Mucilloid (Metamucil) 1 packet PO DAILY PRN PRN PRN Reason: Constipation Senna/Docusate Sodium (Senokot-S, Deana-Colace) 2 tablet PO BID PRN PRN PRN Reason: Constipation Sodium Chloride () 10 - 40 ml IV UD PRN PRN Reason: SALINE FLUSH Last Admin: 12/17/19 23:35 Dose: 30 ml Documented by: Spironolactone (Aldactone) 25 mg PO DAILY [facility] Last Admin: 12/17/19 09:20 Dose: Not Given Documented by: Tamsulosin HCl (Flomax) 0.4 mg PO DAILY [facility] Last Admin: 12/17/19 09:20 Dose: 0.4 mg Documented by: Throat Lozenges (Cepacol Sore Throat Lozenge) 1 lozenge MUCOUS MEM Q2H PRN PRN PRN Reason: SORE THROAT Clinical Impression(s) from Imaging Studies [facility] X-Ray 12/17/19 10:10 IMPRESSION: 1. No suspicious abnormality of the left double-J stent in the ureter. 2. Normal appearing kidneys including the opacified bilateral pelvicalyceal systems. 3. No acute abnormality in the abdomen. Electronically Signed: Jovan Devries MD at 10:53 EDT , Service support , Chest X-Ray 12/17/19 10:13 IMPRESSION: Worsening of near complete atelectasis of the right lung with mild increase in mass effect right pleural fluid. Electronically Signed: Jovan Devries MD at 11:29 EDT , Service support , Medical Necessity - Tobacco Use Smoking Status: Never smoker Tobacco Use: Non-smoker Assessment/Plan All Active Problems Debility (Acute) Encephalopathy (Acute) Sepsis (Acute) Exertional dyspnea (Acute) Pleural effusion (Acute) RECOMMENDATIONS: 1. Continue to hold Eliquis for now given need for procedures. Continue heparin infusion in its place. 2. Plan for ultrasound-guided thoracentesis today with appropriate labs. 3. Possible CT scan of the chest if exudative in nature IMPRESSIONS: 1. Shortness of breath with large right pleural effusion Likely secondary to underlying cirrhosis. Agree with holding Eliquis with plans for diagnostic/therapeutic ultrasound-guided thoracentesis on Wednesday. Continue IV diuretic therapy as tolerated. Wean supplemental oxygen to maintain saturations at or above 90%. If patient has an exudative pattern, CT scan of the chest for central obstruction would likely be appropriate. This would require contrast. Clinical suspicion is for obstruction of the right mainstem secondary to size of the pleural effusion 2. Recent diagnosis of bilateral DVTs As noted above, the patient's Eliquis has been discontinued and she has been transitioned to a continuous heparin infusion for now. 3. Underlying liver cirrhosis The patient does require frequent paracenteses. The exact etiology for her cirrhosis is unclear. 4. Hypertension/hyperlipidemia/anemia/anxiety/GERD Complicates care, management, recovery and prognosis. Continue home medications as indicated. Inpatient E&M: [id number] [facility] Hosp L2
[2019-12-18] MEDS: Pantoprazole Sodium 20 MG Tablet PO (09:12)
[2019-12-18] MEDS: Metoclopramide 5 MG TABLET PO ×3 (09:13→17:01)
[2019-12-18] MEDS: Tamsulosin HCl 0.4 MG Capsule PO (09:13)
[2019-12-18] MEDS: Megestrol 40 MG Tablet PO ×2 (09:13→21:30)
[2019-12-18] MEDS: Spironolactone 25 MG Tablet PO (09:13)
--- NOTE | 2019-12-18 09:45 | RAD_ITS ---
STUDY: X-RAY CHEST REASON FOR EXAM: Female, 74 years old. RT SIDE POST THORACENTESIS. R/O PNEUMOTHORAX TECHNIQUE: AP inspiration and expiration views. COMPARISON: Comparison is made with prior study dated December 17, 2019. FINDINGS: The patient is status post right thoracentesis. There is no evidence of pneumothorax. Mild degree of residual pleural-parenchymal changes. RAD/Chest Insp/Exp 2 View IMPRESSION: Status post right thoracentesis. There is no evidence of pneumothorax. Mild residual pleural parenchymal changes at the right lung base. Electronically Signed: Jass Le, at 14:10 EDT , Service support ,
--- NOTE | 2019-12-18 10:00 | FLU_PTH ---
PATIENT: JULITA WILLIAM LOC: [facility] U#:[id number] AGE/SX: 74/F ROOM: [facility] RE12/15/[address]: Dr. Garfield Collins DO : 1945 BED: 1 DIS: 12/19/2019 SPEC #: [id number] RECD: 12/18/19 10:24 STATUS: TONY PASQUALE #: [id number] KORIN: 12/18/19 10:[address]: Garfield Collins DEPT: CYTOLOGY RECD BY: Debi Sheehan ENTERED: 12/18/19 11:18 SP TYPE: Fluid OTHR DR: MD Dr. Matt Levine DO Dr. Jeffrey Burkey, MD Tissues: THORACIC FLUID Procedures: Special Stain Group II Surgery Specimen Level IV Cytospin Fluid HEADER OPERATION: Thoracentesis PRE-OP DIAGNOSIS: Pleural effusion TISSUE SUBMITTED: Thoracentesis fluid for cytology DIAGNOSIS CYTOLOGY Thoracentesis fluid for cytology (cytospin and cell block): Negative for malignant cells. AM:brandi 12/19/19 CYTOLOGY STUDY Slides are reviewed. CYTOLOGY GROSS Received is 90 ml of yellow, hazy fluid labeled with the patient's name and and designated per the requisition as thoracentesis. Submitted for cytology preparation including cell block. / brandi 12/18/19 TC:5 CPT: 61818, 10374
[2019-12-18 11:01] LABS: Cytology, Body Fluid / CSF SEE PATHOLOGY REPORT
[2019-12-18 11:36] LABS: Body Fluid Mononuclear WBC % 66.7 %; Body Fluid Polynuclear WBC % 33.3 %; Body Fluid Total Cells Counted 0.042 10^3/ul
[2019-12-18 11:38] LABS: Glucose, Body Fluid 121 mg/dL (40-70); LDH,Body Fluid 42 Units/l (Not Establ.); Protein, Body Fluid 0.9 g/dL (Not Establ.)
[2019-12-18 12:40] LABS: Auto B Fluid Analyzer BKGD Ct COUNTS W/IN LIMITS (W/IN LIMITS); Source- Body Fluid THORACENTESIS
[2019-12-18 12:41] LABS: Appearance/Body Fluid CLEAR; Body Fluid QC Type(s) BF1Q; Color/Body Fluid LT YEL; Lymphocytes 24 %; Mesothelial Cells 10 %; Monocytes 55 %; Neutrophil (Segs) 21 %
--- NOTE | 2019-12-18 13:16 | PCM.PROGNOTE ---
Patient Problems: Active and Suspected Problems Exertional dyspnea (Acute) Pleural effusion (Acute) Subjective: Patient seen and examined. Underwent thoracentesis with improvement in breathing. Denies fever, chills. Cough improved. Complains of left upper extremity swelling and discomfort from prior infiltrated IV. - Physical Exam Vitals/I&O's: Vital Signs Temp Pulse Resp BP Pulse Ox 97.5 F L 114 H 26 H 116/60 97 12/18/19 09:50 12/18/19 09:50 12/18/19 09:50 12/18/19 09:50 12/18/19 09:12 Oxygen Flow Rate (L/min) [7] 2 Oxygen Flow Rate (L/min) [6] 2 Oxygen Flow Rate (L/min) [5] 2 Oxygen Flow Rate (L/min) [4] 2 Oxygen Flow Rate (L/min) [3] 2 Oxygen Flow Rate (L/min) [2] 2 Oxygen Flow Rate (L/min) [1 ( 2 Initial Baseline)] Oxygen Flow Rate (L/min) 2 Oxygen Delivery Method [7] Nasal Cannula Oxygen Delivery Method [6] Nasal Cannula Oxygen Delivery Method [5] Nasal Cannula Oxygen Delivery Method [4] Nasal Cannula Oxygen Delivery Method [3] Nasal Cannula Oxygen Delivery Method [2] Nasal Cannula Oxygen Delivery Method [1 ( Nasal Cannula Initial Baseline)] Oxygen Delivery Method Nasal Cannula Weight: 143 lb 15.39 oz Body Mass Index (BMI) 24.2 Intake and Output for Last 24 Hours 12/16/19 12/17/19 12/18/19 23:59 23:59 23:59 Intake Total 793.34 / 793.34 1271.34 / 1271.34 194.05 / 194.05 Output Total 450 / 450 1860 / 1860 Balance 793.34 / 793.34 821.34 / 821.34 -1665.95 / -1665.95 General: Alert, Oriented x3, Cooperative HEENT: Atraumatic, PERRLA, EOMI, Normocephalic Oral: Dry Mucosa Neck: Supple, No JVD, Negative Carotid Bruits Lungs: Clear to auscultation, Diminished Cardiovascular: Regular rate, Regular Rhythm, Normal S1, Normal S2, No murmurs Abdomen: Bowel Sounds Present, Soft, Non Tender, Non-Distended Extremities: No clubbing, No cyanosis, No edema, Capillary Refill Less than 3 Seconds, - - Left upper extremity swelling and ecchymosis Skin: No rashes, No breakdown Musculoskeletal: No Tenderness to Palpation of Joints or Extremities, Cachexia, Muscle Wasting Neurological: Cranial nerves II-XII grossly intact, Neuro grossly intact Psych/Mental Status: Normal Affect, Appropriate Microbiology Past 72 Hours 12/18/19 10:00 Fluid - Pleural (Lung) Gram Stain - Final Laboratory Results 12/15/19 10:00: Fluid Glucose 121 H, Fluid Total Protein 0.9, Fluid LDH 42 12/15/19 10:00: Fluid pH Pending 12/17/19 23:35: APTT > 250.0 H* 12/18/19 10:00: Fluid Source THORACENTESIS, Fluid Color LT YEL, Fluid Appearance CLEAR, Fluid WBC 0.030, Fluid RBC Pending, Fluid Tot Cell Count 0.042 H, Fld Polynuclear WBCs # 0.010, Fld Polynuclear WBCs % 33.3, Fluid Mononuclear WBCs 0.020, Fld Mononuclear WBCs % 66.7, Fluid Neutrophils 21, Fluid Lymphocytes 24, Fluid Monocytes 55, Fld Mesothelial Cells 10, Fl Pathologist Comment May follow, Fluid Comment 2 SEE COMMENT 12/18/19 10:00: Miscellaneous Cytology Pending Current Medications Acetaminophen (Tylenol) 650 mg PO Q6H PRN PRN PRN Reason: Pain Score 1-10/Temp > 100.7 F Al Hydroxide/Mg Hydroxide (Mylanta Ii) 30 ml PO Q6H PRN PRN PRN Reason: Gastric Burning Albuterol Sulfate (Ventolin Aerosols) 2.5 mg INHALATION Q2H PRN PRN PRN Reason: Dyspnea, wheezing Atorvastatin Calcium (Lipitor) 20 mg PO QHS [facility] Last Admin: 12/17/19 21:00 Dose: 20 mg Documented by: Dextrose (D50w Syringe) 0 gm IV X1 PRN; Protocol PRN Reason: Hypoglycemia Glucagon () 1 mg IM .X1 PRN PRN Reason: Hypoglycemia Guaifenesin (Robitussin) 20 ml PO Q4H PRN PRN PRN Reason: COUGH Heparin Sodium (Porcine) (Heparin Na) 0 unit IV UD PRN; Protocol Hydralazine HCl (Apresoline Iv) 10 mg IV Q4H PRN PRN PRN Reason: SBP > 160 Sodium Chloride () 250 mls @ 15 mls/hr IV .[id number] PRN PRN Reason: Saline Flush Sodium Chloride () 250 mls @ 15 mls/hr IV .[id number] PRN PRN Reason: Additional IVPB Infusion Magnesium Hydroxide (Milk Of Magnesia) 30 ml PO DAILY PRN PRN PRN Reason: Constipation Megestrol Acetate (Megace) 40 mg PO BID [facility] Last Admin: 12/18/19 09:13 Dose: 40 mg Documented by: Melatonin (Melatonin) 10 mg PO QHS [facility] Last Admin: 12/17/19 21:00 Dose: 10 mg Documented by: Metoclopramide HCl (Reglan) 5 mg PO TIDCM [facility] Last Admin: 12/18/19 11:43 Dose: 5 mg Documented by: Mirtazapine (Remeron) 30 mg PO QHS [facility] Last Admin: 12/17/19 21:00 Dose: 30 mg Documented by: Morphine Sulfate () 2 mg IV Q3H PRN PRN PRN Reason: Pain Score 6-10/10 Nitroglycerin (Nitrostat) 0.4 mg SUBLINGUAL Q5M PRN PRN Reason: CARDIAC/CHEST PAIN Nutritional Formula (Lactose Free) (Ensure Enlive) 120 ml PO 4X/DAY [facility] Last Admin: 12/18/19 09:13 Dose: Not Given Documented by: Ondansetron HCl (Zofran) 4 mg IV Q8H PRN PRN PRN Reason: NAUSEA/VOMITING Last Admin: 12/17/19 09:21 Dose: 4 mg Documented by: Oxycodone HCl (Oxyir) 5 mg PO Q4H PRN PRN PRN Reason: Pain Score 4-5/10 Pantoprazole Sodium (Protonix) 20 mg PO DAILY [facility] Last Admin: 12/18/19 09:12 Dose: 20 mg Documented by: Prochlorperazine Edisylate (Compazine Iv) 5 mg IV Q4H PRN PRN PRN Reason: Breakthrough Nausea/Vomiting Psyllium Hydrophilic Mucilloid (Metamucil) 1 packet PO DAILY PRN PRN PRN Reason: Constipation Senna/Docusate Sodium (Senokot-S, Deana-Colace) 2 tablet PO BID PRN PRN PRN Reason: Constipation Sodium Chloride () 10 - 40 ml IV UD PRN PRN Reason: SALINE FLUSH Last Admin: 12/17/19 23:35 Dose: 30 ml Documented by: Spironolactone (Aldactone) 25 mg PO DAILY [facility] Last Admin: 12/18/19 09:13 Dose: 25 mg Documented by: Tamsulosin HCl (Flomax) 0.4 mg PO DAILY [facility] Last Admin: 12/18/19 09:13 Dose: 0.4 mg Documented by: Throat Lozenges (Cepacol Sore Throat Lozenge) 1 lozenge MUCOUS MEM Q2H PRN PRN PRN Reason: SORE THROAT Medical Necessity - Tobacco Use Smoking Status: Never smoker Tobacco Use: Non-smoker Assessment/Plan All Active Problems Debility (Acute) Encephalopathy (Acute) Sepsis (Acute) Exertional dyspnea (Acute) Pleural effusion (Acute) 1. Dyspnea secondary to large right pleural effusion-suspect secondary to underlying cirrhosis. Pulmonary medicine following. Underwent diagnostic and therapeutic ultrasound-guided thoracentesis with removal of 1650 mL fluid, cytology and culture sent. Patient has not been noted to be hypoxic. Continue supplement oxygen to maintain O2 at or above 90%. BNP 193. Echocardiogram demonstrates an EF of 65%. Heparin discontinued, patient refusing further PTT labs. Will resume home Eliquis regimen tomorrow morning. 2. Recent bilateral lower extremity DVTs-oral anticoagulation on hold as noted above. Resume Eliquis in a.m. 3. Nonalcoholic liver cirrhosis-patient undergoing routine paracentesis every 4 to 6 weeks. 4. Acute kidney injury-Baseline creatinine 0.7. Creatinine on admission 1.12. Acute kidney injury resolved. Trend BMP. 5. 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 Continue Flomax. 6. Hypertension-stable, continue current regimen. 7. Hyperlipidemia-continue statin. 8. Chronic normocytic anemia-stable, trend CBC. 9. GERD-continue PPI. 10. Anxiety, depression-continue Remeron. 11. History of stage III melanoma-status post excision. 12. Severe protein calorie malnutrition-as evidenced by cachectic appearance, 60 pound weight loss over the past year. Dietitian consult. Patient placed on Megace for appetite stimulant. DVT prophylaxis-Heparin drip discontinued, resume Eliquis in a.m. Discharge planning: Patient recently referred to palliative care which she is working on establishing. This patient was seen by DYLAN Hatfield under the supervision of Dr. Oliveira.
[2019-12-18] MEDS: 0.9% Saline Lock 10 ML Syringe IV (14:20)
[2019-12-18 14:21] LABS: Red Cell Count/Body Fluid 43 /mm3
[2019-12-18] MEDS: MELATONIN 10 MG TABLET PO (21:29)
[2019-12-18] MEDS: Atorvastatin Calcium 20 MG Tablet PO (21:30)
[2019-12-18] MEDS: Mirtazapine 30 MG Tablet PO (21:30)
[2019-12-19] VITALS (12 sets, daily range): BP systolic 90–114; BP diastolic 46–57; PULSE 53–109; RESP 15–17; TEMP 36.6–37.1; O2SAT 87–100
[2019-12-19] MEDS: 0.9% Saline Lock 10 ML Syringe IV (04:15)
[2019-12-19 04:23] LABS: Hematocrit 25.8 % (37-47); Hemoglobin 8.4 g/dL (12.0-15.0); Mean Corp Hgb Conc 32.6 g/dL (32-36); Mean Corpuscular Hgb 32.7 pg (27.0-32.0); Mean Corpuscular Volume 100.4 fL (81-99); Mean Platelet Vol. 9.1 fl (6.2-12.0); Platelet Count 119 K/mm3 (150-450); RBC Distribution Width CV 17.7 % (11.6-14.6); RBC Distribution Width SD 64.3 fl (35.1-43.9); Red Blood Count 2.57 M/mm3 (4.2-5.4); White Blood Count 6.9 K/mm3 (4.4-11.0)
[2019-12-19 04:43] LABS: Anion Gap 3 (5-15); BUN 19 mg/dL (7-18); BUN/Creat Ratio 21.7 RATIO (10-20); Calcium,Total 7.6 mg/dL (8.5-10.1); Chloride 99 mmol/L (98-107); Creatinine, Serum 0.88 mg/dL (0.55-1.02); EST Glomerular Filtration Rate 67 mL/min (>60); Est Glom Filt Rate - Afr Amer 81 mL/min (>60); Glucose 89 mg/dL (74-106); Potassium 4.1 mmol/L (3.5-5.1); Sodium Level 134 mmol/L (136-145)
--- NOTE | 2019-12-19 07:57 | PCM.PN.PUL ---
Patient Problems: Active and Suspected Problems Exertional dyspnea (Acute) Pleural effusion (Acute) Subjective: Patient did okay overnight. Patient is reporting subjective improvement following the thoracentesis. Patient still required supplemental oxygen at night with sleep. Blood pressure has remained stable. No bleeding complications have been reported. Objective: Laboratory work-up of pleural effusion is consistent with a transudate and chest x-ray shows good response to removal of fluid. - Physical Exam Vitals/I&O's: Vital Signs Temp Pulse Resp BP Pulse Ox 36.7 C 98 15 90/53 L 98 12/19/19 06:03 12/19/19 06:03 12/19/19 06:03 12/19/19 06:03 12/19/19 07:30 Oxygen Flow Rate (L/min) [7] 2 Oxygen Flow Rate (L/min) [6] 2 Oxygen Flow Rate (L/min) [5] 2 Oxygen Flow Rate (L/min) [4] 2 Oxygen Flow Rate (L/min) [3] 2 Oxygen Flow Rate (L/min) [2] 2 Oxygen Flow Rate (L/min) [1 ( 2 Initial Baseline)] Oxygen Flow Rate (L/min) 2 Oxygen Delivery Method [7] Nasal Cannula Oxygen Delivery Method [6] Nasal Cannula Oxygen Delivery Method [5] Nasal Cannula Oxygen Delivery Method [4] Nasal Cannula Oxygen Delivery Method [3] Nasal Cannula Oxygen Delivery Method [2] Nasal Cannula Oxygen Delivery Method [1 ( Nasal Cannula Initial Baseline)] Oxygen Delivery Method Nasal Cannula Weight: 63.2 kg Body Mass Index (BMI) 24.2 Intake and Output for Last 24 Hours 12/17/19 12/18/19 12/19/19 23:59 23:59 23:59 Intake Total 1271.34 / 1271.34 774.05 / 774.05 Output Total 450 / 450 3510 / 3510 Balance 821.34 / 821.34 -2735.95 / -2735.95 General: Alert, Cooperative, No apparent distress, - - No conversational dyspnea HEENT: Atraumatic, PERRLA, EOMI, Normocephalic, - - Slight scleral icterus Oral: Moist Mucosa, No Gingival or Mucosal Lesions/ Ulcerations Neck: Supple, No JVD, No Nodes, Trachea Midline Lungs: No rhonchi, No wheeze, No rales, Diminished, - - Symmetric expansion. Cardiovascular: Normal S1, Normal S2, Irregular Rate, Murmur, No rub noted, No Gallop Abdomen: Bowel Sounds Present, Soft, Non Tender, Distended - Slightly Extremities: No clubbing, No cyanosis, Capillary Refill Less than 3 Seconds, Edema Skin: - - No change compared to previous Musculoskeletal: No Tenderness to Palpation of Joints or Extremities Lymphatic: No Cervical, Supraclavicular, or Inguinal Adenopathy Neurological: Cranial nerves II-XII grossly intact, Neuro grossly intact, Motor Exam 5/5 strength throughout Psych/Mental Status: Appropriate, Flat Affect Microbiology Past 72 Hours 12/18/19 10:00 Fluid - Pleural (Lung) Gram Stain - Final Laboratory Results 12/15/19 10:00: Fluid Glucose 121 H, Fluid Total Protein 0.9, Fluid LDH 42 12/15/19 10:00: Fluid pH Pending 12/18/19 10:00: Fluid Source THORACENTESIS, Fluid Color LT YEL, Fluid Appearance CLEAR, Fluid WBC 0.030, Fluid RBC 43, Fluid Tot Cell Count 0.042 H, Fld Polynuclear WBCs # 0.010, Fld Polynuclear WBCs % 33.3, Fluid Mononuclear WBCs 0.020, Fld Mononuclear WBCs % 66.7, Fluid Neutrophils 21, Fluid Lymphocytes 24, Fluid Monocytes 55, Fld Mesothelial Cells 10, Fl Pathologist Comment May follow, Fluid Comment 2 SEE COMMENT 12/18/19 10:00: Miscellaneous Cytology Pending 12/19/19 04:10: WBC 6.9, RBC 2.57 L, Hgb 8.4 L, Hct 25.8 L, MCV 100.4 H, MCH 32.7 H, MCHC 32.6, RDW Std Deviation 64.3 H, RDW Coeff of Shane 17.7 H, Plt Count 119 L, MPV 9.1 12/19/19 04:10: Sodium 134 L, Potassium 4.1, Chloride 99, Carbon Dioxide 32.0, Anion Gap 3 L, BUN 19 H, Creatinine 0.88, Estim Creat Clear Calc 49.70, Est GFR (MDRD) Af Amer 81, Est GFR (MDRD) Non-Af 67, BUN/Creatinine Ratio 21.7 H, Glucose 89, Calcium 7.6 L Current Medications Acetaminophen (Tylenol) 650 mg PO Q6H PRN PRN PRN Reason: Pain Score 1-10/Temp > 100.7 F Al Hydroxide/Mg Hydroxide (Mylanta Ii) 30 ml PO Q6H PRN PRN PRN Reason: Gastric Burning Albuterol Sulfate (Ventolin Aerosols) 2.5 mg INHALATION Q2H PRN PRN PRN Reason: Dyspnea, wheezing Apixaban (Eliquis) 5 mg PO BID [facility] Atorvastatin Calcium (Lipitor) 20 mg PO QHS [facility] Last Admin: 12/18/19 21:30 Dose: 20 mg Documented by: Dextrose (D50w Syringe) 0 gm IV X1 PRN; Protocol PRN Reason: Hypoglycemia Glucagon () 1 mg IM .X1 PRN PRN Reason: Hypoglycemia Guaifenesin (Robitussin) 20 ml PO Q4H PRN PRN PRN Reason: COUGH Hydralazine HCl (Apresoline Iv) 10 mg IV Q4H PRN PRN PRN Reason: SBP > 160 Sodium Chloride () 250 mls @ 15 mls/hr IV .[id number] PRN PRN Reason: Saline Flush Sodium Chloride () 250 mls @ 15 mls/hr IV .[id number] PRN PRN Reason: Additional IVPB Infusion Magnesium Hydroxide (Milk Of Magnesia) 30 ml PO DAILY PRN PRN PRN Reason: Constipation Megestrol Acetate (Megace) 40 mg PO BID [facility] Last Admin: 12/18/19 21:30 Dose: 40 mg Documented by: Melatonin (Melatonin) 10 mg PO QHS [facility] Last Admin: 12/18/19 21:29 Dose: 10 mg Documented by: Metoclopramide HCl (Reglan) 5 mg PO TIDCM [facility] Last Admin: 12/18/19 17:01 Dose: 5 mg Documented by: Mirtazapine (Remeron) 30 mg PO QHS [facility] Last Admin: 12/18/19 21:30 Dose: 30 mg Documented by: Morphine Sulfate () 2 mg IV Q3H PRN PRN PRN Reason: Pain Score 6-10/10 Nitroglycerin (Nitrostat) 0.4 mg SUBLINGUAL Q5M PRN PRN Reason: CARDIAC/CHEST PAIN Nutritional Formula (Lactose Free) (Ensure Enlive) 120 ml PO 4X/DAY [facility] Last Admin: 12/18/19 21:29 Dose: Not Given Documented by: Ondansetron HCl (Zofran) 4 mg IV Q8H PRN PRN PRN Reason: NAUSEA/VOMITING Last Admin: 12/17/19 09:21 Dose: 4 mg Documented by: Oxycodone HCl (Oxyir) 5 mg PO Q4H PRN PRN PRN Reason: Pain Score 4-5/10 Pantoprazole Sodium (Protonix) 20 mg PO DAILY [facility] Last Admin: 12/18/19 09:12 Dose: 20 mg Documented by: Prochlorperazine Edisylate (Compazine Iv) 5 mg IV Q4H PRN PRN PRN Reason: Breakthrough Nausea/Vomiting Psyllium Hydrophilic Mucilloid (Metamucil) 1 packet PO DAILY PRN PRN PRN Reason: Constipation Senna/Docusate Sodium (Senokot-S, Deana-Colace) 2 tablet PO BID PRN PRN PRN Reason: Constipation Sodium Chloride () 10 - 40 ml IV UD PRN PRN Reason: SALINE FLUSH Last Admin: 12/19/19 04:15 Dose: 20 ml Documented by: Spironolactone (Aldactone) 25 mg PO DAILY [facility] Last Admin: 12/18/19 09:13 Dose: 25 mg Documented by: Tamsulosin HCl (Flomax) 0.4 mg PO DAILY [facility] Last Admin: 12/18/19 09:13 Dose: 0.4 mg Documented by: Throat Lozenges (Cepacol Sore Throat Lozenge) 1 lozenge MUCOUS MEM Q2H PRN PRN PRN Reason: SORE THROAT Clinical Impression(s) from Imaging Studies Chest X-Ray 12/18/19 09:45 IMPRESSION: Status post right thoracentesis. There is no evidence of pneumothorax. Mild residual pleural parenchymal changes at the right lung base. Electronically Signed: Jass Le, at 14:10 EDT , Service support , Medical Necessity - Tobacco Use Smoking Status: Never smoker Tobacco Use: Non-smoker Assessment/Plan All Active Problems Debility (Acute) Encephalopathy (Acute) Sepsis (Acute) Exertional dyspnea (Acute) Pleural effusion (Acute) RECOMMENDATIONS: 1. Okay to reinitiate Eliquis therapy 2. Aggressive optimization of cirrhosis 3. No CT scan is indicated for the chest 4. Walking oximetry prior to discharge IMPRESSIONS: 1. Shortness of breath with large right transudative pleural effusion Likely secondary to underlying cirrhosis. Okay to reinitiate Eliquis from my perspective. Continue IV diuretic therapy as tolerated. Wean supplemental oxygen to maintain saturations at or above 90%. Given transudate pattern, this is likely coming from patient's cirrhosis and will be difficult to control given the chest and negative pressure. Anticipate aggressive fluid management will be required. Patient should be evaluated for supplemental oxygen prior to discharge. Repeat chest x-ray in 2 to 4 weeks to evaluate for reaccumulation. Patient should receive paracentesis procedure prior to any thoracentesis to avoid rapid reaccumulation. 2. Recent diagnosis of bilateral DVTs As noted above, the patient's Eliquis has been discontinued and she has been transitioned to a continuous heparin infusion for now. 3. Underlying liver cirrhosis The patient does require frequent paracenteses. The exact etiology for her cirrhosis is unclear. 4. Hypertension/hyperlipidemia/anemia/anxiety/GERD Complicates care, management, recovery and prognosis. Continue home medications as indicated. Inpatient E&M: [id number] [facility] L2
[2019-12-19] MEDS: Metoclopramide 5 MG TABLET PO ×2 (08:52→11:26)
[2019-12-19] MEDS: Megestrol 40 MG Tablet PO (08:52)
[2019-12-19] MEDS: APIXABAN 5 MG TABLET PO (08:52)
[2019-12-19] MEDS: Tamsulosin HCl 0.4 MG Capsule PO (08:53)
[2019-12-19] MEDS: Spironolactone 25 MG Tablet PO (08:53)
[2019-12-19] MEDS: Pantoprazole Sodium 20 MG Tablet PO (08:54)
--- NOTE | 2019-12-19 09:13 | CASEMGMT ---
Addendum entered by Mindi Anguiano 12/19/19 09:39: Pt does qualify for 2liters home oxygen w/ exertion at this time. Pt had previously stated she preferred [place] for home oxygen at discharge. Referral faxed to [facility] once script signed and call to [facility] to notify of referral. Claudio SADLER CM Original Note: H&P and FELICITAS order faxed to [facility] at this time. Claudio SADLER CM
--- NOTE | 2019-12-19 10:17 | US_ITS ---
PROCEDURE: Ultrasound guided paracentesis. DATE OF EXAMINATION: December 19, 2019.. INDICATION: Female, 74 years old. Ascites. PHYSICIAN: Jass Le M.D. TECHNIQUE: The risks, benefits, and alternatives to the procedure were explained to the patient. The specific risks of bleeding, infection, and damage to bowel were detailed and accepted. Witnessed informed consent was obtained. The abdomen was ultrasonographically surveyed. An appropriate pocket of fluid was identified at the right lower quadrant. The skin were cleaned and prepped in the usual sterile fashion. Using ultrasound guidance, the peritoneal cavity was accessed with a 5-Sammarinese paracentesis needle/catheter system. The trocar was removed. A total of 2150 ml of chris-colored fluid were removed from the peritoneal cavity. The catheter was removed and a sterile dressing was applied. The procedure was well tolerated. US/Paracentesis with US IMPRESSION: Ultrasound guided paracentesis. Electronically Signed: Jass Le, at 13:17 EDT , Service support ,
[2019-12-19 11:14] LABS: Pathologist Comment/Body Fluid Reviewed
--- NOTE | 2019-12-19 11:35 | DCINST_ITS ---
- Discharge Diagnoses Current Active Problems: Current Active and Chronic Problems DVT, bilateral lower limbs (Chronic) GERD (gastroesophageal reflux disease) (Chronic) Exertional dyspnea (Acute) Pleural effusion (Acute) You will use the following diet at home:: No restrictions Discharge Activity: Return to Normal Activity Call your doctor if you observe: Shortness of breath, Dizziness, Fainting spells, Chest pain Instructions: Thoracentesis Allergies/Adverse Reactions: Allergies Sulfa (Sulfonamide Antibiotics) Allergy (Verified 12/05/19 15:22) Swelling Medications to take at Discharge Melatonin 10 mg PO QHS 05/16/19 Tamsulosin HCl [Flomax] 0.4 mg PO DAILY 05/16/19 Acetaminophen [Tylenol] 1,000 mg PO Q6H PRN PRN tab 07/13/19 Atorvastatin Calcium [Lipitor] 20 mg PO QHS #30 tab 07/13/19 Furosemide [Lasix] 20 mg PO DAILY 10/12/19 Hydrocortisone 2.5% Crm [Hytone] 1 applic RECTAL BID PRN 10/12/19 Metoclopramide HCl 5 mg PO TIDCM 10/12/19 Multivit with Iron,Minerals [Multivitamins with Iron] 1 ea PO DAILY 10/12/19 Ondansetron HCl [Zofran] 4 mg PO Q8H PRN PRN 10/12/19 Pantoprazole Sodium [Protonix] 20 mg PO DAILY 10/12/19 Sennosides/Docusate Sodium [Senna Plus 8.6-50 mg Tablet] 1 ea PO DAILY 10/12/19 Spironolactone 25 mg PO DAILY 10/12/19 Mirtazapine [Remeron] 30 mg PO QHS #0 10/15/19 Apixaban [Eliquis] 5 mg PO BID #74 tab 12/05/19 Pseudoephed/Codeine/Guaifen [Virtussin DAC Liquid] 473 ml PO DAILY PRN 12/15/19 Megestrol [Megace] 40 mg PO BID #60 tab 12/19/19 The following prescriptions were given: Megestrol [Megace] 40 mg PO BID #60 tab Transmission Status: Sent to [facility] Primary Care Physician: Eagle Dang MD [Primary Care Provider] - Please follow up with your Primary Care Physician in: 1 Week Test Results: Test results from this visit will be discussed in further detail at your follow- up appointment, if applicable. Please Follow Up With: Abdulaziz Estrada MD When: 2-4 Weeks Please Follow Up With: Filipe Gutierres When: Stent removal- as scheduled Please Follow Up With: Jose Antonio Skinner DO When: palliative care Proposed Discharge Date: 12/19/19
--- NOTE | 2019-12-19 11:44 | DS.PCM_ITS ---
Discharge Date and Diagnosis Date of Admission: 12/15/19 Date of Discharge: 12/19/19 - Primary Discharge Diagnosis Acute Problems: Active Problems 1. Acute hypoxic respiratory insufficiency secondary to large right pleural effusion as a result of underlying cirrhosis. 2. Recent bilateral lower extremity DVTs 3. Nonalcoholic liver cirrhosis 4. Acute kidney injury 5. 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 Hypertension 7. Hyperlipidemia 8. Chronic normocytic anemia 9. GERD 10. Anxiety, depression 11. History of stage III melanoma 12. Severe protein calorie malnutrition - Secondary Discharge Diagnosis Chronic Problems: Chronic Problems Kidney stones (Chronic) Septic shock (Chronic) Body mass index (BMI) 35.0-35.9, adult (Chronic) Pyelonephritis (Chronic) Hydroureter, left (Chronic) Hydronephrosis, left (Chronic) Hypertension (Chronic) Hyperlipidemia (Chronic) Melanoma (Chronic) Lumbar spondylosis (Chronic) Vitamin D deficiency (Chronic) Iron deficiency anemia (Chronic) Overactive bladder (Chronic) Chronic cough (Chronic) Fatty liver (Chronic) Recurrent kidney stones (Chronic) Depression (Chronic) Urinary retention (Chronic) Osteoarthritis (Chronic) DVT, bilateral lower limbs (Chronic) GERD (gastroesophageal reflux disease) (Chronic) Hospital Course and Treatment Imaging Results: Diagnostic Data Chest CTA 12/15/19 20:00 IMPRESSION: 1. No CT evidence of pulmonary embolism. 2. Very large right-sided pleural effusion with now total collapse the right lung. 3. Cirrhosis with a large amount of ascites. Electronically Signed: Angel Schulz MD at 22:53 EDT Tel , Service support , KUB X-Ray 12/17/19 10:10 IMPRESSION: 1. No suspicious abnormality of the left double-J stent in the ureter. 2. Normal appearing kidneys including the opacified bilateral pelvicalyceal systems. 3. No acute abnormality in the abdomen. Electronically Signed: Jovan Devries MD at 10:53 EDT , Service support , Thoracentesis Ultrasound 12/18/19 07:00 IMPRESSION: Ultrasound-guided right thoracentesis. Electronically Signed: Jass Le, at 11:00 EDT , Service support , Chest X-Ray 12/18/19 09:45 IMPRESSION: Status post right thoracentesis. There is no evidence of pneumothorax. Mild residual pleural parenchymal changes at the right lung base. Electronically Signed: Jass Le, at 14:10 EDT , Service support , Dr. Iraheta- Pulmonary medicine Operations: None Procedures: 2-D Echocardiogram, Paracentesis, Thoracentesis Summary of Care Provided: The patient is a 74 year old F admitted 12/15/2019 due to dyspnea. 1. Acute hypoxic respiratory insufficiency secondary to large right pleural effusion-secondary to underlying cirrhosis. Pulmonary medicine consulted during admission. Underwent diagnostic and therapeutic ultrasound-guided thoracentesis with removal of 1650 mL fluid. Pleural fluid consistent with transudate of effusion, consistent with underlying cirrhosis. BNP 193. Echocardiogram demonstrates an EF of 65%. Home oxygen testing completed prior to discharge and patient will require 2 L nasal cannula with ambulation. She is ambulatory in the home. Continue supplement oxygen to maintain O2 at or above 90%. Follow-up with primary care physician within 1 week. Follow-up with pulmonary medicine in 2 to 4 weeks. Patient was referred to palliative care as well which she will call to establish at discharge. 2. Recent bilateral lower extremity DVTs-resume home Eliquis regimen. 3. Nonalcoholic liver cirrhosis-patient undergoing routine paracentesis every 4 to 6 weeks. Patient previously had a paracentesis completed at [facility] and is requesting to now have it done at [facility]. Instructed patient to follow-up with primary care physician to have this ordered. Recommend increased frequency of paracentesis. Patient underwent paracentesis prior to discharge with 2.1 L fluid removed. 4. Acute kidney injury-Baseline creatinine 0.7. Creatinine on admission 1.12. Acute kidney injury resolved. 5. History of recurrent nephrolithiasis, ureteral stenosis status post left- sided ureteral stent in place-patient has upcoming appointment for removal of stent at [facility] on Wednesday. Continue Flomax. 6. Hypertension-stable, continue current regimen. 7. Hyperlipidemia-continue statin. 8. Chronic normocytic anemia-stable. 9. GERD-continue PPI. 10. Anxiety, depression-continue Remeron. 11. History of stage III melanoma-status post excision. 12. Severe protein calorie malnutrition-as evidenced by cachectic appearance, 60 pound weight loss over the past year. Dietitian consult. Patient placed on Megace for appetite stimulant. General: Alert, Oriented x3, Cooperative HEENT: Atraumatic, PERRLA, EOMI, Normocephalic Oral: Dry Mucosa Neck: Supple, No JVD, Negative Carotid Bruits Lungs: Clear to auscultation, Diminished Cardiovascular: Regular rate, Regular Rhythm, Normal S1, Normal S2, No murmurs Abdomen: Bowel Sounds Present, Soft, Non Tender, Non-Distended Extremities: No clubbing, No cyanosis, No edema, Capillary Refill Less than 3 Seconds, - - Left upper extremity swelling and ecchymosis Skin: No rashes, No breakdown Musculoskeletal: No Tenderness to Palpation of Joints or Extremities, Cachexia, Muscle Wasting Neurological: Cranial nerves II-XII grossly intact, Neuro grossly intact Psych/Mental Status: Normal Affect, Appropriate Patient seen and examined prior to discharge. Physical assessment as noted above. Patient is stable for discharge with follow up recommendations as noted above. This patient was seen by DYLAN Hatfield under the supervision of Dr. Collins. - Physical Exam Vitals/I&O's: Vital Signs Temp Pulse Resp BP Pulse Ox 98.7 F 53 L 16 109/53 L 92 12/19/19 08:00 12/19/19 08:00 12/19/19 08:00 12/19/19 08:00 12/19/19 08:38 Oxygen Flow Rate (L/min) [7] 2 Oxygen Flow Rate (L/min) [6] 2 Oxygen Flow Rate (L/min) [5] 2 Oxygen Flow Rate (L/min) [4] 2 Oxygen Flow Rate (L/min) [3] 2 Oxygen Flow Rate (L/min) [2] 2 Oxygen Flow Rate (L/min) [1 ( 2 Initial Baseline)] Oxygen Flow Rate (L/min) [ 2 AMBULATION with Oxygen] Oxygen Flow Rate (L/min) [ 0 AMBULATING on Room Air] Oxygen Flow Rate (L/min) [At 0 REST on Room Air] Oxygen Flow Rate (L/min) 2 Oxygen Delivery Method [7] Nasal Cannula Oxygen Delivery Method [6] Nasal Cannula Oxygen Delivery Method [5] Nasal Cannula Oxygen Delivery Method [4] Nasal Cannula Oxygen Delivery Method [3] Nasal Cannula Oxygen Delivery Method [2] Nasal Cannula Oxygen Delivery Method [1 ( Nasal Cannula Initial Baseline)] Oxygen Delivery Method Nasal Cannula Weight: 139 lb 5.314 oz Body Mass Index (BMI) 24.2 Intake and Output for Last 24 Hours 12/17/19 12/18/19 12/19/19 23:59 23:59 23:59 Intake Total 1271.34 / 1271.34 774.05 / 774.05 Output Total 450 / 450 3510 / 3510 Balance 821.34 / 821.34 -2735.95 / -2735.95 Microbiology Past 72 Hours 12/18/19 10:00 Fluid - Pleural (Lung) Gram Stain - Final 12/18/19 10:00 Fluid - Pleural (Lung) Body Fluid Culture - Preliminary No growth-Final to follow Laboratory Results 12/18/19 10:00: Fluid Source THORACENTESIS, Fluid Color LT YEL, Fluid Appearance CLEAR, Fluid WBC 0.030, Fluid RBC 43, Fluid Tot Cell Count 0.042 H, Fld Polynuclear WBCs # 0.010, Fld Polynuclear WBCs % 33.3, Fluid Mononuclear WBCs 0.020, Fld Mononuclear WBCs % 66.7, Fluid Neutrophils 21, Fluid Lymphocytes 24, Fluid Monocytes 55, Fld Mesothelial Cells 10, Fl Pathologist Comment Reviewed, Fluid Comment 2 SEE COMMENT 12/19/19 04:10: WBC 6.9, RBC 2.57 L, Hgb 8.4 L, Hct 25.8 L, MCV 100.4 H, MCH 32.7 H, MCHC 32.6, RDW Std Deviation 64.3 H, RDW Coeff of Shane 17.7 H, Plt Count 119 L, MPV 9.1 12/19/19 04:10: Sodium 134 L, Potassium 4.1, Chloride 99, Carbon Dioxide 32.0, Anion Gap 3 L, BUN 19 H, Creatinine 0.88, Estim Creat Clear Calc 49.70, Est GFR (MDRD) Af Amer 81, Est GFR (MDRD) Non-Af 67, BUN/Creatinine Ratio 21.7 H, Glucose 89, Calcium 7.6 L Current Medications Acetaminophen (Tylenol) 650 mg PO Q6H PRN PRN PRN Reason: Pain Score 1-10/Temp > 100.7 F Al Hydroxide/Mg Hydroxide (Mylanta Ii) 30 ml PO Q6H PRN PRN PRN Reason: Gastric Burning Albuterol Sulfate (Ventolin Aerosols) 2.5 mg INHALATION Q2H PRN PRN PRN Reason: Dyspnea, wheezing Apixaban (Eliquis) 5 mg PO BID [facility] Last Admin: 12/19/19 08:52 Dose: 5 mg Documented by: Atorvastatin Calcium (Lipitor) 20 mg PO QHS [facility] Last Admin: 12/18/19 21:30 Dose: 20 mg Documented by: Dextrose (D50w Syringe) 0 gm IV X1 PRN; Protocol PRN Reason: Hypoglycemia Glucagon () 1 mg IM .X1 PRN PRN Reason: Hypoglycemia Guaifenesin (Robitussin) 20 ml PO Q4H PRN PRN PRN Reason: COUGH Hydralazine HCl (Apresoline Iv) 10 mg IV Q4H PRN PRN PRN Reason: SBP > 160 Sodium Chloride () 250 mls @ 15 mls/hr IV .[id number] PRN PRN Reason: Saline Flush Sodium Chloride () 250 mls @ 15 mls/hr IV .[id number] PRN PRN Reason: Additional IVPB Infusion Magnesium Hydroxide (Milk Of Magnesia) 30 ml PO DAILY PRN PRN PRN Reason: Constipation Megestrol Acetate (Megace) 40 mg PO BID [facility] Last Admin: 12/19/19 08:52 Dose: 40 mg Documented by: Melatonin (Melatonin) 10 mg PO QHS [facility] Last Admin: 12/18/19 21:29 Dose: 10 mg Documented by: Metoclopramide HCl (Reglan) 5 mg PO TIDCM [facility] Last Admin: 12/19/19 11:26 Dose: 5 mg Documented by: Mirtazapine (Remeron) 30 mg PO QHS [facility] Last Admin: 12/18/19 21:30 Dose: 30 mg Documented by: Morphine Sulfate () 2 mg IV Q3H PRN PRN PRN Reason: Pain Score 6-10/10 Nitroglycerin (Nitrostat) 0.4 mg SUBLINGUAL Q5M PRN PRN Reason: CARDIAC/CHEST PAIN Nutritional Formula (Lactose Free) (Ensure Enlive) 120 ml PO 4X/DAY [facility] Last Admin: 12/19/19 11:26 Dose: Not Given Documented by: Ondansetron HCl (Zofran) 4 mg IV Q8H PRN PRN PRN Reason: NAUSEA/VOMITING Last Admin: 12/17/19 09:21 Dose: 4 mg Documented by: Oxycodone HCl (Oxyir) 5 mg PO Q4H PRN PRN PRN Reason: Pain Score 4-5/10 Pantoprazole Sodium (Protonix) 20 mg PO DAILY [facility] Last Admin: 12/19/19 08:54 Dose: 20 mg Documented by: Prochlorperazine Edisylate (Compazine Iv) 5 mg IV Q4H PRN PRN PRN Reason: Breakthrough Nausea/Vomiting Psyllium Hydrophilic Mucilloid (Metamucil) 1 packet PO DAILY PRN PRN PRN Reason: Constipation Senna/Docusate Sodium (Senokot-S, Deana-Colace) 2 tablet PO BID PRN PRN PRN Reason: Constipation Sodium Chloride () 10 - 40 ml IV UD PRN PRN Reason: SALINE FLUSH Last Admin: 12/19/19 04:15 Dose: 20 ml Documented by: Spironolactone (Aldactone) 25 mg PO DAILY [facility] Last Admin: 12/19/19 08:53 Dose: 25 mg Documented by: Tamsulosin HCl (Flomax) 0.4 mg PO DAILY [facility] Last Admin: 12/19/19 08:53 Dose: 0.4 mg Documented by: Throat Lozenges (Cepacol Sore Throat Lozenge) 1 lozenge MUCOUS MEM Q2H PRN PRN PRN Reason: SORE THROAT Discharge Diet: No Restrictions Discharge Activity: Return to Normal Activity Call your doctor if you observe: Shortness of breath, Dizziness, Fainting spells, Chest pain Home Medications: Medications to take at Discharge Melatonin 10 mg PO QHS 05/16/19 Tamsulosin HCl [Flomax] 0.4 mg PO DAILY 05/16/19 Acetaminophen [Tylenol] 1,000 mg PO Q6H PRN PRN tab 07/13/19 Atorvastatin Calcium [Lipitor] 20 mg PO QHS #30 tab 07/13/19 Furosemide [Lasix] 20 mg PO DAILY 10/12/19 Hydrocortisone 2.5% Crm [Hytone] 1 applic RECTAL BID PRN 10/12/19 Metoclopramide HCl 5 mg PO TIDCM 10/12/19 Multivit with Iron,Minerals [Multivitamins with Iron] 1 ea PO DAILY 10/12/19 Ondansetron HCl [Zofran] 4 mg PO Q8H PRN PRN 10/12/19 Pantoprazole Sodium [Protonix] 20 mg PO DAILY 10/12/19 Sennosides/Docusate Sodium [Senna Plus 8.6-50 mg Tablet] 1 ea PO DAILY 10/12/19 Spironolactone 25 mg PO DAILY 10/12/19 Mirtazapine [Remeron] 30 mg PO QHS #0 10/15/19 Apixaban [Eliquis] 5 mg PO BID #74 tab 12/05/19 Pseudoephed/Codeine/Guaifen [Virtussin DAC Liquid] 473 ml PO DAILY PRN 12/15/19 Megestrol [Megace] 40 mg PO BID #60 tab 12/19/19 Following Prescrptions Were Given to Patient: Megestrol [Megace] 40 mg PO BID #60 tab Transmission Status: Received by [facility] Primary Care Physician: Eagle Dang MD [Primary Care Provider] - Please follow up with your Primary Care Physician in: 1 Week Please Follow Up With: Abdulaziz Estrada MD When: 2-4 Weeks Please Follow Up With: Filipe Gutierres When: Stent removal- as scheduled Please Follow Up With: Jose Antonio Skinner DO When: palliative care Patient Instructions: Thoracentesis Disposition: Home Minutes spent on discharge:: 35 Patient Condition:: Stable Medical Necessity - Tobacco Use Smoking Status: Never smoker Tobacco Use: Non-smoker Meaningful Use Info Meaningful Use Diagnoses (Choose all that apply): None applicable
--- NOTE | 2019-12-19 13:28 | CASEMGMT ---
Call to [facility] to notify of pt discharge later today and that H&P, FELICITAS, and D/C summ/instructions faxed. Message left on Justin's VM at this time with this RN CM's contact info, if needed. D/C summ/instructions to be faxed once completed. Claudio SADLER CM
--- NOTE | 2019-12-20 12:24 | CASEMGMT ---
Social Work Followup Call: date of discharge: 12/19/19 reason for followup call: Pt stated PCP made referral to palliative medicine but has not heard from them duration of call: 8 minutes Outcome: Phone call to [facility] who states they have never received a referral for this pt. Phone call to pt and informed. Pt states she has a followup appt with PCP tomorrow and will address with him at that time. No other concerns voiced. VICENTE Isabel
--- NOTE | 2019-12-20 15:13 | CASEMGMT ---
RN CM Discharge F/U Phone Call LACE: 15 Strata: 4 Discharge date: 12/19/2019 Call date: 12/20/2019 Call time: [id number] Attempted to reach pt without success at this time, message left for pt to call this RN CM back if/when able. SStaten RN CM Admission dx: Dyspnea, Large pleural effusion, PE?
[2019-12-20 23:52] LABS: pH, Body Fluid 11254 7.5 (Not Estab.)
== END 2019-12-19 13:55 | disposition home or self-care (01) | DRG 432 ==
LOC: ED 18:46 → PCU 12-16 05:01
PROVIDERS: Internal Medicine; Nurse Practitioner Family; Admitting Provider Family Medicine; Emergency Provider Emergency Medicine; PCP Family Medicine; Visit Provider Internal Medicine
DX: K74.60 Unspecified cirrhosis of liver (principal); E43 Unspecified severe protein-calorie malnutrition; J90 Pleural effusion, not elsewhere classified; I82.503 Chronic embolism and thrombosis of unspecified deep veins of lower extremity, bilateral; J98.11 Atelectasis; N17.9 Acute kidney failure, unspecified; K21.9 Gastro-esophageal reflux disease without esophagitis; R09.02 Hypoxemia; I10 Essential (primary) hypertension; E78.5 Hyperlipidemia, unspecified; D50.9 Iron deficiency anemia, unspecified; F41.8 Other specified anxiety disorders; D63.8 Anemia in other chronic diseases classified elsewhere; Z85.820 Personal history of malignant melanoma of skin; Z87.442 Personal history of urinary calculi; Z79.01 Long term (current) use of anticoagulants; Z66 Do not resuscitate; Z96.659 Presence of unspecified artificial knee joint; Z68.24 Body mass index [BMI] 24.0-24.9, adult; Z80.8 Family history of malignant neoplasm of other organs or systems; Z82.0 Family history of epilepsy and other diseases of the nervous system; Z82.3 Family history of stroke; Z82.49 Family history of ischemic heart disease and other diseases of the circulatory system; Z90.710 Acquired absence of both cervix and uterus; N32.81 Overactive bladder
CPT/HCPCS: 32555; 36415; 36569; 49083; 71045; 71046; 71275; 74018; 80048; 82945; 83615; 83880; 83986; 84157; 84484; 85025; 85027; 85610; 85730; 87070; 87075; 87205; 88108; 88305; 88313; 89050; 93005; 93306; 97110; 97162; 97166; 97530; 97535; 97802; 99251; 99285; Q9967; A4216; G0463; J1940; J2405

== ENCOUNTER → 2020-01-02 14:20 | Outpatient (CLI) | payer MEDICARE, OTHER, SELFPAY ==
[2019-12-15 23:18] VITALS: BMI 24.2
--- NOTE | 2020-01-02 14:28 | US_ITS ---
PROCEDURE: ULTRASOUND GUIDED THORACENTESIS CLINICAL HISTORY: Female, 74 years old. Pleural effusion CONSENT: Informed consent obtained Time-Out Called: Yes. Consent form signed: Yes. PT-PTT Levels Checked: Yes. SEDATION: Local with 2% Xylocaine TECHNIQUE: Sonographically guided FINDINGS: FLUID PRE-PROCEDURE After informed consent was obtained, patient sat at the bedside leaning over the bedside table. An appropriate site for thoracentesis was determined and marked using sonographic guidance. The area was prepped and draped in a sterile manner, and 2% Xylocaine was used as local anesthetic. Under sonographic guidance, a valved 15g Podotreeeh drainage catheter was advanced into the right hemithorax and approximately 1550 mL of straw-colored serous fluid was withdrawn from the right hemithorax. Patient tolerated the procedure well with no immediate complications, a post procedure chest x-ray did not show evidence of pneumothorax. US/Paracentesis with US IMPRESSION: Successful sonographically guided thoracentesis Electronically Signed: Bon Betancourt MD at 7:46 EDT , Service support ,
[2020-01-02 14:56] LABS: Platelet Count 185 K/mm3 (150-450)
[2020-01-02 15:21] VITALS: BP 108/54; BP 108/60; PULSE 84; PULSE 88; RESP 14; RESP 16; O2SAT 97; O2SAT 99
[2020-01-03 09:20] LABS: Prothrombin Time Fingerstick 16.4 SEC (11.9-14.4)
== END ==
PROVIDERS: PCP Family Medicine; Referring Provider Family Medicine; Visit Provider Family Medicine
DX: K74.60 Unspecified cirrhosis of liver (principal); R18.8 Other ascites
CPT/HCPCS: 36415; 36416; 49083; 85049; 85610

== ENCOUNTER 2020-01-03 00:25 | Emergency (ER) | payer MEDICARE, OTHER, SELFPAY ==
[2019-12-15 23:18] VITALS: BMI 24.2
[2020-01-03 00:26] VITALS: BP 132/50; PULSE 100; RESP 14; TEMP 36.5; O2SAT 95; BMI 22.6
--- NOTE | 2020-01-03 00:49 | CT_ITS ---
HISTORY: DIFFICULT URINATION WITH BURNING TODAY,CONSTIPATION X SEVERAL DAYSHX:SKIN CANCER,KIDNEY STONESSURGERY:APPENDECTOMY,RAEANN/BSO,LITHOTRIPSY,MULT BASKET EXTRACTIONS WITH STENTS,URETER RECONSTRUCTION ADDITIONAL HISTORY: None provided. TECHNIQUE: CT images were obtained of the abdomen and pelvis without IV contrast. Enteric contrast was not given. Number of images including paperwork: 443. A radiation dose optimization technique was used for this scan. COMPARISON: 12/27/2018. CT chest seen 2019 FINDINGS: Evaluation of the abdominopelvic organs is limited in the absence of contrast. LOWER THORAX: Large right pleural effusion with associated compressive atelectasis, and minimal change compared to previous chest CT. Minimal opacities at the right base suggestive of hypoventilatory change. Moderate to large hiatal hernia. LIVER: No concerning focal lesion. GALLBLADDER: Cholecystectomy. BILE DUCTS: No significant biliary dilatation. SPLEEN: Unremarkable. PANCREAS: Unremarkable. ADRENAL GLANDS: Unremarkable. KIDNEYS/URETERS: Mild to moderate bilateral renal collecting system dilatation, minimally changed compared to previous. Left ureteral stent has been placed in the interim. BOWEL: No bowel obstruction. No significant bowel wall thickening. No localized inflammation. Large amount of rectal stool. APPENDIX: No evidence of appendicitis. FREE FLUID: Small to moderate amount of free fluid. FREE AIR: None. LYMPH NODES: No pathologic appearing adenopathy. PERITONEUM, RETROPERITONEUM AND MESENTERY: Otherwise unremarkable. VASCULATURE: Atherosclerotic calcification. ABDOMINAL WALL: Unremarkable. PELVIS: Distended bladder. No pelvic mass. OSSEOUS AND SOFT TISSUE STRUCTURES: No acute skeletal findings. Degenerative changes. Soft tissue edema. CT/Abdomen/Pelvis without Cont IMPRESSION: 1. Minimal change in bilateral hydronephrosis. Left ureteral stent. 2. Small to moderate amount of abdominal pelvic free fluid. 3. Large amount of rectal stool. 4. Large right pleural effusion. 5. Additional findings above. Individualized dose optimization techniques were used for this CT. at 0145 Reported and signed by: Melisa Pickett MD Electronically Signed: Melisa Pickett MD at 1:44 EDT Tel , Service support ,
[2020-01-03] MEDS: Fleet Enema 1 ML RECTAL (01:10)
--- NOTE | 2020-01-03 01:51 | ED.VIS.GEN ---
History of Present Illness Chief Complaint: Complaint Narrative: Patient presenting for evaluation secondary to constipation and a inability to urinate. Patient has a complex underlying medical history including cirrhosis of the liver, hypertension, hyperlipidemia, has home health care. Patient apparently over the course of the last couple of days has not had a bowel movement. She reports that this is associated with a feeling of inability to pass stool, pain in her rectum, and some intermittent bleeding from the anus. Patient reports that today she has been unable to evacuate her bladder since about 10 AM and is having discomfort in her suprapubic region secondary to this. Patient's home health care was apparently going to attempt to give her an enema today but she was too uncomfortable to receive this, so they brought her to the emergency department. Patient did also have a paracentesis performed today without complication. No fevers nausea or vomiting. Patient spouse informs me that she does have a history of having this in the past. Review of systems otherwise negative. Past Medical History - Allergies and Home Meds Allergies/Adverse Reactions: Allergies Sulfa (Sulfonamide Antibiotics) Allergy (Verified 01/03/20 00:26) Swelling Primary Care Physician: Eagle Dang MD [Primary Care Provider] - Prior records reviewed: Yes Past Medical History: - - Bob, cirrhosis, hypertension, hyperlipidemia Surgical History: appendectomy, cholecystectomy, hysterectomy - Total abdominal., total knee arthroplasty, - - x 3, Melanoma excision (back), Liver biopsy, ureteral stent x 3 with ureteral reconstruction, cholecystectomy, appendectomy, tonsillectomy. Smoking Status: Never smoker - Family History Maternal Family History: Reports: Dementia - Alzheimer Disease., Hypertension, Stroke Paternal Family History: Reports: Cancer - Father with history of throat cancer. Review of Systems All systems negative except as indicated General: Denies: Chills, Fever, Sweats Eyes: Denies: Visual changes - bilaterally, Diplopia ENT: Denies: Rhinorrhea, Sore throat Cardiovascular: Denies: Chest pain, Palpitations Respiratory: Denies: Dyspnea, Cough, Dyspnea on exertion Gastrointestinal: Reports: Abdominal pain, Constipation, - - Rectal pain Genitourinary: Reports: - - Inability to urinate Musculoskeletal: Denies: Back pain, Extremity Pain Skin: Denies: Rash, Wounds Neurological: Denies: Headache, Weakness, Numbness Physical Exam Vital Signs/Narrative: Vital Signs Temp Pulse Resp BP Pulse Ox 01/03/20 00:26 97.7 F L 100 14 132/50 H 95 General: Well developed, - - Chronically ill-appearing female in no acute distress Head: Normocephalic, Atraumatic Eyes: Perrl, EOMI. Negative for: Scleral icterus ENT: Moist mucous membranes Neck: Supple Cardiovascular: Regular rate, Regular rhythm Respiratory: No distress, CTA bilaterally, Chest nontender Abdomen: - - Abdomen is moderately distended and tender in the lower abdomen no guarding or rebound tenderness is noted. Rectal: - - Chaperoned rectal exam shows a large amount of stool in the rectal vault that is soft. No evidence of active GI bleed. Stool is brown. Rectum is tender on digital rectal exam Back: Nontender, Normal Inspection Extremities: Nontender, No edema Skin: Normal color, No rash Neurological: Alert, Oriented x3, Cranial nerves II-XII grossly intact, Normal Strength, Normal Sensation Psychological: Normal affect Diagnostic/Tx/Re-eval Clinical Impression(s) from Imaging Studies Abdomen/Pelvis CT 01/03/20 00:49 IMPRESSION: 1. Minimal change in bilateral hydronephrosis. Left ureteral stent. 2. Small to moderate amount of abdominal pelvic free fluid. 3. Large amount of rectal stool. 4. Large right pleural effusion. 5. Additional findings above. Individualized dose optimization techniques were used for this CT. at 0145 Reported and signed by: Melisa Pickett MD Electronically Signed: Melisa Pickett MD at 1:44 EDT Tel , Service support , - Medical Decision Making Patient presented secondary to constipation and urinary retention. I was concerned for the fact that the patient's constipation was causing her urinary retention, so I did perform a manual disimpaction on the patient. A large amount of stool was able to be expressed. Patient was given a fleets enema, but did not have significant relief of her constipation but ultimately the patient was able to void a large amount of urine and had significant relief from that aspect. Patient had borderline tachycardia, and is not of the best underlying health so I did request that we potentially be able to get some laboratory studies on the patient which she declined as she states I have bad veins. CT imaging of the abdomen and pelvis demonstrates ascites with a right-sided pleural effusion and a large amount of retained stool within the rectum. I had a discussion with the patient who is of sound mind about our options, the patient at this point wishes to try a course of magnesium citrate at home and reports that she will return tomorrow if she does not have improvement or if she has any worsening of her symptoms. I feel that this is a reasonable course of action. Patient was ordered magnesium citrate, she will be discharged home with her Procedures Procedure(s): Patient was verbally consented for manual disimpaction. Nursing was present for assistance and for manager process improvement. Patient was placed in the right lateral decubitus position. A gloved lubricated finger was utilized, and large amounts of soft stool were able to be expressed. Patient tolerated this with difficulty ED Disposition - Plan for ED Patient: Disposition: Home or Assisted Living Diagnosis: Constipation, Urinary retention Instructions: ED Retention Urinary Female, ED Constipation Referrals: Eagle Dang MD [Primary Care Provider] - 1-2 Days if not improving
[2020-01-03] MEDS: Magnesium Citrate 300 ML PO (02:33)
[2020-01-03 02:36] VITALS: BP 117/40; PULSE 94; RESP 18; O2SAT 94
== END 2020-01-03 02:42 | disposition home or self-care (01) ==
PROVIDERS: Emergency Provider Emergency Medicine; PCP Family Medicine
DX: K59.00 Constipation, unspecified (principal); R33.9 Retention of urine, unspecified; J90 Pleural effusion, not elsewhere classified; I10 Essential (primary) hypertension; E78.5 Hyperlipidemia, unspecified; K74.60 Unspecified cirrhosis of liver; K75.81 Nonalcoholic steatohepatitis (NASH); Z85.820 Personal history of malignant melanoma of skin; Z79.01 Long term (current) use of anticoagulants; Z79.899 Other long term (current) drug therapy
CPT/HCPCS: 74176; 99283

== ENCOUNTER 2020-01-03 17:03 | Inpatient (IN) | payer MEDICARE, OTHER, SELFPAY ==
[2020-01-03] VITALS (7 sets, daily range): BP systolic 103–117; BP diastolic 51–73; PULSE 86–115; RESP 15–28; TEMP 36.1–36.8; O2SAT 94–100; BMI 22.6; BMI 23.3; BMI 21.9; BMI 22.0
--- NOTE | 2020-01-03 17:25 | ED.DCSUM_ITS ---
History of Present Illness Chief Complaint: Shortness of Breath Informant: Patient, Family Onset: Days Context: Gradual Onset Current Severity: Mild Maximum Severity: Moderate Narrative: Patient presents secondary to increased shortness of breath with pleural effusion. She is a history of cirrhosis and gets recurrent ascites and pleural effusions. She had ascites drained yesterday. states they were trying to get in order to drain the fluid off her lung at the same time but were not able to do so. Patient has had somewhat worsening shortness of breath that came to the emergency room in hopes to get her lung tapped. Patient is on home oxygen at 3 L. 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 Lives: Spouse/ Significant Other Smoking Status: Never smoker - Family History Maternal Family History: Reports: Dementia - Alzheimer Disease., Hypertension, Stroke Paternal Family History: Reports: Cancer - Father with history of throat cancer. Review of Systems General: Denies: Chills, Fever Eyes: Denies: Visual changes - bilaterally ENT: Denies: Bilateral ear pain Cardiovascular: Denies: Chest pain Respiratory: Reports: Dyspnea Gastrointestinal: Reports: Constipation. Denies: Abdominal pain, Vomiting Musculoskeletal: Denies: Extremity Pain Skin: Denies: Rash Neurological: Reports: Weakness - Generalized weakness Hematologic: Denies: Easy bruising, Easy bleeding Allergy: Denies: Uticaria Physical Exam Vital Signs/Narrative: Vital Signs Temp Pulse Resp BP Pulse Ox 01/03/20 17:04 97.6 F L 115 H 22 H 114/73 94 Inital Vital Signs reviewed: Yes General: Cachectic Head: Normocephalic ENT: Moist mucous membranes Cardiovascular: Regular rate, Regular rhythm Respiratory: No distress, Diminished - Diminished on the right Skin: Pallor Neurological: Alert, Oriented x3 Psychological: Normal affect Diagnostic/Tx/Re-eval Impressions Chest X-Ray 01/03/20 18:00 IMPRESSION: Prominent, increasing soft tissue density throughout much of the right lung consistent with prominent, worsening pleural effusion, and atelectasis or infiltrate. Electronically Signed: Luis Nunez MD at 18:22 EDT , Service support , 01/03/20 18:00 Chest 1 View (Portable) [RAD] Stat Laboratory Results 01/03/20 18:40 Sodium 139 Potassium 3.4 L Chloride 109 H Carbon Dioxide 23.0 Anion Gap 7 BUN 27 H Creatinine 1.01 Estim Creat Clear Calc 43.31 Est GFR (MDRD) Af Amer 69 Est GFR (MDRD) Non-Af 57 L BUN/Creatinine Ratio 26.7 H Glucose 95 Calcium 8.1 L - Medical Decision Making X-ray does confirm large right pleural effusion. Patient last took Eliquis this morning and states that she usually has to hold at 24 hours before they will do a thoracentesis. Multiple attempts were made to get IV access and get blood. Lab was able to get chemistries only. Patient states that usually just prick her finger for coags before her thoracentesis. I spoke with hospitalist who will admit the patient overnight for observation. Plan will be for thoracentesis tomorrow. ED Disposition - Plan for ED Patient: Disposition: Acute Care Hospital [facility] Diagnosis: Pleural effusion Referrals: Eagle Dang MD [Primary Care Provider] -
--- NOTE | 2020-01-03 18:00 | RAD_ITS ---
STUDY: X-RAY CHEST REASON FOR EXAM: Female, 74 years old. Short of breath. Fluid in the lungs. TECHNIQUE: Single AP portable view of the chest. COMPARISON: 12/18/2019. FINDINGS: Increasing opacification of the right hemithorax consistent with marked pleural effusion and atelectasis or infiltrate. Only a small portion of the right upper lobe is aerated. Normal appearance of the left lung. Normal size heart. Normal mediastinum and luz elena. Normal visualized pulmonary arteries. Normal visualized aortic arch and descending thoracic aorta. Normal visualized thoracic spine. Normal visualized ribs, clavicles, and shoulders. There is no demonstrated abnormality of the visualized soft tissue structures of the upper abdomen. RAD/Chest 1 View (Portable) IMPRESSION: Prominent, increasing soft tissue density throughout much of the right lung consistent with prominent, worsening pleural effusion, and atelectasis or infiltrate. Electronically Signed: Luis Nunez MD at 18:22 EDT , Service support ,
[2020-01-03 20:06] LABS: Anion Gap 7 (5-15); BUN 27 mg/dL (7-18); BUN/Creat Ratio 26.7 RATIO (10-20); Calcium,Total 8.1 mg/dL (8.5-10.1); Chloride 109 mmol/L (98-107); Creatinine, Serum 1.01 mg/dL (0.55-1.02); EST Glomerular Filtration Rate 57 mL/min (>60); Est Glom Filt Rate - Afr Amer 69 mL/min (>60); Estimated Creatinine Clearance 43.31 ml/min; Glucose 95 mg/dL (74-106); Potassium 3.4 mmol/L (3.5-5.1); Sodium Level 139 mmol/L (136-145)
--- NOTE | 2020-01-03 20:09 | HP.PCM_ITS ---
Problem List (1) Recurrent right pleural effusion Status: Acute (2) Constipation Status: Chronic (3) Kidney stones Status: Chronic (4) Debility Status: Chronic (5) Hydroureter, left Status: Chronic (6) Hydronephrosis, left Status: Chronic (7) Hypertension Status: Chronic Qualifiers: Hypertension type: essential hypertension Qualified Code(s): I10 - Essential (primary) hypertension (8) Hyperlipidemia Status: Chronic Qualifiers: Hyperlipidemia type: unspecified Qualified Code(s): E78.5 - Hyperlipidemia, unspecified (9) Melanoma Status: Chronic Qualifiers: Melanoma location: unspecified site Qualified Code(s): C43.9 - Malignant melanoma of skin, unspecified (10) Lumbar spondylosis Status: Chronic (11) Vitamin D deficiency Status: Chronic (12) Iron deficiency anemia Status: Chronic Qualifiers: Iron deficiency anemia type: unspecified iron deficiency Qualified Code(s): D50.9 - Iron deficiency anemia, unspecified (13) Overactive bladder Status: Chronic (14) Chronic cough Status: Chronic (15) Fatty liver Status: Chronic (16) Recurrent kidney stones Status: Chronic (17) Depression Status: Chronic Qualifiers: Depression Type: unspecified Qualified Code(s): F32.9 - Major depressive disorder, single episode, unspecified (18) Urinary retention Status: Chronic (19) Osteoarthritis Status: Chronic (20) 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 Status: Chronic (21) DVT, bilateral lower limbs Status: Chronic Qualifiers: Affected thrombotic vein of extremity: unspecified vein of extremity Chronicity: chronic Qualified Code(s): I82.503 - Chronic embolism and thrombosis of unspecified deep veins of lower extremity, bilateral (22) GERD (gastroesophageal reflux disease) Status: Chronic Qualifiers: Esophagitis presence: esophagitis presence not specified Qualified Code(s): K21.9 - Gastro-esophageal reflux disease without esophagitis (23) Exertional dyspnea Status: Acute (24) Pleural effusion Status: Chronic History of Present Illness Date of Admission: 01/03/20 Chief Complaint: Right pleural effusion Current visit to the ED is evening of 01/03/2020 The patient is a 74 year old F with a significant history of Schilling cirrhosis; DVT bilateral legs; chronic kidney stones who presents to the emergency department because of right pleural effusion. Patient was at emergency department on the night of 01/02/2020 to photovoltaic panel installer of 01/03/2020. Abdomen and pelvis CT on that visit showed large right pleural effusion. When patient went home; home health aide instructed her to come in for a thoracentesis. Unfortunately the offices at the hospital had closed so patient came back to the emergency department. Patient has had thoracentesis in the past. On the night of her visit on 01/01/2022 to photovoltaic panel installer 01/03/2020 patient was given magnesium citrate and also she was manually disimpacted. Her diagnosis at that time was constipation and urinary retention. Reportedly a large amount of soft stool was expressed. On this visit evening of 01-03-2020; patient reports dyspnea on exertion. Chest x-ray obtained on evening of 01/03/2020 showed large right pleural effusion. Every 2 weeks patient have a paracentesis. Last time she had a paracentesis was on 01/02/2020. Reportedly 1.5 L of fluid were taken out at that time. 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 (Chronic) DVT, bilateral lower limbs (Chronic) GERD (gastroesophageal reflux disease) (Chronic) Pleural effusion (Chronic) Allergies Sulfa (Sulfonamide Antibiotics) Allergy (Verified 01/03/20 17:06) Swelling Home Medications: Ambulatory Orders Medication Instructions Recorded Melatonin 10 mg PO QHS 05/16/19 Acetaminophen [Tylenol] 1,000 mg PO Q6H PRN PRN tab 07/13/19 Atorvastatin Calcium [Lipitor] 20 mg PO QHS #30 tab 07/13/19 Furosemide [Lasix] 20 mg PO DAILY PRN PRN 10/12/19 Hydrocortisone 2.5% Crm [Hytone] 1 applic RECTAL BID PRN 10/12/19 Metoclopramide HCl 5 mg PO TIDCM 10/12/19 Ondansetron HCl [Zofran] 4 mg PO Q8H PRN PRN 04/02/20 Pantoprazole Sodium [Protonix] 20 mg PO DAILY 10/12/19 Spironolactone 100 mg PO DAILY 10/12/19 Apixaban [Eliquis] 5 mg PO BID #74 tab 12/05/19 Pseudoephed/Codeine/Guaifen 473 ml PO DAILY PRN 12/15/19 [Virtussin DAC Liquid] Megestrol [Megace] 40 mg PO BID #60 tab 12/19/19 Mirtazapine [Remeron] 30 mg PO QHS 01/03/20 Surgical History: appendectomy, cholecystectomy, hysterectomy - Total a bdominal., total knee arthroplasty, - - x 3, Melanoma excision (back), Liver biopsy, ureteral stent x 3 with ureteral reconstruction, cholecystectomy, appendectomy, tonsillectomy. 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 Review of Systems Constitutional: Denies: Chills, Fever, Weight Change HEENT: Denies: Head Aches, Sinus Congestion, Sinus Drainage Cardiovascular: Denies: Chest Pain, Palpitations Respiratory: Reports: Cough, Shortness of breath upon exertion. Denies: Sputum production Gastrointestinal: Denies: Abdominal Pain, Nausea, Vomiting Genitourinary: Denies: Dysuria Musculoskeletal: Denies: Joint Pain, Joint Tenderness Skin: Denies: Rash, Wounds Neurological: Denies: Numbness, Tingling, Focal weakness Psychiatric: Denies: Anxiety, Depression, Homicidal Ideations, Suicidal Ideations Hematologic/ Lymphatic: Denies: Easy Bruising, Easy Bleeding VTE Information - Inpt Only VTE Present on Admission: No VTE Mechan Device Prophylaxis: SCD's VTE Pharm Prophylaxis ordered?: No Patient Problems: Active and Suspected Problems Recurrent right pleural effusion (Acute) - Physical Exam Vitals/I&O's: Vital Signs Temp Pulse Resp BP Pulse Ox 97 F L 98 15 114/56 L 98 01/03/20 20:07 01/03/20 20:07 01/03/20 20:07 01/03/20 20:07 01/03/20 20:07 Oxygen Flow Rate (L/min) 3 Oxygen Delivery Method Room Air Weight: 63.503 kg Body Mass Index (BMI) 23.3 General: Alert, Oriented x3, Cooperative HEENT: Atraumatic, PERRLA, EOMI, Normocephalic Neck: Supple, Trachea Midline Lungs: No rhonchi, No wheeze, No rales, Diminished - Right posterior lung becerra Cardiovascular: Regular rate, Normal S1, Normal S2, No murmurs Abdomen: Bowel Sounds Present, Soft, Non Tender Extremities: Capillary Refill Less than 3 Seconds, Edema - Bilateral lower legs and feet. Skin: No rashes, No breakdown Musculoskeletal: No Tenderness to Palpation of Joints or Extremities Neurological: Cranial nerves II-XII grossly intact Psych/Mental Status: Normal Affect, Appropriate Laboratory Results 01/03/20 18:40: Sodium 139, Potassium 3.4 L, Chloride 109 H, Carbon Dioxide 23.0, Anion Gap 7, BUN 27 H, Creatinine 1.01, Estim Creat Clear Calc 43.31, Est GFR (MDRD) Af Amer 69, Est GFR (MDRD) Non-Af 57 L, BUN/Creatinine Ratio 26.7 H, Glucose 95, Calcium 8.1 L Assessment/Plan All Active Problems Recurrent right pleural effusion (Acute) Exertional dyspnea (Acute) The patient is a 74 year old F with a significant history of Schilling cirrhosis; DVT bilateral legs; chronic kidney stones who presents emergency department because of right pleural effusion. Recurrent right pleural effusion Secondary to Schilling cirrhosis. Patient reports that routinely her Eliquis is held for 24 hours after which she have thoracentesis. Last time she took her Eliquis was a.m. of 01/03/2020. We will hold her Eliquis. Will put on 2 g sodium diet. Aldactone and furosemide p.o. continued Intervention radiologist consult for thoracentesis. PT/INR/PTT ordered at emergency department. Follow Hypokalemia Potassium 3.4 on presentation. Replace. Trend BMP. Chronic constipation Last time her bowels moved was the night of 01/01/2022 to photovoltaic panel installer of 01/03/2020. Shared decision not to do any bowel regimen at this time. After thoracentesis bowel regimen could be considered. History of bilateral DVTs On Eliquis. Held for paracentesis. DVT prophylaxis SCD ordered while off Eliquis. OBSV E&M: [id number] Initial observation care L3
--- NOTE | 2020-01-03 21:55 | NURSING ---
[place] from lab called and said that pt had refused lab draws in the ER from her and from the ER doc. There is a BMP for the am and she will try to obtain the coags at that time.
[2020-01-03] MEDS: Atorvastatin Calcium 20 MG Tablet PO (22:14)
[2020-01-03] MEDS: Megestrol 40 MG Tablet PO (22:14)
[2020-01-03] MEDS: MELATONIN 10 MG TABLET PO (22:14)
[2020-01-03] MEDS: Mirtazapine 30 MG Tablet PO (22:14)
--- NOTE | 2020-01-03 22:35 | NURSING ---
Pt is refusing IV start at this time stating that she is a difficult stick. I discussed with pt that a thoracentesis is planned for tomorrow and while they may not need an IV to successfully complete the procedure if any needs should arise they would be able to give medications through the IV. Pt still refuses at this time but is agreeable that if one would be needed for or during the procedure she would allow it to be attempted.
[2020-01-04] VITALS (13 sets, daily range): BP systolic 80–117; BP diastolic 28–65; PULSE 90–113; RESP 17–22; TEMP 36.3–37.2; O2SAT 96–100
[2020-01-04 06:04] LABS: Absolute Lymphocyte Count 1.19 X10^3/uL (0.83-4.51); Absolute Neutrophil Count 6.9 X10^3/uL (2.0-7.7); Basophil# 0.04 X10^3/uL; Basophil% 0.4 % (0-1); Eosinophil# 0.24 X10^3/uL; Eosinophils% 2.6 % (0-5); Hematocrit 28.5 % (37-47); Hemoglobin 8.7 g/dL (12.0-15.0); Lymphocyte # 1.19 X10^3/ul (4.0); Mean Corp Hgb Conc 30.5 g/dL (32-36); Mean Corpuscular Hgb 32.6 pg (27.0-32.0); Mean Corpuscular Volume 106.7 fL (81-99); Mean Platelet Vol. 9.5 fl (6.2-12.0); Monocyte# 0.69 X10^3/uL; Monocyte% 7.6 % (0-10); NRBC Flagged by Analyzer 0 % (0-5); Neutrophil # 6.89 X10^3/uL (2.7-7.7); Neutrophil % 75.5 % (47-70); Platelet Count 172 K/mm3 (150-450); RBC Distribution Width CV 16.4 % (11.6-14.6); RBC Distribution Width SD 64.6 fl (35.1-43.9); Red Blood Count 2.67 M/mm3 (4.2-5.4); White Blood Count 9.1 K/mm3 (4.4-11.0)
[2020-01-04 06:13] LABS: International Normalized Ratio 1.4; Prothrombin Time (Protime)PT. 16.5 SECONDS (11.7-14.9)
[2020-01-04 06:14] LABS: Partial Thromboplast Time 30.2 Seconds (24.1-36.2)
[2020-01-04 06:33] LABS: Anion Gap 6 (5-15); BUN 27 mg/dL (7-18); BUN/Creat Ratio 25.2 RATIO (10-20); Calcium,Total 8.1 mg/dL (8.5-10.1); Chloride 110 mmol/L (98-107); Creatinine, Serum 1.07 mg/dL (0.55-1.02); EST Glomerular Filtration Rate 53 mL/min (>60); Est Glom Filt Rate - Afr Amer 64 mL/min (>60); Estimated Creatinine Clearance 40.88 ml/min; Glucose 89 mg/dL (74-106); Sodium Level 142 mmol/L (136-145)
--- NOTE | 2020-01-04 09:07 | NURSING ---
principal research economist notified of midline placement at start of shift. Return call gave ETA of 0945. Notified that patient would be off unit for procedure at 0930- access director notified of same and request that we call them as soon as pt returns.
--- NOTE | 2020-01-04 09:09 | NURSING ---
This RN called US and notified them that patient does not have IV access. They state that is fine and that they want pt at 0930 because they only have a small window of time. Same to be completed
--- NOTE | 2020-01-04 09:41 | NURSING ---
Patient off unit for thoracentesis at 0930. notified DOROTEO Bowman that they already have a palliative consult in place.
--- NOTE | 2020-01-04 10:15 | RAD_ITS ---
STUDY: X-RAY CHEST REASON FOR EXAM: Female, 74 years old. POST THORA RIGHT SIDE TECHNIQUE: Inspiratory and expiratory portable views of the chest COMPARISON: 01/03/2020 FINDINGS: No postprocedural pneumothorax noted. There is a significant decrease in the size of a previously noted right pleural effusion after thoracentesis. There does however remain a loculated right pleural effusion. There is subtle opacification along the right side of the distal trachea consistent with atelectasis. Left lung is free of a superimposed process. Normal size heart. Normal mediastinum and luz elena. Normal visualized pulmonary arteries. There is atherosclerotic calcification of the aortic arch with tortuosity. There are diffuse degenerative changes of the visualized thoracic spine. There is degenerative osteoarthritis of the bilateral shoulders. There is a air bubble posterior to the heart shadow suggestive of a hiatal hernia RAD/Chest Insp/Exp 2 View IMPRESSION: No postprocedural pneumothorax Significant decrease in size of a previously noted right pleural effusion after thoracentesis. However there does remain a likely loculated right pleural effusion. Development of likely atelectasis along the medial aspect of the distal right trachea Left lung shows no superimposed acute process Electronically Signed: Bon Betancourt MD at 10:31 EDT , Service support ,
[2020-01-04] MEDS: Furosemide 20 MG Tablet PO (10:40)
[2020-01-04] MEDS: Megestrol 40 MG Tablet PO ×2 (10:40→22:36)
[2020-01-04] MEDS: Pantoprazole Sodium 20 MG Tablet PO (10:40)
[2020-01-04] MEDS: Metoclopramide 5 MG TABLET PO ×3 (10:40→17:49)
--- NOTE | 2020-01-04 10:40 | NURSING ---
Addendum entered by Anita Stroud 01/04/20 10:42: printing roller polisher returned call and state they will be here between 11-12. DOROTEO Bowman notified of same. Original Note: printing roller polisher updated that patient has now returned to room following procedure and midline placement can be scheduled. Notified that they will return call with ETA.
[2020-01-04] MEDS: Acetaminophen 325 MG Tablet 650 MG PO ×2 (10:43→19:55)
--- NOTE | 2020-01-04 12:30 | PCM.PN.HOSP ---
<Luigi Guajardo - Last Filed: 01/04/20 12:30> Patient Problems: Active and Suspected Problems Recurrent right pleural effusion (Acute) Reason for Visit: SOB Subjective: Pt previously with thora, paracentesis 2/2 schilling. pt seen and examined pre thora today which she did tolerate well. Was still having significant SOB. No CP, fever, chills. Pt feels abdomen has some fluid coming back. No Abd pain. No N/V/D. Vitals/I&O's: Vital Signs Temp Pulse Resp BP Pulse Ox 98.1 F 111 H 18 95/57 L 100 01/04/20 10:59 01/04/20 10:59 01/04/20 10:59 01/04/20 10:59 01/04/20 10:59 Oxygen Flow Rate (L/min) [3] 3 Oxygen Flow Rate (L/min) [2] 3 Oxygen Flow Rate (L/min) [1 ( 3 Initial Baseline)] Oxygen Flow Rate (L/min) 3 Oxygen Delivery Method [3] Nasal Cannula Oxygen Delivery Method [2] Nasal Cannula Oxygen Delivery Method [1 ( Nasal Cannula Initial Baseline)] Oxygen Delivery Method Nasal Cannula Weight: 132 lb 0.91 oz Body Mass Index (BMI) 21.9 Intake and Output for Last 24 Hours 01/02/20 01/03/20 01/04/20 23:59 23:59 23:59 Intake Total 520 / 520 Output Total 1750 / 1750 Balance -1230 / -1230 General: Alert, Oriented x3, Cooperative HEENT: Atraumatic, PERRLA, EOMI, Normocephalic Neck: Supple, No JVD, Negative Carotid Bruits Lungs: Clear to auscultation, Normal air movement, Diminished, Rales Cardiovascular: Regular rate, No murmurs Abdomen: Bowel Sounds Present, Soft, Non Tender Extremities: No edema, Capillary Refill Less than 3 Seconds Skin: No rashes, No breakdown Musculoskeletal: No Tenderness to Palpation of Joints or Extremities Neurological: Cranial nerves II-XII grossly intact Psych/Mental Status: Normal Affect, Appropriate, Alert and oriented to time, place, person, mood and affect Laboratory Results 01/03/20 18:40: Sodium 139, Potassium 3.4 L, Chloride 109 H, Carbon Dioxide 23.0, Anion Gap 7, BUN 27 H, Creatinine 1.01, Estim Creat Clear Calc 43.31, Est GFR (MDRD) Af Amer 69, Est GFR (MDRD) Non-Af 57 L, BUN/Creatinine Ratio 26.7 H, Glucose 95, Calcium 8.1 L 01/04/20 05:45: WBC 9.1, RBC 2.67 L, Hgb 8.7 L, Hct 28.5 L, MCV 106.7 H, MCH 32.6 H, MCHC 30.5 L, RDW Std Deviation 64.6 H, RDW Coeff of Shane 16.4 H, Plt Count 172, MPV 9.5, Immature Gran % (Auto) 0.900, Neut % (Auto) 75.5 H, Lymph % (Auto) 13.0 L, [place] % (Auto) 7.6, Eos % (Auto) 2.6, Baso % (Auto) 0.4, Absolute Neuts (auto) 6.9, Absolute Lymphs (auto) 1.19, Nucleated RBC % 0 01/04/20 05:45: PT 16.5 H, INR 1.4, APTT 30.2 01/04/20 05:45: Sodium 142, Potassium 4.0, Chloride 110 H, Carbon Dioxide 26.0, Anion Gap 6, BUN 27 H, Creatinine 1.07 H, Estim Creat Clear Calc 40.88, Est GFR (MDRD) Af Amer 64, Est GFR (MDRD) Non-Af 53 L, BUN/Creatinine Ratio 25.2 H, Glucose 89, Calcium 8.1 L Current Medications Acetaminophen (Tylenol) 650 mg PO Q6H PRN PRN PRN Reason: Pain Score 1-10/Temp > 100.7 F Last Admin: 01/04/20 10:43 Dose: 650 mg Documented by: Atorvastatin Calcium (Lipitor) 20 mg PO QHS [facility] Last Admin: 01/03/20 22:14 Dose: 20 mg Documented by: Dextrose (D50w Syringe) 0 gm IV X1 PRN; Protocol PRN Reason: Hypoglycemia Furosemide (Lasix) 20 mg PO DAILY [facility] Last Admin: 01/04/20 10:40 Dose: 20 mg Documented by: Glucagon () 1 mg IM .X1 PRN PRN Reason: Hypoglycemia Sodium Chloride () 250 mls @ 15 mls/hr IV .[id number] PRN PRN Reason: Saline Flush Lorazepam (Ativan) 0.5 mg IV Q12H PRN PRN PRN Reason: ANXIETY Megestrol Acetate (Megace) 40 mg PO BID [facility] Last Admin: 01/04/20 10:40 Dose: 40 mg Documented by: Melatonin (Melatonin) 10 mg PO QHS [facility] Last Admin: 01/03/20 22:14 Dose: 10 mg Documented by: Metoclopramide HCl (Reglan) 5 mg PO TIDCM [facility] Last Admin: 01/04/20 10:40 Dose: 5 mg Documented by: Mirtazapine (Remeron) 30 mg PO QHS [facility] Last Admin: 01/03/20 22:14 Dose: 30 mg Documented by: Morphine Sulfate () 1 mg IV Q4H PRN PRN PRN Reason: Pain Score 1-10/10 Nutritional Formula (Lactose Free) (Ensure Enlive) 120 ml PO 4X/DAY [facility] Last Admin: 01/04/20 10:42 Dose: 120 ml Documented by: Ondansetron HCl (Zofran) 4 mg IV Q8H PRN PRN PRN Reason: NAUSEA/VOMITING Pantoprazole Sodium (Protonix) 20 mg PO DAILY [facility] Last Admin: 01/04/20 10:40 Dose: 20 mg Documented by: Sodium Chloride () 10 - 40 ml IV UD PRN PRN Reason: SALINE FLUSH Spironolactone (Aldactone) 100 mg PO DAILY [facility] Last Admin: 01/04/20 10:43 Dose: Not Given Documented by: STROKE Vital Signs/Narrative: Vital Signs Temp Temp Pulse Pulse Pulse Pulse Resp 01/04/20 10:59 98.1 F 111 H 18 01/04/20 10:03 945 F H 113 H 107 H 110 H 01/04/20 09:00 18 Resp Resp Resp BP BP BP BP 01/04/20 10:59 95/57 L 01/04/20 10:03 22 H 22 H 22 H 117/56 L 89/41 L 95/28 L 01/04/20 09:00 Pulse Ox 01/04/20 10:59 100 01/04/20 10:03 01/04/20 09:00 Medical Necessity - Tobacco Use Smoking Status: Never smoker Assessment/Plan All Active Problems Recurrent right pleural effusion (Acute) 1. Recurrent right pleural effusion 2/2 SCHILLING cirrhosis - s/p thora today, 1750 cc drained. previously transudative. at this time it is too early to consider pleuryx. Depending on how quickly she reaccumulates this may be an option in the future. No pneumo at this time. Continue lasix/aldactone. AM CXR. 2. SCHILLING cirrhosis - pt is hospice appropriate. AM CMP. 3. GERD - ppi 4. Hx DVT - resume eliquis tomorrow. DVT ppx: eliquis held today for thora DC planning: Home with palliative vs hospice. This patient was seen by Luigi Guajardo PA-C under the supervision of Dr. Steele. <Abdirizak Steele E - Last Filed: 01/04/20 13:28> Vitals/I&O's: Vital Signs Temp Pulse Resp BP Pulse Ox 98.1 F 111 H 18 95/57 L 100 01/04/20 10:59 01/04/20 10:59 01/04/20 10:59 01/04/20 10:59 01/04/20 10:59 Oxygen Flow Rate (L/min) [3] 3 Oxygen Flow Rate (L/min) [2] 3 Oxygen Flow Rate (L/min) [1 ( 3 Initial Baseline)] Oxygen Flow Rate (L/min) 3 Oxygen Delivery Method [3] Nasal Cannula Oxygen Delivery Method [2] Nasal Cannula Oxygen Delivery Method [1 ( Nasal Cannula Initial Baseline)] Oxygen Delivery Method Nasal Cannula Weight: 132 lb 0.91 oz Body Mass Index (BMI) 21.9 Intake and Output for Last 24 Hours 01/02/20 01/03/20 01/04/20 23:59 23:59 23:59 Intake Total 820 / 820 Output Total 1750 / 1750 Balance -930 / -930 Laboratory Results 01/03/20 18:40: Sodium 139, Potassium 3.4 L, Chloride 109 H, Carbon Dioxide 23.0, Anion Gap 7, BUN 27 H, Creatinine 1.01, Estim Creat Clear Calc 43.31, Est GFR (MDRD) Af Amer 69, Est GFR (MDRD) Non-Af 57 L, BUN/Creatinine Ratio 26.7 H, Glucose 95, Calcium 8.1 L 01/04/20 05:45: WBC 9.1, RBC 2.67 L, Hgb 8.7 L, Hct 28.5 L, MCV 106.7 H, MCH 32.6 H, MCHC 30.5 L, RDW Std Deviation 64.6 H, RDW Coeff of Shane 16.4 H, Plt Count 172, MPV 9.5, Immature Gran % (Auto) 0.900, Neut % (Auto) 75.5 H, Lymph % (Auto) 13.0 L, Huntington % (Auto) 7.6, Eos % (Auto) 2.6, Baso % (Auto) 0.4, Absolute Neuts (auto) 6.9, Absolute Lymphs (auto) 1.19, Nucleated RBC % 0 01/04/20 05:45: PT 16.5 H, INR 1.4, APTT 30.2 01/04/20 05:45: Sodium 142, Potassium 4.0, Chloride 110 H, Carbon Dioxide 26.0, Anion Gap 6, BUN 27 H, Creatinine 1.07 H, Estim Creat Clear Calc 40.88, Est GFR (MDRD) Af Amer 64, Est GFR (MDRD) Non-Af 53 L, BUN/Creatinine Ratio 25.2 H, Glucose 89, Calcium 8.1 L Current Medications Acetaminophen (Tylenol) 650 mg PO Q6H PRN PRN PRN Reason: Pain Score 1-10/Temp > 100.7 F Last Admin: 01/04/20 10:43 Dose: 650 mg Documented by: Atorvastatin Calcium (Lipitor) 20 mg PO QHS [facility] Last Admin: 01/03/20 22:14 Dose: 20 mg Documented by: Dextrose (D50w Syringe) 0 gm IV X1 PRN; Protocol PRN Reason: Hypoglycemia Furosemide (Lasix) 20 mg PO DAILY [facility] Last Admin: 01/04/20 10:40 Dose: 20 mg Documented by: Glucagon () 1 mg IM .X1 PRN PRN Reason: Hypoglycemia Sodium Chloride () 250 mls @ 15 mls/hr IV .[id number] PRN PRN Reason: Saline Flush Lorazepam (Ativan) 0.5 mg IV Q12H PRN PRN PRN Reason: ANXIETY Megestrol Acetate (Megace) 40 mg PO BID [facility] Last Admin: 01/04/20 10:40 Dose: 40 mg Documented by: Melatonin (Melatonin) 10 mg PO QHS [facility] Last Admin: 01/03/20 22:14 Dose: 10 mg Documented by: Metoclopramide HCl (Reglan) 5 mg PO TIDCM [facility] Last Admin: 01/04/20 13:16 Dose: 5 mg Documented by: Mirtazapine (Remeron) 30 mg PO QHS [facility] Last Admin: 01/03/20 22:14 Dose: 30 mg Documented by: Morphine Sulfate () 1 mg IV Q4H PRN PRN PRN Reason: Pain Score 1-10/10 Last Admin: 01/04/20 13:06 Dose: 1 mg Documented by: Nutritional Formula (Lactose Free) (Ensure Enlive) 120 ml PO 4X/DAY [facility] Last Admin: 01/04/20 10:42 Dose: 120 ml Documented by: Ondansetron HCl (Zofran) 4 mg IV Q8H PRN PRN PRN Reason: NAUSEA/VOMITING Pantoprazole Sodium (Protonix) 20 mg PO DAILY [facility] Last Admin: 01/04/20 10:40 Dose: 20 mg Documented by: Sodium Chloride () 10 - 40 ml IV UD PRN PRN Reason: SALINE FLUSH Last Admin: 01/04/20 13:07 Dose: 10 ml Documented by: Sodium Chloride () 10 - 40 ml IV UD PRN PRN Reason: Midline Flush Sodium Chloride (0.9% Nacl (Sterile) Posiflush) 10 - 40 ml IV UD PRN PRN Reason: Port access or dressing change Spironolactone (Aldactone) 100 mg PO DAILY [facility] Last Admin: 01/04/20 10:43 Dose: Not Given Documented by: STROKE Vital Signs/Narrative: Vital Signs Temp Temp Pulse Pulse Pulse Pulse Resp 01/04/20 10:59 98.1 F 111 H 18 01/04/20 10:03 945 F H 113 H 107 H 110 H Resp Resp Resp BP BP BP BP 01/04/20 10:59 95/57 L 01/04/20 10:03 22 H 22 H 22 H 117/56 L 89/41 L 95/28 L Pulse Ox 01/04/20 10:59 100 01/04/20 10:03 Assessment/Plan Hospitalist note: I am seeing this patient in conjunction with xxxxxx. I independently seen and examined the patient. Progress note above reviewed, laboratory data and imaging studies reviewed and I concur with the above treatment plan. I saw the patient after she underwent right thoracentesis. She is feeling better, shortness of breath started to improve. She complained of vague abdominal pain. Denied chest pain. She is afebrile, heart rate has been around 100, blood pressure is borderline pulse ox is maintained on 3 L which is her baseline at home. - Physical Exam General: Alert, Oriented x3, Cooperative, No apparent distress chronically sick patient. HEENT: Atraumatic, PERRLA, EOMI. Neck: Supple, No JVD, Negative Carotid Bruits, Trachea Midline, Thyroid Normal. Lungs: Markedly decreased breath sounds on the right base, documentation note, scattered rhonchi.. Cardiovascular: Regular rate, Regular Rhythm, Normal S1, Normal S2, PMI Normal. Abdomen: Bowel Sounds Present, Soft, Non Tender, Non-Distended, No Hepato-splenomegaly. Extremities: No clubbing, No cyanosis, No edema Skin: No rashes, No breakdown Neurological: Cranial nerves are intact, neuro grossly intact Assessment and plan: #1 recurrent right-sided effusion: Status post thoracentesis today, 1700 cc of yellow-colored fluid drained. Patient had thoracentesis on December 18, 2019. Pleural fluid analysis at that time revealed transudative effusion likely due to SCHILLING. She is on Lasix and Spironolactone. At this time, respiratory status is stable. Plan to continue same treatment, repeat chest x-ray tomorrow morning. 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 Plan to continue same treatment for now. #3 other chronic medical problems: Stable, continue current medications as above. This note was generated with [employer] dictation software. It may contain incorrect words, spelling, and punctuation that were not noted in checking the note before signing. Inpatient E&M: 23615 Subs Hosp L2
[2020-01-04] MEDS: Morphine 2 MG/ML Syringe 1 MG IV (13:06)
--- NOTE | 2020-01-04 13:06 | NURSING ---
out to nurses' station and states that he found a item under her bed- he had it in his hands with a glove and attempted to hand to this RN. This RN obtained gloves as it had blood on it and disposed of properly. Notified that pt just had midline inserted and that it appears to be an item used for that, and must have been inadvertently thrown on floor. verbalized understanding. also asked this RN if we have something for her pain. At this time Gracie came to assess pt and obtained morphine per order.
[2020-01-04] MEDS: 0.9% Saline Lock 10 ML Syringe IV (13:07)
[2020-01-04] MEDS: Phenylephrine 0.25%/Cocoa Btr 1 Rectal Supp 1 SUPP RC (13:07)
--- NOTE | 2020-01-04 13:09 | CASEMGMT ---
Addendum entered by Edna Hollingsworth 01/04/20 14:50: [facility]: PH: [phone] H/P faxed to [facility] at this time and they made aware pt has been admitted In-patient. Original Note: DOROTEO HERRERA Re-admission Note: Previous admission: Pt admitted 10/15/19 for dyspnea and large pleural effusion. Pt had thoracentesis completed w/1650 ml fluid removed. Pt has underlying cirrhosis and receives routine paracentesis. Pt also had paracentesis done prior to discharge home and increase in frequency of paracentesis was recommended. Discharged home on 12/19/19 w/[facility] and Home O2 through [employer] @ 2 L/M. Pt had stated her PCP had sent referral for Palliative care, but Palliative Care stated they did not receive a referral. See Bonnie TSAI's, note. Current admission: Admitted 01/03/20 for Acute on Chronic Pleural effusion. Pt had thoracentesis today w/1750 ml removed. DOROTEO HERRERA to room to talk with pt and who is at bedside. Pt/husbands wishes are for pt to return home w/continuation of [facility] services. Pt is currently on O2 @ home through [employer] @ 2 L/M w/exertion. states they have increased oxygen for pt to 3 L/M for pt's comfort. Call placed to [facility] and spoke w/Juve. She was made aware pt has been admitted to [facility] under OBS status. states they were supposed to have a phone meeting w/Palliative Care this morning at pt's home, but d/t pt's admission, that was cancelled and postponed until next week. Mindi TSAI, made aware. D/C Plan: Home w/continuation of [facility]: SN, PT, ST Follow for increased oxygen needs @ d/c (Current Home O2 orders @ [employer] are for 2 L/M w/exertion). SW aware of pending Palliative Care meeting and will follow. Bong WILLIAMSON RN, CM
--- NOTE | 2020-01-04 13:54 | CHAPLAIN ---
Type of Pastoral Visit _x__ Initial Visit ___ Follow-up Visit ___ On-call Visit ___ General Patient Visit ___ Spiritual Assessment ___ Family Conference ___ Bereavement ___ Rapid Response ___ Code Blue ___ Other (describe below) Pastoral Care Referral From _x__ Patient _x__ Family ___ Nurse ___ Physician ___ Hourly Associate ___ Hotel Recreational Facilities Manager ___ Other (describe below) Sacrament/Intervention _x__ Active listening ___ Anointing ___ Mu-Ism ___ Bereavement ___ Communion ___ Triny exploration ___ ___ Life review _x__ Prayer ___ Reconciliation ___ Sacrament of Sick _x__ Supportive presence ___ Wedding ___ Other (describe below) Pastoral Comments 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
--- NOTE | 2020-01-04 15:35 | CASEMGMT ---
Addendum entered by Mindi Elias 01/04/20 15:39: SW did place a call to [facility] and spoke with Portia. Portia states pt's called in today to let them know pt was admitted to [facility]. Portia states pt's will be calling once pt discharges for Hospice pre-admit phone call. Original Note: Social Work Note SW following for possible Palliative or Hospice at discharge. Mindi Elias PREFABRICATOR, ASSOCIATE ARTISTIC DIRECTOR
--- NOTE | 2020-01-04 17:11 | PCA ---
DEEPA GARDUNO INFORMED THIS PRINTED CIRCUIT BOARD LAYOUT DESIGNER THAT HE WILL NOT BE AVAILABLE 01/05/20 DUE TO HAVING SURGERY SO IF PATIENT IS GETTING DISCHARGED OR NEED ANYTHING PLEASE CONTACT ARTHUR ROSENBERG
[2020-01-04] MEDS: Albumin Human 25% (50 mL) 12.5 GM/50 ML IV.SOLN IV (19:57)
--- NOTE | 2020-01-04 21:10 | US_ITS ---
STUDY: ULTRASOUND GUIDED THORACENTESIS REASON FOR EXAM: Female, 74 years old. Pleural effusion TECHNIQUE: Sonographic guidance COMPARISON: None. FINDINGS: After informed consent was obtained, the patient was placed sitting upright at the bedside remaining over the bedside table. Appropriate site for thoracentesis was determined using sonographic guidance. The area that was marked was prepped and draped in a sterile manner, and 2% Xylocaine was used as local anesthetic. Under fluoroscopic guidance, a valved [employer] drainage catheter was advanced into the right hemithorax and approximately 1750 mL of straw-colored serous fluid was withdrawn from the right thorax. Although there was some more fluid visible in the lung base by ultrasound the patient was unable to tolerate further drainage of fluid. The procedure was terminated at this point. Patient tolerated the procedure well with no immediate complications, a post procedural chest x-ray did not show evidence of pneumothorax. US/Thoracentesis W US IMPRESSION: Successful sonographically guided thoracentesis with drainage of approximately 1750 mL of fluid from the right hemithorax Electronically Signed: Bon Betancourt MD at 10:36 EDT , Service support ,
[2020-01-04] MEDS: Mirtazapine 30 MG Tablet PO (22:36)
[2020-01-04] MEDS: Atorvastatin Calcium 20 MG Tablet PO (22:36)
[2020-01-04] MEDS: MELATONIN 10 MG TABLET PO (22:36)
[2020-01-05 00:50] VITALS: BP 87/43; PULSE 105; RESP 16; TEMP 36.8; O2SAT 97
[2020-01-05 03:05] VITALS: BP 91/45; PULSE 107; RESP 18; TEMP 36.8; O2SAT 95
[2020-01-05] MEDS: Acetaminophen 325 MG Tablet 650 MG PO (03:39)
[2020-01-05 03:47] LABS: Bacteria 0 SEEN /hpf (None Seen); Mucous, Urine 0 SEEN /hpf (<or=2+); Squamous Epithelial Cells - UA 0 SEEN /hpf (5-10)
[2020-01-05 03:55] LABS: Color, Urine Red (Yellow); Glucose, Dipstick Normal (Normal); Ketone-Dipstick Negative (Negative); Leukocyte Esterase-Dipstick 500 /ul (Negative); Nitrite-Dipstick Negative (Negative); Occult Blood-Urine 250 /ul (Negative); Protein-Dipstick 100 mg/dl (Negative); Specific Gravity, Urine 1.015 (1.002-1.030); Urine Bilirubin Dipstick Negative (Negative); Urine Clarity Turbid (Clear); Urine Urobilinogen 1 mg/dl (Normal)
[2020-01-05 04:02] LABS: Red Blood Cells-Urine > 100 SEEN /hpf (0-5); White Blood Cells 50-100 SEEN /hpf (0-5)
[2020-01-05 05:56] LABS: Absolute Neutrophil Count 6.4 X10^3/uL (2.0-7.7); Basophil# 0.04 X10^3/uL; Basophil% 0.4 % (0-1); Eosinophil# 0.61 X10^3/uL; Eosinophils% 6.2 % (0-5); Hematocrit 25.5 % (37-47); Hemoglobin 7.9 g/dL (12.0-15.0); Lymphocyte % 19.4 % (19-41); Mean Corpuscular Hgb 32.1 pg (27.0-32.0); Mean Corpuscular Volume 103.7 fL (81-99); Mean Platelet Vol. 9.6 fl (6.2-12.0); Monocyte# 0.79 X10^3/uL; Monocyte% 8.1 % (0-10); NRBC Flagged by Analyzer 0 % (0-5); Neutrophil # 6.38 X10^3/uL (2.7-7.7); Neutrophil % 65.4 % (47-70); Platelet Count 173 K/mm3 (150-450); RBC Distribution Width CV 16.2 % (11.6-14.6); RBC Distribution Width SD 60.6 fl (35.1-43.9); Red Blood Count 2.46 M/mm3 (4.2-5.4); White Blood Count 9.8 K/mm3 (4.4-11.0)
[2020-01-05 06:28] LABS: ALB/GLOB Ratio 0.5 RATIO (0.9-2.4); AST(SGOT) 48 U/L (15-37); Alanine Aminotransfer ALT/SGPT 34 U/L (13-56); Albumin, Serum 1.6 g/dL (3.2-5.0); Alkaline Phosphatase 301 U/L (45-117); Anion Gap 5 (5-15); BUN 32 mg/dL (7-18); BUN/Creat Ratio 26.4 RATIO (10-20); Calcium,Total 7.9 mg/dL (8.5-10.1); Chloride 105 mmol/L (98-107); Creatinine, Serum 1.21 mg/dL (0.55-1.02); EST Glomerular Filtration Rate 46 mL/min (>60); Est Glom Filt Rate - Afr Amer 56 mL/min (>60); Estimated Creatinine Clearance 36.15 ml/min; Globulin 3.2 g/dL (2.2-4.2); Glucose 101 mg/dL (74-106); Potassium 3.6 mmol/L (3.5-5.1); Protein, Total 4.8 g/dL (6.4-8.2); Sodium Level 138 mmol/L (136-145)
[2020-01-05 08:10] VITALS: O2SAT 98
[2020-01-05 08:24] VITALS: BP 99/45; PULSE 110; RESP 16; TEMP 37.1; O2SAT 99
--- NOTE | 2020-01-05 09:40 | RAD_ITS ---
STUDY: X-RAY CHEST REASON FOR EXAM: Female, 74 years old. S/P THORA YESTERDAY TECHNIQUE: PA and lateral views of the chest. COMPARISON: Yesterday FINDINGS: Previously described right pleural effusion has worsened since yesterday study there is now pleural fluid noted along the superior aspect of the right hemithorax and the lower half of the right hemithorax as well. Visualized right lung shows superimposed interstitial edema. Left lung is normally expanded and free of a superimposed acute pulmonary process. Normal size heart. Normal mediastinum and luz elena. Normal visualized pulmonary arteries. There is atherosclerotic calcification of the aortic arch with tortuosity. There are diffuse degenerative changes of the visualized thoracic spine. There is degenerative osteoarthritis of the bilateral shoulders. There is no demonstrated abnormality of the visualized soft tissue structures of the upper abdomen. RAD/Chest PA and Lateral IMPRESSION: Previously noted right pleural effusion has increased in size since the previous study. Visualized right lung shows superimposed interstitial edema Left lung free of superimposed process Degenerative bony changes Electronically Signed: Bon Betancourt MD at 10:15 EDT , Service support ,
--- NOTE | 2020-01-05 10:18 | DCINST_ITS ---
- Discharge Diagnoses Current Active Problems: Current Active and Chronic Problems Recurrent right pleural effusion (Acute) Pleural effusion (Chronic) You will use the following diet at home:: Cardiac, Fluid restricted (specify 2000 mls, 1500 mls) - 1500 cc / day Your food should be the consistency of: Regular Your liquids should be the consistency of: Regular/Thin Discharge Activity: Return to Normal Activity Additional Instructions: Do not immediately restart Eliquis and Megace. You should not take these medications for 5 days, after which it is ok to resume both. Allergies/Adverse Reactions: Allergies Sulfa (Sulfonamide Antibiotics) Allergy (Verified 01/03/20 17:06) Swelling Medications to take at Discharge Melatonin 10 mg PO QHS 05/16/19 Atorvastatin Calcium [Lipitor] 20 mg PO QHS #30 tab 07/13/19 Furosemide [Lasix] 20 mg PO DAILY PRN PRN 10/12/19 Hydrocortisone 2.5% Crm [Hytone] 1 applic RECTAL BID PRN 10/12/19 Metoclopramide HCl 5 mg PO TIDCM 10/12/19 Ondansetron HCl [Zofran] 4 mg PO Q8H PRN PRN 10/12/19 Pantoprazole Sodium [Protonix] 20 mg PO DAILY 10/12/19 Spironolactone 100 mg PO DAILY 10/12/19 Apixaban [Eliquis] 5 mg PO BID #74 tab 12/05/19 Pseudoephed/Codeine/Guaifen [Virtussin DAC Liquid] 473 ml PO DAILY PRN 12/15/19 Megestrol [Megace] 40 mg PO BID #60 tab 12/19/19 Mirtazapine [Remeron] 30 mg PO QHS 01/03/20 Acetaminophen [Tylenol Tablet] 650 mg PO Q6H PRN PRN tab 01/05/20 Primary Care Physician: Eagle Dang MD [Primary Care Provider] - Please follow up with your Primary Care Physician in: 1 Test Results: Test results from this visit will be discussed in further detail at your follow- up appointment, if applicable. Please Follow Up With: Palliative care When: 1 week Proposed Discharge Date: 01/05/20
[2020-01-05] MEDS: Metoclopramide 5 MG TABLET PO (11:26)
[2020-01-05] MEDS: Pantoprazole Sodium 20 MG Tablet PO (11:26)
[2020-01-05] MEDS: Phenylephrine 0.25%/Cocoa Btr 1 Rectal Supp 1 SUPP RC (11:26)
[2020-01-05] MEDS: Nystatin Ointment 1 APPLIC TOPICAL (11:27)
[2020-01-05 11:34] LABS: Hemoglobin 8.1 g/dL (12.0-15.0)
--- NOTE | 2020-01-05 11:45 | CASEMGMT ---
DOROTEO HERRERA updated that patient will be discharging today with resumption of HHC. Patient is current with [facility]. DOROTEO HERRERA faxed resumption of care order and discharge instructions.
--- NOTE | 2020-01-05 11:48 | DS.PCM_ITS ---
<Luigi Guajardo - Last Filed: 01/05/20 11:48> Discharge Date and Diagnosis - Problem List Patient Problems: Active and Suspected Problems Recurrent right pleural effusion (Acute) Date of Admission: 01/03/20 Date of Discharge: 01/05/20 - Primary Discharge Diagnosis Acute Problems: Active Problems Recurrent right pleural effusion (Acute) 2/2 SCHILLING cirrhosis macrocytic anemia hematuria GERD Hx DVT - Secondary Discharge Diagnosis Chronic Problems: Chronic Problems Kidney stones (Chronic) Debility (Chronic) Body mass index (BMI) 35.0-35.9, adult (Chronic) Hydroureter, left (Chronic) Hydronephrosis, left (Chronic) Hypertension (Chronic) Hyperlipidemia (Chronic) Melanoma (Chronic) Lumbar spondylosis (Chronic) Vitamin D deficiency (Chronic) Iron deficiency anemia (Chronic) Overactive bladder (Chronic) Recurrent kidney stones (Chronic) Depression (Chronic) Urinary retention (Chronic) Osteoarthritis (Chronic) 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 Visualized right lung shows superimposed interstitial edema Left lung free of superimposed process Degenerative bony changes RAD/Chest 1 View (Portable) IMPRESSION: Prominent, increasing soft tissue density throughout much of the right lung consistent with prominent, worsening pleural effusion, and atelectasis or infiltrate. RAD/Chest Insp/Exp 2 View IMPRESSION: No postprocedural pneumothorax Significant decrease in size of a previously noted right pleural effusion after thoracentesis. However there does remain a likely loculated right pleural effusion. Development of likely atelectasis along the medial aspect of the distal right trachea Left lung shows no superimposed acute process Operations: None Procedures: Thoracentesis Summary of Care Provided: Hospital Course: The patient is a 74 year old F with pmhx of SCHILLING cirrhosis with prior paracentesis and thoracentesis, who presented to the ER with c/o dyspnea. CXR showed recurrent right pleural effusion. Pt was admitted to the med surg floor and eliquis was held for thora. In the AM a right thoracentesis was performed and 1750 cc was removed. Her diuretics were continued. She had no evidence of pneumothorax after this and remained stable off O2 with good pulse ox and significant improvement in her dyspnea. She did have a mild decline in her BP however this improved after administration of albumin. After the thora noticed some blood in her Urine however she had no evidence of infection. Hgb was declined at 7.9, however on repeat was 8.1. We advised her to stay off of eliquis for 5 days. In addition, as she has a hx of DVTs, she should remain off Megace while off eliquis. The pt is hospice appropriate and a hospice / palliative referral was made with whom she will follow up with at discharge. She should also have a CXR in 1 week, and follow up with her PCP in 1-2 weeks. This patient was seen by Luigi Guajardo PA-C under the supervision of Doctor Steele. [] Patient Problems: Active and Suspected Problems Recurrent right pleural effusion (Acute) - Physical Exam Vitals/I&O's: Vital Signs Temp Pulse Resp BP Pulse Ox 98.8 F 110 H 16 99/45 L 99 01/05/20 08:24 01/05/20 08:24 01/05/20 08:24 01/05/20 08:24 01/05/20 08:24 Oxygen Flow Rate (L/min) [3] 3 Oxygen Flow Rate (L/min) [2] 3 Oxygen Flow Rate (L/min) [1 ( 3 Initial Baseline)] Oxygen Flow Rate (L/min) 2 Oxygen Delivery Method [3] Nasal Cannula Oxygen Delivery Method [2] Nasal Cannula Oxygen Delivery Method [1 ( Nasal Cannula Initial Baseline)] Oxygen Delivery Method Room Air Weight: 132 lb 0.91 oz Body Mass Index (BMI) 21.9 Intake and Output for Last 24 Hours 01/03/20 01/04/20 01/05/20 23:59 23:59 23:59 Intake Total 1470 / 1470 200 / 200 Output Total 3500 / 3500 Balance -2029 / -2029 200 / 200 General: Alert, Oriented x3, Cooperative HEENT: Atraumatic, PERRLA, EOMI, Normocephalic Neck: Supple, No JVD, Negative Carotid Bruits Lungs: Clear to auscultation, Diminished Cardiovascular: Regular rate, No murmurs Abdomen: Bowel Sounds Present, Soft, Non Tender Extremities: No edema, Capillary Refill Less than 3 Seconds Skin: No rashes, No breakdown Musculoskeletal: No Tenderness to Palpation of Joints or Extremities Neurological: Cranial nerves II-XII grossly intact Psych/Mental Status: Normal Affect, Appropriate, Alert and oriented to time, place, person, mood and affect Laboratory Results 01/05/20 03:40: Urine Color Red, Urine Clarity Turbid, Urine pH 8.0, Ur Specific [place] 1.015, Urine Protein 100 H, Urine Glucose (UA) Normal, Urine Ketones Negative, Urine Occult Blood 250 H, Urine Nitrite Negative, Urine Bilirubin Negative, Urine Urobilinogen 1 H, Ur Leukocyte Esterase 500 H, Urine RBC > 100 SEEN, Urine WBC 50-100 SEEN, Ur Squamous Epith Cells 0 SEEN, Urine Bacteria 0 SEEN, Urine Mucus 0 SEEN 01/05/20 05:46: WBC 9.8, RBC 2.46 L, Hgb 7.9 L, Hct 25.5 L, MCV 103.7 H, MCH 32.1 H, MCHC 31.0 L, RDW Std Deviation 60.6 H, RDW Coeff of Shane 16.2 H, Plt Count 173, MPV 9.6, Immature Gran % (Auto) 0.500, Neut % (Auto) 65.4, Lymph % (Auto) 19.4, [place] % (Auto) 8.1, Eos % (Auto) 6.2 H, Baso % (Auto) 0.4, Absolute Neuts (auto) 6.4, Absolute Lymphs (auto) 1.90, Nucleated RBC % 0 01/05/20 05:46: Sodium 138, Potassium 3.6, Chloride 105, Carbon Dioxide 28.0, Anion Gap 5, BUN 32 H, Creatinine 1.21 H, Estim Creat Clear Calc 36.15, Est GFR (MDRD) Af Amer 56 L, Est GFR (MDRD) Non-Af 46 L, BUN/Creatinine Ratio 26.4 H, Glucose 101, Calcium 7.9 L, Total Bilirubin 1.10 H, AST 48 H, ALT 34, Alkaline Phosphatase 301 H, Total Protein 4.8 L, Albumin 1.6 L, Globulin 3.2, Albumin/Globulin Ratio 0.5 L 01/05/20 11:20: Hgb 8.1 L, Hct 26.0 L Current Medications Acetaminophen (Tylenol) 650 mg PO Q6H PRN PRN PRN Reason: Pain Score 1-10/Temp > 100.7 F Last Admin: 01/05/20 03:39 Dose: 650 mg Documented by: Atorvastatin Calcium (Lipitor) 20 mg PO QHS [facility] Last Admin: 01/04/20 22:36 Dose: 20 mg Documented by: Dextrose (D50w Syringe) 0 gm IV X1 PRN; Protocol PRN Reason: Hypoglycemia Furosemide (Lasix) 20 mg PO DAILY [facility] Last Admin: 01/05/20 09:24 Dose: Not Given Documented by: Glucagon () 1 mg IM .X1 PRN PRN Reason: Hypoglycemia Sodium Chloride () 250 mls @ 15 mls/hr IV .[id number] PRN PRN Reason: Saline Flush Lorazepam (Ativan) 0.5 mg IV Q12H PRN PRN PRN Reason: ANXIETY Melatonin (Melatonin) 10 mg PO QHS [facility] Last Admin: 01/04/20 22:36 Dose: 10 mg Documented by: Metoclopramide HCl (Reglan) 5 mg PO TIDCM [facility] Last Admin: 01/05/20 11:26 Dose: 5 mg Documented by: Mirtazapine (Remeron) 30 mg PO QHS [facility] Last Admin: 01/04/20 22:36 Dose: 30 mg Documented by: Morphine Sulfate () 1 mg IV Q4H PRN PRN PRN Reason: Pain Score 1-10/10 Last Admin: 01/04/20 13:06 Dose: 1 mg Documented by: Nystatin (Mycostatin) 1 applic TOPICAL BID [facility]; Protocol Last Admin: 01/05/20 11:27 Dose: 1 applicatio Documented by: Ondansetron HCl (Zofran) 4 mg IV Q8H PRN PRN PRN Reason: NAUSEA/VOMITING Pantoprazole Sodium (Protonix) 20 mg PO DAILY [facility] Last Admin: 01/05/20 11:26 Dose: 20 mg Documented by: Sodium Chloride () 10 - 40 ml IV UD PRN PRN Reason: SALINE FLUSH Last Admin: 01/04/20 13:07 Dose: 10 ml Documented by: Sodium Chloride (0.9% Nacl (Sterile) Posiflush) 10 - 40 ml IV UD PRN PRN Reason: Port access or dressing change Spironolactone (Aldactone) 100 mg PO DAILY [facility] Last Admin: 01/05/20 09:24 Dose: Not Given Documented by: Discharge Diet: Low fat/ Low Cholesterol, 2000 mg Sodium Diet Discharge Activity: Return to Normal Activity Home Medications: Medications to take at Discharge Melatonin 10 mg PO QHS 05/16/19 Atorvastatin Calcium [Lipitor] 20 mg PO QHS #30 tab 07/13/19 Furosemide [Lasix] 20 mg PO DAILY PRN PRN 10/12/19 Hydrocortisone 2.5% Crm [Hytone] 1 applic RECTAL BID PRN 10/12/19 Metoclopramide HCl 5 mg PO TIDCM 10/12/19 Ondansetron HCl [Zofran] 4 mg PO Q8H PRN PRN 10/12/19 Pantoprazole Sodium [Protonix] 20 mg PO DAILY 10/12/19 Spironolactone 100 mg PO DAILY 10/12/19 Apixaban [Eliquis] 5 mg PO BID #74 tab 12/05/19 Pseudoephed/Codeine/Guaifen [Virtussin DAC Liquid] 473 ml PO DAILY PRN 12/15/19 Megestrol [Megace] 40 mg PO BID #60 tab 12/19/19 Mirtazapine [Remeron] 30 mg PO QHS 01/03/20 Acetaminophen [Tylenol Tablet] 650 mg PO Q6H PRN PRN tab 01/05/20 Primary Care Physician: Eagle Dang MD [Primary Care Provider] - Please follow up with your Primary Care Physician in: 1 Please Follow Up With: Palliative care When: 1 week Disposition: Home Minutes spent on discharge:: 35 Patient Condition:: Stable Medical Necessity - Tobacco Use Smoking Status: Never smoker Meaningful Use Info Meaningful Use Diagnoses (Choose all that apply): None applicable <Abdirizak Steele E - Last Filed: 01/05/20 12:59> Discharge Date and Diagnosis - Primary Discharge Diagnosis Acute Problems: Active Problems Recurrent right pleural effusion (Acute) - Secondary Discharge Diagnosis Chronic Problems: Chronic Problems Kidney stones (Chronic) Debility (Chronic) Body mass index (BMI) 35.0-35.9, adult (Chronic) Hydroureter, left (Chronic) Hydronephrosis, left (Chronic) Hypertension (Chronic) Hyperlipidemia (Chronic) Melanoma (Chronic) Lumbar spondylosis (Chronic) Vitamin D deficiency (Chronic) Iron deficiency anemia (Chronic) Overactive bladder (Chronic) Recurrent kidney stones (Chronic) Depression (Chronic) Urinary retention (Chronic) Osteoarthritis (Chronic) 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 Patient admitted because of shortness of breath and she was found to have recurrent right-sided pleural effusion. She does have a recent diagnosis of recurrent ascites and current right pleural effusion secondary to liver cirrhosis due to SCHILLING. She underwent thoracentesis and around 1700 cc of yellow-colored fluid was drained from the right chest. She had thoracentesis on December 18, 2019 and analysis of the pleural fluid revealed transudative effusion likely due to SCHILLING. Her symptoms of shortness of breath and hypoxia improved and she was able to come off oxygen. Patient discharged home in a stable condition, discharged on Lasix and Aldactone, recommended to repeat chest x-ray in 1 week, patient will be seen by [facility] for appropriate hospice or palliative care evaluation, recommended from with PCP in 1 week. - Physical Exam General: Alert, Oriented x3, Cooperative, No apparent distress chronically sick patient. HEENT: Atraumatic, PERRLA, EOMI. Neck: Supple, No JVD, Negative Carotid Bruits, Trachea Midline, Thyroid Normal. Lungs: Markedly decreased breath sounds on the right base, dull percussion note, scattered rhonchi.. Cardiovascular: Regular rate, Regular Rhythm, Normal S1, Normal S2, PMI Normal. Abdomen: Bowel Sounds Present, Soft, Non Tender, Non-Distended, No Hepato- splenomegaly. Extremities: No clubbing, No cyanosis, No edema. This note was generated with PathARation software. It may contain incorrect words, spelling, and punctuation that were not noted in checking the note before signing. - Physical Exam Vitals/I&O's: Vital Signs Temp Pulse Resp BP Pulse Ox 98.4 F 119 H 16 100/47 L 96 01/05/20 12:25 01/05/20 12:25 01/05/20 12:25 01/05/20 12:25 01/05/20 12:25 Oxygen Flow Rate (L/min) [3] 3 Oxygen Flow Rate (L/min) [2] 3 Oxygen Flow Rate (L/min) [1 ( 3 Initial Baseline)] Oxygen Flow Rate (L/min) 2 Oxygen Delivery Method [3] Nasal Cannula Oxygen Delivery Method [2] Nasal Cannula Oxygen Delivery Method [1 ( Nasal Cannula Initial Baseline)] Oxygen Delivery Method Room Air Weight: 132 lb 0.91 oz Body Mass Index (BMI) 21.9 Intake and Output for Last 24 Hours 01/03/20 01/04/20 01/05/20 23:59 23:59 23:59 Intake Total 1470 / 1470 200 / 200 Output Total 3500 / 3500 Balance -2029 / -2029 200 / 200 Laboratory Results 01/05/20 03:40: Urine Color Red, Urine Clarity Turbid, Urine pH 8.0, Ur Specific [place] 1.015, Urine Protein 100 H, Urine Glucose (UA) Normal, Urine Ketones Negative, Urine Occult Blood 250 H, Urine Nitrite Negative, Urine Bilirubin Negative, Urine Urobilinogen 1 H, Ur Leukocyte Esterase 500 H, Urine RBC > 100 SEEN, Urine WBC 50-100 SEEN, Ur Squamous Epith Cells 0 SEEN, Urine Bacteria 0 SEEN, Urine Mucus 0 SEEN 01/05/20 05:46: WBC 9.8, RBC 2.46 L, Hgb 7.9 L, Hct 25.5 L, MCV 103.7 H, MCH 32.1 H, MCHC 31.0 L, RDW Std Deviation 60.6 H, RDW Coeff of [place] 16.2 H, Plt Count 173, MPV 9.6, Immature Gran % (Auto) 0.500, Neut % (Auto) 65.4, Lymph % (Auto) 19.4, [place] % (Auto) 8.1, Eos % (Auto) 6.2 H, Baso % (Auto) 0.4, Absolute Neuts (auto) 6.4, Absolute Lymphs (auto) 1.90, Nucleated RBC % 0 01/05/20 05:46: Sodium 138, Potassium 3.6, Chloride 105, Carbon Dioxide 28.0, Anion Gap 5, BUN 32 H, Creatinine 1.21 H, Estim Creat Clear Calc 36.15, Est GFR (MDRD) Af Amer 56 L, Est GFR (MDRD) Non-Af 46 L, BUN/Creatinine Ratio 26.4 H, Glucose 101, Calcium 7.9 L, Total Bilirubin 1.10 H, AST 48 H, ALT 34, Alkaline Phosphatase 301 H, Total Protein 4.8 L, Albumin 1.6 L, Globulin 3.2, Albumin/Globulin Ratio 0.5 L 01/05/20 11:20: Hgb 8.1 L, Hct 26.0 L Current Medications Acetaminophen (Tylenol) 650 mg PO Q6H PRN PRN PRN Reason: Pain Score 1-10/Temp > 100.7 F Last Admin: 01/05/20 03:39 Dose: 650 mg Documented by: Atorvastatin Calcium (Lipitor) 20 mg PO QHS [facility] Last Admin: 01/04/20 22:36 Dose: 20 mg Documented by: Dextrose (D50w Syringe) 0 gm IV X1 PRN; Protocol PRN Reason: Hypoglycemia Furosemide (Lasix) 20 mg PO DAILY [facility] Last Admin: 01/05/20 09:24 Dose: Not Given Documented by: Glucagon () 1 mg IM .X1 PRN PRN Reason: Hypoglycemia Sodium Chloride () 250 mls @ 15 mls/hr IV .[id number] PRN PRN Reason: Saline Flush Lorazepam (Ativan) 0.5 mg IV Q12H PRN PRN PRN Reason: ANXIETY Melatonin (Melatonin) 10 mg PO QHS [facility] Last Admin: 01/04/20 22:36 Dose: 10 mg Documented by: Metoclopramide HCl (Reglan) 5 mg PO TIDCM [facility] Last Admin: 01/05/20 11:26 Dose: 5 mg Documented by: Mirtazapine (Remeron) 30 mg PO QHS [facility] Last Admin: 01/04/20 22:36 Dose: 30 mg Documented by: Morphine Sulfate () 1 mg IV Q4H PRN PRN PRN Reason: Pain Score 1-10/10 Last Admin: 01/04/20 13:06 Dose: 1 mg Documented by: Nystatin (Mycostatin) 1 applic TOPICAL BID [facility]; Protocol Last Admin: 06/26/20 11:27 Dose: 1 applicatio Documented by: Ondansetron HCl (Zofran) 4 mg IV Q8H PRN PRN PRN Reason: NAUSEA/VOMITING Pantoprazole Sodium (Protonix) 20 mg PO DAILY [facility] Last Admin: 01/05/20 11:26 Dose: 20 mg Documented by: Sodium Chloride () 10 - 40 ml IV UD PRN PRN Reason: SALINE FLUSH Last Admin: 01/04/20 13:07 Dose: 10 ml Documented by: Sodium Chloride (0.9% Nacl (Sterile) Posiflush) 10 - 40 ml IV UD PRN PRN Reason: Port access or dressing change Spironolactone (Aldactone) 100 mg PO DAILY [facility] Last Admin: 01/05/20 09:24 Dose: Not Given Documented by: Disposition: Home Minutes spent on discharge:: 27 Patient Condition:: Stable Meaningful Use Info Meaningful Use Diagnoses (Choose all that apply): None applicable Inpatient E&M: [id number] [facility] Hosp
[2020-01-05 12:25] VITALS: BP 100/47; PULSE 119; RESP 16; TEMP 36.9; O2SAT 96
--- NOTE | 2020-01-05 13:44 | CASEMGMT ---
Social Work Note Pt is discharging home today. QUIN placed a call to [facility] and left message for Judi that pt is being discharged home today. QUIN faxed discharge paperwork. Mindi Elias [employer]ER, [employer]NER
== END 2020-01-09 14:14 | disposition home or self-care (01) | DRG 442 ==
LOC: ED 20:31 → MS3 20:47
PROVIDERS: Physician Assistant; Admitting Provider Hospitalist; Emergency Provider Emergency Medicine; PCP Family Medicine; Visit Provider Hospitalist
DX: K75.81 Nonalcoholic steatohepatitis (NASH) (principal); J90 Pleural effusion, not elsewhere classified; J98.11 Atelectasis; R18.8 Other ascites; E78.5 Hyperlipidemia, unspecified; K74.60 Unspecified cirrhosis of liver; E55.9 Vitamin D deficiency, unspecified; D53.9 Nutritional anemia, unspecified; R31.9 Hematuria, unspecified; K21.9 Gastro-esophageal reflux disease without esophagitis; I10 Essential (primary) hypertension; D50.9 Iron deficiency anemia, unspecified; F32.9 Major depressive disorder, single episode, unspecified; M47.816 Spondylosis without myelopathy or radiculopathy, lumbar region; E87.6 Hypokalemia; K59.09 Other constipation; Z79.01 Long term (current) use of anticoagulants; Z87.442 Personal history of urinary calculi; Z86.718 Personal history of other venous thrombosis and embolism; N32.81 Overactive bladder; Z80.8 Family history of malignant neoplasm of other organs or systems; Z82.3 Family history of stroke; Z82.49 Family history of ischemic heart disease and other diseases of the circulatory system; Z85.820 Personal history of malignant melanoma of skin; Z82.0 Family history of epilepsy and other diseases of the nervous system; M19.90 Unspecified osteoarthritis, unspecified site; Z99.81 Dependence on supplemental oxygen
CPT/HCPCS: 32555; 36415; 36416; 36600; 49083; 71045; 71046; 74176; 80048; 80053; 81001; 82803; 83735; 85014; 85018; 85025; 85049; 85610; 85730; 87077; 87086; 87088; 87186; 93005; 94640; 97162; 97166; 97802; 99283; 99284; P9047; A4216; C1729; J2405

== ENCOUNTER 2020-01-05 15:20 | Inpatient (IN) | payer MEDICARE, OTHER, SELFPAY ==
[2020-01-03 21:15] VITALS: BMI 21.9
[2020-01-05] VITALS (10 sets, daily range): BP systolic 105–135; BP diastolic 51–83; PULSE 77–121; RESP 15–30; TEMP 36.4–37; O2SAT 93–100; BMI 21.8; BMI 21.7
--- NOTE | 2020-01-05 15:30 | RAD_ITS ---
STUDY: X-RAY CHEST REASON FOR EXAM: Female, 74 years old. DISCHARGED FROM [facility] AT 1400, RETURNS WITH SOB, DAUGHTER REPORTS GASPING AND RESPS AT 44 AT HOME. TECHNIQUE: Single AP portable view of the chest. COMPARISON: 01/04/2009 46 FINDINGS: The lungs are clear and expanded. No change in the large right-sided pleural effusion with right lower lobe atelectasis. Normal size heart. Normal mediastinum and luz elena. Normal visualized pulmonary arteries. Normal visualized aortic arch and descending thoracic aorta. Normal visualized thoracic spine. Normal visualized ribs, clavicles, and shoulders. There is no demonstrated abnormality of the visualized soft tissue structures of the upper abdomen. RAD/Chest 1 View (Portable) IMPRESSION: No change in large right pleural effusion with right lower lobe atelectasis Electronically Signed: Angel Schulz MD at 15:58 EDT Tel , Service support ,
--- NOTE | 2020-01-05 16:11 | EKG12_ITS ---
Test Reason : SOB Blood Pressure : / mmHG Vent. Rate : 112 BPM Atrial Rate : 112 BPM P-R Int : 112 ms QRS Dur : 074 ms QT Int : 324 ms P-R-T Axes : -07 040 -13 degrees QTc Int : 442 ms Sinus tachycardia Nonspecific T wave abnormality Abnormal ECG Confirmed by NEIDA DUMONT, ROBERT ([id number]), proposal editor BIB CR ([id number]) on 01/09/2020 11:07:40 AM Referred By: SARTHAK Confirmed By:ROBERT CARRASQUILLO MD
--- NOTE | 2020-01-05 16:11 | ED.VIS.GEN ---
History of Present Illness Chief Complaint: Shortness of Breath Narrative: Patient presents with shortness of breath that started rapidly about an hour ago. She was discharged from the hospital about an hour and a half ago, she has a history of nonalcoholic cirrhosis, she had thoracentesis done yesterday and now she is short of breath again. She was on Eliquis but this was withheld for the procedure and she has not started it again. No fever or chills, this onset was quite rapid. Past Medical History - Allergies and Home Meds Allergies/Adverse Reactions: Allergies Sulfa (Sulfonamide Antibiotics) Allergy (Verified 01/05/20 15:24) Swelling Primary Care Physician: Eagle Dang MD [Primary Care Provider] - Past Medical History: - - Nonalcoholic cirrhosis Surgical History: appendectomy, cholecystectomy, hysterectomy - Total abdominal., total knee arthroplasty, - - x 3, Melanoma excision (back), Liver biopsy, ureteral stent x 3 with ureteral reconstruction, cholecystectomy, appendectomy, tonsillectomy. Smoking Status: Never smoker - Family History Maternal Family History: Reports: Dementia - Alzheimer Disease., Hypertension, Stroke Paternal Family History: Reports: Cancer - Father with history of throat cancer. Review of Systems All systems negative except as indicated General: Denies: Chills, Fever Cardiovascular: Denies: Chest pain, Palpitations Respiratory: Reports: Dyspnea, Cough Gastrointestinal: Reports: Nausea Genitourinary: Denies: Dysuria Skin: Denies: Rash Neurological: Reports: - - No focal weakness. Denies: Headache Hematologic: Denies: Easy bruising, Easy bleeding Allergy: Denies: Uticaria Physical Exam Vital Signs/Narrative: Vital Signs Temp Pulse Resp BP Pulse Ox 01/05/20 15:42 97.6 F L 121 H 30 H 117/67 100 01/05/20 15:21 97.6 F L 121 H 30 H 117/67 100 Inital Vital Signs reviewed: Yes General: - - She appears in some distress. She appears chronically ill, she is cachectic Head: Normocephalic, Atraumatic ENT: - - Slightly dry membranes Neck: Supple Cardiovascular: Regular rate, Regular rhythm Respiratory: - - She is tachypneic and appears in some distress. She has diminished breath sounds on the right. She has dullness to percussion on the right. Abdomen: Soft, - - No abdominal tenderness, she does have some ascites. Back: Nontender, Normal Inspection Neurological: Alert, Normal Strength, Normal Sensation Diagnostic/Tx/Re-eval Chest X-Ray - ED: 1 View, Read by ED Physician, Read by Radiologist, - - Patient has a significant right-sided effusion, otherwise unremarkable x-ray - Medical Decision Making Unfortunately at this time I do not have an interventional radiologist for thoracentesis however I did talk to the ICU physician, patient can be admitted to our facility, at this time hemodynamically she is stable but can decompensate I will admit her. ED Disposition - Plan for ED Patient: Disposition: Psychiatric Hospital or Unit Diagnosis: Respiratory distress, Pleural effusion Referrals: Eagle Dang MD [Primary Care Provider] -
--- NOTE | 2020-01-05 17:08 | NURSING ---
PCU RESP DISTRESS, RECURRENT PLEURAL EFFUSION PAINTSIL
--- NOTE | 2020-01-05 17:22 | PCM.HP.STD ---
<Luigi Guajardo - Last Filed: 01/05/20 17:22> Problem List (1) Acute respiratory failure with hypoxia Status: Acute (2) Recurrent right pleural effusion Status: Acute (3) Depression Status: Chronic Qualifiers: Depression Type: unspecified Qualified Code(s): F32.9 - Major depressive disorder, single episode, unspecified (4) GERD (gastroesophageal reflux disease) Status: Chronic Qualifiers: Esophagitis presence: esophagitis presence not specified Qualified Code(s): K21.9 - Gastro-esophageal reflux disease without esophagitis (5) Hyperlipidemia Status: Chronic Qualifiers: Hyperlipidemia type: unspecified Qualified Code(s): E78.5 - Hyperlipidemia, unspecified (6) Hypertension Status: Chronic Qualifiers: Hypertension type: essential hypertension Qualified Code(s): I10 - Essential (primary) hypertension (7) Iron deficiency anemia Status: Chronic Qualifiers: Iron deficiency anemia type: unspecified iron deficiency Qualified Code(s): D50.9 - Iron deficiency anemia, unspecified (8) 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 She was treated with thoracentesis and diuretics last admission and discharged home with palliative/hospice outpatient follow up. At the time of discharge she had no O2 requirement and her SOB had resolved. Soon after DC she became suddenly more SOB. She came back to the ER and was found to have severe dyspnea, tachypnea, and tachycardia which improved on nonrebreather. CXR was found to have increased pleural effusion. With her terminal condition and rapidly re-accumulating effusions we discussed the likeliness of further decline. I discussed this with the patient and family - at this time the patient states she is not ready to and is not ready to go to the inpatient hospice unit, however she is agreeable to meeting with the hospice staff here to discuss her options. 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 (Chronic) DVT, bilateral lower limbs (Chronic) GERD (gastroesophageal reflux disease) (Chronic) Pleural effusion (Chronic) Allergies Sulfa (Sulfonamide Antibiotics) Allergy (Verified 01/05/20 15:24) Swelling Home Medications: Ambulatory Orders Medication Instructions Recorded Melatonin 10 mg PO QHS 05/16/19 Atorvastatin Calcium [Lipitor] 20 mg PO QHS #30 tab 07/13/19 Furosemide [Lasix] 20 mg PO DAILY PRN PRN 10/12/19 Hydrocortisone 2.5% Crm [Hytone] 1 applic RECTAL BID PRN 10/12/19 Metoclopramide HCl 5 mg PO TIDCM 10/12/19 Ondansetron HCl [Zofran] 4 mg PO Q8H PRN PRN 10/12/19 Pantoprazole Sodium [Protonix] 20 mg PO DAILY 10/12/19 Spironolactone 100 mg PO DAILY 10/12/19 Apixaban [Eliquis] 5 mg PO BID #74 tab 12/05/19 Pseudoephed/Codeine/Guaifen 473 ml PO DAILY PRN 12/15/19 [Virtussin DAC Liquid] Megestrol [Megace] 40 mg PO BID #60 tab 12/19/19 Mirtazapine [Remeron] 30 mg PO QHS 01/03/20 Acetaminophen [Tylenol Tablet] 650 mg PO Q6H PRN PRN tab 01/05/20 Surgical History: appendectomy, cholecystectomy, hysterectomy - Total abdominal., total knee arthroplasty, - - x 3, Melanoma excision (back), Liver biopsy, ureteral stent x 3 with ureteral reconstruction, cholecystectomy, appendectomy, tonsillectomy. Psychiatric History: Anxiety, Depression EROSION CONTROL COORDINATOR History: No pertinent EROSION CONTROL COORDINATOR history Lives: Spouse/ Significant Other Smoking Status: Never smoker Alcohol: None Drugs: None - *Family History Maternal History Items: Dementia - Alzheimer Disease., Hypertension, Stroke Paternal History Items: Cancer - Father with history of throat cancer. Review of Systems Constitutional: Reports: Weakness, Fatigue. Denies: Chills, Fever, Weight Change HEENT: Denies: Head Aches, Sinus Congestion, Sinus Drainage Cardiovascular: Denies: Chest Pain, Heaviness, Light Headedness, Palpitations Respiratory: Reports: Shortness of Breath, Shortness of breath at rest, Shortness of breath upon exertion. Denies: Cough, Pleuritic Pain, Sputum production, Wheezing Gastrointestinal: Reports: Abdominal Pain - RUQ, LLQ. Denies: Nausea, Vomiting Genitourinary: Denies: Dysuria Musculoskeletal: Denies: Joint Pain, Joint Tenderness Skin: Denies: Rash, Wounds Neurological: Denies: Numbness, Tingling, Focal weakness Psychiatric: Denies: Anxiety, Depression, Homicidal Ideations, Suicidal Ideations Hematologic/ Lymphatic: Denies: Easy Bruising, Easy Bleeding VTE Information - Inpt Only VTE Present on Admission: No VTE Mechan Device Prophylaxis: SCD's VTE Pharm Prophylaxis ordered?: No Patient Problems: Active and Suspected Problems Respiratory distress (Acute) Acute respiratory failure with hypoxia (Acute) - Physical Exam Vitals/I&O's: Vital Signs Temp Pulse Resp BP Pulse Ox 98.6 F 112 H 19 H 108/66 100 01/05/20 16:45 01/05/20 16:45 01/05/20 16:45 01/05/20 16:45 01/05/20 16:45 Oxygen Flow Rate (L/min) 4 Oxygen Delivery Method Non-Rebreather Weight: 131 lb Body Mass Index (BMI) 21.8 General: Alert, Oriented x3, Cooperative HEENT: Atraumatic, PERRLA, EOMI, Normocephalic Neck: Supple, No JVD, Negative Carotid Bruits Lungs: Clear to auscultation, Normal air movement, Diminished, Rales - BL, all becerra Cardiovascular: Irregular Rate, Tachycardic Abdomen: Bowel Sounds Present, Soft, Tender - RUQ tenderness Extremities: No edema, Capillary Refill Less than 3 Seconds Skin: No rashes, No breakdown Musculoskeletal: No Tenderness to Palpation of Joints or Extremities Neurological: Cranial nerves II-XII grossly intact Psych/Mental Status: Normal Affect, Appropriate, Alert and oriented to time, place, person, mood and affect Assessment/Plan All Active Problems Respiratory distress (Acute) Acute respiratory failure with hypoxia (Acute) Recurrent right pleural effusion (Acute) 1. Acute hypoxic respiratory failure 2/2 Recurrent Right pleural effusion 2/2 SCHILLING cirrhosis - pt DCd this AM in stable condition with rapid decline after discharge. Now stable on venti mask. Agreeable to diuretics and thoracentesis in AM. Continue to hold eliquis. 2. SCHILLING cirrhosis - terminal. Hospice consult as inpatient. Pt and family agreeable. 3. Hx DVT - hold eliquis 4. Hematuria with anemia - trend CBC. DC planning: Hospice consult DVT ppx: SCDs This patient was seen by Luigi Guajardo PA-C under the supervision of Dr. Steele. <Abdirizak Steele E - Last Filed: 01/06/20 10:24> History of Present Illness The patient is a 74 year old F [] Past Medical History Allergies Sulfa (Sulfonamide Antibiotics) Allergy (Verified 01/05/20 15:24) Swelling - Physical Exam Vitals/I&O's: Vital Signs Temp Pulse Resp BP Pulse Ox 98.6 F 112 H 19 H 108/66 100 01/05/20 16:45 01/05/20 16:45 01/05/20 16:45 01/05/20 16:45 01/05/20 16:45 Oxygen Flow Rate (L/min) 4 Oxygen Delivery Method Non-Rebreather Weight: 131 lb Body Mass Index (BMI) 21.8 Assessment/Plan Hospitalist Note: I am seeing this patient in conjunction with Luigi Guajardo. I independently seen and examined the patient. History and physical, laboratory data and imaging studies reviewed. Patient was discharged today morning after admission for shortness of breath and acute on chronic hypoxic respiratory failure secondary to recurrent right pleural effusion status post thoracentesis. She was discharged home this morning and she was on room air after thoracentesis. She was presented back to the emergency room because of worsening shortness of breath, shortness of breath at rest, aggravated by any type of activity, associated with mild cough without sputum production. She complains of vague abdominal pain that has been going on for some time. She denies fever chills. In the emergency department, patient was dyspneic, tachypneic, tachycardic and she needed nonrebreather mask to maintain her oxygenation. Chest x-ray revealed large right pleural effusion and to me, it does not look different from the x-ray that was done this morning before discharge. ABG revealed pH of 7.52, PCO2 of 36 and PO2 of 154. She is being admitted again for acute on chronic hypoxic respiratory failure with respiratory distress due to large pleural effusion although thoracentesis was done today before discharge. - Physical Exam General: Alert, Oriented x3, Cooperative, moderately short of breath, chronically ill patient. HEENT: Atraumatic, PERRLA, EOMI. Neck: Supple, No JVD, Negative Carotid Bruits, Trachea Midline, Thyroid Normal. Lungs: Absent breath sounds on the right base with dull percussion note, scattered rhonchi, shortness of breath, no wheezes or crackles. Cardiovascular: Regular rate, Regular Rhythm, Normal S1, Normal S2, PMI Normal, tachycardia. Abdomen: Bowel Sounds Present, Soft, Non Tender, Non-Distended, No Hepato-splenomegaly. Extremities: No clubbing, No cyanosis, No edema Skin: No rashes, No breakdown Neurological: Cranial nerves are intact, neuro grossly intact Assessment and plan: #1 Acute on chronic hypoxic respiratory failure/respiratory distress: Due to recurrent right-sided pleural effusion. Chest x-ray reviewed and to me, it looks similar chest x-ray that was done today before discharge. Patient needed nonrebreather mask and now, she is on Ventimask. ABG reviewed as above. Plan: Admit to PCU, cardiac monitoring, continue Ventimask at this time, BiPAP if needed, continue diuretics, plan for thoracentesis, repeat CBC and CMP tomorrow morning, PT OT evaluation and treatment, hospice and palliative care consult. #2 recurrent pleural effusion: Secondary to liver cirrhosis due to SCHILLING. Patient underwent thoracentesis yesterday and she was discharged home today. X-ray reviewed as above. Plan: Thoracentesis, check pro time and INR. 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 Plan to continue diuretics. #3 other chronic medical problems: Stable, continue current medications as above. This note was generated with [employer] dictation software. It may contain incorrect words, spelling, and punctuation that were not noted in checking the note before signing. Inpatient E&M: 61565 Init Hosp L3
[2020-01-05] MEDS: Morphine 2 MG/ML Syringe IV (18:49)
[2020-01-05 20:17] LABS: Allen Test POS; Blood Gas Specimen Type ART; SITE L RADIAL
[2020-01-05 20:18] LABS: PO2 154 mmHG (75-100); Time Given 1822; pH 7.52 (7.35-7.45)
[2020-01-05 20:19] LABS: Base Excess 6 mmol/L (-2 to +2); Bicarbonate 29.1 mmol/L (22-26); SO2 100 % (95-99); Total Carbon Dioxide 30 mmol/L
--- NOTE | 2020-01-05 21:16 | PCM.PN.BLA ---
Progress Note Around 5 pm. STROKE Vital Signs/Narrative: Vital Signs Temp Pulse Resp BP Pulse Ox 01/05/20 20:17 97.9 F 104 H 22 H 110/51 L 100 01/05/20 20:04 99 01/05/20 19:55 98.6 F 77 15 135/83 H 96 01/05/20 18:25 98.2 F 102 H 20 H 105/54 L 100
[2020-01-05] MEDS: Ipratropium/Albuterol Sulfate 3 ML AMPUL.NEB INHALATION (22:08)
[2020-01-05] MEDS: Mirtazapine 30 MG Tablet PO (23:23)
[2020-01-05] MEDS: Megestrol 40 MG Tablet PO (23:23)
[2020-01-05] MEDS: MELATONIN 10 MG TABLET PO (23:24)
[2020-01-05] MEDS: Morphine 2 MG/ML Syringe 1 MG IV (23:31)
--- NOTE | 2020-01-05 23:44 | NURSING ---
PT REFUSING BLOOD DRAWS ON ADMISSION. REPORTS SHE IS A HARD STICK AND HAS BEEN STUCK WITH NEEDLES ENOUGH.
[2020-01-06] VITALS (14 sets, daily range): BP systolic 89–115; BP diastolic 50–65; PULSE 94–121; RESP 18–22; TEMP 36.9–37.2; O2SAT 95–100
--- NOTE | 2020-01-06 02:31 | NURSING ---
PT IN AGREEMENT TO HAVE THORACENTESIS DONE TODAY, PT SAID SHE WOULD BE OK WITH AM LAB DRAW IN PREPARATION FOR THE PROCEDURE. LAB NOTIFIED
[2020-01-06 07:02] LABS: Absolute Lymphocyte Count 1.94 X10^3/uL (0.83-4.51); Absolute Neutrophil Count 5.3 X10^3/uL (2.0-7.7); Basophil# 0.06 X10^3/uL; Basophil% 0.7 % (0-1); Eosinophil# 0.57 X10^3/uL; Eosinophils% 6.4 % (0-5); Hematocrit 30.3 % (37-47); Hemoglobin 9.4 g/dL (12.0-15.0); Lymphocyte # 1.94 X10^3/ul (4.0); Lymphocyte % 21.8 % (19-41); Mean Corpuscular Hgb 32.3 pg (27.0-32.0); Mean Corpuscular Volume 104.1 fL (81-99); Mean Platelet Vol. 10.3 fl (6.2-12.0); Monocyte# 0.98 X10^3/uL; NRBC Flagged by Analyzer 0 % (0-5); Neutrophil # 5.31 X10^3/uL (2.7-7.7); Neutrophil % 59.7 % (47-70); POSITIVE COUNT YES; Platelet Count 146 K/mm3 (150-450); RBC Distribution Width CV 16.5 % (11.6-14.6); RBC Distribution Width SD 62.2 fl (35.1-43.9); Red Blood Count 2.91 M/mm3 (4.2-5.4); White Blood Count 8.9 K/mm3 (4.4-11.0)
[2020-01-06 07:06] LABS: Differential Indicated SCAN CRITERIA MET
[2020-01-06] MEDS: Ipratropium/Albuterol Sulfate 3 ML AMPUL.NEB INHALATION ×3 (07:28→19:04)
[2020-01-06 08:06] LABS: ALB/GLOB Ratio 0.3 RATIO (0.9-2.4); AST(SGOT) 47 U/L (15-37); Alanine Aminotransfer ALT/SGPT 36 U/L (13-56); Albumin, Serum 1.2 g/dL (3.2-5.0); Alkaline Phosphatase 320 U/L (45-117); Anion Gap 8 (5-15); BUN 33 mg/dL (7-18); BUN/Creat Ratio 31.7 RATIO (10-20); Calcium,Total 8.1 mg/dL (8.5-10.1); Chloride 107 mmol/L (98-107); Creatinine, Serum 1.04 mg/dL (0.55-1.02); EST Glomerular Filtration Rate 55 mL/min (>60); Est Glom Filt Rate - Afr Amer 66 mL/min (>60); Estimated Creatinine Clearance 42.06 ml/min; Glucose 82 mg/dL (74-106); Potassium 3.8 mmol/L (3.5-5.1); Protein, Total 5.2 g/dL (6.4-8.2); Sodium Level 138 mmol/L (136-145)
[2020-01-06] MEDS: Morphine 2 MG/ML Syringe 1 MG IV ×3 (08:15→21:00)
[2020-01-06] MEDS: Metoclopramide 5 MG TABLET PO ×3 (08:16→16:57)
[2020-01-06 08:54] LABS: Differential Comment SCANNED
[2020-01-06] MEDS: Spironolactone 50 MG Tablet 100 MG PO (09:18)
[2020-01-06] MEDS: Pantoprazole Sodium 20 MG Tablet PO (09:18)
[2020-01-06] MEDS: Furosemide 40 MG Tablet PO (09:18)
[2020-01-06] MEDS: Megestrol 40 MG Tablet PO ×2 (09:19→21:01)
[2020-01-06 11:37] LABS: International Normalized Ratio 1.1; Prothrombin Time (Protime)PT. 13.8 SECONDS (11.7-14.9)
[2020-01-06 11:38] LABS: Partial Thromboplast Time 31.5 Seconds (24.1-36.2)
--- NOTE | 2020-01-06 12:11 | CASEMGMT ---
Addendum entered by Luis Enrique Candelario 01/06/20 13:22: Call from Hospice nurse, Flor. She has arranged to meet with family tomorrow @ 10 am @ daughter's home and would like to call to patient's room @ 10 am to have pt be part of conversation. DOROTEO HERRERA went to room to explain to patient and helped pt answer call from Hospice nurse so plan could be explained. Patient is agreeable to this. SW updated, and charge nurse aware so pt can be assisted to pickling operator call tomorrow @ 10 am. [employer] OHARA Original Note: RN JAVIER Readmission Note Previous Admission: 01/03-01/05/2020 Diagnosis: Respiratory Failure, recurrent pleural effusion due to SCHILLING DC Dispostion: Home with [facility] PH: FX: [phone] Physician F/U: pt returned later same day. No f/u yet. Presentation: severe dyspnea, tachypnea, tachycardia. place on NRB. CXR showed Pleural effusion had increased. Diagnosis: SCHILLING, pleural effusion Patient has Home oxygen through [employer]. Attempted to see pt. She is very sleepy and unable to participate in conversation. Call to who was able to participate. states they would like Hospice consult and meeting. DOROTEO HERRERA let know the referral was faxed to them this am. He asked if they could call him and DOROTEO HERRERA had Hospice dice table person nurse contact to arrange family meeting. This may take place in hospital per charge nurse. Charge nurse and Odalis, QUIN was updated. -[facility] dice table person rep was updated re: readmission to hospital. Green sheet on chart if pt would return home w/o hospice and need HHC resumed. [employer] OH[employer]
--- NOTE | 2020-01-06 13:49 | PN_ITS ---
<Luigi Guajardo - Last Filed: 01/06/20 13:49> Patient Problems: Active and Suspected Problems Respiratory distress (Acute) Acute respiratory failure with hypoxia (Acute) Reason for Visit: SOB Subjective: Shortness of breath resolved. Patient stable on baseline oxygen. No lower extremity edema. No chest pain. No lightheadedness or dizziness. Mild diffuse abdominal pain. Last BM yesterday morning. Vitals/I&O's: Vital Signs Temp Pulse Resp BP Pulse Ox 98.7 F 100 18 115/53 L 95 01/06/20 08:17 01/06/20 13:37 01/06/20 13:37 01/06/20 08:17 01/06/20 09:28 Oxygen Flow Rate (L/min) 4 Oxygen Delivery Method Nasal Cannula Weight: 130 lb 4.691 oz Body Mass Index (BMI) 21.7 Intake and Output for Last 24 Hours 01/04/20 01/05/20 01/06/20 23:59 23:59 23:59 Intake Total 970 / 970 Balance 970 / 970 General: Alert, Oriented x3, Cooperative, - - Frail HEENT: Atraumatic, PERRLA, EOMI, Normocephalic Neck: Supple, No JVD, Negative Carotid Bruits Lungs: Diminished, Rales Cardiovascular: Regular rate, No murmurs Abdomen: Bowel Sounds Present, Soft, Non Tender Extremities: No edema, Capillary Refill Less than 3 Seconds Skin: No rashes, No breakdown Musculoskeletal: No Tenderness to Palpation of Joints or Extremities Neurological: Cranial nerves II-XII grossly intact Psych/Mental Status: Anxious, Alert and oriented to time, place, person, mood and affect Laboratory Results 01/05/20 18:19: Specimen Type ART, Sample Site L RADIAL, pH 7.52 H, Bicarbonate Actual 29.1 H, POC Total CO2 30, Base Excess 6 H, O2 Saturation 100 H, ABG pCO2 36.0, ABG pO2 154 H, Han Test POS, O2 Delivery Device S Mask, Liter Flow 4.0, Blood Gas Notified Whom ED , Blood Gas Notified Time 182101/06/20 06:24: Sodium 138, Potassium 3.8, Chloride 107, Carbon Dioxide 23.0, Anion Gap 8, BUN 33 H, Creatinine 1.04 H, Estim Creat Clear Calc 42.06, Est GFR (MDRD) Af Amer 66, Est GFR (MDRD) Non-Af 55 L, BUN/Creatinine Ratio 31.7 H, Glucose 82, Calcium 8.1 L, Total Bilirubin 1.30 H, AST 47 H, ALT 36, Alkaline Phosphatase 320 H, Total Protein 5.2 L, Albumin 1.2 L, Globulin 4.0, Albumin/Globulin Ratio 0.3 L 01/06/20 06:24: WBC 8.9, RBC 2.91 L, Hgb 9.4 L, Hct 30.3 L, MCV 104.1 H, MCH 32.3 H, MCHC 31.0 L, RDW Std Deviation 62.2 H, RDW Coeff of Shane 16.5 H, Plt Count 146 L, MPV 10.3, Immature Gran % (Auto) 0.400, Neut % (Auto) 59.7, Lymph % (Auto) 21.8, [place] % (Auto) 11.0 H, Eos % (Auto) 6.4 H, Baso % (Auto) 0.7, Absolute Neuts (auto) 5.3, Absolute Lymphs (auto) 1.94, Nucleated RBC % 0, Differential Comment SCANNED 01/06/20 06:24: PT Cancelled, INR Cancelled, APTT Cancelled 01/06/20 10:57: PT 13.8, INR 1.1, APTT 31.5 Current Medications Acetaminophen (Tylenol) 650 mg PO Q6H PRN PRN PRN Reason: Pain Score 1-10/Temp > 100.7 F Albuterol/Ipratropium (Duoneb) 3 ml INHALATION Q6H.RT [facility] Last Admin: 01/06/20 13:36 Dose: 3 ml Documented by: Furosemide (Lasix) 40 mg PO DAILY [facility] Last Admin: 01/06/20 09:18 Dose: 40 mg Documented by: Megestrol Acetate (Megace) 40 mg PO BID [facility] Last Admin: 01/06/20 09:19 Dose: 40 mg Documented by: Melatonin (Melatonin) 10 mg PO QHS [facility] Last Admin: 01/05/20 23:24 Dose: 10 mg Documented by: Metoclopramide HCl (Reglan) 5 mg PO TIDCM [facility] Last Admin: 01/06/20 11:23 Dose: 5 mg Documented by: Mirtazapine (Remeron) 30 mg PO QHS [facility] Last Admin: 01/05/20 23:23 Dose: 30 mg Documented by: Morphine Sulfate () 1 mg IV Q4H PRN PRN PRN Reason: Pain Score 6-10/10 Last Admin: 01/05/20 23:31 Dose: 1 mg Documented by: Ondansetron HCl (Zofran) 4 mg IV Q8H PRN PRN PRN Reason: NAUSEA/VOMITING Pantoprazole Sodium (Protonix) 20 mg PO DAILY [facility] Last Admin: 01/06/20 09:18 Dose: 20 mg Documented by: Senna/Docusate Sodium (Senokot-S, Deana-Colace) 2 tablet PO BID PRN PRN PRN Reason: Constipation Sodium Chloride () 10 - 40 ml IV UD PRN PRN Reason: SALINE FLUSH Spironolactone (Aldactone) 100 mg PO DAILY [facility] Last Admin: 01/06/20 09:18 Dose: 100 mg Documented by: STROKE Vital Signs/Narrative: Vital Signs Pulse Resp 01/06/20 13:37 100 18 Medical Necessity - Tobacco Use Smoking Status: Never smoker Assessment/Plan All Active Problems Respiratory distress (Acute) Acute respiratory failure with hypoxia (Acute) Recurrent right pleural effusion (Acute) 1. Acute hypoxic respiratory failure 2/2 Recurrent Right pleural effusion 2/2 SCHILLING cirrhosis -possible thoracentesis Wednesday, however patient x-ray does not show any increase in the pleural effusion from the time of discharge, and she is stable at her baseline oxygen. 2. SCHILLING cirrhosis - terminal. Hospice consult as inpatient. Pt and family agreeable. 3. Hx DVT - hold eliquis for possible thoracentesis on Wednesday 4. Hematuria with anemia - trend CBC. DC planning: Hospice consult DVT ppx: SCDs This patient was seen by Luigi Guajardo PA-C under the supervision of Dr. Steele. <Abdirizak Steele E - Last Filed: 01/06/20 14:24> Vitals/I&O's: Vital Signs Temp Pulse Resp BP Pulse Ox 98.7 F 100 18 115/53 L 95 01/06/20 08:17 01/06/20 13:37 01/06/20 13:37 01/06/20 08:17 01/06/20 09:28 Oxygen Flow Rate (L/min) 4 Oxygen Delivery Method Nasal Cannula Weight: 130 lb 4.691 oz Body Mass Index (BMI) 21.7 Intake and Output for Last 24 Hours 01/04/20 01/05/20 01/06/20 23:59 23:59 23:59 Intake Total 970 / 970 Balance 970 / 970 Laboratory Results 01/05/20 18:19: Specimen Type ART, Sample Site L RADIAL, pH 7.52 H, Bicarbonate Actual 29.1 H, POC Total CO2 30, Base Excess 6 H, O2 Saturation 100 H, ABG pCO2 36.0, ABG pO2 154 H, Han Test POS, O2 Delivery Device S Mask, Liter Flow 4.0, Blood Gas Notified Whom ED , Blood Gas Notified Time 18201/06/20 06:24: Sodium 138, Potassium 3.8, Chloride 107, Carbon Dioxide 23.0, Anion Gap 8, BUN 33 H, Creatinine 1.04 H, Estim Creat Clear Calc 42.06, Est GFR (MDRD) Af Amer 66, Est GFR (MDRD) Non-Af 55 L, BUN/Creatinine Ratio 31.7 H, Glucose 82, Calcium 8.1 L, Total Bilirubin 1.30 H, AST 47 H, ALT 36, Alkaline Phosphatase 320 H, Total Protein 5.2 L, Albumin 1.2 L, Globulin 4.0, Albumin/Globulin Ratio 0.3 L 01/06/20 06:24: WBC 8.9, RBC 2.91 L, Hgb 9.4 L, Hct 30.3 L, MCV 104.1 H, MCH 32.3 H, MCHC 31.0 L, RDW Std Deviation 62.2 H, RDW Coeff of Shane 16.5 H, Plt Count 146 L, MPV 10.3, Immature Gran % (Auto) 0.400, Neut % (Auto) 59.7, Lymph % (Auto) 21.8, [place] % (Auto) 11.0 H, Eos % (Auto) 6.4 H, Baso % (Auto) 0.7, Absolute Neuts (auto) 5.3, Absolute Lymphs (auto) 1.94, Nucleated RBC % 0, Differential Comment SCANNED 01/06/20 06:24: PT Cancelled, INR Cancelled, APTT Cancelled 01/06/20 10:57: PT 13.8, INR 1.1, APTT 31.5 Current Medications Acetaminophen (Tylenol) 650 mg PO Q6H PRN PRN PRN Reason: Pain Score 1-10/Temp > 100.7 F Albuterol/Ipratropium (Duoneb) 3 ml INHALATION Q6H.RT [facility] Last Admin: 01/06/20 13:36 Dose: 3 ml Documented by: Furosemide (Lasix) 40 mg PO DAILY [facility] Last Admin: 01/06/20 09:18 Dose: 40 mg Documented by: Megestrol Acetate (Megace) 40 mg PO BID [facility] Last Admin: 01/06/20 09:19 Dose: 40 mg Documented by: Melatonin (Melatonin) 10 mg PO QHS [facility] Last Admin: 01/05/20 23:24 Dose: 10 mg Documented by: Metoclopramide HCl (Reglan) 5 mg PO TIDCM [facility] Last Admin: 01/06/20 11:23 Dose: 5 mg Documented by: Mirtazapine (Remeron) 30 mg PO QHS [facility] Last Admin: 01/05/20 23:23 Dose: 30 mg Documented by: Morphine Sulfate () 1 mg IV Q4H PRN PRN PRN Reason: Pain Score 6-10/10 Last Admin: 01/05/20 23:31 Dose: 1 mg Documented by: Ondansetron HCl (Zofran) 4 mg IV Q8H PRN PRN PRN Reason: NAUSEA/VOMITING Pantoprazole Sodium (Protonix) 20 mg PO DAILY [facility] Last Admin: 01/06/20 09:18 Dose: 20 mg Documented by: Senna/Docusate Sodium (Senokot-S, Deana-Colace) 2 tablet PO BID PRN PRN PRN Reason: Constipation Sodium Chloride () 10 - 40 ml IV UD PRN PRN Reason: SALINE FLUSH Spironolactone (Aldactone) 100 mg PO DAILY [facility] Last Admin: 01/06/20 09:18 Dose: 100 mg Documented by: STROKE Vital Signs/Narrative: Vital Signs Pulse Resp 01/06/20 13:37 100 18 Assessment/Plan Hospitalist Note: I am seeing this patient in conjunction with Luigi Guajardo. I independently seen and examined the patient. Progress note above, laboratory data and imaging studies reviewed and I concur with above treatment plan. Patient seen and examined today. She mentioned that her breathing is getting better, stable her baseline oxygen at 4 L. She complained of intermittent abdominal pain. She has been afebrile, heart rate has been around 100 210, blood pressure stable, pulse ox is 95% on 4 L. - Physical Exam General: Alert, Oriented x3, Cooperative, moderately short of breath, chronically ill patient. HEENT: Atraumatic, PERRLA, EOMI. Neck: Supple, No JVD, Negative Carotid Bruits, Trachea Midline, Thyroid Normal. Lungs: Absent breath sounds on the right base with dull percussion note, scattered rhonchi, shortness of breath, no wheezes or crackles. Cardiovascular: Regular rate, Regular Rhythm, Normal S1, Normal S2, PMI Normal, tachycardia. Abdomen: Bowel Sounds Present, Soft, Non Tender, Non-Distended, No Hepato- splenomegaly. Extremities: No clubbing, No cyanosis, No edema Skin: No rashes, No breakdown Neurological: Cranial nerves are intact, neuro grossly intact Assessment and plan: #1 Acute on chronic hypoxic respiratory failure/respiratory distress: Due to recurrent right-sided pleural effusion. Symptoms started to improve, remained stable on 4 L of oxygen which is her baseline. Plan for thoracentesis on Wednesday. For now, continue diuretics, supplemental oxygen, awaiting evaluation by hospice and palliative care. #2 recurrent pleural effusion: Secondary to liver cirrhosis due to SCHILLING. Plan for thoracentesis on Wednesday. 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 continue diuretics. #3 other chronic medical problems: Stable, continue current medications as above. This note was generated with [employer] dictation software. It may contain incorrect words, spelling, and punctuation that were not noted in checking the note before signing. Inpatient E&M: 27906 Subs Hosp L2
[2020-01-06] MEDS: 0.9% Saline Lock 10 ML Syringe IV ×2 (15:50→21:02)
[2020-01-06] MEDS: Mirtazapine 30 MG Tablet PO (21:02)
[2020-01-06] MEDS: MELATONIN 10 MG TABLET PO (21:02)
[2020-01-07] VITALS (15 sets, daily range): BP systolic 85–119; BP diastolic 40–75; PULSE 104–138; RESP 18–22; TEMP 36.6–37.2; O2SAT 96–100
[2020-01-07] MEDS: 0.9% Saline Lock 10 ML Syringe IV ×4 (03:51→16:09)
[2020-01-07] MEDS: Morphine 2 MG/ML Syringe 1 MG IV ×4 (03:52→17:20)
[2020-01-07] MEDS: Acetaminophen 325 MG Tablet 650 MG PO (05:51)
[2020-01-07] MEDS: Ipratropium/Albuterol Sulfate 3 ML AMPUL.NEB INHALATION ×3 (07:04→19:00)
[2020-01-07] MEDS: Metoclopramide 5 MG TABLET PO ×3 (08:12→17:20)
[2020-01-07] MEDS: Furosemide 40 MG Tablet PO (11:26)
[2020-01-07] MEDS: Megestrol 40 MG Tablet PO ×2 (11:26→21:06)
[2020-01-07] MEDS: Pantoprazole Sodium 20 MG Tablet PO (11:26)
[2020-01-07] MEDS: Spironolactone 50 MG Tablet 100 MG PO (11:27)
--- NOTE | 2020-01-07 11:44 | PN_ITS ---
<Luigi Guajardo - Last Filed: 01/07/20 11:44> Patient Problems: Active and Suspected Problems Respiratory distress (Acute) Acute respiratory failure with hypoxia (Acute) Reason for Visit: SOB Subjective: Minimal SOB on baseline o2. No fever/chills/cough. Mild diffuse abdominal discomfort with mild swelling. Vitals/I&O's: Vital Signs Temp Pulse Resp BP Pulse Ox 98.1 F 107 H 18 91/40 L 97 01/07/20 09:06 01/07/20 09:06 01/07/20 09:06 01/07/20 09:06 01/07/20 09:06 Oxygen Flow Rate (L/min) 2 Oxygen Delivery Method Nasal Cannula Weight: 130 lb 4.691 oz Body Mass Index (BMI) 21.7 Intake and Output for Last 24 Hours 01/05/20 01/06/20 01/07/20 23:59 23:59 23:59 Intake Total 1445 / 1445 125 / 125 Balance 1445 / 1445 125 / 125 General: Alert, Oriented x3, Cooperative HEENT: Atraumatic, PERRLA, EOMI, Normocephalic Neck: Supple, No JVD, Negative Carotid Bruits Lungs: Diminished - R>L, Rales Cardiovascular: Regular rate, No murmurs Abdomen: Bowel Sounds Present, Soft, Tender - diffusely to moderate pressure palp. Extremities: No edema, Capillary Refill Less than 3 Seconds Skin: No rashes, No breakdown Musculoskeletal: No Tenderness to Palpation of Joints or Extremities Neurological: Cranial nerves II-XII grossly intact Psych/Mental Status: Normal Affect, Appropriate, Alert and oriented to time, place, person, mood and affect Current Medications Acetaminophen (Tylenol) 650 mg PO Q6H PRN PRN PRN Reason: Pain Score 1-10/Temp > 100.7 F Last Admin: 01/07/20 05:51 Dose: 650 mg Documented by: Albuterol/Ipratropium (Duoneb) 3 ml INHALATION Q6H.RT [facility] Last Admin: 01/07/20 07:04 Dose: 3 ml Documented by: Furosemide (Lasix) 40 mg PO DAILY [facility] Last Admin: 01/07/20 11:26 Dose: 40 mg Documented by: Megestrol Acetate (Megace) 40 mg PO BID [facility] Last Admin: 01/07/20 11:26 Dose: 40 mg Documented by: Melatonin (Melatonin) 10 mg PO QHS [facility] Last Admin: 01/06/20 21:02 Dose: 10 mg Documented by: Metoclopramide HCl (Reglan) 5 mg PO TIDCM [facility] Last Admin: 01/07/20 11:26 Dose: 5 mg Documented by: Mirtazapine (Remeron) 30 mg PO QHS [facility] Last Admin: 01/06/20 21:02 Dose: 30 mg Documented by: Morphine Sulfate () 1 mg IV Q4H PRN PRN PRN Reason: Pain Score 6-10/10 Last Admin: 01/07/20 08:11 Dose: 1 mg Documented by: Ondansetron HCl (Zofran) 4 mg IV Q8H PRN PRN PRN Reason: NAUSEA/VOMITING Pantoprazole Sodium (Protonix) 20 mg PO DAILY [facility] Last Admin: 01/07/20 11:26 Dose: 20 mg Documented by: Senna/Docusate Sodium (Senokot-S, Deana-Colace) 2 tablet PO BID PRN PRN PRN Reason: Constipation Sodium Chloride () 10 - 40 ml IV UD PRN PRN Reason: SALINE FLUSH Last Admin: 01/07/20 08:12 Dose: 10 ml Documented by: Spironolactone (Aldactone) 100 mg PO DAILY [facility] Last Admin: 01/07/20 11:27 Dose: 100 mg Documented by: STROKE Vital Signs/Narrative: Vital Signs Temp Pulse Resp BP Pulse Ox 01/07/20 09:06 98.1 F 107 H 18 91/40 L 97 Medical Necessity - Tobacco Use Smoking Status: Never smoker Assessment/Plan All Active Problems Respiratory distress (Acute) Acute respiratory failure with hypoxia (Acute) Recurrent right pleural effusion (Acute) 1. Acute hypoxic respiratory failure 2/2 Recurrent Right pleural effusion 2/2 SCHILLING cirrhosis -possible thoracentesis Wednesday, however patient x-ray does not show any increase in the pleural effusion from the time of discharge, and she is stable at her baseline oxygen. 2. SCHILLING cirrhosis - terminal. Hospice consult as inpatient. Pt and family agreeable. 3. Hx DVT - hold eliquis for possible thoracentesis on Wednesday 4. Hematuria with anemia - trend CBC. DC planning: Hospice consult DVT ppx: SCDs This patient was seen by Luigi Guajardo PA-C under the supervision of Dr. Steele. <Abdirizak Steele E - Last Filed: 01/07/20 12:05> Vitals/I&O's: Vital Signs Temp Pulse Resp BP Pulse Ox 98.1 F 107 H 18 91/40 L 97 01/07/20 09:06 01/07/20 09:06 01/07/20 09:06 01/07/20 09:06 01/07/20 09:06 Oxygen Flow Rate (L/min) 2 Oxygen Delivery Method Nasal Cannula Weight: 130 lb 4.691 oz Body Mass Index (BMI) 21.7 Intake and Output for Last 24 Hours 01/05/20 01/06/20 01/07/20 23:59 23:59 23:59 Intake Total 1445 / 1445 125 / 125 Balance 1445 / 1445 125 / 125 Current Medications Acetaminophen (Tylenol) 650 mg PO Q6H PRN PRN PRN Reason: Pain Score 1-10/Temp > 100.7 F Last Admin: 01/07/20 05:51 Dose: 650 mg Documented by: Albuterol/Ipratropium (Duoneb) 3 ml INHALATION Q6H.RT [facility] Last Admin: 01/07/20 07:04 Dose: 3 ml Documented by: Furosemide (Lasix) 40 mg PO DAILY [facility] Last Admin: 01/07/20 11:26 Dose: 40 mg Documented by: Megestrol Acetate (Megace) 40 mg PO BID [facility] Last Admin: 01/07/20 11:26 Dose: 40 mg Documented by: Melatonin (Melatonin) 10 mg PO QHS [facility] Last Admin: 01/06/20 21:02 Dose: 10 mg Documented by: Metoclopramide HCl (Reglan) 5 mg PO TIDCM [facility] Last Admin: 01/07/20 11:26 Dose: 5 mg Documented by: Mirtazapine (Remeron) 30 mg PO QHS [facility] Last Admin: 01/06/20 21:02 Dose: 30 mg Documented by: Morphine Sulfate () 1 mg IV Q4H PRN PRN PRN Reason: Pain Score 6-10/10 Last Admin: 01/07/20 08:11 Dose: 1 mg Documented by: Ondansetron HCl (Zofran) 4 mg IV Q8H PRN PRN PRN Reason: NAUSEA/VOMITING Pantoprazole Sodium (Protonix) 20 mg PO DAILY [facility] Last Admin: 01/07/20 11:26 Dose: 20 mg Documented by: Senna/Docusate Sodium (Senokot-S, Deana-Colace) 2 tablet PO BID PRN PRN PRN Reason: Constipation Sodium Chloride () 10 - 40 ml IV UD PRN PRN Reason: SALINE FLUSH Last Admin: 01/07/20 08:12 Dose: 10 ml Documented by: Spironolactone (Aldactone) 100 mg PO DAILY [facility] Last Admin: 01/07/20 11:27 Dose: 100 mg Documented by: STROKE Vital Signs/Narrative: Vital Signs Temp Pulse Resp BP Pulse Ox 01/07/20 09:06 98.1 F 107 H 18 91/40 L 97 Assessment/Plan Hospitalist Note: I am seeing this patient in conjunction with Luigi Guajardo. I independently seen and examined the patient. Progress note above, laboratory data and imaging studies reviewed and I concur with above treatment plan. Today, patient is sitting comfortable, denied any worsening shortness of breath. This morning, she has no more abdominal pain. Her vital signs are stable, pulse ox is maintained on 2 L. - Physical Exam General: Alert, Oriented x3, Cooperative, moderately short of breath, chronically ill patient. HEENT: Atraumatic, PERRLA, EOMI. Neck: Supple, No JVD, Negative Carotid Bruits, Trachea Midline, Thyroid Normal. Lungs: Absent breath sounds on the right base with dull percussion note, scattered rhonchi, shortness of breath, no wheezes or crackles. Cardiovascular: Regular rate, Regular Rhythm, Normal S1, Normal S2, PMI Normal, tachycardia. Abdomen: Bowel Sounds Present, Soft, Non Tender, Non-Distended, No Hepato- splenomegaly. Extremities: No clubbing, No cyanosis, No edema Skin: No rashes, No breakdown Neurological: Cranial nerves are intact, neuro grossly intact Assessment and plan: #1 Acute on chronic hypoxic respiratory failure/respiratory distress: Due to recurrent right-sided pleural effusion. Shortness of breath improved, oxygen requirement has been decreasing and she is down to 2 L. Other vital signs are stable, minimal tachycardia. Plan for possible thoracentesis tomorrow morning, awaiting hospice and Perative care evaluation recommendation. #2 recurrent pleural effusion: Secondary to liver cirrhosis due to SCHILLING. Plan for thoracentesis on Wednesday. 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 continue diuretics. #3 other chronic medical problems: Stable, continue current medications as above. This note was generated with [employer] dictation software. It may contain incorrect words, spelling, and punctuation that were not noted in checking the note before signing. Inpatient E&M: 01581 Subs Hosp L2
[2020-01-07] MEDS: Senna/Docusate Sodium 1 Tablet 2 TABLET PO (12:52)
[2020-01-07] MEDS: Ondansetron 4 MG/2 ML Vial IV (16:09)
--- NOTE | 2020-01-07 18:50 | EKG12_ITS ---
Test Reason : AFIB RVR? Blood Pressure : / mmHG Vent. Rate : 139 BPM Atrial Rate : 139 BPM P-R Int : 144 ms QRS Dur : 072 ms QT Int : 308 ms P-R-T Axes : 025 011 021 degrees QTc Int : 468 ms Sinus tachycardia Nonspecific T wave abnormality Abnormal ECG When compared with ECG of 16-DEC-2019 05:14, Nonspecific T wave abnormality, improved in Lateral leads Confirmed by DELMA KLINE ([id number]), news assignment editor BIB CR ([id number]) on 01/11/2020 12:11:19 PM Referred By: MARIAELENA Confirmed By:DELMA KLINE
--- NOTE | 2020-01-07 19:11 | NURSING ---
Pt had large emesis after passing lots of flatus and burping. Noted Vs recorded. Moist cough continues and heart rate elevated. See EKG results sinus tach. She is noted to have moist wet cough. HUSSAIN Guajardo notified and new order for chele DM for pt. New order for speech therapy. Patient states she was dreaming she was home and woke up calling for her . She became anxious and states to nurse she was scared that her was not answering him. Nurse remains with pt she is still coughing intermittently. Requested gingerale sips given sparingly.
[2020-01-07] MEDS: guaiFENesin Dm 10 ML UDC PO (20:11)
[2020-01-07] MEDS: Mirtazapine 30 MG Tablet PO (21:06)
[2020-01-07] MEDS: MELATONIN 10 MG TABLET PO (21:06)
[2020-01-08] VITALS (16 sets, daily range): BP systolic 81–113; BP diastolic 36–56; PULSE 99–116; RESP 16–26; TEMP 36.7–37.1; O2SAT 96–100
[2020-01-08] MEDS: Acetaminophen 325 MG Tablet 650 MG PO ×2 (03:46→21:20)
[2020-01-08 06:10] LABS: Absolute Lymphocyte Count 1.12 X10^3/uL (0.83-4.51); Absolute Neutrophil Count 8.5 X10^3/uL (2.0-7.7); Basophil# 0.03 X10^3/uL; Basophil% 0.3 % (0-1); Eosinophil# 0.22 X10^3/uL; Hematocrit 26.2 % (37-47); Hemoglobin 8.1 g/dL (12.0-15.0); Lymphocyte # 1.12 X10^3/ul (4.0); Lymphocyte % 10.4 % (19-41); Mean Corp Hgb Conc 30.9 g/dL (32-36); Mean Corpuscular Volume 103.6 fL (81-99); Mean Platelet Vol. 9.3 fl (6.2-12.0); Monocyte# 0.87 X10^3/uL; Monocyte% 8.1 % (0-10); NRBC Flagged by Analyzer 0 % (0-5); Neutrophil # 8.49 X10^3/uL (2.7-7.7); Neutrophil % 78.8 % (47-70); Platelet Count 173 K/mm3 (150-450); RBC Distribution Width CV 16.6 % (11.6-14.6); RBC Distribution Width SD 61.2 fl (35.1-43.9); Red Blood Count 2.53 M/mm3 (4.2-5.4); White Blood Count 10.8 K/mm3 (4.4-11.0)
[2020-01-08 06:14] LABS: International Normalized Ratio 1.2; Prothrombin Time (Protime)PT. 14.6 SECONDS (11.7-14.9)
[2020-01-08 06:33] LABS: ALB/GLOB Ratio 0.4 RATIO (0.9-2.4); AST(SGOT) 43 U/L (15-37); Alanine Aminotransfer ALT/SGPT 30 U/L (13-56); Albumin, Serum 1.5 g/dL (3.2-5.0); Alkaline Phosphatase 354 U/L (45-117); Anion Gap 5 (5-15); BUN 29 mg/dL (7-18); BUN/Creat Ratio 30.4 RATIO (10-20); Calcium,Total 7.9 mg/dL (8.5-10.1); Chloride 104 mmol/L (98-107); Creatinine, Serum 0.95 mg/dL (0.55-1.02); EST Glomerular Filtration Rate 61 mL/min (>60); Est Glom Filt Rate - Afr Amer 73 mL/min (>60); Estimated Creatinine Clearance 46.04 ml/min; Globulin 3.4 g/dL (2.2-4.2); Glucose 102 mg/dL (74-106); Potassium 4.4 mmol/L (3.5-5.1); Protein, Total 4.9 g/dL (6.4-8.2); Sodium Level 138 mmol/L (136-145)
[2020-01-08 06:44] LABS: Partial Thromboplast Time 30.5 Seconds (24.1-36.2)
--- NOTE | 2020-01-08 07:04 | US_ITS ---
PROCEDURE: ULTRASOUND GUIDED THORACENTESIS. DATE: January 08, 2020. INDICATION: Female, 74 years old. Right pleural effusion. PHYSICIAN: Jass Le M.D. PROCEDURE: The risks, benefits, and alternatives to the procedure were explained to the patient. The specific risks of bleeding, infection, and pneumothorax requiring chest tube insertion were discussed and accepted. Written informed consent was obtained. Ultrasonographic evaluation of the right lower pleural space was carried out. An adequate pocket was identified. The patient was placed in the sitting, upright position. The overlying skin was prepped and draped in sterile fashion. 1% lidocaine was administered subcutaneously for local anesthesia. Under ultrasound guidance, a 5 German thoracentesis needle/catheter system was advanced into the right posterior lower pleural fluid collection. Approximately 800 mL of chris-colored fluid was drained. The catheter was removed, and a sterile dressing was applied. The patient tolerated the procedure well. A chest x-ray was ordered. US/Thoracentesis W US IMPRESSION: Ultrasound-guided right thoracentesis. Electronically Signed: Jass Le, at 10:30 EDT , Service support ,
[2020-01-08] MEDS: Metoclopramide 5 MG TABLET PO ×3 (08:13→16:08)
--- NOTE | 2020-01-08 09:27 | CASEMGMT ---
QUIN called Hospice and spoke with Judi. Family signed Hospice pre-admit papers. She asked if patient was going to get a pleurex cath and QUIN told her not as far as QUIN is aware. QUIN told her she may not even be getting a thoracentesis as there may not be enough fluid to remove. She said if patient needs to go to their inpatient unit to assist in her transition home that would be fine as long as the doctor's are ok with this. Lashaun CHURCH COFFEE ATTENDANT
--- NOTE | 2020-01-08 09:32 | NURSING ---
Pt to ultrasound for thora via CLIENT TECHNOLOGIES ANALYST
--- NOTE | 2020-01-08 10:04 | RAD_ITS ---
STUDY: X-RAY CHEST REASON FOR EXAM: Female, 74 years old. POST THORACENTESIS TECHNIQUE: AP inspiration and expiration views. COMPARISON: Comparison is made with prior study dated January 05, 2020. FINDINGS: The patient is status post right thoracentesis. There is no evidence of pneumothorax. Residual right pleural-parenchymal changes persist. RAD/Chest Insp/Exp 2 View IMPRESSION: Status post right thoracentesis. No evidence of pneumothorax following the thoracentesis. Electronically Signed: Jass Le, at 10:29 EDT , Service support ,
[2020-01-08] MEDS: Spironolactone 50 MG Tablet 100 MG PO (11:13)
[2020-01-08] MEDS: Furosemide 40 MG Tablet PO (11:13)
[2020-01-08] MEDS: Pantoprazole Sodium 20 MG Tablet PO (11:13)
[2020-01-08] MEDS: Megestrol 40 MG Tablet PO ×2 (11:13→21:20)
[2020-01-08] MEDS: 0.9% Saline Lock 10 ML Syringe IV ×2 (12:33→16:50)
[2020-01-08] MEDS: Morphine 2 MG/ML Syringe 1 MG IV ×2 (12:33→16:50)
[2020-01-08] MEDS: Ipratropium/Albuterol Sulfate 3 ML AMPUL.NEB INHALATION ×2 (12:54→18:59)
--- NOTE | 2020-01-08 13:04 | PCM.CONS.GEN ---
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 Status: Chronic (2) Pleural effusion Status: Chronic Reason for Consult Date of Consultation: 01/08/20 History of Present Illness: The patient is a 74 year old F with Schilling induced cirrhosis. The patient is having recurrent ascites and right pleural effusion. The patient has had several taps of both her abdominal cavity and her right chest. She has had several CT scans which show full effusion of the right chest. She reports some shortness of breath but she does feel better today after having a thoracentesis. Past Medical History Past Medical History (Chronic Problems): Chronic Problems Kidney stones (Chronic) Debility (Chronic) Body mass index (BMI) 35.0-35.9, adult (Chronic) Hydroureter, left (Chronic) Hydronephrosis, left (Chronic) Hypertension (Chronic) Hyperlipidemia (Chronic) Melanoma (Chronic) Lumbar spondylosis (Chronic) Vitamin D deficiency (Chronic) Iron deficiency anemia (Chronic) Overactive bladder (Chronic) Recurrent kidney stones (Chronic) Depression (Chronic) Urinary retention (Chronic) Osteoarthritis (Chronic) 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 (Chronic) DVT, bilateral lower limbs (Chronic) GERD (gastroesophageal reflux disease) (Chronic) Pleural effusion (Chronic) Allergies Sulfa (Sulfonamide Antibiotics) Allergy (Verified 01/05/20 15:24) Swelling Home Medications: Ambulatory Orders Medication Instructions Recorded Melatonin 10 mg PO QHS 05/16/19 Atorvastatin Calcium [Lipitor] 20 mg PO QHS #30 tab 07/13/19 Furosemide [Lasix] 20 mg PO DAILY PRN PRN 10/12/19 Hydrocortisone 2.5% Crm [Hytone] 1 applic RECTAL BID PRN 10/12/19 Metoclopramide HCl 5 mg PO TIDCM 10/12/19 Ondansetron HCl [Zofran] 4 mg PO Q8H PRN PRN 10/12/19 Pantoprazole Sodium [Protonix] 20 mg PO DAILY 10/12/19 Spironolactone 100 mg PO DAILY 10/12/19 Apixaban [Eliquis] 5 mg PO BID #74 tab 12/05/19 Pseudoephed/Codeine/Guaifen 473 ml PO DAILY PRN 12/15/19 [Virtussin DAC Liquid] Megestrol [Megace] 40 mg PO BID #60 tab 12/19/19 Mirtazapine [Remeron] 30 mg PO QHS 01/03/20 Acetaminophen [Tylenol Tablet] 650 mg PO Q6H PRN PRN tab 01/05/20 Surgical History: appendectomy, cholecystectomy, hysterectomy - Total abdominal., total knee arthroplasty, - - x 3, Melanoma excision (back), Liver biopsy, ureteral stent x 3 with ureteral reconstruction, cholecystectomy, appendectomy, tonsillectomy. 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 Review of Systems Constitutional: Denies: Anorexia, Fever HEENT: Denies: Difficulty Swallowing Cardiovascular: Denies: Chest Pain Respiratory: Reports: Shortness of Breath Gastrointestinal: Denies: Abdominal Pain, Nausea, Vomiting Skin: Denies: Jaundice Patient Problems: Active and Suspected Problems Respiratory distress (Acute) Acute respiratory failure with hypoxia (Acute) - Physical Exam Vitals/I&O's: Vital Signs Temp Pulse Resp BP Pulse Ox 98.2 F 116 H 20 H 113/54 L 99 01/08/20 11:09 01/08/20 12:56 01/08/20 12:56 01/08/20 11:09 01/08/20 12:56 Oxygen Flow Rate (L/min) [6] 3 Oxygen Flow Rate (L/min) [5] 3 Oxygen Flow Rate (L/min) [4] 3 Oxygen Flow Rate (L/min) [3] 3 Oxygen Flow Rate (L/min) [2] 3 Oxygen Flow Rate (L/min) [1 ( 3 Initial Baseline)] Oxygen Flow Rate (L/min) 4 Oxygen Delivery Method [6] Nasal Cannula Oxygen Delivery Method [5] Nasal Cannula Oxygen Delivery Method [4] Nasal Cannula Oxygen Delivery Method [3] Nasal Cannula Oxygen Delivery Method [2] Nasal Cannula Oxygen Delivery Method [1 ( Nasal Cannula Initial Baseline)] Oxygen Delivery Method Nasal Cannula Weight: 130 lb 4.691 oz Body Mass Index (BMI) 21.7 Intake and Output for Last 24 Hours 01/06/20 01/07/20 01/08/20 23:59 23:59 23:59 Intake Total 1445 / 1445 995 / 995 240 / 240 Output Total 850 / 850 Balance 1445 / 1445 995 / 995 -610 / -610 General: Alert, Oriented x3 Neck: No JVD Lungs: Short of Breath Cardiovascular: Regular rate, Regular Rhythm Abdomen: Soft, Non Tender, Distended Laboratory Results 01/08/20 05:50: WBC 10.8, RBC 2.53 L, Hgb 8.1 L, Hct 26.2 L, MCV 103.6 H, MCH 32.0, MCHC 30.9 L, RDW Std Deviation 61.2 H, RDW Coeff of Shane 16.6 H, Plt Count 173, MPV 9.3, Immature Gran % (Auto) 0.400, Neut % (Auto) 78.8 H, Lymph % (Auto) 10.4 L, [place] % (Auto) 8.1, Eos % (Auto) 2.0, Baso % (Auto) 0.3, Absolute Neuts (auto) 8.5 H, Absolute Lymphs (auto) 1.12, Nucleated RBC % 0 01/08/20 05:50: Sodium 138, Potassium 4.4, Chloride 104, Carbon Dioxide 29.0, Anion Gap 5, BUN 29 H, Creatinine 0.95, Estim Creat Clear Calc 46.04, Est GFR (MDRD) Af Amer 73, Est GFR (MDRD) Non-Af 61, BUN/Creatinine Ratio 30.4 H, Glucose 102, Calcium 7.9 L, Total Bilirubin 1.10 H, AST 43 H, ALT 30, Alkaline Phosphatase 354 H, Total Protein 4.9 L, Albumin 1.5 L, Globulin 3.4, Albumin/Globulin Ratio 0.4 L 01/08/20 05:50: PT 14.6, INR 1.2, APTT 30.5 Current Medications Acetaminophen (Tylenol) 650 mg PO Q6H PRN PRN PRN Reason: Pain Score 1-10/Temp > 100.7 F Last Admin: 01/08/20 03:46 Dose: 650 mg Documented by: Albuterol/Ipratropium (Duoneb) 3 ml INHALATION Q6H.RT [facility] Last Admin: 01/08/20 12:54 Dose: 3 ml Documented by: Furosemide (Lasix) 40 mg PO DAILY [facility] Last Admin: 01/08/20 11:13 Dose: 40 mg Documented by: Guaifenesin (Robitussin Dm) 10 ml PO Q6H PRN PRN PRN Reason: COUGH Last Admin: 01/07/20 20:11 Dose: 10 ml Documented by: Megestrol Acetate (Megace) 40 mg PO BID [facility] Last Admin: 01/08/20 11:13 Dose: 40 mg Documented by: Melatonin (Melatonin) 10 mg PO QHS [facility] Last Admin: 01/07/20 21:06 Dose: 10 mg Documented by: Metoclopramide HCl (Reglan) 5 mg PO TIDCM [facility] Last Admin: 01/08/20 11:13 Dose: 5 mg Documented by: Mirtazapine (Remeron) 30 mg PO QHS [facility] Last Admin: 01/07/20 21:06 Dose: 30 mg Documented by: Morphine Sulfate () 1 mg IV Q4H PRN PRN PRN Reason: Pain Score 6-10/10 Last Admin: 01/08/20 12:33 Dose: 1 mg Documented by: Ondansetron HCl (Zofran) 4 mg IV Q8H PRN PRN PRN Reason: NAUSEA/VOMITING Last Admin: 01/07/20 16:09 Dose: 4 mg Documented by: Pantoprazole Sodium (Protonix) 20 mg PO DAILY [facility] Last Admin: 01/08/20 11:13 Dose: 20 mg Documented by: Senna/Docusate Sodium (Senokot-S, Deana-Colace) 2 tablet PO BID PRN PRN PRN Reason: Constipation Last Admin: 01/07/20 12:52 Dose: 2 tablet Documented by: Sodium Chloride () 10 - 40 ml IV UD PRN PRN Reason: SALINE FLUSH Last Admin: 01/08/20 12:33 Dose: 10 ml Documented by: Spironolactone (Aldactone) 100 mg PO DAILY [facility] Last Admin: 01/08/20 11:13 Dose: 100 mg Documented by: Assessment/Plan All Active Problems Respiratory distress (Acute) Acute respiratory failure with hypoxia (Acute) Recurrent right pleural effusion (Acute) 74-year-old female with recurrent right pleural effusion and cirrhosis. 1. Patient has recurrent right pleural effusions. I was consulted for Pleurx catheter placement. The patient intends to go home with home hospice tomorrow. I discussed catheter with her and her . They think it is a good idea and they would like it placed. I discussed the risks of placement including but not limited to bleeding, infection, injury to the lung, pneumothorax. Patient understands the risks and would like to proceed. 2. Plan for right chest Pleurx insertion tomorrow morning. N.p.o. after midnight. Shmuel Lakhani MD Pager: [facility] [address] [place] [address], [address] [place] [address] Office:
--- NOTE | 2020-01-08 14:53 | PCM.PN.HOSP ---
Patient Problems: Active and Suspected Problems Respiratory distress (Acute) Acute respiratory failure with hypoxia (Acute) Reason for Visit: SOB Subjective: Pt tolerated thora this AM with no issues. Now with significantly improved SOB and decreased work of breathing. Pt desires pleuryx cath, discussed with patient and . No fever/chills. Minimal nonproductive cough. Mild diffuse abd pain and distention. No LE edema. Vitals/I&O's: Vital Signs Temp Pulse Resp BP Pulse Ox 98.2 F 116 H 20 H 113/54 L 99 01/08/20 11:09 01/08/20 12:56 01/08/20 12:56 01/08/20 11:09 01/08/20 12:56 Oxygen Flow Rate (L/min) [6] 3 Oxygen Flow Rate (L/min) [5] 3 Oxygen Flow Rate (L/min) [4] 3 Oxygen Flow Rate (L/min) [3] 3 Oxygen Flow Rate (L/min) [2] 3 Oxygen Flow Rate (L/min) [1 ( 3 Initial Baseline)] Oxygen Flow Rate (L/min) 4 Oxygen Delivery Method [6] Nasal Cannula Oxygen Delivery Method [5] Nasal Cannula Oxygen Delivery Method [4] Nasal Cannula Oxygen Delivery Method [3] Nasal Cannula Oxygen Delivery Method [2] Nasal Cannula Oxygen Delivery Method [1 ( Nasal Cannula Initial Baseline)] Oxygen Delivery Method Nasal Cannula Weight: 130 lb 4.691 oz Body Mass Index (BMI) 21.7 Intake and Output for Last 24 Hours 01/06/20 01/07/20 01/08/20 23:59 23:59 23:59 Intake Total 1445 / 1445 995 / 995 240 / 240 Output Total 850 / 850 Balance 1445 / 1445 995 / 995 -610 / -610 General: Alert, Oriented x3, Cooperative HEENT: Atraumatic, PERRLA, EOMI, Normocephalic Neck: Supple, No JVD, Negative Carotid Bruits Lungs: Clear to auscultation, Normal air movement Cardiovascular: Regular rate, No murmurs Abdomen: Bowel Sounds Present, Soft, Non Tender, Distended - mild Extremities: No edema, Capillary Refill Less than 3 Seconds Skin: No rashes, No breakdown Musculoskeletal: No Tenderness to Palpation of Joints or Extremities Neurological: Cranial nerves II-XII grossly intact Psych/Mental Status: Normal Affect, Appropriate, Alert and oriented to time, place, person, mood and affect Laboratory Results 01/08/20 05:50: WBC 10.8, RBC 2.53 L, Hgb 8.1 L, Hct 26.2 L, MCV 103.6 H, MCH 32.0, MCHC 30.9 L, RDW Std Deviation 61.2 H, RDW Coeff of Shane 16.6 H, Plt Count 173, MPV 9.3, Immature Gran % (Auto) 0.400, Neut % (Auto) 78.8 H, Lymph % (Auto) 10.4 L, Crisp % (Auto) 8.1, Eos % (Auto) 2.0, Baso % (Auto) 0.3, Absolute Neuts (auto) 8.5 H, Absolute Lymphs (auto) 1.12, Nucleated RBC % 0 01/08/20 05:50: Sodium 138, Potassium 4.4, Chloride 104, Carbon Dioxide 29.0, Anion Gap 5, BUN 29 H, Creatinine 0.95, Estim Creat Clear Calc 46.04, Est GFR (MDRD) Af Amer 73, Est GFR (MDRD) Non-Af 61, BUN/Creatinine Ratio 30.4 H, Glucose 102, Calcium 7.9 L, Total Bilirubin 1.10 H, AST 43 H, ALT 30, Alkaline Phosphatase 354 H, Total Protein 4.9 L, Albumin 1.5 L, Globulin 3.4, Albumin/Globulin Ratio 0.4 L 01/08/20 05:50: PT 14.6, INR 1.2, APTT 30.5 Current Medications Acetaminophen (Tylenol) 650 mg PO Q6H PRN PRN PRN Reason: Pain Score 1-10/Temp > 100.7 F Last Admin: 01/08/20 03:46 Dose: 650 mg Documented by: Albuterol/Ipratropium (Duoneb) 3 ml INHALATION Q6H.RT DARLIN Last Admin: 01/08/20 12:54 Dose: 3 ml Documented by: Furosemide (Lasix) 40 mg PO DAILY DARLIN Last Admin: 01/08/20 11:13 Dose: 40 mg Documented by: Guaifenesin (Robitussin Dm) 10 ml PO Q6H PRN PRN PRN Reason: COUGH Last Admin: 01/07/20 20:11 Dose: 10 ml Documented by: Cefazolin Sodium 2 gm/ Sodium (Chloride) 110 mls @ 150 mls/hr IV PREOP ONE Stop: 01/09/20 09:43 Megestrol Acetate (Megace) 40 mg PO BID [facility] Last Admin: 01/08/20 11:13 Dose: 40 mg Documented by: Melatonin (Melatonin) 10 mg PO QHS [facility] Last Admin: 01/07/20 21:06 Dose: 10 mg Documented by: Metoclopramide HCl (Reglan) 5 mg PO TIDCM [facility] Last Admin: 01/08/20 11:13 Dose: 5 mg Documented by: Mirtazapine (Remeron) 30 mg PO QHS [facility] Last Admin: 01/07/20 21:06 Dose: 30 mg Documented by: Morphine Sulfate () 1 mg IV Q4H PRN PRN PRN Reason: Pain Score 6-10/10 Last Admin: 01/08/20 12:33 Dose: 1 mg Documented by: Ondansetron HCl (Zofran) 4 mg IV Q8H PRN PRN PRN Reason: NAUSEA/VOMITING Last Admin: 01/07/20 16:09 Dose: 4 mg Documented by: Pantoprazole Sodium (Protonix) 20 mg PO DAILY [facility] Last Admin: 01/08/20 11:13 Dose: 20 mg Documented by: Senna/Docusate Sodium (Senokot-S, Deaan-Colace) 2 tablet PO BID PRN PRN PRN Reason: Constipation Last Admin: 01/07/20 12:52 Dose: 2 tablet Documented by: Sodium Chloride () 10 - 40 ml IV UD PRN PRN Reason: SALINE FLUSH Last Admin: 01/08/20 12:33 Dose: 10 ml Documented by: Spironolactone (Aldactone) 100 mg PO DAILY [facility] Last Admin: 01/08/20 11:13 Dose: 100 mg Documented by: STROKE Vital Signs/Narrative: Vital Signs Temp Pulse Resp BP Pulse Ox 01/08/20 12:56 116 H 20 H 99 01/08/20 11:25 112 H 01/08/20 11:09 98.2 F 108 H 16 113/54 L 99 Medical Necessity - Tobacco Use Smoking Status: Never smoker Assessment/Plan All Active Problems Respiratory distress (Acute) Acute respiratory failure with hypoxia (Acute) Recurrent right pleural effusion (Acute) 1. Acute hypoxic respiratory failure 2/2 Recurrent Right pleural effusion 2/2 SCHILLING cirrhosis -s/p thora today - 800 cc out. Consult to Gen surg for pleuryx cath - arranged for tomorrow AM. 2. SCHILLING cirrhosis - terminal. Hospice consult as inpatient. Pt and family agreeable. 3. Hx DVT - hold eliquis for pleuryx cath placement. Resume after when ok with gen surg. 4. Hematuria with anemia - trend CBC. DC planning: pleuryx cath in tomorrow, home with hospice when arranged. DVT ppx: SCDs This patient was seen by Luigi Guajardo PA-C under the supervision of Dr. Collins
--- NOTE | 2020-01-08 14:56 | CASEMGMT ---
QUIN called Judi at Hospice and let her know that patient will be getting a pleurex catheter tomorrow. She thanked QUIN for the update. Lashaun CHURCH MSW
[2020-01-08] MEDS: MELATONIN 10 MG TABLET PO (21:20)
[2020-01-08] MEDS: Mirtazapine 30 MG Tablet PO (21:20)
[2020-01-09] VITALS (17 sets, daily range): BP systolic 79–111; BP diastolic 39–84; PULSE 101–154; RESP 16–24; TEMP 36.4–37.3; O2SAT 3–100; BMI 21.7
[2020-01-09] MEDS: Acetaminophen 325 MG Tablet 650 MG PO (05:38)
[2020-01-09] MEDS: Ipratropium/Albuterol Sulfate 3 ML AMPUL.NEB INHALATION ×2 (07:00→13:48)
[2020-01-09 07:11] LABS: Absolute Lymphocyte Count 1.63 X10^3/uL (0.83-4.51); Absolute Neutrophil Count 5.5 X10^3/uL (2.0-7.7); Basophil# 0.02 X10^3/uL; Basophil% 0.2 % (0-1); Eosinophil# 0.41 X10^3/uL; Eosinophils% 4.8 % (0-5); Hematocrit 26.1 % (37-47); Hemoglobin 8.3 g/dL (12.0-15.0); Lymphocyte # 1.63 X10^3/ul (4.0); Mean Corp Hgb Conc 31.8 g/dL (32-36); Mean Corpuscular Hgb 32.9 pg (27.0-32.0); Mean Corpuscular Volume 103.6 fL (81-99); Mean Platelet Vol. 9.2 fl (6.2-12.0); Monocyte% 11.7 % (0-10); NRBC Flagged by Analyzer 0 % (0-5); Neutrophil # 5.47 X10^3/uL (2.7-7.7); Neutrophil % 63.8 % (47-70); Platelet Count 172 K/mm3 (150-450); RBC Distribution Width CV 17.1 % (11.6-14.6); RBC Distribution Width SD 63.1 fl (35.1-43.9); Red Blood Count 2.52 M/mm3 (4.2-5.4); White Blood Count 8.6 K/mm3 (4.4-11.0)
[2020-01-09 07:29] LABS: Anion Gap 4 (5-15); BUN 25 mg/dL (7-18); BUN/Creat Ratio 27.6 RATIO (10-20); Calcium,Total 7.7 mg/dL (8.5-10.1); Chloride 104 mmol/L (98-107); Creatinine, Serum 0.91 mg/dL (0.55-1.02); EST Glomerular Filtration Rate 64 mL/min (>60); Est Glom Filt Rate - Afr Amer 78 mL/min (>60); Estimated Creatinine Clearance 48.07 ml/min; Glucose 91 mg/dL (74-106); Magnesium 1.7 mg/dL (1.6-2.6); Potassium 3.8 mmol/L (3.5-5.1); Sodium Level 138 mmol/L (136-145)
[2020-01-09] MEDS: 0.9% Saline Lock 10 ML Syringe IV ×2 (08:34→13:10)
--- NOTE | 2020-01-09 09:35 | CASEMGMT ---
Addendum entered by Lashaun Charles 01/09/20 09:40: SW also called Judi with Hospice and updated her. She said she spoke with Dr Skinner and made him aware of the situation. She does not think it will be a problem getting patient approved to come to the inpatient unit. Physician or PA at [facility] will still need to call Dr Skinner with Hospice. Lashaun HURD Original Note: SW spoke with patient's this am in patient's room. He said they would like patient to go to the inpatient Hospice unit. SW let him know SW will be communicating with Hospice to help coordinate the transition. He thanked SW for checking in with him. Lashaun CHURCH MSW
[2020-01-09] MEDS: Cefazolin 2 GM in 0.9% Normal Saline 100 ML IV (09:46)
[2020-01-09] MEDS: Bupivacaine Mpf 0.5% 30 ML VIAL (10:00)
--- NOTE | 2020-01-09 10:22 | DCINST_ITS ---
- Discharge Diagnoses Current Active Problems: Current Active and Chronic Problems Respiratory distress (Acute) Acute respiratory failure with hypoxia (Acute) Pleural effusion (Chronic) You will use the following diet at home:: No restrictions Your food should be the consistency of: Regular Your liquids should be the consistency of: Regular/Thin Discharge Activity: Return to Normal Activity Additional Instructions: Pleuryx cath use will be directed by hospice care. Allergies/Adverse Reactions: Allergies Sulfa (Sulfonamide Antibiotics) Allergy (Verified 01/05/20 15:24) Swelling Medications to take at Discharge Melatonin 10 mg PO QHS 05/16/19 Atorvastatin Calcium [Lipitor] 20 mg PO QHS #30 tab 07/13/19 Hydrocortisone 2.5% Crm [Hytone] 1 applic RECTAL BID PRN 10/12/19 Metoclopramide HCl 5 mg PO TIDCM 10/12/19 Ondansetron HCl [Zofran] 4 mg PO Q8H PRN PRN 10/12/19 Pantoprazole Sodium [Protonix] 20 mg PO DAILY 10/12/19 Spironolactone 100 mg PO DAILY 10/12/19 Pseudoephed/Codeine/Guaifen [Virtussin DAC Liquid] 473 ml PO DAILY PRN 12/15/19 Megestrol [Megace] 40 mg PO BID #60 tab 12/19/19 Mirtazapine [Remeron] 30 mg PO QHS 01/03/20 Acetaminophen [Tylenol Tablet] 650 mg PO Q6H PRN PRN tab 01/05/20 Apixaban [Eliquis] 5 mg PO BID #74 tab 01/09/20 Furosemide [Lasix] 40 mg PO DAILY tab 01/09/20 Guaifenesin Dm [Robitussin Dm] 10 ml PO Q6H PRN PRN udc 01/09/20 Primary Care Physician: Eagle Dang MD [Primary Care Provider] - Please follow up with your Primary Care Physician in: as needed Test Results: Test results from this visit will be discussed in further detail at your follow- up appointment, if applicable. Please Follow Up With: Hospice care When: as directed Proposed Discharge Date: 01/09/20
--- NOTE | 2020-01-09 10:30 | RAD_ITS ---
STUDY: X-RAY CHEST REASON FOR EXAM: Female, 74 years old. CHEST TUBE PLACEMENT TECHNIQUE: Single AP portable view of the chest. COMPARISON: Comparison is made with prior examination dated January 08, 2020. FINDINGS: A right sided chest tube has been placed. The tip is along the inferior medial portion of the right hemithorax. Stable appearance of the pleural parenchymal changes at the right lung base as well as the left base. Normal size heart. Normal mediastinum and luz elena. Normal visualized pulmonary arteries. There is atherosclerotic tortuosity of the aortic arch and descending thoracic aorta. Normal visualized thoracic spine. Normal visualized ribs, clavicles, and shoulders. There is no demonstrated abnormality of the visualized soft tissue structures of the upper abdomen. RAD/CXR for Line Placement IMPRESSION: Status post right chest tube placement with the tip in the medial inferior aspect of the right hemithorax. Residual right pleural-parenchymal changes persist. Electronically Signed: Jass Le, at 11:11 EDT , Service support ,
--- NOTE | 2020-01-09 10:30 | PCM.OPRPT ---
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 The right chest was prepped and draped in usual sterile fashion. Ultrasound was used to localize an intercostal on the right side where there was fluid. The skin was anesthetized in 2 places and 2 incisions were made. The needle was placed under ultrasound guidance into the pleura and the syringe was drawn back and pleural fluid was returned. Guidewire was placed and the needle was removed. Next the catheter was placed into the lower incision and tunneled to the upper incision. The dilator peel-away sheath was placed over the guidewire and the guidewire was removed. The catheter was placed through the peel-away sheath and the peel-away sheath was peeled away. The upper incision was closed with interrupted 3-0 Vicryl suture as well as Dermabond glue. The lower incision was closed and sutured to the catheter using the included suture. The catheter was placed to suction and approximately 1700 cc of thin straw-colored fluid were removed. Patient reports that she is breathing much easier. Patient was brought back in stable condition. - Admit VTE Documentation VTE Mechan Device Prophylaxis: SCD's
--- NOTE | 2020-01-09 11:05 | PHA.DC.MR ---
Pharmacy Service has performed discharge medication reconciliation for this patient. The patient's discharge medication list was reviewed for discrepancies and discrepancies were resolved. Home Medications Melatonin 10 mg PO QHS 05/16/19 Atorvastatin Calcium [Lipitor] 20 mg PO QHS #30 tab 07/13/19 Hydrocortisone 2.5% Crm [Hytone] 1 applic RECTAL BID PRN 10/12/19 Metoclopramide HCl 5 mg PO TIDCM 10/12/19 Ondansetron HCl [Zofran] 4 mg PO Q8H PRN PRN 10/12/19 Pantoprazole Sodium [Protonix] 20 mg PO DAILY 10/12/19 Spironolactone 100 mg PO DAILY 10/12/19 Pseudoephed/Codeine/Guaifen [Virtussin DAC Liquid] 473 ml PO DAILY PRN 12/15/19 Megestrol [Megace] 40 mg PO BID #60 tab 12/19/19 Mirtazapine [Remeron] 30 mg PO QHS 01/03/20 Acetaminophen [Tylenol Tablet] 650 mg PO Q6H PRN PRN tab 01/05/20 Apixaban [Eliquis] 5 mg PO BID #74 tab 01/09/20 Furosemide [Lasix] 40 mg PO DAILY tab 01/09/20 Guaifenesin Dm [Robitussin Dm] 10 ml PO Q6H PRN PRN udc 01/09/20
[2020-01-09] MEDS: Pantoprazole Sodium 20 MG Tablet PO (11:16)
[2020-01-09] MEDS: Megestrol 40 MG Tablet PO (11:16)
[2020-01-09] MEDS: Metoclopramide 5 MG TABLET PO (11:16)
--- NOTE | 2020-01-09 11:50 | CASEMGMT ---
HUSSAIN Meyers spoke with Dr Skinner from Hospice. He agreed to allow patient to come to the inpatient unit. QUIN spoke with Judi with Hospice and she said patient can come today. She asked SW to set up transport. QUIN called [facility] and arranged for patient to get picked up at 2p via cot. QUIN notified patient's , RN, workers compensation legal secretary, charge account clerk, and Naveed at Hospice. QUIN faxed d/c information to Hospice. SW will make sure there is a DNR order in place. aLshaun CHURCH SERVICENOW ADMINISTRATOR DEVELOPER
--- NOTE | 2020-01-09 12:25 | NURSING ---
Report called to Cleo at the inpatient hospice unit at this time.
--- NOTE | 2020-01-09 12:35 | DS.PCM_ITS ---
Discharge Date and Diagnosis - Problem List Patient Problems: Active and Suspected Problems Respiratory distress (Acute) Acute respiratory failure with hypoxia (Acute) Date of Admission: 01/05/20 Date of Discharge: 01/09/20 - Primary Discharge Diagnosis Acute Problems: Active Problems Recurrent pleural effusion 2/2 SCHILLING cirrhosis Chronic hypoxic resp failure, acute resp failure ruled out. Hx DVT Recent hematuria with anemia - Secondary Discharge Diagnosis Chronic Problems: Chronic Problems Kidney stones (Chronic) Debility (Chronic) Body mass index (BMI) 35.0-35.9, adult (Chronic) Hydroureter, left (Chronic) Hydronephrosis, left (Chronic) Hypertension (Chronic) Hyperlipidemia (Chronic) Melanoma (Chronic) Lumbar spondylosis (Chronic) Vitamin D deficiency (Chronic) Iron deficiency anemia (Chronic) Overactive bladder (Chronic) Recurrent kidney stones (Chronic) Depression (Chronic) Urinary retention (Chronic) Osteoarthritis (Chronic) 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 (Chronic) DVT, bilateral lower limbs (Chronic) GERD (gastroesophageal reflux disease) (Chronic) Pleural effusion (Chronic) Hospital Course and Treatment Imaging Results: IMAGING: RAD/Chest 1 View (Portable) IMPRESSION: No change in large right pleural effusion with right lower lobe atelectasis US/Thoracentesis W US IMPRESSION: Ultrasound-guided right thoracentesis. RAD/Chest Insp/Exp 2 View IMPRESSION: Status post right thoracentesis. No evidence of pneumothorax following the thoracentesis. RAD/CXR for Line Placement IMPRESSION: Status post right chest tube placement with the tip in the medial inferior aspect of the right hemithorax. Residual right pleural-parenchymal changes persist. Consults: Dr. Lakhani - Gen Surg Operations: None Procedures: None Summary of Care Provided: Hospital Course: The patient is a 74 year old F with pmhx of SCHILLING cirrhosis who presented to the ER the same day she was discharged with recurrent SOB. She left the hospital that morning off o2 tho she uses 4lpm at home at baseline after being treated for pleural effusion with thoracentesis. She came in to the ER and was felt to have recurrence of her pleural effusion. She has been having increased frequency of pleural effusions and ascites. She was stable on 4lpm o2. She was kept in the hospital until wednesday and was stably, at which point she underwent a thoracentesis during which 800 cc of fluid was removed. With her recurrent effusions and increasing frequency of accumulation requiring taps we discussed hospice care and a pleuryx catheter placement to continue draining without trips to the hospital. The patient was agreeable to both. Pleuryx cath was placed on 01/09/20. She remained stable following the placement and later was discharged to inpatient hospice. She remains in stable condition at the time of discharge. Further care as directed by hospice. She has a hx of DVTs, eliquis was held for thora and recent hematuria. If she has no evidence of bleeding she may resume eliquis. This patient was seen by Luigi Guajardo PA-C under the supervision of Dr. Collins. [] Patient Problems: Active and Suspected Problems Respiratory distress (Acute) Acute respiratory failure with hypoxia (Acute) - Physical Exam Vitals/I&O's: Vital Signs Temp Pulse Resp BP Pulse Ox 98.5 F 111 H 18 92/55 L 3 01/09/20 11:10 01/09/20 11:10 01/09/20 11:10 01/09/20 11:10 01/09/20 11:10 Oxygen Flow Rate (L/min) [6] 3 Oxygen Flow Rate (L/min) [5] 3 Oxygen Flow Rate (L/min) [4] 3 Oxygen Flow Rate (L/min) [3] 3 Oxygen Flow Rate (L/min) [2] 3 Oxygen Flow Rate (L/min) [1 ( 3 Initial Baseline)] Oxygen Flow Rate (L/min) 3 Oxygen Delivery Method [6] Nasal Cannula Oxygen Delivery Method [5] Nasal Cannula Oxygen Delivery Method [4] Nasal Cannula Oxygen Delivery Method [3] Nasal Cannula Oxygen Delivery Method [2] Nasal Cannula Oxygen Delivery Method [1 ( Nasal Cannula Initial Baseline)] Oxygen Delivery Method Nasal Cannula Weight: 130 lb 4.691 oz Body Mass Index (BMI) 21.7 Intake and Output for Last 24 Hours 01/07/20 01/08/20 01/09/20 23:59 23:59 23:59 Intake Total 995 / 995 360 / 360 110 / 110 Output Total 850 / 850 1950 / 1950 Balance 995 / 995 -490 / -490 -1840 / -1840 General: Alert, Oriented x3, Cooperative HEENT: Atraumatic, PERRLA, EOMI, Normocephalic Neck: Supple, No JVD, Negative Carotid Bruits Lungs: Clear to auscultation, Normal air movement Cardiovascular: Regular rate, No murmurs Abdomen: Bowel Sounds Present, Soft, Non Tender Extremities: No edema, Capillary Refill Less than 3 Seconds Skin: No rashes, No breakdown Musculoskeletal: No Tenderness to Palpation of Joints or Extremities Neurological: Cranial nerves II-XII grossly intact Psych/Mental Status: Normal Affect, Appropriate, Alert and oriented to time, place, person, mood and affect Laboratory Results 01/09/20 07:00: WBC 8.6, RBC 2.52 L, Hgb 8.3 L, Hct 26.1 L, MCV 103.6 H, MCH 32.9 H, MCHC 31.8 L, RDW Std Deviation 63.1 H, RDW Coeff of Shane 17.1 H, Plt Count 172, MPV 9.2, Immature Gran % (Auto) 0.500, Neut % (Auto) 63.8, Lymph % (Auto) 19.0, [place] % (Auto) 11.7 H, Eos % (Auto) 4.8, Baso % (Auto) 0.2, Absolute Neuts (auto) 5.5, Absolute Lymphs (auto) 1.63, Nucleated RBC % 0 01/09/20 07:00: Sodium 138, Potassium 3.8, Chloride 104, Carbon Dioxide 30.0, Anion Gap 4 L, BUN 25 H, Creatinine 0.91, Estim Creat Clear Calc 48.07, Est GFR (MDRD) Af Amer 78, Est GFR (MDRD) Non-Af 64, BUN/Creatinine Ratio 27.6 H, Glucose 91, Calcium 7.7 L, Magnesium 1.7 Current Medications Acetaminophen (Tylenol) 650 mg PO Q6H PRN PRN PRN Reason: Pain Score 1-10/Temp > 100.7 F Last Admin: 01/09/20 05:38 Dose: 650 mg Documented by: Albuterol/Ipratropium (Duoneb) 3 ml INHALATION Q6H.RT DARLIN Last Admin: 01/09/20 07:00 Dose: 3 ml Documented by: Furosemide (Lasix) 40 mg PO DAILY D[facility]LIN Last Admin: 01/09/20 11:32 Dose: Not Given Documented by: Guaifenesin (Robitussin Dm) 10 ml PO Q6H PRN PRN PRN Reason: COUGH Last Admin: 01/07/20 20:11 Dose: 10 ml Documented by: Megestrol Acetate (Megace) 40 mg PO BID [facility] Last Admin: 01/09/20 11:16 Dose: 40 mg Documented by: Melatonin (Melatonin) 10 mg PO QHS [facility] Last Admin: 01/08/20 21:20 Dose: 10 mg Documented by: Metoclopramide HCl (Reglan) 5 mg PO TIDCM [facility] Last Admin: 01/09/20 11:16 Dose: 5 mg Documented by: Mirtazapine (Remeron) 30 mg PO QHS [facility] Last Admin: 01/08/20 21:20 Dose: 30 mg Documented by: Morphine Sulfate () 1 mg IV Q4H PRN PRN PRN Reason: Pain Score 6-10/10 Last Admin: 01/08/20 16:50 Dose: 1 mg Documented by: Ondansetron HCl (Zofran) 4 mg IV Q8H PRN PRN PRN Reason: NAUSEA/VOMITING Last Admin: 01/07/20 16:09 Dose: 4 mg Documented by: Pantoprazole Sodium (Protonix) 20 mg PO DAILY [facility] Last Admin: 01/09/20 11:16 Dose: 20 mg Documented by: Senna/Docusate Sodium (Senokot-S, Deana-Colace) 2 tablet PO BID PRN PRN PRN Reason: Constipation Last Admin: 01/07/20 12:52 Dose: 2 tablet Documented by: Sodium Chloride () 10 - 40 ml IV UD PRN PRN Reason: SALINE FLUSH Last Admin: 01/09/20 08:34 Dose: 10 ml Documented by: Spironolactone (Aldactone) 100 mg PO DAILY [facility] Last Admin: 01/09/20 11:32 Dose: Not Given Documented by: Discharge Diet: No Restrictions Discharge Activity: Return to Normal Activity Home Medications: Medications to take at Discharge Melatonin 10 mg PO QHS 05/16/19 Atorvastatin Calcium [Lipitor] 20 mg PO QHS #30 tab 07/13/19 Hydrocortisone 2.5% Crm [Hytone] 1 applic RECTAL BID PRN 10/12/19 Metoclopramide HCl 5 mg PO TIDCM 10/12/19 Ondansetron HCl [Zofran] 4 mg PO Q8H PRN PRN 10/12/19 Pantoprazole Sodium [Protonix] 20 mg PO DAILY 10/12/19 Spironolactone 100 mg PO DAILY 10/12/19 Pseudoephed/Codeine/Guaifen [Virtussin DAC Liquid] 473 ml PO DAILY PRN 12/15/19 Megestrol [Megace] 40 mg PO BID #60 tab 12/19/19 Mirtazapine [Remeron] 30 mg PO QHS 01/03/20 Acetaminophen [Tylenol Tablet] 650 mg PO Q6H PRN PRN tab 01/05/20 Apixaban [Eliquis] 5 mg PO BID #74 tab 01/09/20 Furosemide [Lasix] 40 mg PO DAILY tab 01/09/20 Guaifenesin Dm [Robitussin Dm] 10 ml PO Q6H PRN PRN udc 01/09/20 Primary Care Physician: Eagle Dang MD [Primary Care Provider] - Please follow up with your Primary Care Physician in: as needed Please Follow Up With: Hospice care When: as directed Disposition: Hospice Medical Facility Minutes spent on discharge:: 40 Patient Condition:: Stable Medical Necessity - Tobacco Use Smoking Status: Never smoker Meaningful Use Info Meaningful Use Diagnoses (Choose all that apply): None applicable
[2020-01-09] MEDS: Ondansetron 4 MG/2 ML Vial IV (13:10)
== END 2020-01-09 14:14 | disposition hospice, inpatient (51) | DRG 433 ==
LOC: ED 16:20 → PCU 19:51
PROVIDERS: Physician Assistant; Surgery; Admitting Provider Hospitalist; Emergency Provider Emergency Medicine; PCP Family Medicine; Visit Provider Internal Medicine
PROC: 0W9930Z Drainage of Right Pleural Cavity with Drainage Device, Percutaneous Approach (ICD-10-PCS; CPT 32550; principal; 2020-01-09 09:30)
DX: K74.60 Unspecified cirrhosis of liver (principal); J90 Pleural effusion, not elsewhere classified; J96.11 Chronic respiratory failure with hypoxia; R18.8 Other ascites; E44.0 Moderate protein-calorie malnutrition; K75.81 Nonalcoholic steatohepatitis (NASH); Z86.718 Personal history of other venous thrombosis and embolism; R31.9 Hematuria, unspecified; Z68.21 Body mass index [BMI] 21.0-21.9, adult; F32.9 Major depressive disorder, single episode, unspecified; K21.9 Gastro-esophageal reflux disease without esophagitis; E78.5 Hyperlipidemia, unspecified; I10 Essential (primary) hypertension; Z87.442 Personal history of urinary calculi; Z80.8 Family history of malignant neoplasm of other organs or systems; Z79.01 Long term (current) use of anticoagulants; Z82.0 Family history of epilepsy and other diseases of the nervous system; Z82.49 Family history of ischemic heart disease and other diseases of the circulatory system; Z85.820 Personal history of malignant melanoma of skin; Z90.710 Acquired absence of both cervix and uterus; Z96.659 Presence of unspecified artificial knee joint; Z51.5 Encounter for palliative care; Z82.3 Family history of stroke; D50.0 Iron deficiency anemia secondary to blood loss (chronic); N32.81 Overactive bladder
CPT/HCPCS: 32555; 36415; 36600; 71045; 71046; 80048; 80053; 82803; 83735; 85025; 85610; 85730; 93005; 94640; 97802; 99284; J7120; A4216; C1729; J2405